=== PATIENT | female | born 1940 | race Caucasian/White ===

== ENCOUNTER 2024-04-26 16:09 | Inpatient (IN) | payer MEDICARE, MEDICAID, SELFPAY ==
[2024-04-26] VITALS (9 sets, daily range): BP systolic 121–146; BP diastolic 41–97; BMI 28.0
[2024-04-26 12:14] LABS: % Basophils 0.2 % (0-2); % Eosinophils 1.6 % (0-6); % Lymphocytes 16.4 % (20.5-51.1); % Monocytes 4.9 % (1.7-9.3); % Neutrophils 75.9 % (42.2-75.2); Absolute Eosinophils 0.1 10^3/uL (0-0.7); Absolute Immature Granulocytes 0.1 10^3/uL (0-0.05); Absolute Lymphocytes 1.4 10^3/uL (1.2-3.4); Absolute Monocytes 0.4 10^3/uL (0.1-0.6); Absolute Neutrophils 6.5 10^3/uL (1.4-6.5); Hematocrit 24.3 % (37.0-47.0); Hemoglobin 8.4 g/dL (12.0-16.0); Mean Corp Hgb Conc. 34.6 g/dL (33.0-37.0); Mean Corpuscular Hgb 31.1 pg (27.0-31.0); Mean Platelet Volume 9.7 fL (7.4-10.4); Nucleated Red Blood Cells % 0 %; Platelet Count 148 10^3/uL (130-400); Red Cell Dist. Width 15.8 % (11.5-14.5); White Blood Cell Count 8.6 10^3/uL (4.8-10.8)
[2024-04-26 12:25] LABS: ALT (SGPT) 18 U/L (0-35); AST (SGOT) 21 U/L (14-36); Alkaline Phosphatase 120 U/L (38-126); Blood Urea Nitrogen 86 mg/dl (7-17); Calcium 9.6 mg/dl (8.4-10.2); Carbon Dioxide 11 mmol/L (22-30); Chloride 110 mmol/L (98-107); Glucose 104 mg/dl (70-99); Potassium 4.7 mmol/L (3.5-5.1); Sodium 136 mmol/L (135-145); Total Bilirubin 0.6 mg/dl (0.2-1.3); eGFR 13.18
[2024-04-26 12:31] LABS: Troponin I 0.025 ng/ml
--- NOTE | 2024-04-26 12:39 | ED.GENMED ---
History of Present Illness
General
Chief Complaint: Abdominal Pain
Source: patient
Exam Limitations: none
Time Seen by Provider: 04/26/24 12:02
Nursing documentation reviewed up to this point in time: agreed with
History of Present Illness
History of Present Illness:
Patient is an 84-year-old female for Unsocial with a history of chronic kidney disease stage III, hypertension, paroxysmal A-fib, COPD, type 2 diabetes presents for 2 days of both left-sided chest pain as well as right lower quadrant pain.
Patient says that she started feeling this discomfort in her chest and felt a little short of breath. It was initially a little bit worse in her chest but seems to have progressed more in her belly. Its on the right side more than the left. She
asked the nurse to call 911 last night but they told her that they were unable to reach one of the physicians so they would call in the morning. Patient says she did not sleep well and she has not been having an appetite. She also vomited once
this morning. She has no fever or chills, urinary symptoms, diarrhea, constipation. Patient previously had an open cholecystectomy remotely. She does have chronic kidney disease and was unaware of what her baseline creatinine is. She is never
been here before. I called the residential and they told me last year her creatinine was 2.7 and her hemoglobin was 8
Past History
Past History
ED Past Medical History: Arrthythmia (paf), CAD, COPD, HTN, Hypercholesterolemia and Other (CKD STAGE III)
Social History
Tobacco: Non-smoker
Alcohol: None
Review of Systems
Review of Systems
Allergies reviewed?: Yes
All Other Systems: Not applicable
Phy Exam
Physical Exam
Physical Exam:
GENERAL: Alert , in no apparent distress
EYE: pupils equal and reactive
NECK: Supple
ENT: o/p clr, mmm.
CARDIAC: Regular rate and rhythm .
LUNGS: Clear breath sounds bilaterally, no acute respiratory distress, no wheezes/rales/rhonchi
ABDOMEN: Soft, mild ruight sided abdominal tendneress, R flank/RLQ, no r/g, no cvat, normal bowel sounds
NEUROLOGICAL: Alert and oriented, no focal neuro deficits
SKIN: Warm and dry, skin intact.
MUSCULOSKELETAL: No edema, well perfused. neg lucien's sign
PSYCH: Normal and appropriate interaction.
Course
Orders/Labs/Results
Orders:
Orders
04/26/24 Lunch
NPO
Allow oral meds: Yes
Allow clear liquids: No
04/26/24 11:36
Electrocardiogram (*1) Urgent
Reason for Study: Chest Pain
04/26/24 11:37
EKG- Treatment ONCE
04/26/24 11:38
Complete Blood Count/With Diff Urgent
Comprehensive Metabolic Panel Urgent
Ferritin Urgent
Comment: ADD ON
Folate Urgent
Comment: ADD ON
Iron Urgent
Comment: ADD ON
LDH Urgent
Comment: ADD ON
Lipase Urgent
Total Iron Binding Urgent
Comment: ADD ON
Troponin I Urgent
Vitamin B12 Urgent
Comment: ADD ON
04/26/24 12:30
Bladder Scan- Treatment ONCE
04/26/24 12:40
0.9% Sodium Chloride 500 ml [Nss] 500 ml IV BOLUS
04/26/24 12:41
CT Abd/pel Without Iv Or Oral Urgent
Comment:
Reason For Exam: rlq pain, vomting, ckd;
CR Chest - 2 Views Urgent
Comment:
Reason For Exam: left sided chest pain
04/26/24 12:45
Lactic Acid Q4H
Comment: CANCEL 2nd LACTIC ACID IF 1st LACTIC ACID IS LESS THAN 2
Venous Blood Gas Urgent
%Oxygen/Room Air: 21
04/26/24 12:52
Urinalysis Reflex To Culture Urgent
Date Specimen was Collected: 04/26/24
Time Specimen was Collected: 12:46
Urine Microscopic Reflex Cult Urgent
Urine Culture Urgent
NOLBERTO Source: U
Specimen Description:
Date Specimen was Collected: 04/26/24
Time Specimen was Collected: 12:46
04/26/24 13:09
Add On- LAB Urgent
Tests Added?: LDH
Lactated Ringers [Lr] 500 ml IV BOLUS
04/26/24 14:11
Add On- LAB Urgent
Tests Added?: triglycerides
04/26/24 14:14
Add On- LAB Urgent
Tests Added?: tibc, ferritin, iron, b12 folate
04/26/24 14:15
0.9% Sodium Chloride 1000 ml [Nss] 1,000 ml IV 150 mls/hr
04/26/24 14:46
GASTROINTESTINAL CONSULT Routine
Consulting Provider: Arabella Tinoco
Was physician already notified: Yes
Reason for consult: acut pnacreatitis
04/26/24 15:00
Lactated Ringers [Lr] 1,000 ml IV 150 mls/hr
04/26/24 15:07
Add On- LAB Urgent
Tests Added?: trigylcerides
04/26/24 16:45
Lactic Acid Q4H
Comment: CANCEL 2nd LACTIC ACID IF 1st LACTIC ACID IS LESS THAN 2
04/27/24 08:00
0.9% Sodium Chloride [Nss (Preservative Free)] 10 ml IV DAILY
Pantoprazole [Protonix IV] 40 mg IV DAILY
Abnormal Lab Results
04/26/24 04/26/24 04/26/24
11:38 12:45 12:52
RBC 2.70 L 10^6/uL
(4.20-5.40)
Hgb 8.4 L g/dL
(12.0-16.0)
Hct 24.3 L %
(37.0-47.0)
MCH 31.1 H pg
(27.0-31.0)
RDW 15.8 H %
(11.5-14.5)
Abs Immat Gran (auto) 0.1 H 10^3/uL
(0-0.05)
Immature Gran % 1.0 H %
(0-0.5)
Neutrophils % 75.9 H %
(42.2-75.2)
Lymphocytes % 16.4 L %
(20.5-51.1)
VBG pH 7.21 L
(7.32-7.43)
VBG pO2 158 H mmHg
(30-50)
VBG HCO3 14.0 L mmol/L
(22-27)
Chloride 110 H mmol/L
(98-107)
Carbon Dioxide 11 L* mmol/L
(22-30)
BUN 86 H mg/dl
(7-17)
Creatinine 3.3 H mg/dL
(0.6-1.0)
Glucose 104 H mg/dl
(70-99)
Lactic Acid < 0.5 L mmol/L
(0.7-2.0)
TIBC 249 L ug/dl
(265-497)
Lipase > 4000 H* U/L
(23-300)
Ur Occult Blood Reflex 4+ A
(Negative)
Leukocyte Esterase Rfl 2+ A
(Negative)
Urine WBC (Reflex) 40-50 A /HPF
(0-5)
Urine Bacteria (Reflex) Moderate A
(Negative)
Urine Albumin (Reflex) 2+ A
(Neg - Trace)
04/26/24 11:38
04/26/24 11:38
Vital Signs
Initial and Last Documented VS:
Initial Vital Signs
Resp BP
19 142/49
04/26/24 11:35 04/26/24 11:35
Last Documented Vital Signs
Temp Pulse Resp BP Pulse Ox
97.4 F 70 17 121/97 97
04/26/24 11:36 04/26/24 13:45 04/26/24 13:45 04/26/24 13:00 04/26/24 13:45
MDM/Problems Addressed
Differential Diagnosis Includes:
appe, kidney stone, ACS, divertic, pancreatitis
MDM/Problems Addressed:
84 y/o F
ckd stage III
cr int he 2's last year
here with 2-3 days of chest pain and abdominal pain, 1 episode vomiting, dec appetite
no fever, cough
no sob now though she said she felt SOB when sypmtoms started
she asked the RN to get her to the [facility] but they told her they couldn't until today
she has stable vitals
looks a little uncomfortable and has some tenderness but no rebound
labs reviewed, hg stable, lipase 4000, normal bili
ct ap confirms acute pancreatitis
admit for ivf, pain control, bowel rest
trop neg
*Critical Care Note
Total Time (30-74mins, 75-104mins- exclusive of procedures): Not Applicable
ED Attending Note
-
Portions of this chart may have been created with voice recognition software.� Occasional wrong word or��sound alike� substitutions may have occurred due to the inherent limitations of voice recognition software.
Discharge Plan
Departure
Patient Disposition: Admit
Date of Disposition: 04/26/24
Time of Disposition: 13:17
Admit to: IMU
Presentation/result/management discussed w/ accepting MD/DO: Hospitalist
Condition: Fair
Covid-19: Not Applicable
Discharge Problem:
Acute pancreatitis, Chest pain, Metabolic acidosis
Prescriptions:
No Action
hydralazine 10 mg Tablet
10 mg PO Q8H
acetaminophen 325 mg Tablet
650 mg PO Q4HPRN MDD 3000 mg PRN (Reason: mild pain/fever >101)
loperamide 2 mg Tablet
2 mg PO Q6HPRN PRN (Reason: diarrhea)
allopurinol 100 mg Tablet
50 mg PO Q48H
carvedilol 3.125 mg Tablet
3.125 mg PO BID
ondansetron [Zofran ODT] 8 mg Tablet,Disintegrating
8 mg PO Q8HPRN PRN (Reason: nausea)
famotidine [Pepcid] 20 mg Tablet
20 mg PO Q8HPRN PRN (Reason: GERD)
magnesium hydroxide 400 mg/5 mL Suspension
30 ml PO [id number] PRN (Reason: no bm 3 days)
amlodipine 10 mg Tablet
10 mg PO DAILY
bisacodyl 10 mg Suppository
10 mg CO DAILYPRN PRN (Reason: no bm 24 hrs after mom)
Fleet Enema 19-7 gram/118 mL Enema
118 ml CO DAILYPRN PRN (Reason: no bm 24 hrs after bisacodyl)
sertraline [Zoloft] 25 mg Tablet
25 mg PO DAILY
alum-mag hydroxide-simeth [Maalox Maximum Strength] 400-400-40 mg/5 mL Suspension
5 ml PO Q6HPRN PRN (Reason: reflux)
Saccharomyces boulardii [Florastor] 250 mg Capsule
250 mg PO BIDPRN PRN (Reason: diarrhea)
PreserVision AREDS 4,296 mcg-226 mg-90 mg Capsule
1 cap PO DAILY
melatonin 5 mg Tablet
5 mg PO BIDPRN PRN (Reason: insomnia)
cholecalciferol (vitamin D3) 75 mcg (3,000 unit) Tablet
75 mcg PO DAILY
Eliquis 2.5 mg Tablet
2.5 mg PO BID
lidocaine HCl [Aspercreme (lidocaine HCl)] 4 % Cream
1 applic TOPICAL Q6HPRN PRN (Reason: back and neck)
Eucerin Itch Relief 0.1 % Lotion
1 ea TOPICAL DAILY
Referrals:
Zoila Massey, [Family Provider] -
Interventions
Interventions:
*Risk Screen - Suicide Last Done: 04/26/24 11:36
*General Assessment Last Done: 04/26/24 11:36
*Neglect/Abuse Screening Last Done: 04/26/24 11:36
PE-Lhghdi-Yxfvkpaknz Assessment Last Done: 04/26/24 11:49
Discharge Date and Time
Print Language: AMHARIC
[2024-04-26] MEDS: NSS 500 IV (13:06)
[2024-04-26 13:07] LABS: Lipase > 4000 U/L (23-300)
[2024-04-26 13:16] LABS: Venous Blood Gas B.E. -12.8 mmol/L (-4 to +4); Venous Blood Gas O2 Sat % 99.9 %; Venous Blood Gas pCO2 35 mmHg (35-48); Venous Blood Gas pH 7.21 (7.32-7.43); Venous Blood Gas pO2 158 mmHg (30-50)
[2024-04-26 13:17] LABS: Venous Blood Gas O2 Therapy 21
[2024-04-26 13:18] LABS: Urine Albumin 2+ (Neg - Trace); Urine Bilirubin Negative (Negative); Urine Character Slightly Cloudy (Clear); Urine Color Yellow; Urine Glucose Negative (Negative); Urine Ketone Negative (Negative); Urine Leukocyte 2+ (Negative); Urine Nitrite Negative (Negative); Urine Occult Blood 4+ (Negative); Urine Urobilinogen Negative (Neg - 1+)
[2024-04-26 13:23] LABS: Urine Squamous Cell 0-2 /LPF (Few)
[2024-04-26 13:24] LABS: Urine Bacteria Moderate (Negative); Urine Red Blood Cell 0-2 /HPF (0-2); Urine White Cell 40-50 /HPF (0-5)
[2024-04-26 13:34] LABS: Lactic Acid < 0.5 mmol/L (0.7-2.0)
--- NOTE | 2024-04-26 13:40 | HPS.HSE ---
Family Physician
<CHARMAINE Simpson - Last Filed: 04/26/24 17:23>
-
Family Physician: Zoila Massey DO
Chief Complaint
<CHARMAINE Simpson - Last Filed: 04/26/24 17:23>
History of Present Illness
84-year-old female from [facility] where she lives with a roommate who reports on Thursday she started to feel ill with nausea, decreased appetite, left upper chest pain through to back. She reports unable to eat food but has been attempting to
have some water. She reports the pain is across her mid abdomen increased to the right side. She also reports her left-sided chest pain goes through to her back but increased when her abdominal pain occurs, although she reported chest pain to the
EMS today and they gave her nitro which did not make a difference. She reports her roommate has pneumonia at the present time. They both have had COVID in the past. The patient denies being tested at this time. She does report some pudding-like
stool x 1 today but denies fever, chills, sore throat, palpitations, shortness of breath, urinary symptoms.
She has past medical history paroxysmal A-fib, HTN, GERD, CKD 3 A, COPD, former smoker gout, anxiety, insomnia, obesity, chronic ambulatory dysfunction uses walker at baseline.
<Carlos Valdez MD - Last Filed: 04/26/24 14:55>
-
.
Medical History
<CHARMAINE Simpson - Last Filed: 04/26/24 17:23>
Past Medical History
Past Medical History: Reports Other
Additional Past Medical History:
paroxysmal A-fib
COPD
Former smoker
HTN
GERD
CKD 3 A
gout
anxiety
insomnia
Chronic ambulatory dysfunction uses walker
Obesity
Past Surgical History: Reports Other
Additional Past Surgical History:
Cataract extraction
Cholecystectomy
Left leg surgery
Social History
Tobacco: Former Smoker (Quit age 41)
Alcohol: None
Drug: None
Personal: Single
Living: Halfway ([facility])
Employment: Retired
Family History
Family History: Not pertinent
Allergies / Home Medications
Allergies reflects when Allergies were last updated in [facility].
Home Medications with original date entered in [facility]
Allergy/Medication List:
Allergies
Allergy/AdvReac Type Severity Reaction Status Date / Time
No Known Allergies Allergy Unverified 04/26/24 11:48
Home Medications
Saccharomyces boulardii 250 mg capsule (Florastor) 250 mg PO BIDPRN PRN diarrhea 04/26/24
acetaminophen 325 mg tablet 650 mg PO Q4HPRN PRN mild pain/fever >101 04/26/24
allopurinol 100 mg tablet 50 mg PO Q48H 04/26/24
aluminum-mag hydroxide-simethicone 400 mg-400 mg-40 mg/5 mL oral susp (Maalox Maximum Strength) 5 ml PO Q6HPRN PRN reflux 04/26/24
amlodipine 10 mg tablet 10 mg PO DAILY 04/26/24
apixaban 2.5 mg tablet (Eliquis) 2.5 mg PO BID 04/26/24
bisacodyl 10 mg rectal suppository 10 mg PA DAILYPRN PRN no bm 24 hrs after mom 04/26/24
carvedilol 3.125 mg tablet 3.125 mg PO BID 04/26/24
cholecalciferol (vitamin D3) 75 mcg (3,000 unit) tablet 75 mcg PO DAILY 04/26/24
famotidine 20 mg tablet (Pepcid) 20 mg PO Q8HPRN PRN GERD 04/26/24
hydralazine 10 mg tablet 10 mg PO Q8H 04/26/24
lidocaine HCl 4 % topical cream (Aspercreme (lidocaine HCl)) 1 applic topical Q6HPRN PRN back and neck 04/26/24
loperamide 2 mg tablet 2 mg PO Q6HPRN PRN diarrhea 04/26/24
magnesium hydroxide 400 mg/5 mL oral suspension 30 ml PO [id number] PRN no bm 3 days 04/26/24
melatonin 5 mg tablet 5 mg PO BIDPRN PRN insomnia 04/26/24
menthol 0.1 % lotion (Eucerin Itch Relief) 1 ea topical DAILY bl arms 04/26/24
ondansetron 8 mg disintegrating tablet 8 mg PO Q8HPRN PRN nausea 04/26/24
sertraline 25 mg tablet (Zoloft) 25 mg PO DAILY 04/26/24
sodium phosphates 19 gram-7 gram/118 mL enema (Fleet Enema) 118 ml PA DAILYPRN PRN no bm 24 hrs after bisacodyl 04/26/24
vitamins A,C,N-mgxc-fmfmll 4,296 mcg-226 mg-90 mg capsule (PreserVision AREDS) 1 cap PO DAILY 04/26/24
Review of Systems
<CHARMAINE Simpson - Last Filed: 04/26/24 17:23>
-
History Source: Patient
A 12 point ROS was completed and negative except as noted: Yes
Constitutional: Denies Fever or Chills
EENT: Denies Sore Throat or Runny Nose
Respiratory: Reports Cough; Denies Trouble Breathing
Cardiac: Reports Chest Pain (Left upper chest)
Abdomen/GI: Reports Abdominal Pain, Nausea, Vomiting and Diarrhea (Pudding-like x 1 episode)
: Denies Dysuria, Frequency, Flank Pain, Incontinence, Difficulty Voiding or Urgency
Musculoskeletal: Denies Joint Pain or Edema
Skin: Denies Itching or Rash
Neurological: Denies Dizzy, Headache or Weakness
Endocrine: Reports No Symptoms
Hematologic/Lymphatic: Reports No Symptoms
Psych: Reports Calm
Physical Exam
<CHARMAINE Simpson - Last Filed: 04/26/24 17:23>
Vital Signs
Vital Signs
Temp Pulse Resp BP Pulse Ox
97.4 F 73 17 142/49 96
04/26/24 11:36 04/26/24 11:45 04/26/24 11:45 04/26/24 11:36 04/26/24 11:45
Physical Exam
General: Pain; No Fever or Chills
HEENT: NormoCephalic, Anicteric, PERRLA, [place] Conjunctivae and No Ptosis
Respiratory: Clear; No Wheezes, Rales or Rhonchi
Cardiac: S1/S2 and Regular Rhythm; No Murmur, Rub, Gallop or Peripheral Edema
Breast: Deferred by me
GI: Soft, Non Distended, Normal Bowel Sounds, Tender (Across mid abdomen increased right-sided) and No Hepatosplenomegaly
Rectal: Deferred by Provider
Genito-urinary: Deferred by me
Musculoskeletal: No Clubbing, No Cyanosis and No Edema
Skin: Warm and Dry; No Rash or Jaundice
Neuro: AO x 3, No Motor Deficits, Nonfocal/grossly intact, Cranial Nerves Intact and No Sensory Deficits; No Slurred Speech, Facial Droop, Tremors or Sedated
Psych: Calm
Laboratory Results
<CHARMAINE Simpson - Last Filed: 04/26/24 17:23>
-
04/26/24 11:38
04/26/24 11:38
Laboratory Results
Lactic Acid < 0.5 mmol/L (0.7-2.0) L 04/26/24 12:45
Total Bilirubin 0.6 mg/dl (0.2-1.3) 04/26/24 11:38
AST 21 U/L (14-36) 04/26/24 11:38
ALT 18 U/L (0-35) 04/26/24 11:38
Alkaline Phosphatase 120 U/L (38-126) 04/26/24 11:38
Troponin I 0.025 ng/ml 04/26/24 11:38
Lipase > 4000 U/L (23-300) H* 04/26/24 11:38
Impression/Plan
<LAINEY SimpsonNP - Last Filed: 04/26/24 17:23>
-
Impression/plan:
Admit to MED surg
#Acute pancreatitis
Metabolic acidosis
Lipase>4000, nml LFTs
-N.p.o.
-IV LR 150 cc an hour
-IV Zofran
-IV PPI
-triglyceride level 116
CT abdomen pelvis limited study without intravenous and oral contrast with findings suggesting some mild peripancreatic inflammatory changes such as ACUTE PANCREATITIS.
Suggest correlation with serum lipase. Small volume fluid extending into the anterior pararenal space and within the dependent true pelvis.
Sigmoid diverticulosis.
Cannot exclude some thickening of the wall of the right colon, mass versus inflammation versus underdistention. No intestinal obstruction or free air.
Prior cholecystectomy.
Small right and at least small to moderate left pleural effusion with accompanying bilateral lower lobe subsegmental atelectasis.
Cannot exclude left lower lobe pneumonia and some minor patchy right lower lobe pneumonitis.
# ADAM on CKD3A likely secondary to volume loss
-Creat 3.3/186-reported creat 1 year ago 2.7
- follow bmp
IV LR 150 cc an hour
EKG: Sinus rhythm with first-degree AV block 74 bpm, QTc 466 MS
#Asymptomatic pyuria
-Will follow urine culture
#Anemia�normocytic
Hgb 8.4
-Check stool occult
-Check iron panel, B12, folate
#Paroxysmal A-fib
On Eliquis 2.5 mg twice daily
-Continue carvedilol 3.125 mg twice daily
#HTN�benign
BP 142/49
-Continue hydralazine 10 mg every 8 hours, carvedilol 3.125 mg p.o. twice daily, amlodipine 10 mg daily
#GERD
-On oral Pepcid 20 mg every 8 hours as needed
Will add IV PPI
#Gout
-Continue allopurinol 50 mg every 48 H
#Hx anxiety
No reported meds
#Insomnia
Patient takes melatonin 5 mg twice daily as needed
DVT prophylaxis
Continue [employer]ECTIVE [employer] SECTION Eliquis 2.5 mg twice daily
Full code per patient wants full attempt at CPR including brief intubation
[2024-04-26 13:41] LABS: LDH 187 U/L (120-246)
[2024-04-26 14:50] LABS: Iron 64 ug/dl (37-170)
--- NOTE | 2024-04-26 14:56 | W.PN.UPDATE ---
Update Note
Progress Note Update
84 female with a past medical history of paroxysmal atrial fibrillation, hypertension, GERD, CKD stage IIIa, COPD, former smoker, gout, anxiety, insomnia, obesity, chronic ambulatory dysfunction who presents with acute onset abdominal pain that
began on Thursday, epigastric wrapping around to the back associated nausea without vomiting. Has been constant and unremitting. Unable to tolerate p.o. intake. Has not been around anyone who is sick. No history of symptomatology as of this
previously. Does not drink alcohol. gallbladder removed.
Lipase 4000 and with a creatinine of 3.3, BUN 86, carbon dioxide 11. VBG pH 7.2 with a pCO2 of 35, pO2 158, bicarb 14. LFTs .
CT abdomen pelvis demonstrating acute pancreatitis and diverticulosis without diverticulitis.
EKG sinus rhythm with a first-degree AV block with a WV interval of 248, T wave inversions in V6 and lead I along with aVL
NAD, resting comfortably in bed
Scleral anicteric
Moist mucous membranes
No JVD
CTA bilateral
Normal S1-S2 no murmurs
Soft epigastric tender nondistended bowel sounds active
No peripheral pitting edema
Moves extremities spontaneously
AAOx3
Acute pancreatitis unclear as to cause
�IV fluids
�N.p.o.
�Analgesics
�TG level
�IV antiemetic
ADAM on CKD 3A likely secondary to volume loss/poor p.o. intake
� IV fluids
� Check bladder scan
� Monitor urinary output
� Avoid nephrotoxins Hypotension
�Bladder
Asymptomatic bacteriuria
-No antibiotics indicated at this time if develops symptoms then we will treat
Paroxysmal atrial fibrillation
�Continue beta-ross and Eliquis
Hypertension
�Continue antihypertensives
GERD
�Continue Pepcid
[2024-04-26 14:57] LABS: Percent Saturation 25 % (20-50); Total Iron Binding Capacity 249 ug/dl (265-497)
--- NOTE | 2024-04-26 15:15 | CON.GI ---
Addendum entered and electronically signed by Arabella Mora Do, MD 04/26/24 18:44:
I saw and examined the patient.
The SLICING MACHINE OPERATOR/TENDER's note was reviewed and I agree with the note.
Comment: Melissa is an 84yo W SN[facility] resident with h/o CKD, pAfib on AC and HTN who was admitted with abd pain. Found to have 1st episode of acute pancreatitis. No new meds or ETOH intake. She has h/o cholecystectomy in past. Pain is now 4 out of 10.
Nausea with vomiting. VSS obese TTP epigastric obese
Impression
- Acute pancreatitis
- CKD
- Obesity
- HTN
- GERD
- pAfib on AC
Recommendations
- Bowel rest
- LR at 100mL/hr
- IV pain meds and anti-emetic PRN basis
- TG is normal. No ETOH or new meds
Will follow with you
Original Note:
Consultation
-
Date/Time Consultation Requested: 04/26/24
Date/Time Consultation Performed: 04/26/24 @ 15:15
Requesting Provider: CHARMAINE Simpson
Performing Provider: CHARMAINE Henderson; Dr. Arabella Tinoco
Reason for Consultation: pancreatitis
Medical History
Chief Complaint / HPI
Chief Complaint: abdominal pain
History of Present Illness:
The pt is an 84 yo female with a PMH significant for Paroxysmal Afib on eliquis, HTN, GERD, COPD, hx remote CCY, gout, anxiety, CKD III, chronic anemia, CHF, obesity, who presented to the ER with complaints of abdominal pain. We are being asked to
evaluate for pancreatitis. The patient is a poor historian, but reports for the last several days she had not been feeling well. She admits to pain in the upper abdomen radiating to the right side into her back. She reports the pain was constant
and was affecting her sleep. She denies any prior similar pain although she did have back pain when she had her gallbladder removed in her 40s. She admits to nausea and vomiting x 2 episodes but this has since resolved. She reports she was having
some shortness of breath at the long term and therefore they gave her a breathing treatment and put her on oxygen which did improve her symptoms. She reports the pain continued and therefore was brought to the emergency room for evaluation. She
denies any fevers or chills. She has no chest pain. She does admit that her bowels are chronically looser and soft and will have 1-2 bowel movements a day on average. She denies any melena or hematochezia. She reports that her weight has reduced
since moving to [facility] a year and a half ago as she does not like the food there. She denies any recent antibiotic use. She denies any changes in her medications although she is unsure as she does not manage her medications by herself. She
reports that she was placed on sertraline for anxiety within the last year. She denies any family history of pancreatitis or pancreatic cancer. She denies any history of high triglycerides or hyperlipidemia. She admits to chronic anemia secondary
to her kidney disease. She does admit to drinking heavily in her 40s with 1 case of beer per week and 1 bottle of vodka per week but she has not drank in over 40 years. She denies smoking. She denies any drug use. She has never had pancreatitis
in the past. Her last colonoscopy was done in September 2021 where she had about 6 polyps removed. She does not recall who her doctor is that did the procedure but she was recommended to come back in 3 years time. She has never had an EGD.
Routine labs on admission showed Lipase >4000, Cr 3.3, total CO2 11, lactic acid less than 0.5, Serum iron 64, iron saturation 25%, TB 0.6, AST 21, ALT 18, alk phos 120, Na 136, K 4.7, WBC 8.6, hgb 8.4, Plt 148,000, trop negative x1, LDH 187, TG
pending. UA showing possible UTI. CT of the A/P was obtained without contrast showing findings suggestive of acute pancreatitis. There also was some thickness of the wall of the right colon but limited without contrast. She is being admitted for
further evaluation by GI. She was started on LR @ 150mL/hr. She is NPO.
Past Medical History
Past Medical History: Arrhythmias (Paroxysmal Afib), CHF, COPD, GERD, HTN and Other (CKD stage III, gout, insomnia, obesity, chronic ambulatory dysfunction, chronic anemia)
Past Surgical History: Cholecystectomy, Orthopedic (left leg surgery) and Other (cataract extraction)
Social History
Tobacco: Former Smoker
Alcohol: None
Drug: None
Living: Retirement ([facility])
Family History
Family History: Reviewed & Not Pertinent
Allergies / Home Medications
Allergy/AdvReac Type Severity Reaction Status Date / Time
No Known Allergies Allergy Unverified 04/26/24 11:48
�Medication �Instructions �Recorded
Saccharomyces boulardii 250 mg 250 mg PO BIDPRN PRN diarrhea 04/26/24
capsule (Florastor)
acetaminophen 325 mg tablet 650 mg PO Q4HPRN PRN mild 04/26/24
pain/fever >101
allopurinol 100 mg tablet 50 mg PO Q48H Gout 04/26/24
aluminum-mag hydroxide-simethicone 5 ml PO Q6HPRN PRN reflux 04/26/24
400 mg-400 mg-40 mg/5 mL oral susp
(Maalox Maximum Strength)
amlodipine 10 mg tablet 10 mg PO DAILY Blood Pressure 04/26/24
apixaban 2.5 mg tablet (Eliquis) 2.5 mg PO BID Blood Clot 04/26/24
Prevention/Tx
bisacodyl 10 mg rectal suppository 10 mg MT DAILYPRN PRN no bm 24 hrs 04/26/24
after mom
carvedilol 3.125 mg tablet 3.125 mg PO BID Blood Pressure 04/26/24
cholecalciferol (vitamin D3) 75 75 mcg PO DAILY Supplement 04/26/24
mcg (3,000 unit) tablet
famotidine 20 mg tablet (Pepcid) 20 mg PO Q8HPRN PRN GERD 04/26/24
hydralazine 10 mg tablet 10 mg PO Q8H Blood Pressure 04/26/24
lidocaine HCl 4 % topical cream 1 applic topical Q6HPRN PRN back 04/26/24
(Aspercreme (lidocaine HCl)) and neck
loperamide 2 mg tablet 2 mg PO Q6HPRN PRN diarrhea 04/26/24
magnesium hydroxide 400 mg/5 mL 30 ml PO [id number] PRN no bm 3 days 04/26/24
oral suspension
melatonin 5 mg tablet 5 mg PO BIDPRN PRN insomnia 04/26/24
menthol 0.1 % lotion (Eucerin Itch 1 ea topical DAILY bl arms 04/26/24
Relief)
ondansetron 8 mg disintegrating 8 mg PO Q8HPRN PRN nausea 04/26/24
tablet
sertraline 25 mg tablet (Zoloft) 25 mg PO DAILY Mental Health 04/26/24
sodium phosphates 19 gram-7 118 ml MT DAILYPRN PRN no bm 24 04/26/24
gram/118 mL enema (Fleet Enema) hrs after bisacodyl
vitamins A,C,D-efdi-sepzag 4,296 1 cap PO DAILY Supplement 04/26/24
mcg-226 mg-90 mg capsule
(PreserVision AREDS)
Review of Systems
-
History Source: Patient
Constitutional: Reports Sleep Disturbance
EENT: Reports No Symptoms
Respiratory: Reports Trouble Breathing
Cardiac: Reports No Symptoms
Abdomen/GI: Reports Abdominal Pain, Nausea, Vomiting and Other (chronically loose stools)
: Reports No Symptoms
Musculoskeletal: Reports No Symptoms
Skin: Reports No Symptoms
Neurological: Reports No Symptoms
Endocrine: Reports No Symptoms
Hematologic/Lymphatic: Reports No Symptoms
Vital Signs
Temp Pulse Resp BP Pulse Ox
97.4 F 63 14 126/53 96
04/26/24 11:36 04/26/24 15:00 04/26/24 15:00 04/26/24 15:00 04/26/24 15:00
Physical Exam
Exam
General: Other (Elderly appearing female in NAD)
HEENT: Normocephalic, Anicteric and Atraumatic
Respiratory: Clear (diminished bilateral Lower lobes R>L)
Cardiac: S1/S2 and Regular Rhythm
Breast: Deferred by me
GI: Soft, Normal Bowel Sounds, Tender (RUQ, RLQ, LUQ) and Distended
Rectal: Deferred by Provider
Musculoskeletal: No Edema
Skin: Warm and Dry
Neuro: Awake, Alert and Oriented (forgetful)
Psych: Calm
Results
WBC 8.6 10^3/uL (4.8-10.8) 04/26/24 11:38
Hgb 8.4 g/dL (12.0-16.0) L 04/26/24 11:38
Hct 24.3 % (37.0-47.0) L 04/26/24 11:38
MCV 90.0 fL (81.0-99.0) 04/26/24 11:38
Plt Count 148 10^3/uL (130-400) 04/26/24 11:38
Absolute Neuts (auto) 6.5 10^3/uL (1.4-6.5) 04/26/24 11:38
Sodium 136 mmol/L (135-145) 04/26/24 11:38
Potassium 4.7 mmol/L (3.5-5.1) 04/26/24 11:38
Chloride 110 mmol/L (98-107) H 04/26/24 11:38
Carbon Dioxide 11 mmol/L (22-30) L* 04/26/24 11:38
BUN 86 mg/dl (7-17) H 04/26/24 11:38
Creatinine 3.3 mg/dL (0.6-1.0) H 04/26/24 11:38
Calcium 9.6 mg/dl (8.4-10.2) 04/26/24 11:38
Total Bilirubin 0.6 mg/dl (0.2-1.3) 04/26/24 11:38
AST 21 U/L (14-36) 04/26/24 11:38
ALT 18 U/L (0-35) 04/26/24 11:38
Alkaline Phosphatase 120 U/L (38-126) 04/26/24 11:38
Lipase > 4000 U/L (23-300) H* 04/26/24 11:38
Diagnostic Image Results:
04/26/24 CXR: IMPRESSION: Small to moderate left and small right pleural effusions, left lower lobe subsegmental atelectasis and/or pneumonia and minimal patchy right right lower lobe opacity which could represent subsegmental
atelectasis/pneumonitis. Please see included portions of the lower chest on separate concurrent CT Abdomen report. No pneumothorax.
04/26/24 CT A/P w/o contrast: IMPRESSION: Markedly limited study without intravenous and oral contrast with findings suggesting some mild peripancreatic inflammatory changes such as ACUTE PANCREATITIS. Suggest correlation with serum lipase. Small
volume fluid extending into the anterior pararenal space and within the dependent true pelvis. Sigmoid diverticulosis. Cannot exclude some thickening of the wall of the right colon, mass versus inflammation versus underdistention. No intestinal
obstruction or free air. Prior cholecystectomy. Small right and at least small to moderate left pleural effusion with accompanying bilateral lower lobe subsegmental atelectasis. Cannot exclude left lower lobe pneumonia and some minor patchy right
lower lobe pneumonitis.
Prior GI Procedures:
EGD: none
Colonoscopy: 09/2021 had 6 polyps removed per pt (report not available to me)
Assessment / Plan
-
The pt is an 84 yo female with a PMH significant for Paroxysmal Afib on eliquis, HTN, GERD, COPD, hx remote CCY, gout, anxiety, CKD III, chronic anemia, CHF, obesity, who presented to the ER with complaints of abdominal pain ongoing for several days
with nausea and vomiting found to have a lipase >4000 and findings consistent with pancreatitis on CT scan. She does not drink alcohol. She had her gallbladder removed remotely over 40 years ago. LFT's are normal less likely suggestive obstructive
process such as choledocholithiasis. CT limited without contrast but not biliary ductal dilation or obvious pancreatic mass. She has had significant reduction in intake, likely dehydration given her worsening Cr. Lactic acid is normal.
Problem list:
-elevated lipase, CT showing pancreatitis
-abdominal pain
-chronic normocytic anemia likely 2/2 CKD (per ER hgb 8 last year and Cr 2.7)
-abnormal UA
-acidosis
-hypokalemia
-elevated ferritin, likely acute phase reactant
-CT showing right colon wall thickening (limited without contrast)
Other pertinent medical hx:
-Pafib on Eliquis
-HTN
-GERD
-COPD
-gout
-anxiety
-obestiy
-CHF
Recommendations:
-Etiology of pancreatitis unclear. No obvious biliary ductal dilation or pancreatic lesions on CT although limited without contrast. She is status post CCY remotely 40 years ago. Triglyceride levels are pending. Her LFTs are normal. No new
medications that she is aware of. She denies alcohol.
-At this time we will add IgG4
-Await triglyceride levels
-Continue n.p.o. until her pain has improved, then can advance to clear liquid diet
-PRN analgesics
-Continue IV fluids although I would be cautious given her history of CHF and presence of pleural effusions on her x-ray imaging. Would minimize to 100 cc/h and monitor her fluid volume status
-I did advise she uses the incentive spirometer to prevent pneumonia and atelectasis
-Repeat LFTs in the morning as sometimes they can spike up after a stone passes although I feel this is less likely
-UA abnormal, pending urine culture
-She is very acidotic, defer management to hospitalist.
-Follow-up OP with her GI regarding the need for repeat colonoscopy. Some possible right colonic wall thickening seen on CT but without contrast limits this evaluation.
-Further plan pending above
Data Reviewed
-
CT Scan: Report Reviewed by me
-
-
Thank you for consultation and allowing me to participate in the patient's care. Please call the contact center analyst GI physician during the after hours with any questions or concerns.
[2024-04-26] MEDS: LR 1000 IV ×2 (15:19→23:25)
[2024-04-26 15:47] LABS: Triglycerides 116 mg/dl (10-149)
[2024-04-26 15:54] LABS: Folate 6.9 ng/ml (2.76-20); Vitamin B12 672 pg/ml (239-931)
[2024-04-26] MEDS: APRESOLINE 10 MG PO (18:25)
[2024-04-26] MEDS: COREG 3.125 MG PO (20:17)
[2024-04-26] MEDS: ELIQUIS 2.5 MG PO (20:17)
[2024-04-27] MEDS: APRESOLINE 10 MG PO ×3 (00:59→18:12)
--- NOTE | 2024-04-27 04:19 | DOWNTIME ---
There was a [employer] Client [employer] Operator [employer] Downtime on 04/27/2024 from 0100 to 04/27/2024 at 0255. Downtime documentation of patient's care, including medication administrations, has been reconciled in the electronic record per guidelines. Refer to the
patient's paper chart under the miscellaneous tab to see printed paper medication records and downtime forms.
[2024-04-27 05:59] VITALS: BMI 27.8
[2024-04-27 07:12] LABS: % Basophils 0.3 % (0-2); % Eosinophils 2.3 % (0-6); % Immature Granulocytes 0.6 % (0-0.5); % Monocytes 10.7 % (1.7-9.3); % Neutrophils 63.1 % (42.2-75.2); ALT (SGPT) 15 U/L (0-35); AST (SGOT) 18 U/L (14-36); Absolute Eosinophils 0.2 10^3/uL (0-0.7); Absolute Lymphocytes 1.6 10^3/uL (1.2-3.4); Absolute Monocytes 0.8 10^3/uL (0.1-0.6); Absolute Neutrophils 4.4 10^3/uL (1.4-6.5); Albumin 3.3 g/dl (3.5-5.0); Alkaline Phosphatase 95 U/L (38-126); Blood Urea Nitrogen 77 mg/dl (7-17); Calcium 9.3 mg/dl (8.4-10.2); Carbon Dioxide 15 mmol/L (22-30); Chloride 112 mmol/L (98-107); Estimated Creatinine Clearance 14 ml/min; Glucose 64 mg/dl (70-99); HDL Cholesterol 48 mg/dl; Hematocrit 21.3 % (37.0-47.0); Hemoglobin 7.1 g/dL (12.0-16.0); LDL Cholesterol, Calculated 97 mg/dl; Mean Corp Hgb Conc. 33.3 g/dL (33.0-37.0); Mean Corpuscular Hgb 30.6 pg (27.0-31.0); Mean Corpuscular Volume 91.8 fL (81.0-99.0); Mean Platelet Volume 9.9 fL (7.4-10.4); Nucleated Red Blood Cells % 0 %; Platelet Count 113 10^3/uL (130-400); Potassium 4.6 mmol/L (3.5-5.1); Red Blood Cell Count 2.32 10^6/uL (4.20-5.40); Red Cell Dist. Width 16.2 % (11.5-14.5); Sodium 138 mmol/L (135-145); Total Bilirubin 0.4 mg/dl (0.2-1.3); Total Cholesterol 162 mg/dl (50-199); Total Protein 6.1 g/dl (6.3-8.2); Triglyceride 89 mg/dl (10-149); Very Low Density Lipoprotein 17 mg/dl (0-30); eGFR 15.39
--- NOTE | 2024-04-27 07:37 | W.PN.HOSP.TC ---
Addendum entered and electronically signed by Carlos Valdez MD 04/27/24 12:16:
NAD, resting comfortably in bed
Scleral anicteric
Moist mucous membranes
No JVD
CTA bilateral
Normal S1-S2 no murmurs
Soft nontender nondistended bowel sounds active
No peripheral pitting edema
Moves extremities spontaneously
AAO
Original Note:
Today's Communication/Plan
-
IVF
IV Antiemetics
Attempt to advance diet to CLD if able
GI eval as etiology uncleat (no gallbladder, no alcohol use, TG low, could not identify medication that could trigger)
Assessment / Plan
Assessment / Plan
Acute pancreatitis unclear as to cause
�IV fluids with LR to prevent bacterial translocation
�N.p.o., if abdominal pain improved today can trial CLD
�IV Analgesics
�IV antiemetic
ADAM on CKD 3A likely secondary to volume loss/poor p.o. intake
- - Improved slightly
� IV fluids
� Check bladder scan
� Monitor urinary output
� Avoid nephrotoxins Hypotension
�Bladder
Metabolic acidosis - non anion
- Likely related to CKD
- If HCO3 persistently low in the setting of CKD IIIB/IV, KIDGO guideline with rec starting alkali therapy.
- Expect to improve on LR/Fluid repletion
- - Start alkali therapy now for goal HCO3 of 22-26
Asymptomatic bacteriuria
-No antibiotics indicated at this time if develops symptoms then we will treat
Anemia normcocytic - chronic without evidence of acute blood loss.
-Monitor for now. Hgb stable. Likely component of hemodilution as she is recieving large amounts of fluid for pancreatitis
-If <7 then will discuss transfusion with her
Paroxysmal atrial fibrillation
�Continue beta-ross and Eliquis
Hypertension
�Continue antihypertensives
GERD
�Continue Pepcid
Anticipated Discharge: 24 - 48 hours
Subjective/Interval History
-
Date of Service: April 27, 2024
Seen and examined. Feeling better. Working with physical therapy.
Objective Data
-
Labs:
Laboratory Results
04/27/24
05:56
WBC 7.0
Hgb 7.1 L
Hct 21.3 L
Plt Count 113 L D
Sodium 138
Potassium 4.6
Chloride 112 H
Carbon Dioxide 15 L
BUN 77 H
Creatinine 2.9 H
Glucose 64 L
Calcium 9.3
Total Bilirubin 0.4
AST 18
ALT 15
Alkaline Phosphatase 95
Vital Signs:
Vital Signs
Temp Pulse Resp BP Pulse Ox
96.4 F L 74 20 136/46 98
04/26/24 23:21 04/27/24 00:59 04/26/24 23:21 04/27/24 00:59 04/26/24 23:21
I&O
04/26/24 04/27/24 04/28/24
06:59 06:59 06:59
Intake Total 1200 / 1200
Balance 1200 / 1200
[2024-04-27 07:40] VITALS: BP 148/54
[2024-04-27] MEDS: BICITRA 15 ML PO ×2 (08:56→16:29)
[2024-04-27] MEDS: COREG 3.125 MG PO ×2 (08:57→20:46)
[2024-04-27] MEDS: ELIQUIS 2.5 MG PO ×2 (08:57→20:46)
[2024-04-27] MEDS: ZOLOFT 25 MG PO (08:57)
[2024-04-27] MEDS: NORVASC 10 MG PO (08:58)
[2024-04-27] MEDS: PROTONIX IV 40 MG IV (09:01)
[2024-04-27] MEDS: NSS (PRESERVATIVE FREE) 10 ML IV (09:02)
[2024-04-27] MEDS: LR 1000 IV ×2 (09:31→21:21)
--- NOTE | 2024-04-27 10:18 | W.PN.GI.CBS2 ---
Today's Communication / Plan
-
Continue current management
Assessment / Plan
-
Melissa is an 84yo W SNF resident with h/o CKD, pAfib on AC and HTN who was admitted with abd pain. Found to have 1st episode of acute pancreatitis. No new meds or ETOH intake. She has h/o cholecystectomy in past. Pain is now 4 out of 10. Nausea
with vomiting. VSS obese TTP epigastric obese
Impression
- Acute pancreatitis
1st episode, no ETOH s/p CYY
Unclear etiology suspect idiopathic
- CKD
- Obesity
- HTN
- GERD
- pAfib on AC
Recommendations
- Bowel rest
- C/w LR at 100mL/hr
- IV pain meds and anti-emetic PRN basis
- TG is normal. No ETOH or new meds. IGG4 pending
Will follow with you
Subjective
Subjective
Date of Service: April 27, 2024
Still with 8 out of 10 abd pain this AM. Denies nausea/vomiting. No appetite and lack of desire to eat
Objective
Data Reviewed
Laboratory Data:
Laboratory Results
04/27/24 05:56
04/27/24 05:56
Laboratory Results
Total Bilirubin 0.4 mg/dl (0.2-1.3) 04/27/24 05:56
AST 18 U/L (14-36) 04/27/24 05:56
ALT 15 U/L (0-35) 04/27/24 05:56
Alkaline Phosphatase 95 U/L (38-126) 04/27/24 05:56
Lipase > 4000 U/L (23-300) H* 04/26/24 11:38
Vital Signs and I&O:
Vital Signs
Temp Pulse Resp BP Pulse Ox
96.4 F L 58 18 148/64 99
04/26/24 23:21 04/27/24 08:58 04/27/24 07:40 04/27/24 08:58 04/27/24 07:40
I&O
04/26/24 04/27/24 04/28/24
06:59 06:59 06:59
Intake Total 1200 / 1200
Balance 1200 / 1200
Physical Exam
Physical Exam
GEN: No acute distress, conversant, pleasant
HEENT: anicteric, extraocular movements intact, clear oropharynx without exudates
GI: soft, obese mildly-distended, not tender to palpation, normal active bowel sounds, no hepatosplenomegaly
EXT: warm, well perfused, trac edema bilaterally
NEURO: AAOx3, non-focal
[2024-04-27 10:55] VITALS: BP 145/59; PULSE 73
[2024-04-27 11:30] VITALS: BP 145/59
--- NOTE | 2024-04-27 14:23 | CM ---
Reviewed the chart notes and spoke with the at the bedside. The patient resides as a director long term care resident of [facility]. The patient uses the wheelchair for ambulation, but is able to walk short distance with rolling walker and assistance.
Riana digital art director of [facility] confirmed that the patient is a shelter resident there and a bed hold is in place. CM continues to be available to patient/family and is monitoring medical plan for needs at discharge.
Plan: Discharge back to [facility] when medically stable.
[2024-04-27 15:33] VITALS: BP 128/53
[2024-04-27 21:19] LABS: Glucose - Point of Care 100 mg/dl (70-99)
[2024-04-27] MEDS: MELATONIN 5 MG PO (21:22)
--- NOTE | 2024-04-27 21:27 | VATNOTE ---
Addendum entered by Tawana Au RN 04/27/24 21:29:
PREVIOUS IV SITE WAS IN LFA, NOT RFA.
Original Note:
CALLED TO ASSESS PREVIOUS IV SITE IN RFA WHERE PCN HAD REMOVED AN IV SITE. PT HAD MODERATE BLEEDING AND PCN HAD APPLIED MANUAL PRESSURE AND DRSG TO SITE. NO ACTIVE BLEEDING NOTED AT THIS TIME BUT QUICK CLOT DRSG APPLIED. PCN TO CONTINUE TO MONITOR.
[2024-04-27 23:20] VITALS: BP 135/55
--- NOTE | 2024-04-27 23:24 | PTCARENOTE ---
Unable to get temperature reading on patient; this has been an ongoing issue this admission; patient feels warm to the touch; patient states that she feels warm and comfortable.
[2024-04-28] MEDS: APRESOLINE 10 MG PO ×3 (00:43→17:25)
[2024-04-28] MEDS: BICITRA 15 ML PO ×2 (00:43→08:49)
[2024-04-28 06:04] VITALS: BMI 28.3
[2024-04-28 07:30] VITALS: BP 134/53
[2024-04-28 07:31] LABS: % Basophils 0.5 % (0-2); % Eosinophils 3.1 % (0-6); % Immature Granulocytes 0.6 % (0-0.5); % Lymphocytes 20.8 % (20.5-51.1); % Monocytes 11.5 % (1.7-9.3); % Neutrophils 63.5 % (42.2-75.2); Absolute Eosinophils 0.2 10^3/uL (0-0.7); Absolute Lymphocytes 1.4 10^3/uL (1.2-3.4); Absolute Monocytes 0.8 10^3/uL (0.1-0.6); Absolute Neutrophils 4.2 10^3/uL (1.4-6.5); Hematocrit 20.6 % (37.0-47.0); Mean Corpuscular Hgb 31.1 pg (27.0-31.0); Mean Corpuscular Volume 91.6 fL (81.0-99.0); Mean Platelet Volume 9.6 fL (7.4-10.4); Nucleated Red Blood Cells % 0 %; Platelet Count 94 10^3/uL (130-400); Red Blood Cell Count 2.25 10^6/uL (4.20-5.40); Red Cell Dist. Width 16.2 % (11.5-14.5); White Blood Cell Count 6.6 10^3/uL (4.8-10.8)
[2024-04-28 07:46] LABS: ALT (SGPT) 13 U/L (0-35); AST (SGOT) 16 U/L (14-36); Alkaline Phosphatase 91 U/L (38-126); Blood Urea Nitrogen 72 mg/dl (7-17); Carbon Dioxide 14 mmol/L (22-30); Chloride 112 mmol/L (98-107); Estimated Creatinine Clearance 15 ml/min; Glucose 65 mg/dl (70-99); Potassium 4.2 mmol/L (3.5-5.1); Sodium 137 mmol/L (135-145); Total Bilirubin 0.3 mg/dl (0.2-1.3); Total Protein 5.8 g/dl (6.3-8.2); eGFR 16.05
[2024-04-28] MEDS: ELIQUIS 2.5 MG PO ×2 (08:49→21:10)
[2024-04-28] MEDS: COREG 3.125 MG PO ×2 (08:49→21:09)
[2024-04-28] MEDS: NSS (PRESERVATIVE FREE) 10 ML IV (08:50)
[2024-04-28] MEDS: PROTONIX IV 40 MG IV (08:50)
[2024-04-28] MEDS: NORVASC 10 MG PO (08:50)
[2024-04-28] MEDS: ZOLOFT 25 MG PO (08:51)
--- NOTE | 2024-04-28 10:20 | W.PN.GI.CBS2 ---
Addendum entered and electronically signed by Arabella Mora Do, MD 04/28/24 12:48:
I saw and examined the patient.
The GRAPHICS EDIT TECHNICIAN's note was reviewed and I agree with the note.
Comment: Her abd pain improved. However some nausea after CLD for breakfast. VSS. confused, conversant obese mild TTP epigastric area. Labs reviewed. Worsening anemia without iron deficiency
Impression
- Acute 1st episode of pancreatitis
Unclear cause
No ETOH, s/p CYY, no new meds, LFTs normal
- Anemia of chronic disease
- CKD
Recommendations
- Add miralax
- C/w CLD
- Adv as tolerates
- C/w IVF
- Pain and anti-emetics PRN
Will follow with you
Original Note:
Today's Communication / Plan
-
Etiology of pancreatitis unclear
clear diet pt does not feel she can advance further today as still with abdominal pain
IVF per medical team currently stopped
- IV pain meds and anti-emetic PRN basis
- TG is normal. No ETOH or new meds. IGG4 pending
pt with some limitation of imaging without contrast with CKD -- consider OP EUS for further review when pancreatitis improves if any persistent vs recurrent symptoms if not improving or tolerating diet consider US abd vs MRCP though LFT's remains
normal
Assessment / Plan
-
Melissa is an 84yo W SNF resident with h/o CKD, pAfib on AC and HTN who was admitted with abd pain. Found to have 1st episode of acute pancreatitis. No new meds or ETOH intake. She has h/o cholecystectomy in past. Pain is now 4 out of 10. Nausea
with vomiting. VSS obese TTP epigastric obese
Impression
- Acute pancreatitis
1st episode, only ETOH in her 40's, s/p CYY
no biliary tract dilation on non contrast CT
TG normal 116 and 89, IGG4 pending
Unclear etiology suspect idiopathic
-anemia - iron studies not c/w iron deficiency(Iron 64, TIBC 249, sat 25, ferritin 556) may be chronic disease related with CKD and dilution with IVF on admission
- CKD
- Obesity
- HTN
- GERD
- pAfib on AC
Recommendations:
Etiology of pancreatitis unclear
clear diet pt does not feel she can advance further today as still with abdominal pain
IVF per medical team currently stopped
- IV pain meds and anti-emetic PRN basis
- TG is normal. No ETOH or new meds. IGG4 pending
pt with some limitation of imaging without contrast with CKD -- consider OP EUS for further review when pancreatitis improves if any persistent vs recurrent symptoms if not improving or tolerating diet consider US abd vs MRCP though LFT's remains
normal
Subjective
Subjective
Date of Service: April 28, 2024
04/27 brown loose stools, on clear diet still with pain and feels she cannot advance diet but admits to improved pain prior to admission
Objective
Data Reviewed
Laboratory Data:
Laboratory Results
04/28/24 06:19
04/28/24 06:19
Laboratory Results
Total Bilirubin 0.3 mg/dl (0.2-1.3) 04/28/24 06:19
AST 16 U/L (14-36) 04/28/24 06:19
ALT 13 U/L (0-35) 04/28/24 06:19
Alkaline Phosphatase 91 U/L (38-126) 04/28/24 06:19
Lipase > 4000 U/L (23-300) H* 04/26/24 11:38
Vital Signs and I&O:
Vital Signs
Temp Pulse Resp BP Pulse Ox
96.4 F L 65 16 134/53 98
04/26/24 23:21 04/28/24 08:50 04/28/24 07:30 04/28/24 08:50 04/28/24 07:30
I&O
04/27/24 04/28/24 04/29/24
06:59 06:59 06:59
Intake Total 1200 / 1200 4080 / 4080
Balance 1200 / 1200 4080 / 4080
Physical Exam
Physical Exam
HEENT: Anicteric
Cardiology: Normal Sinus Rhythm
Pulmonary: Clear
GI: Soft, Non Distended and Tender (mid abdomen )
Extremities: No Edema
Neuro: Non Focal
[2024-04-28] MEDS: ZOFRAN 4 MG IV (10:43)
--- NOTE | 2024-04-28 12:58 | W.PN.HOSP.TC ---
Today's Communication/Plan
-
advance diet
resume fluids
vascular access team to place new iv
Assessment / Plan
Assessment / Plan
Acute pancreatitis unclear as to cause
�IV fluids with LR to prevent bacterial translocation
�CLD, advance diet as toelrated
�IV Analgesics
�IV antiemetic
ADAM on CKD 3A likely secondary to volume loss/poor p.o. intake
- - Improved slightly
� IV fluids
� Check bladder scan
� Monitor urinary output
� Avoid nephrotoxins Hypotension
�Bladder
Metabolic acidosis - non anion
- Likely related to CKD
- If HCO3 persistently low in the setting of CKD IIIB/IV, KIDGO guideline with rec starting alkali therapy.
- Expect to improve on LR/Fluid repletion
- - Start alkali therapy now for goal HCO3 of 22-26
Asymptomatic bacteriuria
-No antibiotics indicated at this time if develops symptoms then we will treat
Anemia normcocytic - chronic without evidence of acute blood loss.
-Monitor for now. Hgb stable. Likely component of hemodilution as she is recieving large amounts of fluid for pancreatitis
-If <7 then will discuss transfusion with her
Paroxysmal atrial fibrillation
�Continue beta-ross and Eliquis
Hypertension
�Continue antihypertensives
GERD
�Continue Pepcid
Anxiety
- Zoloft. As needed hydroxyzine
Anticipated Discharge: 24 - 48 hours
Subjective/Interval History
-
Date of Service: April 28, 2024
Pain and complaints. No acute overnight events.
Anxious and continues to have abdominal pain however tolerating clear liquid diet
Objective Data
-
Labs:
Laboratory Results
04/28/24
06:19
WBC 6.6
Hgb 7.0 L
Hct 20.6 L*
Plt Count 94 L
Sodium 137
Potassium 4.2
Chloride 112 H
Carbon Dioxide 14 L*
BUN 72 H
Creatinine 2.8 H
Glucose 65 L
Calcium 9.0
Total Bilirubin 0.3
AST 16
ALT 13
Alkaline Phosphatase 91
Vital Signs:
Vital Signs
Temp Pulse Resp BP Pulse Ox
96.4 F L 64 16 134/54 98
04/26/24 23:21 04/28/24 10:23 04/28/24 07:30 04/28/24 10:23 04/28/24 07:30
I&O
04/27/24 04/28/24 04/29/24
06:59 06:59 06:59
Intake Total 1200 / 1200 4080 / 4080
Balance 1200 / 1200 4080 / 4080
[2024-04-28] MEDS: ATARAX 10 MG PO (14:16)
[2024-04-28] MEDS: BICITRA 30 ML PO ×2 (14:18→21:09)
--- NOTE | 2024-04-28 15:09 | CM ---
Reviewed the chart notes and spoke with the patient at the bedside. Patient's diet is clear liquid. CM continues to be available to patient/family and is monitoring medical plan for needs at discharge.
Plan: Discharge back to [facility] when medically stable.
[2024-04-28 15:10] VITALS: BP 141/54
[2024-04-28 23:24] VITALS: BP 145/63
[2024-04-29] MEDS: APRESOLINE 10 MG PO ×3 (02:41→17:47)
[2024-04-29] MEDS: BICITRA 30 ML PO ×4 (02:41→20:22)
[2024-04-29 05:33] VITALS: BMI 28.5
[2024-04-29 07:15] LABS: Venous Blood Gas B.E. -7.4 mmol/L (-4 to +4); Venous Blood Gas HCO3 18.8 mmol/L (22-27); Venous Blood Gas O2 Therapy ROOM AIR; Venous Blood Gas pCO2 40 mmHg (35-48); Venous Blood Gas pH 7.28 (7.32-7.43); Venous Blood Gas pO2 163 mmHg (30-50)
[2024-04-29 07:25] VITALS: BP 144/56
[2024-04-29 07:28] LABS: % Basophils 0.3 % (0-2); % Eosinophils 3.8 % (0-6); % Immature Granulocytes 0.7 % (0-0.5); % Lymphocytes 27.2 % (20.5-51.1); Absolute Eosinophils 0.3 10^3/uL (0-0.7); Absolute Immature Granulocytes 0.1 10^3/uL (0-0.05); Absolute Lymphocytes 1.8 10^3/uL (1.2-3.4); Absolute Monocytes 0.7 10^3/uL (0.1-0.6); Absolute Neutrophils 3.9 10^3/uL (1.4-6.5); Hematocrit 21.2 % (37.0-47.0); Hemoglobin 7.3 g/dL (12.0-16.0); Mean Corp Hgb Conc. 34.4 g/dL (33.0-37.0); Mean Corpuscular Hgb 32.2 pg (27.0-31.0); Mean Corpuscular Volume 93.4 fL (81.0-99.0); Mean Platelet Volume 9.8 fL (7.4-10.4); Nucleated Red Blood Cells % 0 %; Platelet Count 96 10^3/uL (130-400); Red Blood Cell Count 2.27 10^6/uL (4.20-5.40); Red Cell Dist. Width 16.2 % (11.5-14.5); White Blood Cell Count 6.8 10^3/uL (4.8-10.8)
--- NOTE | 2024-04-29 07:37 | W.PN.HOSP.TC ---
Today's Communication/Plan
-
hgb stable
continue ivf
cld
advance diet as tolerated, low fat
provide night time snack to prevent AM hypoglycemia
add miralax
provide analgesics and antiemetics
prn hydroxyzine
continue zoloft for anxiety
continue alkali therapy. will need for home when ready for dc
Assessment / Plan
Assessment / Plan
Acute pancreatitis unclear as to cause
�IV fluids with LR to prevent bacterial translocation
�CLD, advance diet as toelrated
�IV Analgesics
�IV antiemetic
ADAM on CKD 3A likely secondary to volume loss/poor p.o. intake
- - Improved slightly
� IV fluids
� Check bladder scan
� Monitor urinary output
� Avoid nephrotoxins Hypotension
�Bladder
Metabolic acidosis - non anion
- Likely related to CKD
- If HCO3 persistently low in the setting of CKD IIIB/IV, KIDGO guideline with rec starting alkali therapy.
- Expect to improve on LR/Fluid repletion
- - Started alkali therapy now for goal HCO3 of 22-26
- - will need NaHCO3 tabs on dc. Would do 650mg TID with outpatient neph follow up
Asymptomatic bacteriuria
-No antibiotics indicated at this time if develops symptoms then we will treat
Anemia normcocytic - chronic without evidence of acute blood loss.
-Monitor for now. Hgb stable. Likely component of hemodilution as she is recieving large amounts of fluid for pancreatitis
-If <7 then will discuss transfusion with her
Paroxysmal atrial fibrillation
�Continue beta-ross and Eliquis
Hypertension
�Continue antihypertensives
GERD
�Continue Pepcid
Anxiety
- Zoloft. As needed hydroxyzine
Anticipated Discharge: 24 - 48 hours
Subjective/Interval History
-
Date of Service: April 29, 2024
seen and examined. no new compalints.
states that the hydroxyzine worked, asking for another order
Objective Data
-
Labs:
Laboratory Results
04/29/24
06:56
WBC 6.8
Hgb 7.3 L
Hct 21.2 L
Plt Count 96 L
Sodium Pending
Potassium Pending
Chloride Pending
Carbon Dioxide Pending
BUN Pending
Creatinine Pending
Glucose Pending
Calcium Pending
Total Bilirubin Pending
AST Pending
ALT Pending
Alkaline Phosphatase Pending
Vital Signs:
Vital Signs
Temp Pulse Resp BP Pulse Ox
97.5 F 66 20 145/65 97
04/28/24 23:24 04/29/24 02:41 04/28/24 23:24 04/29/24 02:41 04/28/24 23:24
I&O
04/28/24 04/29/24 04/30/24
06:59 06:59 06:59
Intake Total 4080 / 4080 1320 / 1320
Balance 4080 / 4080 1320 / 1320
[2024-04-29 08:08] LABS: ALT (SGPT) 13 U/L (0-35); AST (SGOT) 19 U/L (14-36); Albumin 3.1 g/dl (3.5-5.0); Alkaline Phosphatase 87 U/L (38-126); Blood Urea Nitrogen 69 mg/dl (7-17); Calcium 8.8 mg/dl (8.4-10.2); Carbon Dioxide 18 mmol/L (22-30); Chloride 111 mmol/L (98-107); Estimated Creatinine Clearance 16 ml/min; Glucose 87 mg/dl (70-99); Potassium 4.3 mmol/L (3.5-5.1); Sodium 137 mmol/L (135-145); Total Bilirubin 0.4 mg/dl (0.2-1.3); Total Protein 5.8 g/dl (6.3-8.2); eGFR 17.54
[2024-04-29] MEDS: COREG 3.125 MG PO ×2 (09:44→20:23)
[2024-04-29] MEDS: ELIQUIS 2.5 MG PO ×2 (09:45→20:23)
[2024-04-29] MEDS: NORVASC 10 MG PO (09:45)
[2024-04-29] MEDS: PROTONIX IV 40 MG IV (09:46)
[2024-04-29] MEDS: NSS (PRESERVATIVE FREE) 10 ML IV (09:46)
[2024-04-29] MEDS: ZOLOFT 25 MG PO (09:47)
[2024-04-29 11:43] VITALS: BMI 28.5
--- NOTE | 2024-04-29 11:53 | W.PN.GI.CBS2 ---
Today's Communication / Plan
-
Advance to low fat diet
No clear etiology for pancreatitis
CT abd/pelvis was markedly limited without IV contrast
I discussed f/u contrast imaging down the road if her Cr allows. If not, could give consideration to EUS if benefits felt to justify the risks
Will have her f/u with Dr Shin after discharge
Assessment / Plan
-
Melissa is an 84yo W SNF resident with h/o CKD, pAfib on AC and HTN who was admitted with abd pain. Found to have 1st episode of acute pancreatitis. No new meds or ETOH intake. She has h/o cholecystectomy in past. Pain is now 4 out of 10. Nausea
with vomiting. VSS obese TTP epigastric obese
Impression
- Acute pancreatitis
1st episode, only ETOH in her 40's, s/p CYY
no biliary tract dilation on non contrast CT
TG normal 116 and 89, IGG4 pending
Unclear etiology suspect idiopathic
-anemia - iron studies not c/w iron deficiency(Iron 64, TIBC 249, sat 25, ferritin 556) may be chronic disease related with CKD and dilution with IVF on admission
- CKD
- Obesity
- HTN
- GERD
- pAfib on AC
Subjective
Subjective
Date of Service: April 29, 2024
Feels tired. Still some abd pain, but overall improved.
Objective
Data Reviewed
Laboratory Data:
Laboratory Results
04/29/24 06:56
04/29/24 06:56
Laboratory Results
Total Bilirubin 0.4 mg/dl (0.2-1.3) 04/29/24 06:56
AST 19 U/L (14-36) 04/29/24 06:56
ALT 13 U/L (0-35) 04/29/24 06:56
Alkaline Phosphatase 87 U/L (38-126) 04/29/24 06:56
Lipase > 4000 U/L (23-300) H* 04/26/24 11:38
Vital Signs and I&O:
Vital Signs
Temp Pulse Resp BP Pulse Ox
97.5 F 72 18 144/56 95
04/28/24 23:24 04/29/24 09:45 04/29/24 07:25 04/29/24 09:45 04/29/24 07:25
I&O
04/28/24 04/29/24 04/30/24
06:59 06:59 06:59
Intake Total 4080 / 4080 1320 / 1320
Balance 4080 / 4080 1320 / 1320
Physical Exam
Physical Exam
GI: Soft, Non Distended and Tender
--- NOTE | 2024-04-29 14:28 | CM ---
Addendum entered by Emilee Valencia RN 04/29/24 16:16:
IMM signed and placed on chart.
Original Note:
Reviewed the chart notes. CM received call from Carito with [facility] ([phone]). 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 CM continues to be available to patient/family and is monitoring medical plan for needs at discharge.
Plan: Discharge back to [facility] when medically stable.
[2024-04-29 15:10] VITALS: BP 149/85
[2024-04-29] MEDS: ATARAX 10 MG PO (23:12)
[2024-04-29 23:27] VITALS: BP 154/58
[2024-04-30] MEDS: APRESOLINE 10 MG PO ×3 (03:00→17:21)
[2024-04-30] MEDS: BICITRA 30 ML PO ×4 (03:00→21:12)
[2024-04-30 05:13] VITALS: BMI 28.7
[2024-04-30 06:42] LABS: % Basophils 0.5 % (0-2); % Eosinophils 3.9 % (0-6); % Immature Granulocytes 0.8 % (0-0.5); % Lymphocytes 28.7 % (20.5-51.1); % Monocytes 12.1 % (1.7-9.3); Absolute Eosinophils 0.3 10^3/uL (0-0.7); Absolute Immature Granulocytes 0.1 10^3/uL (0-0.05); Absolute Lymphocytes 1.9 10^3/uL (1.2-3.4); Absolute Monocytes 0.8 10^3/uL (0.1-0.6); Absolute Neutrophils 3.5 10^3/uL (1.4-6.5); Hematocrit 20.5 % (37.0-47.0); Hemoglobin 7.1 g/dL (12.0-16.0); Mean Corp Hgb Conc. 34.6 g/dL (33.0-37.0); Mean Corpuscular Hgb 32.3 pg (27.0-31.0); Mean Corpuscular Volume 93.2 fL (81.0-99.0); Mean Platelet Volume 9.7 fL (7.4-10.4); Nucleated Red Blood Cells % 0 %; Platelet Count 84 10^3/uL (130-400); Red Cell Dist. Width 15.9 % (11.5-14.5); White Blood Cell Count 6.4 10^3/uL (4.8-10.8)
[2024-04-30 07:01] LABS: ALT (SGPT) 11 U/L (0-35); AST (SGOT) 16 U/L (14-36); Alkaline Phosphatase 96 U/L (38-126); Blood Urea Nitrogen 63 mg/dl (7-17); Calcium 8.8 mg/dl (8.4-10.2); Carbon Dioxide 20 mmol/L (22-30); Chloride 110 mmol/L (98-107); Estimated Creatinine Clearance 16 ml/min; Glucose 79 mg/dl (70-99); Potassium 3.9 mmol/L (3.5-5.1); Sodium 138 mmol/L (135-145); Total Bilirubin 0.4 mg/dl (0.2-1.3); Total Protein 5.7 g/dl (6.3-8.2); eGFR 17.54
[2024-04-30 07:30] VITALS: BP 162/66
--- NOTE | 2024-04-30 07:43 | W.PN.HOSP.TC ---
Today's Communication/Plan
-
continue low residue diet
encourage po intake
antiemetics
if again had diarrhea will consider stool studies, but she is nontoxic appearing
likly dc back to assisted living facility tomorrow.
Assessment / Plan
Assessment / Plan
Acute pancreatitis unclear as to cause
�IV fluids with LR to prevent bacterial translocation
�CLD, advance diet as toelrated
�IV Analgesics
�IV antiemetic
ADAM on CKD 3A likely secondary to volume loss/poor p.o. intake
- - Improved slightly
� IV fluids
� Check bladder scan
� Monitor urinary output
� Avoid nephrotoxins Hypotension
�Bladder
Metabolic acidosis - non anion
- Likely related to CKD
- If HCO3 persistently low in the setting of CKD IIIB/IV, KIDGO guideline with rec starting alkali therapy.
- Expect to improve on LR/Fluid repletion
- - Started alkali therapy now for goal HCO3 of 22-26
- - will need NaHCO3 tabs on dc. Would do 650mg TID with outpatient neph follow up
Asymptomatic bacteriuria
-No antibiotics indicated at this time if develops symptoms then we will treat
Anemia normcocytic - chronic without evidence of acute blood loss.
-Monitor for now. Hgb stable. Likely component of hemodilution as she is recieving large amounts of fluid for pancreatitis
-If <7 then will discuss transfusion with her
Paroxysmal atrial fibrillation
�Continue beta-ross and Eliquis
Hypertension
�Continue antihypertensives
GERD
�Continue Pepcid
Anxiety
- Zoloft. As needed hydroxyzine
Anticipated Discharge: Within 24 hours
Subjective/Interval History
-
Date of Service: April 30, 2024
seen and examined
no new complaints
abd pain resolved from last night
tells me she ate dinner. had diarrheal movement and severe abdominal pain. does not feel ready to go today
Objective Data
-
Labs:
Laboratory Results
04/30/24
06:11
WBC 6.4
Hgb 7.1 L
Hct 20.5 L*
Plt Count 84 L
Sodium 138
Potassium 3.9
Chloride 110 H
Carbon Dioxide 20 L
BUN 63 H
Creatinine 2.6 H
Glucose 79
Calcium 8.8
Total Bilirubin 0.4
AST 16
ALT 11
Alkaline Phosphatase 96
Vital Signs:
Vital Signs
Temp Pulse Resp BP Pulse Ox
96.1 F L 65 18 141/63 98
04/29/24 23:27 04/30/24 03:00 04/29/24 23:27 04/30/24 03:00 04/29/24 23:27
I&O
04/29/24 04/30/24 05/01/24
06:59 06:59 06:59
Intake Total 1320 / 1320 1440 / 1440
Balance 1320 / 1320 1440 / 1440
[2024-04-30] MEDS: ZOLOFT 25 MG PO (08:48)
[2024-04-30] MEDS: NORVASC 10 MG PO (08:48)
[2024-04-30] MEDS: COREG 3.125 MG PO ×2 (08:48→21:11)
[2024-04-30] MEDS: ELIQUIS 2.5 MG PO ×2 (08:48→21:12)
[2024-04-30] MEDS: NSS (PRESERVATIVE FREE) 10 ML IV (08:49)
[2024-04-30] MEDS: PROTONIX IV 40 MG IV (08:49)
[2024-04-30] MEDS: FLUSH (NSS) 2 FLUSH IV (08:50)
--- NOTE | 2024-04-30 11:24 | W.PN.GI.CBS2 ---
Today's Communication / Plan
-
Continue POs as tolerated
Agree with d/c tomorrow if continuing to do well
F/U with Dr Shin as outpt for further work up of idiopathic pancreatitis. Cannot get contrast imaging at this time due to Cr 2.6.
Assessment / Plan
-
Summary: 84yo W SNF resident with h/o CKD, pAfib on AC and HTN who was admitted with abd pain. Found to have 1st episode of acute pancreatitis. No new meds or ETOH intake. She has h/o cholecystectomy in past.
Impression:
- Acute pancreatitis
1st episode, only ETOH in her 40's, s/p CYY
no biliary tract dilation on non contrast CT
TG normal 116 and 89, IGG4 pending
Unclear etiology suspect idiopathic
-anemia - iron studies not c/w iron deficiency(Iron 64, TIBC 249, sat 25, ferritin 556) may be chronic disease related with CKD and dilution with IVF on admission
- CKD
- Obesity
- HTN
- GERD
- pAfib on AC
Subjective
Subjective
Date of Service: April 30, 2024
Tolerated low fat diet for breakfast. Has some lower abd cramping
Objective
Data Reviewed
Laboratory Data:
Laboratory Results
04/30/24 06:11
04/30/24 06:11
Laboratory Results
Total Bilirubin 0.4 mg/dl (0.2-1.3) 04/30/24 06:11
AST 16 U/L (14-36) 04/30/24 06:11
ALT 11 U/L (0-35) 04/30/24 06:11
Alkaline Phosphatase 96 U/L (38-126) 04/30/24 06:11
Lipase > 4000 U/L (23-300) H* 04/26/24 11:38
Vital Signs and I&O:
Vital Signs
Temp Pulse Resp BP Pulse Ox
98.2 F 81 16 162/66 96
04/30/24 07:30 04/30/24 07:30 04/30/24 07:30 04/30/24 07:30 04/30/24 07:30
I&O
04/29/24 04/30/24 05/01/24
06:59 06:59 06:59
Intake Total 1320 / 1320 1440 / 1440
Balance 1320 / 1320 1440 / 1440
Physical Exam
Physical Exam
GI: Soft, Non Distended and Tender (mild lower tender, no rebound/guarding)
[2024-04-30 15:30] VITALS: BP 168/63
[2024-04-30] MEDS: ATARAX 10 MG PO (21:15)
[2024-04-30 23:00] VITALS: BP 164/67
[2024-05-01] MEDS: APRESOLINE 10 MG PO ×3 (01:13→16:52)
[2024-05-01] MEDS: BICITRA 30 ML PO ×4 (01:13→20:50)
[2024-05-01 06:00] VITALS: BMI 28.7
[2024-05-01 07:25] VITALS: BP 182/79
[2024-05-01] MEDS: ATARAX 10 MG PO ×2 (09:10→20:58)
[2024-05-01] MEDS: ZOLOFT 25 MG PO (09:10)
[2024-05-01] MEDS: NORVASC 10 MG PO (09:10)
[2024-05-01] MEDS: COREG 3.125 MG PO ×2 (09:10→20:51)
[2024-05-01] MEDS: ELIQUIS 2.5 MG PO ×2 (09:10→20:51)
[2024-05-01] MEDS: PROTONIX IV 40 MG IV (09:10)
[2024-05-01] MEDS: NSS (PRESERVATIVE FREE) 10 ML IV (09:10)
[2024-05-01] MEDS: FLUSH (NSS) 2 FLUSH IV (09:13)
--- NOTE | 2024-05-01 10:57 | CM ---
CM sent updated clinical to [facility] via [facility]. 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
--- NOTE | 2024-05-01 11:28 | W.PN.GI.CBS2 ---
Today's Communication / Plan
-
Check stool C diff
Probably keep another day since she is very anxious about going home. Still lower abd cramping- could be resolving ileus from pancreatitis
If better tomorrow, d/c
Assessment / Plan
-
Summary: 84yo W SNF resident with h/o CKD, pAfib on AC and HTN who was admitted with abd pain. Found to have 1st episode of acute pancreatitis. No new meds or ETOH intake. She has h/o cholecystectomy in past.
Impression:
- Acute pancreatitis
1st episode, only ETOH in her 40's, s/p CYY
no biliary tract dilation on non contrast CT
TG normal 116 and 89, IGG4 pending
Unclear etiology suspect idiopathic
-anemia - iron studies not c/w iron deficiency(Iron 64, TIBC 249, sat 25, ferritin 556) may be chronic disease related with CKD and dilution with IVF on admission
- CKD
- Obesity
- HTN
- GERD
- pAfib on AC
Subjective
Subjective
Date of Service: May 01, 2024
Had large loose BM after eating low fat diet
Objective
Data Reviewed
Laboratory Data:
Laboratory Results
04/30/24 06:11
04/30/24 06:11
Laboratory Results
Total Bilirubin 0.4 mg/dl (0.2-1.3) 04/30/24 06:11
AST 16 U/L (14-36) 04/30/24 06:11
ALT 11 U/L (0-35) 04/30/24 06:11
Alkaline Phosphatase 96 U/L (38-126) 04/30/24 06:11
Lipase > 4000 U/L (23-300) H* 04/26/24 11:38
Vital Signs and I&O:
Vital Signs
Temp Pulse Resp BP Pulse Ox
97.9 F 87 12 182/79 97
05/01/24 07:25 05/01/24 07:25 05/01/24 07:25 05/01/24 07:25 05/01/24 07:25
I&O
04/30/24 05/01/24 05/02/24
06:59 06:59 06:59
Intake Total 1440 / 1440 900 / 900
Balance 1440 / 1440 900 / 900
Physical Exam
Physical Exam
GI: Soft, Non Distended and Tender
--- NOTE | 2024-05-01 11:55 | W.PN.HOSP.TC ---
Today's Communication/Plan
-
discussed case with gi
continue po itnake. check cdiff.
keep for 1more day with outpatient pcp and gi follow up as an outpatient
Assessment / Plan
Assessment / Plan
Acute pancreatitis unclear as to cause
�IV fluids with LR to prevent bacterial translocation
�CLD, advance diet as toelrated
�IV Analgesics
�IV antiemetic
ADAM on CKD 3A likely secondary to volume loss/poor p.o. intake
- - Improved slightly
� IV fluids
� Check bladder scan
� Monitor urinary output
� Avoid nephrotoxins Hypotension
�Bladder
Metabolic acidosis - non anion
- Likely related to CKD
- If HCO3 persistently low in the setting of CKD IIIB/IV, KIDGO guideline with rec starting alkali therapy.
- Expect to improve on LR/Fluid repletion
- - Started alkali therapy now for goal HCO3 of 22-26
- - will need NaHCO3 tabs on dc. Would do 650mg TID with outpatient neph follow up
Asymptomatic bacteriuria
-No antibiotics indicated at this time if develops symptoms then we will treat
Anemia normcocytic - chronic without evidence of acute blood loss.
-Monitor for now. Hgb stable. Likely component of hemodilution as she is recieving large amounts of fluid for pancreatitis
-If <7 then will discuss transfusion with her
Paroxysmal atrial fibrillation
�Continue beta-ross and Eliquis
Hypertension
�Continue antihypertensives
GERD
�Continue Pepcid
Anxiety
- Zoloft. As needed hydroxyzine
Anticipated Discharge: 24 - 48 hours
Subjective/Interval History
-
Date of Service: May 01, 2024
seen and examide
dintermittent abd pain post eating
anxious about pain returning
states has large loose bm yesterday and today
Objective Data
-
Vital Signs:
Vital Signs
Temp Pulse Resp BP Pulse Ox
97.9 F 87 12 182/79 97
05/01/24 07:25 05/01/24 07:25 05/01/24 07:25 05/01/24 07:25 05/01/24 07:25
I&O
04/30/24 05/01/24 05/02/24
06:59 06:59 06:59
Intake Total 1440 / 1440 900 / 900
Balance 1440 / 1440 900 / 900
[2024-05-01 15:25] VITALS: BP 184/78
[2024-05-01 23:12] VITALS: BP 168/71
[2024-05-02] MEDS: BICITRA 30 ML PO ×2 (02:10→09:14)
[2024-05-02] MEDS: APRESOLINE 10 MG PO ×3 (02:10→17:01)
[2024-05-02 05:11] VITALS: BMI 28.6
[2024-05-02 06:04] LABS: Hematocrit 22.3 % (37.0-47.0); Hemoglobin 7.6 g/dL (12.0-16.0); Mean Corp Hgb Conc. 34.1 g/dL (33.0-37.0); Mean Corpuscular Hgb 31.9 pg (27.0-31.0); Mean Corpuscular Volume 93.7 fL (81.0-99.0); Mean Platelet Volume 9.8 fL (7.4-10.4); Platelet Count 91 10^3/uL (130-400); Red Blood Cell Count 2.38 10^6/uL (4.20-5.40); Red Cell Dist. Width 15.6 % (11.5-14.5); White Blood Cell Count 6.4 10^3/uL (4.8-10.8)
[2024-05-02 06:24] LABS: Blood Urea Nitrogen 53 mg/dl (7-17); Calcium 9.1 mg/dl (8.4-10.2); Carbon Dioxide 25 mmol/L (22-30); Chloride 105 mmol/L (98-107); Estimated Creatinine Clearance 17 ml/min; Glucose 104 mg/dl (70-99); Sodium 140 mmol/L (135-145); eGFR 18.39
[2024-05-02 07:30] VITALS: BP 186/88
[2024-05-02 07:51] LABS: Lipase 610 U/L (23-300)
[2024-05-02] MEDS: ZOLOFT 25 MG PO (09:13)
[2024-05-02] MEDS: COREG 3.125 MG PO ×2 (09:14→19:47)
[2024-05-02] MEDS: NORVASC 10 MG PO (09:14)
[2024-05-02] MEDS: PROTONIX IV 40 MG IV (09:15)
[2024-05-02] MEDS: NSS (PRESERVATIVE FREE) 10 ML IV (09:15)
[2024-05-02] MEDS: ELIQUIS 2.5 MG PO ×2 (09:15→19:46)
[2024-05-02] MEDS: DIFICID 200 MG PO ×2 (09:20→19:47)
[2024-05-02 10:38] VITALS: BP 172/73
--- NOTE | 2024-05-02 11:09 | W.PN.GI.CBS2 ---
Addendum entered and electronically signed by John Stokes MD 05/02/24 11:28:
I saw and examined the patient.
The [employer]ERSON[employer] or PA's note was reviewed and I agree with the note.
Comment: No further BM after large loose stool yesterday
ABD soft mild tender
REC:
CT (without contrast) today shows small ascites progressed, normal pancreas on noncontrast study, stable/slightly improve thickening ascending colon
C diff Ag positive, toxin negative
Try diet for lunch and if tolerates, OK for d/c
F/U Dr Shin to discuss idiopathic pancreatitis
Consider OP colonoscopy given R colon thickening on CT, slightly improved
Original Note:
Today's Communication / Plan
-
as per plan
Assessment / Plan
-
Summary: 84yo W SNF resident with h/o CKD, pAfib on AC and HTN who was admitted with abd pain. Found to have 1st episode of acute pancreatitis. No new meds or ETOH intake. She has h/o cholecystectomy in past. Nausea and pain with soup last
evening. Stool negative for C Diff.
Impression:
- Acute pancreatitis
1st episode, only ETOH in her 40's, s/p CYY
no biliary tract dilation on non contrast CT
TG normal 116 and 89, IGG4 pending
Unclear etiology suspect idiopathic
-anemia - iron studies not c/w iron deficiency(Iron 64, TIBC 249, sat 25, ferritin 556) may be chronic disease related with CKD and dilution with IVF on admission
- CKD
- Obesity
- HTN
- GERD
- pAfib on AC
-Pleural effussions
CT Abd/Pelvis 05/02/24:
1. Small volume upper abdominal ascites, progressed.
2. Mild circumferential urinary bladder wall thickening may reflect cystitis in the appropriate clinical context.
3. Probable stable mild right-sided colitis versus underlying mass.
4. Stable small to moderate bilateral pleural effusions and right lower lobe infectious/inflammatory bronchiolitis.
Electronically signed by Lonnie Kitty, 05/02/2024 8:45 AM
Plan:
-Low fat diet as tolerating
-Incentive spirometer
-Needs follow up colonoscopy, hx of polyps in the past. Now with colitis seen on CT
-Follow up with Dr. Shin as outpatient to determine if she needs repeat imaging vs EUS in the future
Subjective
Subjective
Date of Service: May 02, 2024
Patient states that she had nausea and pain after eating chicken noodle soup last evening. Had loose stools yesterday and today. CT today with possible colitis vs mass, limited without contrast.
Objective
Data Reviewed
Laboratory Data:
Laboratory Results
05/02/24 05:07
05/02/24 05:07
Laboratory Results
Total Bilirubin 0.4 mg/dl (0.2-1.3) 04/30/24 06:11
AST 16 U/L (14-36) 04/30/24 06:11
ALT 11 U/L (0-35) 04/30/24 06:11
Alkaline Phosphatase 96 U/L (38-126) 04/30/24 06:11
Lipase 610 U/L (23-300) H 05/02/24 05:07
Vital Signs and I&O:
Vital Signs
Temp Pulse Resp BP Pulse Ox
97.9 F 94 16 172/73 97
05/02/24 07:30 05/02/24 09:13 05/02/24 07:30 05/02/24 10:38 05/02/24 07:30
I&O
05/01/24 05/02/24 05/03/24
06:59 06:59 06:59
Intake Total 900 / 900 1200 / 1200
Balance 900 / 900 1200 / 1200
Physical Exam
Physical Exam
HEENT: Anicteric
Cardiology: Normal Sinus Rhythm
Pulmonary: Clear
GI: Soft, Non Distended, Tender (mid abdominal tenderness) and Normal Bowel Sounds
Neuro: Non Focal
[2024-05-02] MEDS: BICITRA PO ×2 (13:04→19:46)
--- NOTE | 2024-05-02 13:17 | W.PN.HOSP.TC ---
Addendum entered and electronically signed by Selvin Delaney MD 05/04/24 11:47:
Improving thrombocytopenia - most liekly reactive. Outpatient PCP follow up
Original Note:
Today's Communication/Plan
-
Start DIficid
anemia w/u
Assessment / Plan
Assessment / Plan
84yo F with PMHx of HTN, gout, CKD came with abdominal pain found idiopathic pancreatitis and concern for RLQ colonic mass vs c.diff colitis on imaging
#Acute idiopathic pancreatitis
Triglycerides not significantly elevated
Ca WNL
s/p cholecystectomy
IGG4 pending
#Atelectasis and pleural effusion 2/2 agressive hydration for acute pancreatitis
holding fliuids
#Urinary bladder wall thickening
No dysuria
check UA
#Concern for c.diff
Toxin neg, however with diarrhea and acidosis worsened on 05/01/24
started DIfficid
#Probable R sided mass vs colitis
GI to be informed, might need colonoscopy
#Essential HTN
#Afib
#Anxiety D/C
#Gout
COnt home meds
#Thrombocytopenia
#Anemia
ANemia w/u including FOBT
4T score low, on ELiquis - no heparin products administered, no concern for HIT
LNo radiographic changes of the liver on CT
check HepC Ag
#CKD stage 4
avoid nephrotoxic meds
DVT ppx Eliquis
Full code
I have spent at least 56min reviewing chart, test results and direct patient care
Anticipated Discharge: 24 - 48 hours
Subjective/Interval History
-
Date of Service: May 02, 2024
Objective Data
-
Labs:
Laboratory Results
05/02/24
05:07
WBC 6.4
Hgb 7.6 L
Hct 22.3 L
Plt Count 91 L
Sodium 140
Potassium 4.0
Chloride 105
Carbon Dioxide 25
BUN 53 H
Creatinine 2.5 H
Glucose 104 H
Calcium 9.1
Vital Signs:
Vital Signs
Temp Pulse Resp BP Pulse Ox
97.9 F 94 16 172/73 97
05/02/24 07:30 05/02/24 09:13 05/02/24 07:30 05/02/24 10:38 05/02/24 07:30
I&O
05/01/24 05/02/24 05/03/24
06:59 06:59 06:59
Intake Total 900 / 900 1200 / 1200
Balance 900 / 900 1200 / 1200
Physical Exam
-
General: No Apparent Distress
HEENT: Normocephalic, Atraumatic and Moist Mucous Membranes
Respiratory: Negative Wheezes or Rales
Cardiac: Regular Rhythm
GI: Soft, Nontender and Nondistended
Musculoskeletal: No Clubbing and No Edema
Skin: Warm; Negative Dry
Psych: Calm
--- NOTE | 2024-05-02 14:50 | CM ---
Reviewed the chart notes. Call Carito ([phone]) in admissions when ready for discharge back to facility. CM continues to be available to patient/family and is monitoring medical plan for needs at discharge.
Plan: Discharge back to [facility] when medically stable. No precert required.
[2024-05-02 15:04] LABS: Urine Albumin 2+ (Neg - Trace); Urine Bilirubin Negative (Negative); Urine Character Clear (Clear); Urine Color Yellow; Urine Glucose Negative (Negative); Urine Ketone Negative (Negative); Urine Leukocyte 2+ (Negative); Urine Nitrite Positive (Negative); Urine Occult Blood 2+ (Negative); Urine Urobilinogen Negative (Neg - 1+)
[2024-05-02 15:14] LABS: Urine Squamous Cell 0-2 /LPF (Few)
[2024-05-02 15:15] LABS: Urine Bacteria Many (Negative); Urine White Cell 50-60 /HPF (0-5)
[2024-05-02 15:40] VITALS: BP 182/74
[2024-05-02] MEDS: ROCEPHIN 1000 MG IV (17:20)
[2024-05-02] MEDS: STERILE WATER FOR INJECTION 10 ML IV (17:20)
[2024-05-02 19:30] VITALS: BP 188/80
[2024-05-02] MEDS: ATARAX 10 MG PO (19:46)
[2024-05-02 21:04] LABS: Hepatitis C Antibody Negative (Negative)
[2024-05-02] MEDS: APRESOLINE 10 MG IV (21:45)
[2024-05-02 23:16] VITALS: BP 164/72
--- NOTE | 2024-05-03 | PTCARENOTE ---
BP around 1800, 182/74. Received hydralazine 10mg PO. Recheck BP at 1930, BP 188/80. Gave scheduled and PRN anxiety medications, see DEC. Recheck, still elevated at 175/79. Notified UI PROGRAMMER, ordered hydralazine 10mg IV q6h PRN and BNP lab for the AM.
PRN administered, BP recheck 164/72. Patient reports no symptoms, resting comfortably in bed, call lopez within reach.
[2024-05-03] MEDS: APRESOLINE 10 MG PO (03:17)
[2024-05-03] MEDS: BICITRA PO ×4 (03:18→20:50)
[2024-05-03] MEDS: ATARAX 10 MG PO ×3 (03:36→20:53)
[2024-05-03 06:00] VITALS: BMI 28.2
[2024-05-03 06:15] LABS: % Basophils 0.4 % (0-2); % Eosinophils 3.1 % (0-6); % Lymphocytes 27.2 % (20.5-51.1); % Monocytes 10.8 % (1.7-9.3); % Neutrophils 57.5 % (42.2-75.2); Absolute Eosinophils 0.2 10^3/uL (0-0.7); Absolute Immature Granulocytes 0.1 10^3/uL (0-0.05); Absolute Monocytes 0.8 10^3/uL (0.1-0.6); Absolute Neutrophils 4.2 10^3/uL (1.4-6.5); Hematocrit 22.9 % (37.0-47.0); Hemoglobin 7.9 g/dL (12.0-16.0); Mean Corp Hgb Conc. 34.5 g/dL (33.0-37.0); Mean Corpuscular Hgb 31.5 pg (27.0-31.0); Mean Corpuscular Volume 91.2 fL (81.0-99.0); Mean Platelet Volume 9.3 fL (7.4-10.4); Nucleated Red Blood Cells % 0 %; Platelet Count 98 10^3/uL (130-400); Red Blood Cell Count 2.51 10^6/uL (4.20-5.40); Red Cell Dist. Width 15.1 % (11.5-14.5); Reticulocyte Count 4.1 % (0.4-2.8); White Blood Cell Count 7.3 10^3/uL (4.8-10.8)
[2024-05-03 06:24] VITALS: BP 156/70
[2024-05-03 06:28] LABS: NT-proBNP 13300 pg/ml
[2024-05-03 06:29] LABS: ALT (SGPT) < 10 U/L (0-35); AST (SGOT) 16 U/L (14-36); Albumin 3.2 g/dl (3.5-5.0); Alkaline Phosphatase 100 U/L (38-126); Blood Urea Nitrogen 46 mg/dl (7-17); Calcium 9.3 mg/dl (8.4-10.2); Carbon Dioxide 27 mmol/L (22-30); Chloride 103 mmol/L (98-107); Estimated Creatinine Clearance 17 ml/min; Glucose 101 mg/dl (70-99); Iron 54 ug/dl (37-170); Potassium 4.2 mmol/L (3.5-5.1); Sodium 137 mmol/L (135-145); Total Bilirubin 0.6 mg/dl (0.2-1.3); Total Protein 5.9 g/dl (6.3-8.2); eGFR 18.39
[2024-05-03 06:38] LABS: Percent Saturation 25 % (20-50); Total Iron Binding Capacity 210 ug/dl (265-497)
[2024-05-03 07:35] LABS: Folate 6.6 ng/ml (2.76-20); Vitamin B12 473 pg/ml (239-931)
[2024-05-03 07:40] VITALS: BP 168/78
[2024-05-03] MEDS: COREG 3.125 MG PO ×2 (08:28→20:50)
[2024-05-03] MEDS: ELIQUIS 2.5 MG PO ×2 (08:29→20:50)
[2024-05-03] MEDS: NORVASC 10 MG PO (08:29)
[2024-05-03] MEDS: NSS (PRESERVATIVE FREE) 10 ML IV (08:29)
[2024-05-03] MEDS: APRESOLINE PO (08:29)
[2024-05-03] MEDS: PROTONIX IV 40 MG IV (08:29)
[2024-05-03] MEDS: ZOLOFT 25 MG PO (08:29)
[2024-05-03] MEDS: DIFICID 200 MG PO ×2 (08:29→20:50)
--- NOTE | 2024-05-03 10:20 | W.PN.GI.CBS2 ---
Addendum entered and electronically signed by Maria De Jesus Evans MD 05/03/24 16:47:
I saw and examined the patient.
The HOME AND FAMILY LIVING PROFESSOR's note was reviewed and I agree with the note.
Impression:
- Acute pancreatitis
1st episode, only ETOH in her 40's, s/p CYY
no biliary tract dilation on non contrast CT
TG normal 116 and 89, IGG4 pending
Unclear etiology suspect idiopathic
-anemia - iron studies not c/w iron deficiency(Iron 64, TIBC 249, sat 25, ferritin 556) may be chronic disease related with CKD and dilution with IVF on admission
- pAfib on AC
CT Abd/Pelvis 05/02/24:
1. Small volume upper abdominal ascites, progressed.
2. Mild circumferential urinary bladder wall thickening may reflect cystitis in the appropriate clinical context.
3. Probable stable mild right-sided colitis versus underlying mass ?.
4. Stable small to moderate bilateral pleural effusions and right lower lobe infectious/inflammatory bronchiolitis.
Electronically signed by Lonnie Tang, 05/02/2024 8:45 AM
Plan:
-Low fat diet as tolerated
-Needs follow up colonoscopy, hx of polyps in the past. Now with colitis seen on CT.. Patient has a history of colonoscopy in [address] Reynolds. Patient is instructed to follow-up with him for follow-up colonoscopy as she is due at this time
after discharge. (3-year follow-up).
-Patient being treated for C. difficile antigen positive, toxin negative - continue dificid
-Follow up with Dr. Shin as outpatient to determine if she needs repeat imaging vs EUS in the future
-No further GI recommendations at this point. Will sign off
-
Original Note:
Today's Communication / Plan
-
As above
Assessment / Plan
-
Summary: 84yo W SNF resident with h/o CKD, pAfib on AC and HTN who was admitted with abd pain. Found to have 1st episode of acute pancreatitis. No new meds or ETOH intake. She has h/o cholecystectomy in past. Nausea and pain with soup last
evening. Stool negative for C Diff.
Impression:
- Acute pancreatitis
1st episode, only ETOH in her 40's, s/p CYY
no biliary tract dilation on non contrast CT
TG normal 116 and 89, IGG4 pending
Unclear etiology suspect idiopathic
-anemia - iron studies not c/w iron deficiency(Iron 64, TIBC 249, sat 25, ferritin 556) may be chronic disease related with CKD and dilution with IVF on admission
- CKD
- Obesity
- HTN
- GERD
- pAfib on AC
-Pleural effussions
CT Abd/Pelvis 05/02/24:
1. Small volume upper abdominal ascites, progressed.
2. Mild circumferential urinary bladder wall thickening may reflect cystitis in the appropriate clinical context.
3. Probable stable mild right-sided colitis versus underlying mass.
4. Stable small to moderate bilateral pleural effusions and right lower lobe infectious/inflammatory bronchiolitis.
Electronically signed by Lonnie Tang, 05/02/2024 8:45 AM
Plan:
-Low fat diet as tolerating, patient with loose stool after eating oatmeal last night. Discussed following a low residue diet.
-Incentive spirometer
-Needs follow up colonoscopy, hx of polyps in the past. Now with colitis seen on CT.. Patient has a history of colonoscopy in [address] Reynolds. Patient will follow-up with him for follow-up colonoscopy as she is due at this time. (3-year
follow-up).
-Patient being treated for C. difficile antigen positive, toxin negative with Dificid at this time.
-Follow up with Dr. Shin as outpatient to determine if she needs repeat imaging vs EUS in the future
Subjective
Subjective
Date of Service: May 03, 2024
Patient with one episode of loose stool after eating oatmeal last evening. No abdominal pain. Did not eat this morning as she does not feel like it yet. Was started on Dificid for antigen positive, toxin negative C. difficile. Discussed with
patient she follows with Dr. Reynolds for gastroenterology. She states her last colonoscopy was in 2020 and had polyps at that time. Her repeat was due in 3 years which is now. Discussed that she needs a repeat colonoscopy in approximately 6 weeks
from now given the findings of colitis versus mass/under distention on CT. She is aware, and that she was due for repeat colonoscopy at this time as well.
Objective
Data Reviewed
Laboratory Data:
Laboratory Results
05/03/24 05:35
05/03/24 05:35
Laboratory Results
Total Bilirubin 0.6 mg/dl (0.2-1.3) 05/03/24 05:35
AST 16 U/L (14-36) 05/03/24 05:35
ALT < 10 U/L (0-35) 05/03/24 05:35
Alkaline Phosphatase 100 U/L (38-126) 05/03/24 05:35
Lipase 610 U/L (23-300) H 05/02/24 05:07
Vital Signs and I&O:
Vital Signs
Temp Pulse Resp BP Pulse Ox
98.1 F 90 18 168/78 98
05/03/24 07:40 05/03/24 08:28 05/03/24 07:40 05/03/24 08:28 05/03/24 07:40
I&O
05/02/24 05/03/24 05/04/24
06:59 06:59 06:59
Intake Total 1200 / 1200 920 / 920
Output Total
Balance 1200 / 1200 895 / 895
Physical Exam
Physical Exam
HEENT: Anicteric
Cardiology: Normal Sinus Rhythm
Pulmonary: Clear
GI: Soft, Non Distended, Non Tender and Normal Bowel Sounds
Neuro: Non Focal
--- NOTE | 2024-05-03 10:51 | CM ---
Reviewed the chart notes and spoke with the patient at the bedside. Patient started on Dificid for c-diff treatment. 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 CM continues to be available to patient/family and is monitoring medical
plan for needs at discharge.
Plan: Discharge back to [facility] when medically stable. No precert required.
[2024-05-03] MEDS: APRESOLINE 25 MG PO ×2 (11:14→17:48)
[2024-05-03 15:31] VITALS: BP 165/74; PULSE 85; O2SAT 99
[2024-05-03 15:40] VITALS: BP 165/74
[2024-05-03 15:59] VITALS: BP 165/74; PULSE 85; O2SAT 99
[2024-05-03] MEDS: STERILE WATER FOR INJECTION 10 ML IV (17:48)
[2024-05-03] MEDS: ROCEPHIN 1000 MG IV (17:48)
--- NOTE | 2024-05-03 18:09 | PTCARENOTE ---
Patient having poor appetite due to having abd cramping and soft/ loose stool after PO intake. Pt had one meal today around 1600 and immediately had soft/ loose stool with associated cramping.
[2024-05-03] MEDS: MELATONIN 5 MG PO (21:48)
[2024-05-03 23:11] VITALS: BP 141/85
[2024-05-04] MEDS: BICITRA PO ×3 (02:21→14:30)
[2024-05-04] MEDS: APRESOLINE 25 MG PO ×2 (02:22→10:16)
[2024-05-04 06:00] VITALS: BMI 27.7
[2024-05-04 07:35] VITALS: BP 150/96
[2024-05-04 08:28] LABS: % Basophils 0.4 % (0-2); % Eosinophils 4.7 % (0-6); % Immature Granulocytes 0.4 % (0-0.5); % Lymphocytes 27.4 % (20.5-51.1); % Monocytes 10.9 % (1.7-9.3); % Neutrophils 56.2 % (42.2-75.2); Absolute Eosinophils 0.3 10^3/uL (0-0.7); Absolute Lymphocytes 1.9 10^3/uL (1.2-3.4); Absolute Monocytes 0.8 10^3/uL (0.1-0.6); Hematocrit 24.5 % (37.0-47.0); Hemoglobin 8.3 g/dL (12.0-16.0); Mean Corp Hgb Conc. 33.9 g/dL (33.0-37.0); Mean Corpuscular Hgb 30.6 pg (27.0-31.0); Mean Corpuscular Volume 90.4 fL (81.0-99.0); Mean Platelet Volume 9.9 fL (7.4-10.4); Nucleated Red Blood Cells % 0 %; Platelet Count 108 10^3/uL (130-400); Red Blood Cell Count 2.71 10^6/uL (4.20-5.40); Red Cell Dist. Width 14.7 % (11.5-14.5); White Blood Cell Count 7.1 10^3/uL (4.8-10.8)
[2024-05-04] MEDS: PROTONIX IV 40 MG IV (08:32)
[2024-05-04] MEDS: NSS (PRESERVATIVE FREE) 10 ML IV (08:32)
[2024-05-04] MEDS: ELIQUIS 2.5 MG PO (08:33)
[2024-05-04] MEDS: ZOLOFT 25 MG PO (08:33)
[2024-05-04] MEDS: NORVASC 10 MG PO (08:33)
[2024-05-04] MEDS: DIFICID 200 MG PO (08:33)
[2024-05-04] MEDS: COREG 3.125 MG PO (08:33)
[2024-05-04] MEDS: ATARAX 10 MG PO (08:41)
[2024-05-04 08:55] LABS: ALT (SGPT) < 10 U/L (0-35); AST (SGOT) 17 U/L (14-36); Albumin 3.5 g/dl (3.5-5.0); Alkaline Phosphatase 110 U/L (38-126); Blood Urea Nitrogen 42 mg/dl (7-17); Calcium 9.7 mg/dl (8.4-10.2); Carbon Dioxide 23 mmol/L (22-30); Chloride 103 mmol/L (98-107); Estimated Creatinine Clearance 17 ml/min; Glucose 114 mg/dl (70-99); Magnesium 1.7 mg/dl (1.6-2.3); Potassium 3.8 mmol/L (3.5-5.1); Sodium 138 mmol/L (135-145); Total Bilirubin 0.6 mg/dl (0.2-1.3); Total Protein 6.3 g/dl (6.3-8.2); eGFR 18.39
--- NOTE | 2024-05-04 11:16 | CM ---
Addendum entered by Emilee Valencia RN 05/04/24 14:34:
Correction: Fax # [phone]
Addendum entered by Emilee Valencia RN 05/04/24 12:55:
Correction: call report to: [phone]
Addendum entered by Emilee Valencia RN 05/04/24 11:25:
Call report to: [phone]
Fax report to: [phone]
Medical necessity and transport form on chart.
Original Note:
Reviewed the chart notes and spoke with the patient at the bedside. IMM reviewed and placed on chart. Per attending, patient ready for discharge back to [place]. CM continues to be available to patient/family and is monitoring medical plan for needs
at discharge.
Plan: Discharge back to [facility].
--- NOTE | 2024-05-04 11:19 | W.DCSUMMARY ---
Addendum entered and electronically signed by Selvin Delaney MD 05/04/24 13:44:
Correct CKD stage is 4
Patient had ADAM on admission since baseline Cr is 2.5
Original Note:
Discharge Summary
Discharge Data
Date of Admission: 04/26/24
Date of Discharge: 05/04/24
-
Pending Results: Yes
Additional Pending Results:
IGG4
Hospital Course
84yo F with PMHx of HTN, gout, CKD came with abdominal pain found idiopathic pancreatitis and concern for RLQ colonic mass vs c.diff colitis on imaging to be followd with GI as outpatient. ALso might need EUS. IGG4 pedning at the time of d/c. Ucx
grew mixed dante, but with radiographic urinary bladder wall thickening - reasonable to comlete Abx (swithc to cefuroxime) for 5 days. Cont Vanco oral as outpatient 2/2 insurance coverage. Patient is stable and agreeable with d/c, verbalized
understanding of instructions and follow up. I have spent at least 36 min preparing patient discharge
Patient was managed for:
#Acute idiopathic pancreatitis
#Atelectasis and pleural effusion 2/2 agressive hydration for acute pancreatitis
#Urinary bladder wall thickening
#Concern for c.diff
#Probable R sided mass vs colitis
#Essential HTN
#Afib
#Anxiety D/C
#Gout
#Thrombocytopenia
#Anemia
#CKD stage 4
Discharge Plan
-
Patient Disposition: Assisted Living
Discharge Diagnosis/Procedures: idiopathetic acute pancreatitis
paroxysmal A-fib, HTN, GERD, CKD 3 A, COPD, former smoker gout, anxiety, insomnia, obesity, chronic ambulatory dysfunction
Condition: Good
Diet: As tolerated, Low Fat, Low Fiber and Low Residue
Activity: As tolerated
Driving Restrictions: No driving
Blood Work: BMP in 5days to follow up with Dr. Massey.
Instructions: Acute pancreatitis
Referrals:
Keyshawn Guallpa DO [Active] - in two to three weeks (progressive CKD now stage IV)
Zoila Massey DO [Family Provider] -
Terrell Shin MD [Active] - ( next available.)
Prescriptions:
New
sodium bicarbonate 650 mg tablet
650 mg PO TID 30 Days Qty: 90 0RF
vancomycin [Vancocin] 125 mg capsule
125 mg PO QID Qty: 28 0RF
cefuroxime axetil 250 mg tablet
250 mg PO BID Qty: 6 0RF
Continued
hydralazine 10 mg Tablet
10 mg PO Q8H
acetaminophen 325 mg Tablet
650 mg PO Q4HPRN MDD 3000 mg PRN (Reason: mild pain/fever >101)
loperamide 2 mg Tablet
2 mg PO Q6HPRN PRN (Reason: diarrhea)
allopurinol 100 mg Tablet
50 mg PO Q48H
carvedilol 3.125 mg Tablet
3.125 mg PO BID
ondansetron 8 mg Tablet,Disintegrating
8 mg PO Q8HPRN PRN (Reason: nausea)
famotidine [Pepcid] 20 mg Tablet
20 mg PO Q8HPRN PRN (Reason: GERD)
magnesium hydroxide 400 mg/5 mL Suspension
30 ml PO R02PEOG PRN (Reason: no bm 3 days)
amlodipine 10 mg Tablet
10 mg PO DAILY
bisacodyl 10 mg Suppository
10 mg NE DAILYPRN PRN (Reason: no bm 24 hrs after mom)
Fleet Enema 19-7 gram/118 mL Enema
118 ml NE DAILYPRN PRN (Reason: no bm 24 hrs after bisacodyl)
sertraline [Zoloft] 25 mg Tablet
25 mg PO DAILY
alum-mag hydroxide-simeth [Maalox Maximum Strength] 400-400-40 mg/5 mL Suspension
5 ml PO Q6HPRN PRN (Reason: reflux)
Saccharomyces boulardii [Florastor] 250 mg Capsule
250 mg PO BIDPRN PRN (Reason: diarrhea)
PreserVision AREDS 4,296 mcg-226 mg-90 mg Capsule
1 cap PO DAILY
melatonin 5 mg Tablet
5 mg PO BIDPRN PRN (Reason: insomnia)
cholecalciferol (vitamin D3) 75 mcg (3,000 unit) Tablet
75 mcg PO DAILY
Eliquis 2.5 mg Tablet
2.5 mg PO BID
lidocaine HCl [Aspercreme (lidocaine HCl)] 4 % Cream
1 applic TOPICAL Q6HPRN PRN (Reason: back and neck)
Eucerin Itch Relief 0.1 % Lotion
1 ea TOPICAL DAILY
Discharge Orders:
Discharge Patient (As Directed); Ordered 05/04/24
Ordered By: Selvin Delaney
Discharge Date and Time
Print Language: CYPRIOT
--- NOTE | 2024-05-04 13:04 | PN.CDI ---
CDI
- -
CDI:
Physician Documentation Request
Admit Date: 04/26/24 16:09
Dear Doctor Elaina,
Patient admitted and found to have idiopathic pancreatitis.
Discharge summary states 'patient was managed for ....... CKD stage 4'
Discharge diagnosis includes '.... CKD 3 A'
In an attempt to clarify potentially conflicting documentation, please clarify the patient's CKD stage:
____ - CKD 3A
____ - CKD 4
____ - Other
Stages of Chronic Kidney Disease*
Level Description GFR
G1 Normal or High >90
G2 Mildly decreased 60-89
G3a Mildly to moderately decreased 45-59
G3b Moderately to severely decreased 30-44
G4 Severely decreased 15-29
G5 Kidney failure <15
Use of terms such as suspected, likely, concern for, or probable (associated with a specific diagnosis that is being evaluated, monitored, or treated as if it exists) are acceptable and can be coded in the inpatient setting, when documented at the
time of discharge.
Thank you,
Carito Edouard RN, BSN
CDI Specialist
consuelo ext
Please use your independent medical judgment in providing your response.
*Source: Kidney Disease: Improving Global Outcomes (KDIGO) 2012
--- NOTE | 2024-05-04 13:08 | PN.CDI ---
CDI
- -
CDI:
Physician Documentation Request
Admit Date: 04/26/24 16:09
Dear Doctor Elaina,
Patient admitted and found to have idiopathic pancreatitis.
H&P and hospitalist progress notes from 04/27 -05/01 contain a diagnosis of ADAM.
Creatine resulted as follows:
Laboratory Tests
04/26/24 04/27/24 04/28/24
11:38 05:56 06:19
Creatinine 3.3 H 2.9 H 2.8 H
04/29/24 04/30/24 05/02/24
06:56 06:11 05:07
Creatinine 2.6 H 2.6 H 2.5 H
05/03/24 05/04/24
05:35 07:57
Creatinine 2.5 H 2.5 H
Criteria for ADAM*
1 Increase in serum creatinine by > or = to 0.3 mg/dL (> or = to 26.5 micromol/L) within 48 hours, OR
2 Increase in serum creatinine to > or = to 1.5 times baseline, which is known or presumed to have occurred within 7 days, OR
3 Urine volume < 0.5 nL/kg/hour for six hours
Based on the above information and the recognized standard for ADAM could you please verify this diagnoses is still accurate and reflective of the patient�s condition to ensure quality of the medical record.
Please clarify in the Progress Notes:
�ADAM is/was present and is a clinical diagnosis based on (please include this additional support in the medical record)
�After study ADAM has been ruled out
�Other
Use of terms such as suspected, likely, concern for, or probable (associated with a specific diagnosis that is being evaluated, monitored, or treated as if it exists) are acceptable and can be coded in the inpatient setting, when documented at the
time of discharge.
Thank you,
Carito Edouard RN, BSN
CDI Specialist
tiger text
Please use your independent medical judgment in providing your response.
[2024-05-04 13:49] VITALS: BP 149/60
== END 2024-05-04 14:57 | disposition home or self-care (01) | DRG 439 ==
LOC: 2 NORTH 16:09
PROVIDERS: Clinical Nurse Specialist Family Health; Physician Assistant; Registered Nurse; ADMITTING PHYSICIAN Hospitalist; ATTENDING PHYSICIAN Internal Medicine; CONSULT PHYSICIAN Internal Medicine Gastroenterology; EMERGENCY PHYSICIAN Emergency Medicine; FAMILY PHYSICIAN Hospitalist
DX: K85.00 Idiopathic acute pancreatitis without necrosis or infection (principal); A04.72 Enterocolitis due to Clostridium difficile, not specified as recurrent; J90 Pleural effusion, not elsewhere classified; J98.11 Atelectasis; N17.9 Acute kidney failure, unspecified; N18.4 Chronic kidney disease, stage 4 (severe); F41.9 Anxiety disorder, unspecified; M10.9 Gout, unspecified; D69.6 Thrombocytopenia, unspecified; D64.9 Anemia, unspecified; J44.9 Chronic obstructive pulmonary disease, unspecified; K21.9 Gastro-esophageal reflux disease without esophagitis; I12.9 Hypertensive chronic kidney disease with stage 1 through stage 4 chronic kidney disease, or unspecified chronic kidney disease; I48.0 Paroxysmal atrial fibrillation; R26.2 Difficulty in walking, not elsewhere classified; E11.22 Type 2 diabetes mellitus with diabetic chronic kidney disease; Z87.891 Personal history of nicotine dependence
CPT/HCPCS: 71046; 74176; 80048; 80053; 80061; 81003; 81015; 82607; 82728; 82746; 82787; 82805; 82962; 83540; 83550; 83605; 83615; 83690; 83735; 83880; 84478; 84484; 85025; 85027; 85045; 86803; 87070; 87077; 87086; 87186; 87324; 87449; 93005; 96360; 97163; 97166; 97530; 97535; 99285

== ENCOUNTER 2024-05-08 15:37 | Inpatient (IN) | payer MEDICARE, MEDICAID, SELFPAY ==
[2024-05-08] VITALS (7 sets, daily range): BP systolic 148–181; BP diastolic 59–74; BMI 28.0; BMI 27.5
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
[2024-05-08 11:16] LABS: % Basophils 0.7 % (0-2); % Eosinophils 2.3 % (0-6); % Immature Granulocytes 0.5 % (0-0.5); % Lymphocytes 19.9 % (20.5-51.1); % Monocytes 8.8 % (1.7-9.3); % Neutrophils 67.8 % (42.2-75.2); Absolute Basophils 0.1 10^3/uL (0-0.2); Absolute Eosinophils 0.2 10^3/uL (0-0.7); Absolute Lymphocytes 1.5 10^3/uL (1.2-3.4); Absolute Monocytes 0.7 10^3/uL (0.1-0.6); Hematocrit 25.1 % (37.0-47.0); Hemoglobin 8.4 g/dL (12.0-16.0); Mean Corp Hgb Conc. 33.5 g/dL (33.0-37.0); Mean Corpuscular Hgb 31.1 pg (27.0-31.0); Mean Platelet Volume 9.4 fL (7.4-10.4); Nucleated Red Blood Cells % 0 %; Platelet Count 146 10^3/uL (130-400); Red Cell Dist. Width 13.6 % (11.5-14.5); White Blood Cell Count 7.4 10^3/uL (4.8-10.8)
[2024-05-08 11:29] LABS: ALT (SGPT) < 10 U/L (0-35); AST (SGOT) 20 U/L (14-36); Albumin 3.5 g/dl (3.5-5.0); Alkaline Phosphatase 109 U/L (38-126); Blood Urea Nitrogen 33 mg/dl (7-17); Calcium 9.4 mg/dl (8.4-10.2); Carbon Dioxide 26 mmol/L (22-30); Chloride 104 mmol/L (98-107); Estimated Creatinine Clearance 18 ml/min; Glucose 139 mg/dl (70-99); Lipase 164 U/L (23-300); Potassium 4.1 mmol/L (3.5-5.1); Sodium 136 mmol/L (135-145); Total Bilirubin 0.5 mg/dl (0.2-1.3); Total Protein 6.3 g/dl (6.3-8.2); eGFR 20.32
[2024-05-08 12:09] LABS: Urine Albumin 2+ (Neg - Trace); Urine Bilirubin Negative (Negative); Urine Character Clear (Clear); Urine Color Yellow; Urine Glucose Negative (Negative); Urine Ketone Negative (Negative); Urine Leukocyte 2+ (Negative); Urine Nitrite Negative (Negative); Urine Occult Blood Trace (Negative); Urine Urobilinogen Negative (Neg - 1+)
[2024-05-08 12:21] LABS: Urine Squamous Cell >30 /LPF (Few); Urine Urothelial Cell 16-20 /LPF (FEW)
[2024-05-08 12:23] LABS: Urine Bacteria Few (Negative); Urine Red Blood Cell 0-2 /HPF (0-2); Urine White Cell 60-70 /HPF (0-5)
--- NOTE | 2024-05-08 14:30 | HPS.HSE ---
Family Physician
-
Family Physician: Zoila Massey, DO
Chief Complaint
-
Hallucinations, confusion
History of Present Illness
83-year-old female sent from [facility] with staff reporting to EMS that she was having hallucinations thought the police were in her room rewiring it. She was making statements that she had been tortured with electrical currents
and there is metal in her skin. She reports to me she is aware of having episodes of hallucinations she states she thought people's heads were hanging out of her ceiling. She also reports she thought her pills were in a container and then the cup
disappeared. She does believe that the staff at the snf was putting wires inside of her arms recent review of her urine culture from 04/26/2024 grew Klebsiella Pnuemoniae and is pansensitive except for ampicillin and Bactrim her repeat
urine culture grew mixed dante on 05/02/2024. She denies current headache, sore throat, dizziness, sneezing, chest pain, palpitations, shortness of breath, cough, abdominal pain, nausea, vomiting, diarrhea, urinary symptoms.
She had a recent admission 04/26 - 05/04/2024 for idiopathic pancreatitis and concern for right lower colonic mass versus C. difficile colitis that was due to be followed up as outpatient with GI may require endoscopic ultrasound. Her urine culture
that time grew mixed dante she had some bladder wall thickening she was switched to cefuroxime for 5 days(to have stopped 05/07/2024) and was completing oral vancomycin for concerns of C. difficile
paroxysmal A-fib, HTN, GERD, CKD 3A/4 , anemia normocytic/anemia of CKD COPD, former smoker gout, anxiety, insomnia, obesity, chronic ambulatory dysfunction uses walker at baseline, idiopathic pancreatitis April 2024, right-sided colonic mass versus
colitis 04/26/2024.
Medical History
Past Medical History
Past Medical History: Reports Other
Additional Past Medical History:
idiopathic pancreatitis April 2024
concern for right lower colonic mass versus C. difficile colitis April 26, 2024
UTI�urine culture from 04/26/2024 grew Klebsiella Pnuemoniae
paroxysmal A-fib
COPD
Former smoker
HTN
GERD
CKD 3 A
gout
anxiety
insomnia
Chronic ambulatory dysfunction uses walker
Obesity
Past Surgical History: Reports Other
Additional Past Surgical History:
Cataract extraction
Cholecystectomy
Left leg surgery
Social History
Tobacco: Former Smoker (Quit age 41)
Alcohol: None
Drug: None
Personal: Single
Living: Half-Way ([facility])
Employment: Retired
Family History
Family History: Not pertinent
Allergies / Home Medications
Allergies reflects when Allergies were last updated in [employer].
Home Medications with original date entered in [employer]
Allergy/Medication List:
Allergies
Allergy/AdvReac Type Severity Reaction Status Date / Time
No Known Allergies Allergy Unverified 04/26/24 11:48
Home Medications
Saccharomyces boulardii 250 mg capsule (Florastor) 250 mg PO BIDPRN PRN diarrhea 04/26/24
acetaminophen 325 mg tablet 650 mg PO Q4HPRN PRN mild pain/fever >101 04/26/24
allopurinol 100 mg tablet 50 mg PO Q48H Gout 04/26/24
aluminum-mag hydroxide-simethicone 400 mg-400 mg-40 mg/5 mL oral susp (Maalox Maximum Strength) 5 ml PO Q6HPRN PRN reflux 04/26/24
amlodipine 10 mg tablet 10 mg PO DAILY Blood Pressure 04/26/24
apixaban 2.5 mg tablet (Eliquis) 2.5 mg PO BID Blood Clot Prevention/Tx 04/26/24
bisacodyl 10 mg rectal suppository [address] DAILYPRN PRN no bm 24 hrs after mom 04/26/24
carvedilol 3.125 mg tablet 3.125 mg PO BID Blood Pressure 04/26/24
cholecalciferol (vitamin D3) 75 mcg (3,000 unit) tablet 75 mcg PO DAILY Supplement 04/26/24
famotidine 20 mg tablet (Pepcid) 20 mg PO Q8HPRN PRN GERD 04/26/24
hydralazine 10 mg tablet 10 mg PO Q8H Blood Pressure 04/26/24
lidocaine HCl 4 % topical cream (Aspercreme (lidocaine HCl)) 1 applic topical Q6HPRN PRN back and neck 04/26/24
loperamide 2 mg tablet 2 mg PO Q6HPRN PRN diarrhea 04/26/24
magnesium hydroxide 400 mg/5 mL oral suspension 30 ml PO [id number] PRN no bm 3 days 04/26/24
melatonin 5 mg tablet 5 mg PO BIDPRN PRN insomnia 04/26/24
menthol 0.1 % lotion (Eucerin Itch Relief) 1 ea topical DAILY b/l arms 04/26/24
ondansetron 8 mg disintegrating tablet 8 mg PO Q8HPRN PRN nausea 04/26/24
sertraline 25 mg tablet (Zoloft) 25 mg PO DAILY Mental Health 04/26/24
sodium phosphates 19 gram-7 gram/118 mL enema (Fleet Enema) [address] DAILYPRN PRN no bm 24 hrs after bisacodyl 04/26/24
vitamins A,C,F-ynmc-prgwhj 4,296 mcg-226 mg-90 mg capsule (PreserVision AREDS) 1 cap PO DAILY Supplement 04/26/24
sodium bicarbonate 650 mg tablet 650 mg PO TID 30 days #90 tabs 04/29/24
vancomycin 125 mg capsule (Vancocin) 125 mg PO QID #28 caps 05/04/24
Review of Systems
-
History Source: Patient and [facility] (Report)
A 12 point ROS was completed and negative except as noted: Yes
Constitutional: Reports Other (Confusions with hallucinations); Denies Fever or Chills
EENT: Denies Sore Throat or Runny Nose
Respiratory: Denies Cough or Trouble Breathing
Cardiac: Denies Chest Pain, Diaphoresis, Palpitations or Syncope
Abdomen/GI: Denies Abdominal Pain, Nausea, Vomiting, Diarrhea, Constipated, Bloody Stools or Black Stools
: Denies Dysuria, Frequency, Flank Pain, Incontinence, Difficulty Voiding or Urgency
Musculoskeletal: Denies Joint Pain or Edema
Skin: Denies Itching or Rash
Neurological: Denies Dizzy or Headache
Endocrine: Reports No Symptoms
Hematologic/Lymphatic: Reports No Symptoms
Psych: Reports Calm
Physical Exam
Vital Signs
Vital Signs
Pulse Resp BP Pulse Ox
81 34 155/61 96
05/08/24 13:15 05/08/24 13:45 05/08/24 13:00 05/08/24 13:45
Physical Exam
General: Comfortable, Conversant, Chills and Other (Confusion with hallucinations); No Pain or Fever
HEENT: NormoCephalic, Anicteric, [place] Conjunctivae and No Ptosis
Respiratory: Clear; No Wheezes, Rales or Rhonchi
Cardiac: S1/S2 and Regular Rhythm; No Murmur, Rub, Gallop or Peripheral Edema
GI: Soft, Non Tender, Non Distended, Normal Bowel Sounds and No Hepatosplenomegaly
Genito-urinary: Deferred by me
Musculoskeletal: No Clubbing, No Cyanosis and No Edema
Skin: Warm and Dry; No Rash
Neuro: Awake, Alert, Oriented (To name, place but is aware of her hallucinations thinking people are showing wires into her also seeing heads coming out her ceiling), Cranial Nerves Intact and No Sensory Deficits; No Slurred Speech, Facial Droop or
Tremors
Psych: Calm
Laboratory Results
-
05/08/24 10:54
05/08/24 10:54
Laboratory Results
Total Bilirubin 0.5 mg/dl (0.2-1.3) 05/08/24 10:54
AST 20 U/L (14-36) 05/08/24 10:54
ALT < 10 U/L (0-35) 05/08/24 10:54
Alkaline Phosphatase 109 U/L (38-126) 05/08/24 10:54
Lipase 164 U/L (23-300) 05/08/24 10:54
Impression/Plan
-
Impression/plan:
[facility]
#Encephalopathy with hallucinations likley recurrent UTI
-Reported hallucinations at snf by staff
#Recent urinary bladder wall thickening with UTI, culture on 04/26/2024 grew Klebsiella Pnuemoniae with repeat mixed dante on 05/02/2024
-This was treated with cephalexin for 5 days and cefuroxime 250 mg twice daily for additional 3 days ending 05/07/2024
UA WBC 60�70, few bacteria, +2 leukocyte esterase
WBC 7.4, temp 98.7, HR 81
-Check CXR, CT abdomen pelvis
-Check COVID swab
-Will start IV Zosyn
- check Procal if low consider I/D for stopping
Follow CBC, CMP, urine culture
CT head: 1. Mild white matter leukoaraiosis in both cerebral hemispheres
2. 3 mm chronic lacunar infarct in the right caudate head
3. Mild diffuse cerebral and cerebellar volume loss
#Recent idiopathic pancreatitis
#Recent right-sided mass versus colitis with concern for C. difficile 04/26/2024
-Patient has been on oral vancomycin outpatient since 05/04/2024
-Patient is due to follow-up with outpatient GI may require EUS
-Continue oral vancomycin 125 mg 4 times daily additional 4 days has left
#CKD 3A /4 with recent metabolic acidosis and low HCO3
Creat 2.3 this is down from 3.3 on 04/26/2024. She was 2.71-year ago
-Was started on 650 mg sodium bicarb 3 times daily on discharge 05/04/2024
-Follow BMP
# Chronic anemia�normocytic/anemia of CKD
Hgb 8.4
-Had recent normal iron panel B12 and folate on 04/26/2024 admission
#Paroxysmal A-fib
On Eliquis 2.5 mg twice daily
-Continue carvedilol 3.125 mg twice daily
#HTN�benign
BP 155/61
-Continue hydralazine 10 mg every 8 hours, carvedilol 3.125 mg p.o. twice daily, amlodipine 10 mg daily
#GERD
-On oral Pepcid 20 mg every 8 hours as needed
#Gout
-Continue allopurinol 50 mg every 48 H
#Hx anxiety
No reported meds
#Insomnia
-Patient takes melatonin 5 mg twice daily as needed
DVT prophylaxis
Continue [employer] Eliquis 2.5 mg twice daily
Full code per patient wants full attempt at CPR including brief intubation
[2024-05-08] MEDS: ROCEPHIN 1000 MG IV (14:35)
[2024-05-08 14:59] LABS: COVID-19 Antigen Negative (Negative)
--- NOTE | 2024-05-08 15:31 | W.PN.UPDATE ---
Update Note
Progress Note Update
I have independently examined the patient and agree with a/p in H&P written on the same date. In addition:
84yo F resident of [facility] returned after being discharged 4 days ago (pancreatitis, UTI, c.diff, possible mass in colon) with hallucinations. Pyuria persists.� Failure of empiric Abx. Admitted with sepsis 2/2 UTI
Start Zosyn
follow CT abd
follow XR chest
follow UCx
at least 76 min spend admitting patient, reviewing chart, test results and direct patient care
[2024-05-08 15:47] LABS: Amphetamines Negative (Negative); Barbiturates Negative (Negative); Benzodiazepines Negative (Negative); Buprenorphine Negative (Negative); Cocaine Negative (Negative); Marijuana Negative (Negative); Methadone Negative (Negative); Methamphetamines Negative (Negative); Opiates Negative (Negative); Phencyclidine Negative (Negative); Tricyclic Antidepressants Negative (Negative)
--- NOTE | 2024-05-08 17:03 | W.PN.UPDATE ---
Update Note
Progress Note Update
moderate L pleural effusion with mediastinal shift
-chest CT
-IRAD for thoracentesis
-Check proBNP
-Echo
constipation
-miralax
radiographic liver cirrhosis
-hepC neg
-previously seen by GI - outpatient followup
avoid hepatotoxins
[2024-05-08] MEDS: SODIUM BICARBONATE 650 MG PO ×2 (18:03→21:27)
[2024-05-08] MEDS: APRESOLINE 10 MG PO (18:04)
[2024-05-08] MEDS: MIRALAX PO (18:04)
[2024-05-08] MEDS: FIRVANQ 125 MG PO ×2 (18:05→23:17)
[2024-05-08] MEDS: COREG 3.125 MG PO (19:49)
[2024-05-08] MEDS: ELIQUIS 2.5 MG PO (19:50)
[2024-05-08] MEDS: ZOSYN 50 IV (21:27)
[2024-05-08 22:04] LABS: NT-proBNP 12400 pg/ml
[2024-05-09] VITALS (9 sets, daily range): BP systolic 73–173; BP diastolic 58–80; BMI 27.5; BMI 26.7
[2024-05-09] MEDS: APRESOLINE 10 MG PO ×3 (02:21→16:57)
[2024-05-09] MEDS: FIRVANQ 125 MG PO ×4 (05:42→23:15)
[2024-05-09] MEDS: ZOSYN 50 IV ×3 (05:42→21:36)
[2024-05-09 08:35] LABS: % Basophils 0.5 % (0-2); % Eosinophils 3.9 % (0-6); % Immature Granulocytes 0.4 % (0-0.5); % Lymphocytes 25.2 % (20.5-51.1); % Monocytes 12.7 % (1.7-9.3); % Neutrophils 57.3 % (42.2-75.2); Absolute Eosinophils 0.2 10^3/uL (0-0.7); Absolute Lymphocytes 1.4 10^3/uL (1.2-3.4); Absolute Monocytes 0.7 10^3/uL (0.1-0.6); Absolute Neutrophils 3.2 10^3/uL (1.4-6.5); Hematocrit 19.9 % (37.0-47.0); Hemoglobin 6.8 g/dL (12.0-16.0); Mean Corp Hgb Conc. 34.2 g/dL (33.0-37.0); Mean Corpuscular Hgb 31.3 pg (27.0-31.0); Mean Corpuscular Volume 91.7 fL (81.0-99.0); Mean Platelet Volume 9.7 fL (7.4-10.4); Nucleated Red Blood Cells % 0 %; Platelet Count 139 10^3/uL (130-400); Red Blood Cell Count 2.17 10^6/uL (4.20-5.40); Red Cell Dist. Width 13.3 % (11.5-14.5); White Blood Cell Count 5.6 10^3/uL (4.8-10.8)
[2024-05-09 08:57] LABS: ALT (SGPT) < 10 U/L (0-35); AST (SGOT) 16 U/L (14-36); Albumin 2.9 g/dl (3.5-5.0); Alkaline Phosphatase 90 U/L (38-126); Blood Urea Nitrogen 32 mg/dl (7-17); Calcium 8.9 mg/dl (8.4-10.2); Carbon Dioxide 26 mmol/L (22-30); Chloride 106 mmol/L (98-107); Estimated Creatinine Clearance 15 ml/min; Glucose 129 mg/dl (70-99); Potassium 3.7 mmol/L (3.5-5.1); Sodium 136 mmol/L (135-145); Total Bilirubin 0.4 mg/dl (0.2-1.3); Total Protein 5.5 g/dl (6.3-8.2); eGFR 19.31
[2024-05-09 09:45] LABS: Body Fluid Mononuclear 82.6 %; Body Fluid Polymorphonuclear 17.4 %; Body Fluid WBC 999 /CUMM
--- NOTE | 2024-05-09 09:46 | W.PN.HOSP.TC ---
Today's Communication/Plan
-
see bold
Assessment / Plan
Assessment / Plan
HPI: 83-year-old female sent from [facility] with staff reporting to EMS that she was having hallucinations thought the police were in her room rewiring it. She was making statements that she had been tortured with electrical
currents and there is metal in her skin. She reports to me she is aware of having episodes of hallucinations she states she thought people's heads were hanging out of her ceiling. She also reports she thought her pills were in a container and then
the cup disappeared. She does believe that the staff at the [facility] was putting wires inside of her arms recent review of her urine culture from 04/26/2024 grew Klebsiella Pnuemoniae and is pansensitive except for ampicillin and Bactrim her
repeat urine culture grew mixed dante on 05/02/2024. She denies current headache, sore throat, dizziness, sneezing, chest pain, palpitations, shortness of breath, cough, abdominal pain, nausea, vomiting, diarrhea, urinary symptoms. She had a recent
admission 04/26 - 05/04/2024 for idiopathic pancreatitis and concern for right lower colonic mass versus C. difficile colitis that was due to be followed up as outpatient with GI may require endoscopic ultrasound. Her urine culture that time grew
mixed dante she had some bladder wall thickening she was switched to cefuroxime for 5 days(to have stopped 05/07/2024) and was completing oral vancomycin for concerns of C. difficile.
#Moderate left pleural effusion
For left thoracentesis today
#Mild pulmonary edema
IV Lasix
#Anemia of chronic disease
Hemoglobin 6.8 today, transfuse 1 unit
#Encephalopathy with hallucinations
Unclear etiology, UTI ruled out
. Antibiotics
Check TSH, free T4, B12
Consult psychiatry
CT head: 1. Mild white matter leukoaraiosis in both cerebral hemispheres
2. 3 mm chronic lacunar infarct in the right caudate head
3. Mild diffuse cerebral and cerebellar volume loss
#Recent idiopathic pancreatitis
#Recent right-sided mass versus colitis with concern for C. difficile 04/26/2024
-Patient has been on oral vancomycin outpatient since 05/04/2024
-Patient is due to follow-up with outpatient GI may require EUS
-Continue oral vancomycin 125 mg 4 times daily additional 3 days has left
#CKD 3A /4 with recent metabolic acidosis and low HCO3
Continue sodium bicarb, trend creatinine
#Paroxysmal A-fib
On Eliquis 2.5 mg twice daily
Continue carvedilol 3.125 mg twice daily
#HTN�benign
-Continue hydralazine 10 mg every 8 hours, carvedilol 3.125 mg p.o. twice daily, amlodipine 10 mg daily
#GERD
-On oral Pepcid 20 mg every 8 hours as needed
#Gout
-Continue allopurinol 50 mg every 48 H
#Hx anxiety
No reported meds
#Insomnia
-Patient takes melatonin 5 mg twice daily as needed
DVT prophylaxis - Continue BLOCK PLACER Eliquis 2.5 mg twice daily
Full code per patient wants full attempt at CPR including brief intubation
Total time spent to see the patient on the floor, examine the patient, review data and lab results, discuss treatment plan with patient, nursing staff around 52 minutes.
Physical Exam
General: No acute distress
HEENT: Normocephalic, Atraumatic, EOMI, MMM
Respiratory: Clear to Auscultation bilaterally
Cardiac: Normal S1/S2, Regular Rate and Rhythm
GI: Soft, Nontender, Nondistended, Normal Bowel Sounds
Extremities: No Clubbing, Cyanosis, or Edema
Neuro: Mildly confused
Psych: Calm, Cooperative
Anticipated Discharge: > 48 hours
Subjective/Interval History
-
Date of Service: May 09, 2024
Patient reports her breathing has improved. No fever, no vomiting.
Objective Data
-
Labs:
Laboratory Results
05/09/24
07:46
WBC 5.6
Hgb 6.8 L*
Hct 19.9 L*
Plt Count 139
Sodium 136
Potassium 3.7
Chloride 106
Carbon Dioxide 26
BUN 32 H
Creatinine 2.4 H
Glucose 129 H
Calcium 8.9
Total Bilirubin 0.4
AST 16
ALT < 10
Alkaline Phosphatase 90
Vital Signs:
Vital Signs
Temp Pulse Resp BP Pulse Ox
97.7 F 62 18 159/80 98
05/09/24 08:10 05/09/24 09:09 05/09/24 09:09 05/09/24 09:09 05/09/24 08:10
I&O
05/08/24 05/09/24 05/10/24
06:59 06:59 06:59
Intake Total 340 / 340
Balance 340 / 340
[2024-05-09 09:50] LABS: Body Fluid pH 7.5
[2024-05-09 09:51] LABS: Body Fluid Amylase 36 U/L; Body Fluid LDH 130 U/L
[2024-05-09 10:25] LABS: Body Fluid Second Tech AMA
[2024-05-09] MEDS: VITAMIN D3 (cholecalciferol) 75 MCG PO (10:29)
[2024-05-09] MEDS: ELIQUIS 2.5 MG PO ×2 (10:29→19:43)
[2024-05-09] MEDS: MIRALAX 17 GRAMS PO (10:30)
[2024-05-09] MEDS: COREG 3.125 MG PO ×2 (10:30→19:44)
[2024-05-09] MEDS: OCUVITE SOFTGEL 1 CAP PO (10:30)
[2024-05-09] MEDS: ZYLOPRIM 50 MG PO (10:31)
[2024-05-09] MEDS: NORVASC 10 MG PO (10:31)
[2024-05-09] MEDS: SODIUM BICARBONATE 650 MG PO ×3 (10:31→21:36)
[2024-05-09] MEDS: ZOLOFT 25 MG PO (10:31)
--- NOTE | 2024-05-09 14:26 | CM ---
Addendum entered by Veronica Alcantara 05/09/24 15:25:
Per [facility], patient is not ambulatory, is able to propel to wheelchair, transfers and ADLS are all assisted.
Original Note:
Patient off floor. CM spoke with patients nurse, Senia, from [facility]. Senia confirmed patient is LTC resident. Senia reports she is not sure how patient typically ambulates, reports patient is able to get up and use the bathroom
herself. Senia reports patient is typically alert and oriented. Senia reports patient was recently receiving PT services. Patient PCP Zoila Massey, pharmacy used is [facility] in [place], [place]. CM will continue to follow for
discharge planning needs, watch for skilled need from PT/OT evals.
Plan; Return to [facility].
[2024-05-09] MEDS: LASIX 40 MG IV (18:01)
[2024-05-10] MEDS: APRESOLINE 10 MG PO ×3 (00:02→18:17)
[2024-05-10 03:05] VITALS: BP 162/65
[2024-05-10 06:00] VITALS: BMI 26.8
[2024-05-10] MEDS: ZOSYN 50 IV ×3 (06:07→21:26)
[2024-05-10] MEDS: FIRVANQ 125 MG PO ×4 (06:07→23:06)
[2024-05-10 07:00] VITALS: BP 158/64
[2024-05-10 07:41] LABS: Hematocrit 23.7 % (37.0-47.0); Hemoglobin 8.1 g/dL (12.0-16.0); Mean Corp Hgb Conc. 34.2 g/dL (33.0-37.0); Mean Corpuscular Hgb 30.3 pg (27.0-31.0); Mean Corpuscular Volume 88.8 fL (81.0-99.0); Mean Platelet Volume 9.6 fL (7.4-10.4); NT-proBNP 9770 pg/ml; Platelet Count 141 10^3/uL (130-400); Red Blood Cell Count 2.67 10^6/uL (4.20-5.40); Red Cell Dist. Width 16.1 % (11.5-14.5); White Blood Cell Count 6.1 10^3/uL (4.8-10.8)
[2024-05-10 07:53] LABS: Blood Urea Nitrogen 35 mg/dl (7-17); Calcium 8.9 mg/dl (8.4-10.2); Carbon Dioxide 25 mmol/L (22-30); Chloride 105 mmol/L (98-107); Estimated Creatinine Clearance 15 ml/min; Glucose 96 mg/dl (70-99); Potassium 3.9 mmol/L (3.5-5.1); Sodium 136 mmol/L (135-145); eGFR 18.39
[2024-05-10 08:15] VITALS: BP 163/77; BP 164/70; O2SAT 98
[2024-05-10] MEDS: NORVASC 10 MG PO (08:24)
[2024-05-10] MEDS: MIRALAX 17 GRAMS PO (08:24)
[2024-05-10] MEDS: OCUVITE SOFTGEL 1 CAP PO (08:24)
[2024-05-10] MEDS: COREG 3.125 MG PO (08:24)
[2024-05-10] MEDS: VITAMIN D3 (cholecalciferol) 75 MCG PO (08:24)
[2024-05-10] MEDS: ZOLOFT 25 MG PO (08:25)
[2024-05-10] MEDS: SODIUM BICARBONATE 650 MG PO ×3 (08:25→21:25)
[2024-05-10] MEDS: LASIX 40 MG IV (08:25)
[2024-05-10] MEDS: ELIQUIS 2.5 MG PO ×2 (08:25→19:35)
--- NOTE | 2024-05-10 08:32 | W.PN.HOSP.TC ---
Addendum entered and electronically signed by Doyle Tinoco MD 05/11/24 16:37:
Correction, Zosyn discontinued
Original Note:
Today's Communication/Plan
-
See bold
Assessment / Plan
Assessment / Plan
HPI: 83-year-old female sent from [facility] with staff reporting to EMS that she was having hallucinations thought the police were in her room rewiring it. She was making statements that she had been tortured with electrical
currents and there is metal in her skin. She reports to me she is aware of having episodes of hallucinations she states she thought people's heads were hanging out of her ceiling. She also reports she thought her pills were in a container and then
the cup disappeared. She does believe that the staff at the [facility] was putting wires inside of her arms recent review of her urine culture from 04/26/2024 grew Klebsiella Pnuemoniae and is pansensitive except for ampicillin and Bactrim her
repeat urine culture grew mixed dante on 05/02/2024. She denies current headache, sore throat, dizziness, sneezing, chest pain, palpitations, shortness of breath, cough, abdominal pain, nausea, vomiting, diarrhea, urinary symptoms. She had a recent
admission 04/26 - 05/04/2024 for idiopathic pancreatitis and concern for right lower colonic mass versus C. difficile colitis that was due to be followed up as outpatient with GI may require endoscopic ultrasound. Her urine culture that time grew
mixed dante she had some bladder wall thickening she was switched to cefuroxime for 5 days(to have stopped 05/07/2024) and was completing oral vancomycin for concerns of C. difficile.
#Moderate left pleural effusion
Status post left thoracentesis 05/09 draining 700 cc of clear yellow fluid
Exudative in nature
#Mild pulmonary edema
IV Lasix, trend creatinine
#Anemia of chronic disease
Hemoglobin 8.1 today, improved from 6.8 status post 1 unit packed red blood cell 05/09
Trend hemoglobin
#Encephalopathy with hallucinations
Unclear etiology, UTI ruled out, Rocephin discontinued
TSH/free T4/B12 all normal
Consult psychiatry, consult neurology
CT head: 1. Mild white matter leukoaraiosis in both cerebral hemispheres
2. 3 mm chronic lacunar infarct in the right caudate head
3. Mild diffuse cerebral and cerebellar volume loss
#Recent idiopathic pancreatitis
#Recent right-sided mass versus colitis with concern for C. difficile 04/26/2024
-Patient has been on oral vancomycin outpatient since 05/04/2024
-Patient is due to follow-up with outpatient GI may require EUS
-Continue oral vancomycin 125 mg 4 times daily additional 2 days has left
#CKD 3A /4 with recent metabolic acidosis and low HCO3
Continue sodium bicarb, trend creatinine
#Paroxysmal A-fib
On Eliquis 2.5 mg twice daily
Continue carvedilol 3.125 mg twice daily
#HTN�benign
-Continue hydralazine 10 mg every 8 hours, carvedilol 3.125 mg p.o. twice daily, amlodipine 10 mg daily
#GERD
-On oral Pepcid 20 mg every 8 hours as needed
#Gout
-Continue allopurinol 50 mg every 48 H
#Hx anxiety
No reported meds
#Insomnia
-Patient takes melatonin 5 mg twice daily as needed
DVT prophylaxis - Continue [employer] Eliquis 2.5 mg twice daily
Full code per patient wants full attempt at CPR including brief intubation
Total time spent to see the patient on the floor, examine the patient, review data and lab results, discuss treatment plan with patient, nursing staff around 51 minutes.
Physical Exam
General: No acute distress
HEENT: Normocephalic, Atraumatic, EOMI, MMM
Respiratory: Clear to Auscultation bilaterally
Cardiac: Normal S1/S2, Regular Rate and Rhythm
GI: Soft, Nontender, Nondistended, Normal Bowel Sounds
Extremities: No Clubbing, Cyanosis, or Edema
Neuro: Mildly confused
Psych: Calm, Cooperative
Anticipated Discharge: 24 - 48 hours
Subjective/Interval History
-
Date of Service: May 10, 2024
Patient denies shortness of breath. She does report hallucinations. No fever, no vomiting.
Objective Data
-
Labs:
Laboratory Results
05/10/24
06:55
WBC 6.1
Hgb 8.1 L
Hct 23.7 L
Plt Count 141
Sodium 136
Potassium 3.9
Chloride 105
Carbon Dioxide 25
BUN 35 H
Creatinine 2.5 H
Glucose 96
Calcium 8.9
Vital Signs:
Vital Signs
Temp Pulse Resp BP Pulse Ox
98.0 F 61 16 162/65 99
05/09/24 23:18 05/10/24 03:05 05/10/24 03:05 05/10/24 03:05 05/09/24 23:18
I&O
05/09/24 05/10/24 05/11/24
06:59 06:59 06:59
Intake Total 340 / 340 1070 / 1070
Balance 340 / 340 1070 / 1070
[2024-05-10 08:36] VITALS: BP 163/77; BP 164/70; PULSE 72; O2SAT 98
[2024-05-10 08:57] LABS: TSH Reflex To Free T4 2.62 uIU/ml (0.47-4.68)
[2024-05-10 09:09] LABS: Vitamin B12 381 pg/ml (239-931)
--- NOTE | 2024-05-10 10:17 | CON.NEURO4 ---
Addendum entered and electronically signed by Gokul Kim MD 05/10/24 16:03:
Studies reviewed.
I have personally examined the patient. I reviewed and agree with the UNDERWRITER SOLICITATION DIRECTOR's Note.
My addenda:
Awake, alert, interactive. No acute distress.
Speech intact.
Follows 2-step requests w/o difficulty. No tremor.
Extra-ocular movements grossly intact.
Facial movements full and symmetric. Hearing intact to normal conversational volume.
Normal UE movements bilaterally.
Neck: full ROM.
Chest: no dyspnea
Heart: no JVD
Ext: (-) Clubbing, (-) Cyanosis, (-) Edema
IMPRESSIONS/RECOMMENDATIONS:
Abrupt onset of hallucination with overall good insight
Differential diagnosis is broad and would include metabolic abnormalities including a minimal encephalopathy due to B12 deficiency
Start vitamin B12 replacement, lifelong
Provide thiamine, may be changed from IV to p.o. as patient tolerates
Continue apixaban
Consider additional neuroimaging if the patient has recurrent events or worsening of mentation
Formal neuropsychological testing may be beneficial as an outpatient depending on additional events and or memory decline
D/W patient
Will continue to follow as needed..
Original Note:
Documented by User: Lashay Vicente NP 05/10/24 13:27
Consultation - Neurology 4
-
CONSULTING PHYSICIAN: Gokul Kim MD
REFERRING PHYSICIAN: Hospitalists/Dr. Tinoco
DICTATED BY: CHARMAINE Bird
DATE/TIME OF REQUEST: 05/10/24
DATE/TIME OF CONSULTATION: 05/10/24
Reason for Consultation: Change in mental status
History of Present Illness:
This is an 84-year-old right-handed female who has presented to the hospital from [facility] on 05/08/24 with report of confusion and hallucinations. Patient was recently hospitalized at from 04/26/24-05/04/24 with idiopathic pancreatitis, Cdiff
colitis vs colonic mass, and possible UTI. CT head was obtained on arrival and is negative for any acute findings but is suggestive of bilateral mild white matter leukoaraiosis and a 3 mm chronic lacunar infarct in the right caudate head. CT chest
demonstrates a left pleural effusion and LLL nodular consolidation. Patient is currently AAOx3 and remembers having hallucinations vividly, she is very anxious that they were real events. She currently reports feeling improved but notes generalized
numbness which she describes as a feeling of 'dissociation' with her body. She denies any headache, dizziness, vision changes, speech/swallow difficulty, nausea, weakness, chest pain, palpitations, and shortness of breath. She had no known history
of TIA or stroke. She is taking Eliquis for Afib.
Past Medical History: Paroxysmal Afib (Eliquis), HTN, HLD, COPD, CKD, anxiety, insomnia, gout, ambulatory dysfunction
Surgical History: b/l cataract removal, cholecystectomy, left leg surgery
Family History: Reviewed and noncontributory.
Social History: Former smoker. Denies alcohol and illicit drug use.
Allergies: No known allergies.
Home Medications: See below.
Review of Symptoms:
Patient denies any fever, headache, chest pain, shortness of breath, GI or symptoms.
�Per the HPI.�All systems are reviewed negative except above.
Physical Exam:
The patient is afebrile, abdomen is nondistended, breathing is unlabored, skin is warm and dry, no edema.
NIH Stroke Scale:
I performed the NIH stroke scale on the patient on 05/10/24 at 1030. The patient scored 0 points on the NIH stroke scale assessment, which were assigned as follows: See below.
Neurologic Examination:
The patient is awake, alert and oriented x 3. She is able to follow commands and answer questions appropriately. There is no aphasia or dysarthria. On cranial nerve assessment, pupils are 3 mm bilateral, round and reactive to light and
accommodation. Visual isaac are full. Extraocular movements are intact. Facial sensations are intact and bilaterally symmetrical, there is no facial asymmetry. Hearing is intact bilaterally to normal conversation volume. Tongue palate and uvula are
midline. Sternocleidomastoid strengths are full bilaterally. Motor strengths are 5/5 bilateral upper and lower extremities on medical research [place] scale. There is no drift or involuntary movement noted. Deep tendon reflexes are 1+ bilateral
upper and absent bilateral lower extremities and Babinski is absent bilaterally. Sensations of touch, temperature and vibration are intact and bilaterally symmetrical. There was no extinction noted on double simultaneous stimulation. Coordination is
intact by finger to nose bilaterally.
Lab Results: See below.
Neuro Imaging:
1. 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 3 mm chronic lacunar infarct in the right caudate head. Mild diffuse cerebral and cerebellar volume loss.
Differentials for the patient's presentation include:
1. Delirium in the setting of recent illness, hospitalization, and disrupted sleep likely producing patient's change in mental status.
2. Low concern for acute stroke given normal neurological exam. CT head suggestive of old right caudate head lacunar ischemic infarct.
3. Anemia.
4. Low vitamin B12 level.
Patient has the following risk factors for their symptoms: UTI, recent hospitalization
Recommendations:
-Do not see a role for further neurological imaging at this time as symptoms are improving. If symptoms worsen or persist, can consider MRI brain imaging.
-Continue home Eliquis.
-Goal normotension.
-Neurological checks per unit guidelines.
-Infectious workup per primary team.
-Vitamin B12 level is low at 381. Initiate cyanocobalamin 1000mcg PO daily.
-Initiate thiamine 100mg IV daily.
-Avoid use of sedating medications. Promote appropriate sleep/wake cycles by reducing nighttime awakenings, limit daytime napping, encourage adequate daytime light exposure.
-Patient may benefit from outpatient neuropsychological testing.
Discussed patient care with: Dr. Kim, the patient
Vital Signs and Labs
-
Vital Signs and Labs:
Vital Signs
Temp Pulse Resp BP Pulse Ox
97.9 F 53 18 146/62 98
05/10/24 07:00 05/10/24 10:18 05/10/24 07:00 05/10/24 10:18 05/10/24 08:39
Lab Results
05/10/24 06:55
05/10/24 06:55
Sodium 136 mmol/L (135-145) 05/10/24 06:55
Potassium 3.9 mmol/L (3.5-5.1) 05/10/24 06:55
BUN 35 mg/dl (7-17) H 05/10/24 06:55
Glucose 96 mg/dl (70-99) 05/10/24 06:55
Calcium 8.9 mg/dl (8.4-10.2) 05/10/24 06:55
Gae-L-Blgjbruqppr Pept 9770 pg/ml 05/10/24 06:55
Vitamin B12 381 pg/ml (239-931) 05/10/24 06:55
Ur Buprenorphine Negative (Negative) 05/08/24 12:09
Medications
-
Active Medications
Generic Name Dose Route Start Last Admin
Trade Name Freq PRN Reason Stop Dose Admin
Acetaminophen 650 mg 05/08/24 16:32
Acetaminophen 325 Mg Tablet PO 06/05/24 16:31
Q4HPRN PRN
mild pain/BROOKS/temp> 100.4F
Allopurinol 50 mg 05/09/24 08:00 05/09/24 10:31
Allopurinol 100 Mg Tablet PO 06/06/24 07:59 50 mg
Q48H CRYSTAL Administration
Amlodipine Besylate 10 mg 05/09/24 08:00 05/10/24 08:24
Amlodipine 10 Mg Tablet PO 06/06/24 07:59 10 mg
DAILY CRYSTAL Administration
Apixaban 2.5 mg 05/08/24 20:00 05/10/24 08:25
Apixaban (Eliquis) 2.5 Mg Tablet PO 06/05/24 19:59 2.5 mg
BID CRYSTAL Administration
Carvedilol 3.125 mg 05/08/24 20:00 05/10/24 08:24
Carvedilol 3.125 Mg Tablet PO 06/05/24 19:59 3.125 mg
BID CRYSTAL Administration
Cholecalciferol 75 mcg 05/09/24 08:00 05/10/24 08:24
Cholecalciferol (Vitamin D3) 25 Mcg Tablet (1,000 Units) PO 06/06/24 07:59 75 mcg
DAILY CRYSTAL Administration
Cyanocobalamin 1,000 mcg 05/10/24 12:00 05/10/24 12:40
Cyanocobalamin 1,000 Mcg Tablet PO 06/07/24 11:59 1,000 mcg
DAILY CRYSTAL Administration
Famotidine 20 mg 05/08/24 16:32
Famotidine 20 Mg Tablet PO 06/05/24 16:31
[id number] PRN
GERD
Furosemide 40 mg 05/09/24 18:00 05/10/24 08:25
Furosemide 40 Mg (10 Mg/Ml) 4 Ml Vial IV 06/06/24 17:59 40 mg
DAILY CRYSATL Administration
Hydralazine HCl 10 mg 05/08/24 18:00 05/10/24 10:18
Hydralazine 10 Mg Tablet PO 06/05/24 17:59 10 mg
Q8H CRYSTAL Administration
Piperacillin Sod/Tazobactam Sod 2.25 grams in 50 mls @ 100 mls/hr 05/08/24 22:00 05/10/24 06:07
Zosyn IV 50 mls
Q8H CRYSTAL Administration
Melatonin 5 mg 05/08/24 17:05
Melatonin 5 Mg Tablet PO 06/05/24 17:04
HSPRN PRN
insomnia
Non-Formulary Medication 1 applic 05/08/24 16:32
Lidocaine Hcl [Aspercreme (Lidocaine Hcl)] TOPICAL
Q6HPRN PRN
back and neck
Polyethylene Glycol 17 grams 05/08/24 18:00 05/10/24 08:24
Polyethylene Glycol Powder 17 Grams Packet PO 06/05/24 17:59 17 grams
DAILY CRYSTAL Administration
Saccharomyces Boulardii 250 mg 05/08/24 16:32
Saccharomyces Boulardi (Florastor) 250 Mg Capsule PO 06/05/24 16:31
BIDPRN PRN
diarrhea
Sertraline HCl 25 mg 05/09/24 08:00 05/10/24 08:25
Sertraline 25 Mg Tablet PO 06/06/24 07:59 25 mg
DAILY CRYSTAL Administration
Sodium Bicarbonate 650 mg 05/08/24 16:32 05/10/24 08:25
Sodium Bicarbonate 650 Mg Tablet PO 06/05/24 16:31 650 mg
TID CRYSTAL Administration
Sodium Chloride 0 flush 05/09/24 18:00
Sodium Chloride 0.9% (Flush) Syringe IV 06/06/24 17:59
PER PROTOCOL CRYSTAL
Thiamine HCl 100 mg 05/10/24 12:00 05/10/24 12:39
Thiamine (100 Mg/Ml) 2 Ml Vial IV 06/07/24 11:59 100 mg
DAILY CRYSTAL Administration
Vancomycin HCl 125 mg 05/08/24 21:13 05/10/24 12:39
Vancomycin Oral Solution 50 Mg/Ml In Oral Syringe PO 125 mg
Q6 CRYSTAL Administration
Vitamin C/Vitamin E 1 cap 05/09/24 08:00 05/10/24 08:24
Vit C/Vit E/Lutein/Min/[place]-3 (Ocuvite) Capsule PO 06/06/24 07:59 1 cap
DAILY CRYSTAL Administration
Home Medications
�Medication �Instructions �Recorded
Saccharomyces boulardii 250 mg 250 mg PO BIDPRN PRN diarrhea 04/26/24
capsule (Florastor)
acetaminophen 325 mg tablet 650 mg PO Q4HPRN PRN mild 04/26/24
pain/fever >101
allopurinol 100 mg tablet 50 mg PO Q48H Gout 04/26/24
aluminum-mag hydroxide-simethicone 5 ml PO Q6HPRN PRN reflux 04/26/24
400 mg-400 mg-40 mg/5 mL oral susp
(Maalox Maximum Strength)
amlodipine 10 mg tablet 10 mg PO DAILY Blood Pressure 04/26/24
apixaban 2.5 mg tablet (Eliquis) 2.5 mg PO BID Blood Clot 04/26/24
Prevention/Tx
bisacodyl 10 mg rectal suppository 10 mg AL DAILYPRN PRN no bm 24 hrs 04/26/24
after mom
carvedilol 3.125 mg tablet 3.125 mg PO BID Blood Pressure 04/26/24
cholecalciferol (vitamin D3) 75 75 mcg PO DAILY Supplement 04/26/24
mcg (3,000 unit) tablet
famotidine 20 mg tablet (Pepcid) 20 mg PO Q8HPRN PRN GERD 04/26/24
hydralazine 10 mg tablet 10 mg PO Q8H Blood Pressure 04/26/24
lidocaine HCl 4 % topical cream 1 applic topical Q6HPRN PRN back 04/26/24
(Aspercreme (lidocaine HCl)) and neck
loperamide 2 mg tablet 2 mg PO Q6HPRN PRN diarrhea 04/26/24
magnesium hydroxide 400 mg/5 mL 30 ml PO [id number] PRN no bm 3 days 04/26/24
oral suspension
melatonin 5 mg tablet 5 mg PO BIDPRN PRN insomnia 04/26/24
menthol 0.1 % lotion (Eucerin Itch 1 ea topical DAILY b/l arms 04/26/24
Relief)
ondansetron 8 mg disintegrating 8 mg PO Q8HPRN PRN nausea 04/26/24
tablet
sertraline 25 mg tablet (Zoloft) 25 mg PO DAILY Mental Health 04/26/24
sodium phosphates 19 gram-7 118 ml AL DAILYPRN PRN no bm 24 04/26/24
gram/118 mL enema (Fleet Enema) hrs after bisacodyl
vitamins A,C,U-ebdi-jkbpws 4,296 1 cap PO DAILY Supplement 04/26/24
mcg-226 mg-90 mg capsule
(PreserVision AREDS)
sodium bicarbonate 650 mg tablet 650 mg PO TID 30 days #90 tabs 04/29/24
vancomycin 125 mg capsule 125 mg PO QID #28 caps 05/04/24
(Vancocin)
NIH Stroke Score
Subsequent NIH Scale
Date of Subsequent NIH Scale: 05/10/24
Time of Subsequent NIH Scale: 10:30
NIH Stroke Score
Level of Consciousness: 0 - Alert
LOC Questions: 0-Answers both correctly
LOC Commands: 0-Performs both correctly
Best Horizontal Gaze: 0-Normal
Visual Isaac: 0=Normal, no visual loss
Facial Palsy: 0=Normal, symmetrical
Motor - Right Arm: 0=No drift 10 seconds
Motor - Left Arm: 0=No drift 10 seconds
Motor - Right Le-No drift 5 seconds
Motor - Left Le-No drift 5 seconds
Limb Ataxia: 0-Absent
Sensation: 0-Normal
Best Language: 0-No aphasia
Dysarthria: 0-Normal
Extinction and Inattention: 0-No abnormality
Total Score:: 0
Modified [place] (mRS) Score
Modified [place] Scale (mRS): No symptoms
Score: 0

Documented by User: Gokul Kim MD 05/10/24 15:57
NIH Stroke Score
NIH Stroke Score
Total Score:: 0
Modified [place] (mRS) Score
Score: 0
--- NOTE | 2024-05-10 10:36 | CM ---
Patient seen in chair, patient reports she is very scared, not sure what is real and what is not real, not sure how she got to hospital, not sure if she is really in the hospital now. Nurse Will bedside. CM and nurse explained patient is safe in
hospital. Nurse explained Neurology has been consulted to meet with patient. Patient reports she feels better after speaking with CM and nurse.
Per PT/OT, recommending return to LTC with PT/OT, will update facility. CM will continue to follow for all discharge planning needs.
Plan; return to [facility] when stable, patient will need ambulance transport.
[2024-05-10 11:08] LABS: Ammonia < 9 umol/L (9-30)
--- NOTE | 2024-05-10 11:52 | CS.PSYCHR ---
Consult Summary - Psychiatry
-
Pt is 84 yo female sent from [facility] with reported hallucinations and statements about being tortured with electrical currents and the police were rewiring her room. thought the police were in her room rewiring it. Pt had a
recent admission 04/26 - 05/04/2024 for idiopathic pancreatitis and concern for right lower colonic mass versus C. difficile colitis. Pt diagnosed with moderate L pleural effusion, mild pulmonary edema, anemia of chronic dz. Psychiatry asked to
evaluate reported hallucinations. Pt seen sitting up in chair, alert, calm, cooperative. She denies hallucinations here, is aware she was having perceptual disturbances at [facility], is concerned about calling her roommate to ask what actually
happened. Pt states she is 'trying to get it together.' Pt shows no signs of active psychosis or agitation today.
PMH: parox A-fib, HTN, GERD, CKD 3A/4 , anemia of CKD, COPD, former smoker, gout, obesity, chronic ambulatory dysfunction- uses walker, idiopathic pancreatitis April 2024, right-sided colonic mass versus colitis 04/26/2024.
Psych Hx: unspecified anxiety, insomnia. Rx'd Zoloft 25 mg QD, melatonin 5 mg HS prn. Pt states she had a similar episode a couple years ago associated with an infection
MSE: alert, oriented, calm, cooperative, making good eye contact. Pt sitting up in chair, in no active distress. Speech coherent, thought clear, questioning the reality of hallucinations upon admission appropriately. No signs of hallucinations
or delusions today. Mood stable, affect appropriate. Insight appears fair/good
Imp: Delirium, due to multiple medical conditions, with hallucinations, appears to be clearing. No signs of psychosis this morning
Rec: Continue to address underlying medical conditions. Pt does not appear to need antipsychotic medication at present
Would continue existing Sertraline 25 mg, melatonin 5 mg prn
Will follow peripherally
[2024-05-10] MEDS: THIAMINE INJECTION 100 MG IV (12:39)
[2024-05-10] MEDS: VITAMIN B-12 1000 MCG PO (12:40)
[2024-05-10 13:44] LABS: Folate 7.3 ng/ml (2.76-20)
[2024-05-10 15:00] VITALS: BP 143/56
[2024-05-10 15:21] LABS: Erythrocyte Sed Rate 69 mm/hour (0-20)
[2024-05-10] MEDS: TYLENOL 650 MG PO (23:16)
[2024-05-10 23:57] VITALS: BP 154/56
[2024-05-11] MEDS: APRESOLINE PO ×2 (03:09→18:48)
[2024-05-11] MEDS: ZOSYN 50 IV ×2 (05:05→15:29)
[2024-05-11] MEDS: FIRVANQ 125 MG PO ×3 (05:05→18:52)
[2024-05-11 05:17] VITALS: BMI 27.0
[2024-05-11 07:00] VITALS: BP 168/60
[2024-05-11 07:24] LABS: Hematocrit 24.6 % (37.0-47.0); Hemoglobin 8.3 g/dL (12.0-16.0); Mean Corp Hgb Conc. 33.7 g/dL (33.0-37.0); Mean Corpuscular Hgb 28.9 pg (27.0-31.0); Mean Corpuscular Volume 85.7 fL (81.0-99.0); Mean Platelet Volume 9.4 fL (7.4-10.4); Platelet Count 139 10^3/uL (130-400); Red Blood Cell Count 2.87 10^6/uL (4.20-5.40); Red Cell Dist. Width 15.7 % (11.5-14.5); White Blood Cell Count 5.3 10^3/uL (4.8-10.8)
[2024-05-11 07:42] LABS: Blood Urea Nitrogen 38 mg/dl (7-17); Calcium 8.7 mg/dl (8.4-10.2); Carbon Dioxide 26 mmol/L (22-30); Chloride 100 mmol/L (98-107); Estimated Creatinine Clearance 14 ml/min; Glucose 82 mg/dl (70-99); Potassium 3.7 mmol/L (3.5-5.1); Sodium 134 mmol/L (135-145); eGFR 17.54
--- NOTE | 2024-05-11 09:04 | W.PN.HOSP.TC ---
Today's Communication/Plan
-
see bold
Assessment / Plan
Assessment / Plan
HPI: 83-year-old female sent from [facility] with staff reporting to EMS that she was having hallucinations thought the police were in her room rewiring it. She was making statements that she had been tortured with electrical
currents and there is metal in her skin. She reports to me she is aware of having episodes of hallucinations she states she thought people's heads were hanging out of her ceiling. She also reports she thought her pills were in a container and then
the cup disappeared. She does believe that the staff at the half-way was putting wires inside of her arms recent review of her urine culture from 04/26/2024 grew Klebsiella Pnuemoniae and is pansensitive except for ampicillin and Bactrim her
repeat urine culture grew mixed dante on 05/02/2024. She denies current headache, sore throat, dizziness, sneezing, chest pain, palpitations, shortness of breath, cough, abdominal pain, nausea, vomiting, diarrhea, urinary symptoms. She had a recent
admission 04/26 - 05/04/2024 for idiopathic pancreatitis and concern for right lower colonic mass versus C. difficile colitis that was due to be followed up as outpatient with GI may require endoscopic ultrasound. Her urine culture that time grew
mixed dante she had some bladder wall thickening she was switched to cefuroxime for 5 days(to have stopped 05/07/2024) and was completing oral vancomycin for concerns of C. difficile.
#Encephalopathy with hallucinations
#Mild cognitive impairment
Unclear etiology for hallucinations, TSH normal, B12 was 381
Appreciate neurology input, started on B12 supplementation for borderline low B12 values
Neurology recommends outpatient neuropsychiatric testing
Appreciate psychiatry input, she has mild cognitive impairment with MOCA score
Continue to monitor
CT head: 1. Mild white matter leukoaraiosis in both cerebral hemispheres
2. 3 mm chronic lacunar infarct in the right caudate head
3. Mild diffuse cerebral and cerebellar volume loss
#Bacteriuria
#Sepsis ruled out
#UTI ruled out
Appreciate ID input, patient has no signs or symptoms of UTI
She has been afebrile, no leukocytosis
Only symptom is urgency
ID recommends monitoring off Zosyn
#Moderate left pleural effusion
Status post left thoracentesis 05/09 draining 700 cc of clear yellow fluid
Exudative in nature
#Chronic heart failure with a preserved ejection fraction
#Mild pulmonary edema
Status post IV Lasix
Monitor daily weights
#Anemia of chronic disease
Hemoglobin 8.3 today, was 8.1, improved from 6.8 status post 1 unit packed red blood cell 05/09
Trend hemoglobin
#Recent idiopathic pancreatitis
#Recent right-sided mass versus colitis with concern for C. difficile 04/26/2024
-Patient has been on oral vancomycin outpatient since 05/04/2024
-Patient is due to follow-up with outpatient GI may require EUS
-Continue oral vancomycin 125 mg 4 times daily additional 1 day left
#CKD 3A /4 with recent metabolic acidosis and low HCO3
Continue sodium bicarb, trend creatinine
#Paroxysmal A-fib
On Eliquis 2.5 mg twice daily
Patient has been bradycardic, discontinue Coreg
#HTN�benign
-Continue hydralazine 10 mg every 8 hours, amlodipine 10 mg daily
#GERD
-On oral Pepcid 20 mg every 8 hours as needed
#Gout
-Continue allopurinol 50 mg every 48 H
#Hx anxiety
No reported meds
#Insomnia
-Patient takes melatonin 5 mg twice daily as needed
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
Full code per patient wants full attempt at CPR including brief intubation
Total time spent to see the patient on the floor, examine the patient, review data and lab results, discuss treatment plan with patient, nursing staff around 53 minutes.
Physical Exam
General: No acute distress
HEENT: Normocephalic, Atraumatic, EOMI, MMM
Respiratory: Clear to Auscultation bilaterally
Cardiac: Normal S1/S2, Regular Rate and Rhythm
GI: Soft, Nontender, Nondistended, Normal Bowel Sounds
Extremities: No Clubbing, Cyanosis, or Edema
Neuro: Mildly confused
Psych: Calm, Cooperative
Anticipated Discharge: 24 - 48 hours
Subjective/Interval History
-
Date of Service: May 11, 2024
No more recurrence of hallucinations. No fever, no vomiting. No shortness of breath.
Objective Data
-
Labs:
Laboratory Results
05/11/24
06:57
WBC 5.3
Hgb 8.3 L
Hct 24.6 L
Plt Count 139
Sodium 134 L
Potassium 3.7
Chloride 100
Carbon Dioxide 26
BUN 38 H
Creatinine 2.6 H
Glucose 82
Calcium 8.7
Vital Signs:
Vital Signs
Temp Pulse Resp BP Pulse Ox
98.2 F 61 18 168/60 98
05/11/24 07:00 05/11/24 07:00 05/11/24 07:00 05/11/24 07:00 05/11/24 07:00
I&O
05/10/24 05/11/24 05/12/24
06:59 06:59 06:59
Intake Total 1070 / 1070 220 / 220
Balance 1070 / 1070 220 / 220
[2024-05-11] MEDS: MIRALAX PO (09:27)
[2024-05-11] MEDS: LASIX IV (09:30)
[2024-05-11] MEDS: VITAMIN D3 (cholecalciferol) 75 MCG PO (09:31)
[2024-05-11] MEDS: OCUVITE SOFTGEL 1 CAP PO (09:32)
[2024-05-11] MEDS: THIAMINE INJECTION 100 MG IV (09:32)
[2024-05-11] MEDS: SODIUM BICARBONATE 650 MG PO ×3 (09:32→22:21)
[2024-05-11] MEDS: VITAMIN B-12 1000 MCG PO (09:32)
[2024-05-11] MEDS: ELIQUIS 2.5 MG PO ×2 (09:32→20:23)
[2024-05-11] MEDS: NORVASC 10 MG PO (09:32)
[2024-05-11 11:00] VITALS: BP 142/61
--- NOTE | 2024-05-11 11:11 | PN.CDI ---
CDI
- -
CDI:
Physician Documentation Request
Admit Date: 05/08/24 15:37
Dear Doctor Do,
Patient presented to ED from snf for change in mental status.
05/09 hospitalist progress notes included a diagnosis of Mild pulmonary edema- IV lasix ordered.
05/08 chest xray impression states ' Moderate infrahilar ground-glass opacity in the right lower lobe which could be subsegmental atelectasis or alveolar pulmonary edema'
BNP results
05/08/24 05/10/24
10:54 06:55
Fes-I-Fbpuceehqco Pept 97001 9770
Please clarify the acuity and etiology of the pulmonary edema:
Acute non-cardiac pulmonary edema due to fluid overload
Acute non-cardiac pulmonary edema due to other cause (please specify)
Acute pulmonary edema due to heart failure (please specify type and acuity)
Type: systolic, diastolic, combined or other type
Acuity: acute (new onset), chronic or acute on chronic
Chronic pulmonary edema due to non-cardiac etiology (specify cause)
Chronic pulmonary edema due to heart failure - (specify type and acuity as above)
Other
Use of terms such as suspected, likely, concern for, or probable (associated with a specific diagnosis that is being evaluated, monitored, or treated as if it exists) are acceptable and can be coded in the inpatient setting, when documented at the
time of discharge.
Thank you,
Carito Edouard RN, BSN
CDI Specialist
tiger text
Please use your independent medical judgment in providing your response.
[2024-05-11] MEDS: APRESOLINE 10 MG PO (11:20)
[2024-05-11] MEDS: ZYLOPRIM 50 MG PO (11:20)
[2024-05-11] MEDS: ZOLOFT 25 MG PO (11:20)
--- NOTE | 2024-05-11 11:26 | PN.CDI ---
CDI
- -
CDI:
Physician Documentation Request
Admit Date: 05/08/24 15:37
Dear Doctor Do,
05/08 hospitalist update note states 'admitted with sepsis 2/2 UTI. Start Zosyn..'
Patient is and has remained afebrile,
05/08 Heart rates were between 70s-80s.
05/08 respiratory rates documented between 14-34
WBC's 05/08 7.4
05/09 progress note states 'uti ruled out '
Recognized standard criteria for this condition and other associated definitions:
�Sepsis
-Systemic manifestations of infection, with 2 or more SIRS criteria which include:
-Fever > 100.4��F or hypothermia < 96.8��F
-Leukocytosis WBC > 12,000 or leukopenia, WBC < 4,000, or > 10% bands
-Tachycardia- > 90 beats/minute
-Tachypnea- RR > 20 breaths/minute or PaCO2 < 32mmHg
Source: Merck Manual 2013
Based on the above information and the recognized standard SIRS criteria, please clarify if sepsis is still an accurate diagnosis, and reflective of the patient�s condition, to ensure quality of the medical record.
Please clarify in the Progress Notes:
�Sepsis is/was present and is a clinical diagnosis based on (please include this additional support in the medical record)
�After study sepsis has been ruled out
�Other
Use of terms such as suspected, likely, concern for, or probable (associated with a specific diagnosis that is being evaluated, monitored, or treated as if it exists) are acceptable and can be coded in the inpatient setting, when documented at the
time of discharge.
Thank you,
Carito Edouard RN, BSN
CDI Specialist
tiger text
Please use your independent medical judgment in providing your response.
--- NOTE | 2024-05-11 11:36 | PN.CDI ---
CDI
- -
CDI:
Physician Documentation Request
Admit Date: 05/08/24 15:37
Dear Doctor Do,
05/08 hospitalist update note states ' Admitted with sepsis 2/2 UTI- start Zosyn'
05/10 hospitalist progress note states ' UTI ruled out, Rocephin discontinued'
Zosyn is still being given.
Please provide the diagnosis associated with Zosyn
Use of terms such as suspected, likely, concern for, or probable (associated with a specific diagnosis that is being evaluated, monitored, or treated as if it exists) are acceptable and can be coded in the inpatient setting, when documented at the
time of discharge.
Thank you,
Carito Edouard RN, BSN
CDI Specialist
tiger text
Please use your independent medical judgment in providing your response.
--- NOTE | 2024-05-11 11:51 | PN.CDI ---
CDI
- -
CDI:
Physician Documentation Request
Admit Date: 05/08/24 15:37
Dear Doctor Do,
05/08 hospitalist update note states ' Admitted with sepsis 2/2 UTI- start Zosyn'
05/10 hospitalist progress note states ' UTI ruled out, Rocephin discontinued'
Zosyn is still being given.
05/08 urine culture positive for E coli -ESBL
Please provide the diagnosis associated with Zosyn
Use of terms such as suspected, likely, concern for, or probable (associated with a specific diagnosis that is being evaluated, monitored, or treated as if it exists) are acceptable and can be coded in the inpatient setting, when documented at the
time of discharge.
Thank you,
Carito Edouard RN, BSN
CDI Specialist
tiger text
Please use your independent medical judgment in providing your response.
[2024-05-11 12:00] LABS: NT-proBNP 7040 pg/ml
--- NOTE | 2024-05-11 13:03 | W.PN.UPDATE ---
Update Note
Progress Note Update
patient seen chart reviewed. the patient was very attentive and spoke of the incident which precipitated her admission here which upsets her very much. she was very appropriate and is very worried it will happen again. i asked her some questions
as to whether this occurred around the onset or offset of sleep (hypongogic or hypnopompic hallucinations) or whether she had awakened from sleep whereupon the incident occurred (rem sleep intrusion) . i could not get a clear idea. she said she had
been told it was bc of a medication error, an infection, dementia. she has certainly had many medical issues in recent days weeks months including c diff infection, pancreatitis uti etc and she recalls having hallucinations w infection. she has a
very vivid recall of the incidents which were quite complex which makes any of the sleep related phenomenon less likely.she told me about her life circumstance. her d lives in the same nd. d very incapacitated by MS. patient almost when septic
here and family was advised to come to say good bye to her. she survived and family had already dispensed with her belongings including her appartment furnishings clothes etc. (that is why she is at [facility] now according to her) i did a moca
with her. would say she is mildly cognitively impaired but is quite able to have a rational discussion of her medical issues. no psych meds recommended. will touch base w her in the am.
[2024-05-11] MEDS: TYLENOL 650 MG PO (15:40)
[2024-05-11 15:45] VITALS: BP 145/60
--- NOTE | 2024-05-11 16:07 | CON.ID ---
Consultation
-
Date/Time Consultation Requested: 05/11/2024 1108
Date/Time Consultation Performed: 05/11/2024 1600
Requesting Provider: Dr. Tinoco
Performing Provider: Dr. Mcgarry
Reason for Consultation: Bacteriuria
Chief Complaint / Past History
History of Present Illness
Melissa La is a 84-year-old female being evaluated at the request of Dr. Valdez in regards to bacteriuria and possible UTI. History is obtained from chart review, along with patient interview. The patient has a significant past medical history
of CKD stage IV, P A-fib and CAD and was brought to the emergency room on 05/08 for assessment of change in mental status. According to reviewed notes she resides at [facility] and was found to be confused and hallucinating per
prison staff (see ER note for specifics).
Initial ER workup did not reveal leukocytosis, but did reveal pyuria. She was started on empiric antibiotics and urine cultures revealed growth of ESBL E. coli. Infectious Diseases asked to comment upon further antimicrobial therapy.
At present, the patient reports 'I do not feel right', although she cannot further elaborate. She denies any cough. She notes some abdominal distention and bloating. She denies any dysuria, but notes the feeling of 'urgency'. She denies any
hematuria.
Past History
Additional Past Medical History:
P A-fib
CAD
COPD
HTN
Dyslipidemia
CKD stage IV
Idiopathic pancreatitis
Additional Past Surgical History:
Cholecystectomy
Orthopedic
Allergy History:
No Known Allergies Allergy (Unverified 04/26/24 11:48)
Medications Reviewed: Yes
Current Antibiotics:
Zosyn (day #4)
Social History
Tobacco: Non-Smoker
Alcohol: None
Drug: None
Living: Group Home
Employment: Retired
Review of Systems
Vital Signs
Temp Pulse Resp BP Pulse Ox
97.5 F 57 17 145/60 100
05/11/24 15:45 05/11/24 15:45 05/11/24 15:45 05/11/24 15:45 05/11/24 15:45
Physical Exam
Physical Exam
Constitutional: No Acute Distress, Comfortable and Non-toxic
Eyes: No Conjunctival Hemorrhage and Sclera Anicteric
Oral: No Thrush and No Ulcers
Cardiovascular: Regular Rate and S1/S2; Negative S3/S4
Pulmonary: Clear; Negative Wheezes, Rales or Rhonchi
Gastrointestinal: Soft, Non Tender, Non Distended, Normal Bowel Sounds, No Rebound and No Guarding
Extremities: Edema; Negative Cyanosis or Erythema
Skin: Warm and Dry; Negative Rash or Jaundice
Neurological: Awake and Alert
Psychological: Calm
Lab / Diagnostic Study Results
05/11/24 06:57
05/11/24 06:57
Abs Immat Gran (auto) 0.0 10^3/uL (0-0.05) 05/09/24 07:46
Absolute Neuts (auto) 3.2 10^3/uL (1.4-6.5) 05/09/24 07:46
Absolute Lymphs (auto) 1.4 10^3/uL (1.2-3.4) 05/09/24 07:46
Absolute Monos (auto) 0.7 10^3/uL (0.1-0.6) H 05/09/24 07:46
Absolute Basos (auto) 0.0 10^3/uL (0-0.2) 05/09/24 07:46
Immature Gran % 0.4 % (0-0.5) 05/09/24 07:46
Neutrophils % 57.3 % (42.2-75.2) 05/09/24 07:46
Lymphocytes % 25.2 % (20.5-51.1) 05/09/24 07:46
Monocytes % 12.7 % (1.7-9.3) H 05/09/24 07:46
Eosinophils % 3.9 % (0-6) 05/09/24 07:46
Basophils % 0.5 % (0-2) 05/09/24 07:46
ESR 69 mm/hour (0-20) H 05/10/24 06:55
Ur Squamous Epith Cells >30 /LPF (Few) 05/08/24 12:01
Microbiology Results
Micro:
05/09/24 09:05 Body Fluid Culture - Preliminary
Pleural Fluid No Growth After 48 Hours
Gram Stain - Preliminary
05/08/24 12:01 Urine Culture - Final
Urine Escherichia coli - ESBL (60K cfu/mL)
05/08/24 18:17 MRSA Screen - Final
Nose No Methicillin Resistant Staphylococcus aureus isolated.
Assessment / Plan
Episode of encephalopathy
-Appears improved at present.
- etiology unclear
Bacteriuria with ESBL E. coli
-Initial urine sample appears contaminated with squamous cells, bringing into question the validity of the urine culture
Colonic mass (vs colitis) on recent CT imaging
-Review of records indicate patient is completing a course of vancomycin for presumed c. diff
P A-fib
CAD
COPD
HTN
Dyslipidemia
CKD stage IV
Idiopathic pancreatitis
Recommendations:
Patient provides little history indicative of urinary tract infection (other than some urgency). Other infectious parameters have been normal (afebrile, normal WBC count).
Additionally, there appears to open concern for possible C. difficile on her prior admission (although no testing is noted here).
Moving forward, will discontinue further Zosyn.
Patient to complete course of enteral vancomycin today.
Thereafter, monitor off antibiotic therapy.
[2024-05-11 23:22] VITALS: BP 166/61
[2024-05-12] MEDS: APRESOLINE 10 MG PO ×3 (02:13→17:46)
[2024-05-12 05:24] VITALS: BMI 27.3
[2024-05-12 08:00] VITALS: BP 160/66
[2024-05-12 08:51] LABS: Hematocrit 23.4 % (37.0-47.0); Hemoglobin 8.2 g/dL (12.0-16.0); Mean Corpuscular Volume 82.7 fL (81.0-99.0); Mean Platelet Volume 10.2 fL (7.4-10.4); Platelet Count 150 10^3/uL (130-400); Red Blood Cell Count 2.83 10^6/uL (4.20-5.40); Red Cell Dist. Width 15.2 % (11.5-14.5); White Blood Cell Count 5.3 10^3/uL (4.8-10.8)
--- NOTE | 2024-05-12 08:53 | W.PN.HOSP.TC ---
Today's Communication/Plan
-
Discharge tomorrow
Assessment / Plan
Assessment / Plan
HPI: 83-year-old female sent from [facility] with staff reporting to EMS that she was having hallucinations thought the police were in her room rewiring it. She was making statements that she had been tortured with electrical
currents and there is metal in her skin. She reports to me she is aware of having episodes of hallucinations she states she thought people's heads were hanging out of her ceiling. She also reports she thought her pills were in a container and then
the cup disappeared. She does believe that the staff at the [facility] was putting wires inside of her arms recent review of her urine culture from 04/26/2024 grew Klebsiella Pnuemoniae and is pansensitive except for ampicillin and Bactrim her
repeat urine culture grew mixed dante on 05/02/2024. She denies current headache, sore throat, dizziness, sneezing, chest pain, palpitations, shortness of breath, cough, abdominal pain, nausea, vomiting, diarrhea, urinary symptoms. She had a recent
admission 04/26 - 05/04/2024 for idiopathic pancreatitis and concern for right lower colonic mass versus C. difficile colitis that was due to be followed up as outpatient with GI may require endoscopic ultrasound. Her urine culture that time grew
mixed dnate she had some bladder wall thickening she was switched to cefuroxime for 5 days(to have stopped 05/07/2024) and was completing oral vancomycin for concerns of C. difficile.
#Encephalopathy with hallucinations
#Mild cognitive impairment
Unclear etiology for hallucinations, TSH normal, B12 was 381
Appreciate neurology input, started on B12 supplementation for borderline low B12 values
Neurology recommends outpatient neuropsychiatric testing
Appreciate psychiatry input, she has mild cognitive impairment with MOCA score
No recurrence of confusion or hallucinations, plan for discharge back to [facility] tomorrow
CT head: 1. Mild white matter leukoaraiosis in both cerebral hemispheres
2. 3 mm chronic lacunar infarct in the right caudate head
3. Mild diffuse cerebral and cerebellar volume loss
#Bacteriuria
#Sepsis ruled out
#UTI ruled out
Appreciate ID input, patient has no signs or symptoms of UTI
She has been afebrile, no leukocytosis
Only symptom is urgency
ID recommends monitoring off Zosyn
#Moderate left pleural effusion
Status post left thoracentesis 05/09 draining 700 cc of clear yellow fluid
Exudative in nature
#Chronic heart failure with a preserved ejection fraction
#Mild pulmonary edema
Status post IV Lasix
Monitor daily weights
#Anemia of chronic disease
Hemoglobin 8.2 today, was 8.1, improved from 6.8 status post 1 unit packed red blood cell 05/09
Trend hemoglobin
#Recent idiopathic pancreatitis
#Recent right-sided mass versus colitis with concern for C. difficile 04/26/2024
-Patient has been on oral vancomycin outpatient since 05/04/2024
-Patient is due to follow-up with outpatient GI may require EUS
-S/p full course of oral vancomycin 125 mg 4 times daily
#CKD 3A /4 with recent metabolic acidosis and low HCO3
Continue sodium bicarb, trend creatinine
#Paroxysmal A-fib
On Eliquis 2.5 mg twice daily
Patient has been bradycardic, discontinued Coreg
#HTN�benign
-Continue hydralazine 10 mg every 8 hours, amlodipine 10 mg daily
#GERD
-On oral Pepcid 20 mg every 8 hours as needed
#Gout
-Continue allopurinol 50 mg every 48 H
#Hx anxiety
No reported meds
#Insomnia
-Patient takes melatonin 5 mg twice daily as needed
DVT prophylaxis - Continue [employer] Eliquis 2.5 mg twice daily
Full code per patient wants full attempt at CPR including brief intubation
Total time spent to see the patient on the floor, examine the patient, review data and lab results, discuss treatment plan with patient, nursing staff around 50 minutes.
Physical Exam
General: No acute distress
HEENT: Normocephalic, Atraumatic, EOMI, MMM
Respiratory: Clear to Auscultation bilaterally
Cardiac: Normal S1/S2, Regular Rate and Rhythm
GI: Soft, Nontender, Nondistended, Normal Bowel Sounds
Extremities: No Clubbing, Cyanosis, or Edema
Neuro: Mildly confused
Psych: Calm, Cooperative
Anticipated Discharge: Within 24 hours
Subjective/Interval History
-
Date of Service: May 12, 2024
No recurrence of confusion or hallucinations, no shortness of breath. No fever, no vomiting.
Objective Data
-
Labs:
Laboratory Results
05/12/24
07:41
WBC 5.3
Hgb 8.2 L
Hct 23.4 L
Plt Count 150
Sodium Pending
Potassium Pending
Chloride Pending
Carbon Dioxide Pending
BUN Pending
Creatinine Pending
Glucose Pending
Calcium Pending
Vital Signs:
Vital Signs
Temp Pulse Resp BP Pulse Ox
97.5 F 67 16 161/69 99
05/11/24 23:22 05/12/24 02:13 05/11/24 23:22 05/12/24 02:13 05/11/24 23:22
I&O
05/11/24 05/12/24 05/13/24
06:59 06:59 06:59
Intake Total 2009
Balance 2009
[2024-05-12 09:07] LABS: Blood Urea Nitrogen 37 mg/dl (7-17); Calcium 8.6 mg/dl (8.4-10.2); Carbon Dioxide 24 mmol/L (22-30); Chloride 101 mmol/L (98-107); Estimated Creatinine Clearance 17 ml/min; Glucose 86 mg/dl (70-99); Magnesium 1.7 mg/dl (1.6-2.3); Potassium 3.6 mmol/L (3.5-5.1); Sodium 132 mmol/L (135-145); eGFR 18.39
[2024-05-12 11:07] VITALS: BP 155/88; PULSE 72; O2SAT 98
[2024-05-12] MEDS: MIRALAX PO (11:18)
[2024-05-12] MEDS: OCUVITE SOFTGEL 1 CAP PO (11:21)
[2024-05-12] MEDS: ELIQUIS 2.5 MG PO ×2 (11:21→20:34)
[2024-05-12] MEDS: VITAMIN D3 (cholecalciferol) 75 MCG PO (11:21)
[2024-05-12] MEDS: SODIUM BICARBONATE 650 MG PO ×3 (11:22→22:36)
[2024-05-12] MEDS: NORVASC 10 MG PO (11:22)
[2024-05-12] MEDS: VITAMIN B-12 1000 MCG PO (11:23)
[2024-05-12] MEDS: THIAMINE INJECTION 100 MG IV (11:23)
[2024-05-12] MEDS: ZOLOFT 25 MG PO (11:49)
--- NOTE | 2024-05-12 15:46 | W.PN.UPDATE ---
Update Note
Progress Note Update
patient seen chart reviewed. discusssed w nursing and with cm. the patient is very nervous about returning to [facility]. she feels embarrassed about what happened and fears it will happen again. she filled me in on some of the issues with her
roommate, and her considerations about her relationship w her d who lives in the same [facility] being incapacitated by severe ms. mrs engle is very thoughtful and rather insightful. i cannot promise her that this will not happen again but
dwelling upon it will not help and i encouraged her to be as active and engaged as she can be. will check in w her tomorrow.
[2024-05-12 16:00] VITALS: BP 154/57
--- NOTE | 2024-05-12 16:47 | CM ---
Patient seen at bedside.
Patient to return to [facility].
Transport forms on chart.
Updated clinicals sent.
PLAN: Discharge back to [facility] 05/13.
Ambulance to transport. Time TBD.
Report #: [phone] ([facility])
Fax #: [phone]
[2024-05-12] MEDS: LASIX 60 MG PO (17:46)
[2024-05-12] MEDS: TYLENOL 650 MG PO (22:49)
[2024-05-12 23:16] VITALS: BP 143/74
[2024-05-13] MEDS: APRESOLINE 10 MG PO ×2 (02:25→09:06)
[2024-05-13 06:00] VITALS: BMI 27.2
[2024-05-13 07:00] VITALS: BP 157/78
[2024-05-13 08:09] LABS: Hematocrit 25.9 % (37.0-47.0); Hemoglobin 8.8 g/dL (12.0-16.0); Mean Corpuscular Hgb 29.5 pg (27.0-31.0); Mean Corpuscular Volume 86.9 fL (81.0-99.0); Mean Platelet Volume 9.4 fL (7.4-10.4); Platelet Count 148 10^3/uL (130-400); Red Blood Cell Count 2.98 10^6/uL (4.20-5.40); Red Cell Dist. Width 15.4 % (11.5-14.5); White Blood Cell Count 6.3 10^3/uL (4.8-10.8)
[2024-05-13] MEDS: MIRALAX PO (08:32)
[2024-05-13] MEDS: SODIUM BICARBONATE 650 MG PO (08:33)
[2024-05-13] MEDS: VITAMIN D3 (cholecalciferol) 75 MCG PO (08:33)
[2024-05-13] MEDS: OCUVITE SOFTGEL 1 CAP PO (08:34)
[2024-05-13] MEDS: VITAMIN B-12 1000 MCG PO (08:34)
[2024-05-13] MEDS: ELIQUIS 2.5 MG PO (08:34)
[2024-05-13] MEDS: NORVASC 10 MG PO (08:34)
[2024-05-13] MEDS: ZYLOPRIM 50 MG PO (08:34)
[2024-05-13] MEDS: ZOLOFT 25 MG PO (08:35)
[2024-05-13] MEDS: THIAMINE INJECTION 100 MG IV (08:35)
--- NOTE | 2024-05-13 08:40 | W.PN.HOSP.TC ---
Today's Communication/Plan
-
Discharge today
Assessment / Plan
Assessment / Plan
HPI: 83-year-old female sent from [facility] with staff reporting to EMS that she was having hallucinations thought the police were in her room rewiring it. She was making statements that she had been tortured with electrical
currents and there is metal in her skin. She reports to me she is aware of having episodes of hallucinations she states she thought people's heads were hanging out of her ceiling. She also reports she thought her pills were in a container and then
the cup disappeared. She does believe that the staff at the care home was putting wires inside of her arms recent review of her urine culture from 04/26/2024 grew Klebsiella Pnuemoniae and is pansensitive except for ampicillin and Bactrim her
repeat urine culture grew mixed dante on 05/02/2024. She denies current headache, sore throat, dizziness, sneezing, chest pain, palpitations, shortness of breath, cough, abdominal pain, nausea, vomiting, diarrhea, urinary symptoms. She had a recent
admission 04/26 - 05/04/2024 for idiopathic pancreatitis and concern for right lower colonic mass versus C. difficile colitis that was due to be followed up as outpatient with GI may require endoscopic ultrasound. Her urine culture that time grew
mixed dante she had some bladder wall thickening she was switched to cefuroxime for 5 days(to have stopped 05/07/2024) and was completing oral vancomycin for concerns of C. difficile.
#Toxic metabolic encephalopathy with hallucinations
#Mild cognitive impairment
Unclear etiology for hallucinations, TSH normal, B12 was 381
Appreciate neurology input, started on B12 supplementation for borderline low B12 values
Neurology recommends outpatient neuropsychiatric testing
Appreciate psychiatry input, she has mild cognitive impairment with MOCA score
No recurrence of confusion or hallucinations, medically stable for discharge back to care home today
CT head: 1. Mild white matter leukoaraiosis in both cerebral hemispheres
2. 3 mm chronic lacunar infarct in the right caudate head
3. Mild diffuse cerebral and cerebellar volume loss
#Bacteriuria
#Sepsis ruled out
#UTI ruled out
Appreciate ID input, patient has no signs or symptoms of UTI
She has been afebrile, no leukocytosis
Only symptom is urgency
ID recommends monitoring off Zosyn
#Moderate left pleural effusion
Status post left thoracentesis 05/09 draining 700 cc of clear yellow fluid
Exudative in nature
#Chronic heart failure with a preserved ejection fraction
#Mild pulmonary edema
Status post IV Lasix
Will discharge on Lasix 20 mg p.o. daily
#Anemia of chronic disease
Hemoglobin 8.2 today, was 8.1, improved from 6.8 status post 1 unit packed red blood cell 05/09
Trend hemoglobin
#Recent idiopathic pancreatitis
#Recent right-sided mass versus colitis with concern for C. difficile 04/26/2024
-Patient has been on oral vancomycin outpatient since 05/04/2024
-Patient is due to follow-up with outpatient GI may require EUS
-S/p full course of oral vancomycin 125 mg 4 times daily
#CKD 3A /4 with recent metabolic acidosis and low HCO3
Continue sodium bicarb, trend creatinine
#Paroxysmal A-fib
On Eliquis 2.5 mg twice daily
Patient has been bradycardic, discontinued Coreg
#HTN�benign
-Increase hydralazine to 20 mg every 8 hours, continue amlodipine 10 mg daily
#GERD
-On oral Pepcid 20 mg every 8 hours as needed
#Gout
-Continue allopurinol 50 mg every 48 H
#Hx anxiety
No reported meds
#Insomnia
-Patient takes melatonin 5 mg twice daily as needed
DVT prophylaxis - Continue [employer] Eliquis 2.5 mg twice daily
Full code per patient wants full attempt at CPR including brief intubation
Physical Exam
General: No acute distress
HEENT: Normocephalic, Atraumatic, EOMI, MMM
Respiratory: Clear to Auscultation bilaterally
Cardiac: Normal S1/S2, Regular Rate and Rhythm
GI: Soft, Nontender, Nondistended, Normal Bowel Sounds
Extremities: No Clubbing, Cyanosis, or Edema
Neuro: No focal deficits
Psych: Anxious appearing
Anticipated Discharge: Today
Subjective/Interval History
-
Date of Service: May 13, 2024
Patient continues to be worried that she will have recurrence of confusion and hallucinations. No fever, no vomiting. Denies shortness of breath.
Objective Data
-
Labs:
Laboratory Results
05/13/24
07:55
WBC 6.3
Hgb 8.8 L
Hct 25.9 L
Plt Count 148
Sodium Pending
Potassium Pending
Chloride Pending
Carbon Dioxide Pending
BUN Pending
Creatinine Pending
Glucose Pending
Calcium Pending
Vital Signs:
Vital Signs
Temp Pulse Resp BP Pulse Ox
97.8 F 83 16 182/67 95
05/13/24 07:00 05/13/24 08:34 05/13/24 07:00 05/13/24 08:34 05/13/24 07:00
I&O
05/12/24 05/13/24 05/14/24
06:59 06:59 06:59
Intake Total 2009
Balance 2009
[2024-05-13 08:58] LABS: Blood Urea Nitrogen 37 mg/dl (7-17); Calcium 9.2 mg/dl (8.4-10.2); Carbon Dioxide 26 mmol/L (22-30); Chloride 100 mmol/L (98-107); Estimated Creatinine Clearance 17 ml/min; Glucose 93 mg/dl (70-99); Potassium 4.2 mmol/L (3.5-5.1); Sodium 134 mmol/L (135-145); eGFR 18.39
--- NOTE | 2024-05-13 09:49 | PN.CDI ---
CDI
- -
CDI:
Physician Documentation Request
Admit Date: 05/08/24 15:37
Dear Doctor Do,
Patient was sent from facility with staff reporting to EMS that she was having hallucinations ....'
Hospitalist progress note include 'encephalopathy with hallucinations'
Psychiatry consult impression states 'Delirium, due to multiple medical conditions, with hallucinations...'
In an attempt to clarify potentially conflicting documentation, could you clarify in the Progress Notes the most likely etiology of the confusion/altered mental status.
Encephalopathy - indicate type, such as metabolic, toxic, , alcoholic, anoxic, hypertensive etc.
Acute Delirium - indicate known or suspected etiology such as postoperative, due to opioids or other drugs etc. Can also indicate unknown or mixed etiologies.
Multifactorial please specify/list contributing factors
Other
Use of terms such as suspected, likely, concern for, or probable (associated with a specific diagnosis that is being evaluated, monitored, or treated as if it exists) are acceptable and can be coded in the inpatient setting, when documented at the
time of discharge.
Thank you,
Carito Edouard RN, BSN
CDI Specialist
tiger text
Please use your independent medical judgment in providing your response.
--- NOTE | 2024-05-13 11:08 | W.DCSUMMARY ---
Discharge Summary
Discharge Data
Date of Admission: 05/08/24
Date of Discharge: 05/13/24
-
Pending Results: No
Hospital Course
Discharge diagnoses:
Acute toxic metabolic encephalopathy with hallucinations
Mild cognitive impairment
Bacteriuria (urinary tract infection ruled out)
Moderate left pleural effusion status postthoracentesis
Chronic heart failure with a preserved ejection fraction
Anemia of chronic disease
Recent C. difficile infection
Stage IIIa/IV chronic kidney disease
Paroxysmal atrial fibrillation on Eliquis
Benign essential hypertension
Gastroesophageal reflux disease
Anxiety
Insomnia
Consults: Psychiatry, neurology, ID
Echo:
Normal left ventricular chamber size. Normal left ventricular systolic
function. Left ventricular ejection fraction is 60-65% by volumetric
assessment. Normal regional wall motion. Mild concentric left ventricular
hypertrophy.
Mild mitral regurgitation.
Aortic valve sclerosis with peak gradient 14mmHg/Mean gradient 7mmHg, aortic
valve area is 2.6cm2. Trace aortic regurgitation.
Mild tricuspid regurgitation. Estimated pulmonary artery pressure of 20-25 mmHg
Pleural effusion present.
No prior study available for comparison.
Procedures:
05/09/2024 left thoracentesis draining 700 cc of clear yellow fluid
Hospital course:
84-year-old female with a past medical history of paroxysmal atrial fibrillation on Eliquis, hypertension, CKD, and recent admission for idiopathic pancreatitis and possible C. difficile was admitted for acute toxic metabolic
encephalopathy/confusion with hallucinations. Patient's urine in the emergency room was concerning for possible urinary tract infection. She was treated with IV Zosyn. Urine cultures grew out 60,000 colonies of ESBL positive E. coli.
Patient was seen in conjunction with ID. She is afebrile, there is no leukocytosis, no dysuria. ID suspects she has bacteriuria, and recommends monitoring off antibiotics.
Patient also had worsening acute on chronic anemia, likely of chronic disease. Her hemoglobin ranges from 7-8. It dropped to 6.8, she was transfused 1 unit of packed red blood cells. Her hemoglobin improved to 8.1, and was 8.8 on the day of
discharge.
Patient's hospital course was complicated by left pleural effusion and chronic heart failure. She underwent left thoracentesis on 05/09/2024 draining 700 cc of clear yellow fluid. She was also diuresed with IV Lasix. She will be discharged on
Lasix 20 mg p.o. daily.
Patient was seen in conjunction with neurology and psychiatry for her toxic metabolic encephalopathy with hallucinations. B12 level was borderline low, she received B12 supplements while in the hospital. Patient was seen in conjunction with
psychiatry, who recommended she continue her sertraline 25 mg daily. MOCA was performed, showing she has mild cognitive impairment. She did not have any recurrence of confusion or hallucinations. She is quite worried about going back to her
facility, and having hallucinations again. Reassurance was provided.
Patient's multiple medical conditions have been optimized. She is discharged back to [facility]. She needs to follow-up with her primary care doctor in 1 week.
Disposition: Back to [facility]
Discharge planning: Required 43 minutes
Discharge Plan
-
Patient Disposition: Intermediate/SNF
Discharge Diagnosis/Procedures: Transient confusion with hallucinations, mild cognitive impairment, bacteriuria, moderate left pleural effusion status post thoracentesis, anemia of chronic disease
Condition: Fair
Diet: Regular
Activity: As tolerated
Referrals:
Zoila Massey DO [Family Provider] - in one week
Prescriptions:
New
furosemide [Lasix] 20 mg tablet
20 mg PO DAILY Qty: 30 0RF
Continued
acetaminophen 325 mg Tablet
650 mg PO Q4HPRN MDD 3000 mg PRN (Reason: mild pain/fever >101)
allopurinol 100 mg Tablet
50 mg PO Q48H
ondansetron 8 mg Tablet,Disintegrating
8 mg PO Q8HPRN PRN (Reason: nausea)
famotidine [Pepcid] 20 mg Tablet
20 mg PO Q8HPRN PRN (Reason: GERD)
magnesium hydroxide 400 mg/5 mL Suspension
30 ml PO [id number] PRN (Reason: no bm 3 days)
amlodipine 10 mg Tablet
10 mg PO DAILY
bisacodyl 10 mg Suppository
[address] DAILYPRN PRN (Reason: no bm 24 hrs after mom)
Fleet Enema 19-7 gram/118 mL Enema
[address] DAILYPRN PRN (Reason: no bm 24 hrs after bisacodyl)
sertraline [Zoloft] 25 mg Tablet
25 mg PO DAILY
alum-mag hydroxide-simeth [Maalox Maximum Strength] 400-400-40 mg/5 mL Suspension
5 ml PO Q6HPRN PRN (Reason: reflux)
Saccharomyces boulardii [Florastor] 250 mg Capsule
250 mg PO BIDPRN PRN (Reason: diarrhea)
PreserVision AREDS 4,296 mcg-226 mg-90 mg Capsule
1 cap PO DAILY
melatonin 5 mg Tablet
5 mg PO BIDPRN PRN (Reason: insomnia)
cholecalciferol (vitamin D3) 75 mcg (3,000 unit) Tablet
75 mcg PO DAILY
Eliquis 2.5 mg Tablet
2.5 mg PO BID
lidocaine HCl [Aspercreme (lidocaine HCl)] 4 % Cream
1 applic TOPICAL Q6HPRN PRN (Reason: back and neck)
Eucerin Itch Relief 0.1 % Lotion
1 ea TOPICAL DAILY
sodium bicarbonate 650 mg tablet
650 mg PO TID 30 Days Qty: 90 0RF
Patient Comments:
05/08/24: start on 05/04/24, end on 06/03/24.
Changed
hydralazine 10 mg Tablet
20 mg PO Q8H Qty: 0 0RF
Discontinued
loperamide 2 mg Tablet
2 mg PO Q6HPRN PRN (Reason: diarrhea)
carvedilol 3.125 mg Tablet
3.125 mg PO BID
vancomycin [Vancocin] 125 mg capsule
125 mg PO QID Qty: 28 0RF
Patient Comments:
05/08/24: take 1 cap 4 times a day for 7 days, 05/06/24-05/13/24.
Discharge Orders:
Discharge Patient (As Directed); Ordered 05/13/24
Ordered By: Doyle Tinoco
Discharge Date and Time
Discharge Date/Time: 05/13/24 15:20
Print Language: KYRGYZ
--- NOTE | 2024-05-13 11:31 | CM ---
Addendum entered by Asha Lee 05/13/24 11:52:
3pm transport time back to [facility]
Original Note:
Patient to be discharged back to [facility] today.
Ambulance transport forms filled out. Getting a time.
IMM explained & signed by patient. Placed in chart.
Will call Riana at facility once time established.
PLAN: Discharge back to [facility] 05/13.
Ambulance to transport. Time TBD.
Report #: [phone] ([facility])
Fax #: [phone]
[2024-05-13 14:41] VITALS: BP 110/62
--- NOTE | 2024-05-13 14:41 | W.PN.UPDATE ---
Update Note
Progress Note Update
patient seen chart reviewed. mrs engle remains very worried about return to [facility] scheduled for this afternoon. 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 tried to reassure her that this will not
likely be the case and that she should just be herself and try to NOT obsess about the past and future which she said she was trying to do. her mental status at this point is quite good. there is nothing to suggest mood lability delirium or
psychosis. only psych med currently is 25 mg. this could be increased if there is increase in dysphoria or anxiety but at present would leave as is.
== END 2024-05-13 15:20 | DRG 186 ==
LOC: 4 WEST ACU 15:37
PROVIDERS: Clinical Nurse Specialist Family Health; Radiology Diagnostic Radiology; Registered Nurse; ADMITTING PHYSICIAN Internal Medicine; ATTENDING PHYSICIAN Family Medicine; CONSULT PHYSICIAN Psychiatry & Neurology Neurology; EMERGENCY PHYSICIAN Emergency Medicine; FAMILY PHYSICIAN Hospitalist; OTHER PHYSICIAN Internal Medicine Infectious Disease; OTHER PHYSICIAN Psychiatry & Neurology Psychiatry
PROC: 0W9B3ZX Drainage of Left Pleural Cavity, Percutaneous Approach, Diagnostic (ICD-10-PCS; 2024-05-09)
DX: J90 Pleural effusion, not elsewhere classified (principal); G92.8 Other toxic encephalopathy; N39.0 Urinary tract infection, site not specified; N18.4 Chronic kidney disease, stage 4 (severe); E87.20 Acidosis, unspecified; G31.84 Mild cognitive impairment of uncertain or unknown etiology; I48.0 Paroxysmal atrial fibrillation; Z79.01 Long term (current) use of anticoagulants; K21.9 Gastro-esophageal reflux disease without esophagitis; Z87.440 Personal history of urinary (tract) infections
CPT/HCPCS: 32555; 51701; 70450; 71045; 71250; 74176; 80048; 80053; 80306; 81003; 81015; 82140; 82150; 82607; 82728; 82746; 83615; 83690; 83735; 83880; 83986; 84100; 84157; 84443; 85025; 85027; 85652; 86850; 86900; 86901; 86920; 87015; 87070; 87086; 87088; 87186; 87205; 87811; 89051; 93306; 96374; 97116; 97163; 97166; 97530; 99285; P9016

== ENCOUNTER 2024-06-30 23:49 | Inpatient (IN) | payer MEDICARE, OTHER, SELFPAY ==
[2024-06-30] VITALS (7 sets, daily range): BP systolic 118–173; BP diastolic 43–54; PULSE 40–46; BMI 26.3
[2024-06-30 21:35] LABS: % Basophils 0.5 % (0-2); % Eosinophils 6.7 % (0-6); % Immature Granulocytes 0.4 % (0-0.5); % Lymphocytes 31.9 % (20.5-51.1); % Monocytes 8.4 % (1.7-9.3); % Neutrophils 52.1 % (42.2-75.2); Absolute Eosinophils 0.5 10^3/uL (0-0.7); Absolute Lymphocytes 2.5 10^3/uL (1.2-3.4); Absolute Monocytes 0.7 10^3/uL (0.1-0.6); Hematocrit 25.6 % (37.0-47.0); Hemoglobin 8.7 g/dL (12.0-16.0); Mean Corpuscular Hgb 29.4 pg (27.0-31.0); Mean Corpuscular Volume 86.5 fL (81.0-99.0); Mean Platelet Volume 9.6 fL (7.4-10.4); Nucleated Red Blood Cells % 0 %; Platelet Count 159 10^3/uL (130-400); Red Blood Cell Count 2.96 10^6/uL (4.20-5.40); Red Cell Dist. Width 15.2 % (11.5-14.5); White Blood Cell Count 7.8 10^3/uL (4.8-10.8)
--- NOTE | 2024-06-30 21:49 | ED.GENMED ---
History of Present Illness
General
Chief Complaint: Heart Rate Problem
Time Seen by Provider: 06/30/24 21:26
History of Present Illness
History of Present Illness:
Patient is an 84-year-old female with a history of paroxysmal atrial fibrillation on Eliquis, hypertension, CKD. She is [facility] where they noted her to have low heart rate for the past 3 days. Patient denies lightheadedness
chest pain, shortness of breath. Notes she was very active today and actually played baseball. Denies lower extremity edema
Past History
Past History
ED Past Medical History: Arrthythmia (paf), CAD, COPD, HTN, Hypercholesterolemia, Other (CKD STAGE IV) and Other (Idiopathic pancreatitis)
ED Past Surgical History: Cholecystectomy and Orthopedic
Social History
Tobacco: Non-smoker
Alcohol: None
Phy Exam
Physical Exam
Physical Exam:
GENERAL APPEARANCE: NAD, well developed/ well nourished
EYES lids/conjunctiva normal
EARS/NOSE/THROAT Mucous membranes moist, uvula midline without oral pharyngeal erythema, exudate or swelling
HEAD/NECK normocephalic atraumatic, neck is supple.
RESPIRATORY crackles at bases bilaterally, no respiratory distress, speaking full sentences.
CARDIAC regular bradycardia noted, no edema
ABDOMINAL Soft, ND/NT
MUSCLES/EXTREMITIES No abnormal range of motion, no swelling.
SKIN Warm, pink and dry. No rashes
NEUROLOGICAL Speech is clear and appropriate. Normal level of consciousness. 5/5 strength in all extremities.
Course
Orders/Labs/Results
Orders:
Orders
06/30/24 21:15
Electrocardiogram (*1) Urgent
Reason for Study: Chest Pain
Cardiac Monitoring- Treatment ONCE
EKG- Treatment ONCE
IV Insert/Care/Rem.- Treatment PRN
O2 Therapy [RESP] Urgent
Titrate/Wean O2 to maintain O2 sat greater than (%): 90
Special Instructions: Maintain sats >/=90%
Pulse Ox/spot Check [RESP] Urgent
Quantity: 1
Special Instructions: ON ROOM AIR
06/30/24 21:28
Complete Blood Count/With Diff Urgent
Comprehensive Metabolic Panel Urgent
Magnesium Urgent
Comment: ADD ON
TSH Reflex To Free T4 Urgent
Comment: ADD ON
Troponin I Urgent
06/30/24 21:31
Pulse Ox/cont/shift [RESP] Stat
Quantity: 1
06/30/24 21:32
CR Chest Portable - 1 View Urgent
Comment:
Reason For Exam: junctional bradycardia
Reason Study Needs to be Portable: Patient Unstable
06/30/24 21:40
PTT Urgent
Prothrombin Time Urgent
06/30/24 21:42
Add On- LAB Urgent
Tests Added?: ths with reflex, magnesium
06/30/24 21:45
DOPamine 400 MG/D5W 250 ML [DOPamine 400 MG] 400 mg in 250 ml IV PER PROTOCOL
Initial dose in mcg/kg/min, then titrate:: 5
Titrate to keep:: Heart Rate
Keep Heart Rate (bpm) greater than:: 50
Titrate by mcg/kg/min:: 1-2 mcg/kg/min
Frequency of titrations (minutes):: 15
Maximum dose in ICU in mcg/kg/min:: 20
Maximum dose in IMU in mcg/kg/min:: 10
Begin to taper infusion when:: Remained at goal for 4hrs
Taper by mcg/kg/min:: 1-2 mcg/kg/min
Frequency of taper (minutes) if patient maintains goal:: 30
Taper to off?: Yes
If infusion off & no longer maintaining goal:: Contact Provider
06/30/24 21:56
Lyme Progressive Urgent
06/30/24 22:05
Venous Blood Gas Urgent
%Oxygen/Room Air: room air
06/30/24 22:30
Dextrose 5%/Water 1000 ml [D5w] 1,000 ml Sodium Bicarbonate 150 meq IV 75 mls/hr
06/30/24 22:31
Ondansetron Injectable [Zofran] 4 mg IV NOW STA
06/30/24 22:32
Ondansetron Injectable [Zofran] 4 mg .ROUTE .STK-MED ONE
Abnormal Lab Results
06/30/24 06/30/24 06/30/24
21:28 21:40 22:05
RBC 2.96 L 10^6/uL
(4.20-5.40)
Hgb 8.7 L g/dL
(12.0-16.0)
Hct 25.6 L %
(37.0-47.0)
RDW 15.2 H %
(11.5-14.5)
Absolute Monos (auto) 0.7 H 10^3/uL
(0.1-0.6)
Eosinophils % 6.7 H %
(0-6)
PT 16.0 H Sec
(11.4-14.6)
APTT 45.3 H Sec
(23.4-35.0)
VBG pH 7.28 L
(7.32-7.43)
VBG pCO2 34 L mmHg
(35-48)
VBG pO2 140 H mmHg
(30-50)
VBG HCO3 16.0 L mmol/L
(22-27)
Carbon Dioxide 11 L* mmol/L
(22-30)
BUN 94 H mg/dl
(7-17)
Creatinine 3.9 H mg/dL
(0.6-1.0)
Glucose 136 H mg/dl
(70-99)
06/30/24 21:28
06/30/24 21:28
Vital Signs
Initial and Last Documented VS:
Initial Vital Signs
Temp Pulse Resp BP Pulse Ox
93.6 F L 36 14 173/54 99
06/30/24 21:16 06/30/24 21:16 06/30/24 21:16 06/30/24 21:16 06/30/24 21:16
Last Documented Vital Signs
Temp Pulse Resp BP Pulse Ox
93.6 F L 34 15 157/51 97
06/30/24 21:16 06/30/24 22:00 06/30/24 22:00 06/30/24 22:00 06/30/24 22:00
*Critical Care Note
Total Time (30-74mins, 75-104mins- exclusive of procedures): 35
ED Attending Note
ED Attending Note
ED Attending Note:
hx of paroxysmal atrial fibrillation on Eliquis, hypertension, CKD
had admission in May for UTI/CHF and had thoracentesis at that time -- was also started on lasix
notes low heart rates over the past 3 days
she is largely asymptomatic (Actually was playing baseball today haha)
she is in a junctional bradycardia rate of 36
BP is stable ( elevated 170s/54)
she is mentating well
BUN 94 Cr 3.9 from baseline of 2.5,
K is 4.4
CO2 11, pH 7.28 on vbg
CXR with small L sided pleural effusion
she is on dopamine gtt, HR is in the 50s
starting bicarb drip for her metabolic acidosis
Dr. Angeles with cardiology consulted
suspect bradycardia related to acidosis -- will see in consult
-
Portions of this chart may have been created with voice recognition software.� Occasional wrong word or��sound alike� substitutions may have occurred due to the inherent limitations of voice recognition software.
Discharge Plan
Departure
Prescriptions:
No Action
acetaminophen 325 mg Tablet
650 mg PO Q4HPRN MDD 3000 mg PRN (Reason: mild pain/fever >101)
allopurinol 100 mg Tablet
50 mg PO Q48H
famotidine [Pepcid] 20 mg Tablet
20 mg PO Q8HPRN PRN (Reason: GERD)
magnesium hydroxide 400 mg/5 mL Suspension
30 ml PO DAILYPRN PRN (Reason: no bm 3 days)
amlodipine 10 mg Tablet
10 mg PO DAILY
bisacodyl 10 mg Suppository
10 mg [place] DAILYPRN PRN (Reason: no bm 24 hrs after mom)
Fleet Enema 19-7 gram/118 mL Enema
118 ml [place] DAILYPRN PRN (Reason: no bm 24 hrs after bisacodyl)
sertraline [Zoloft] 25 mg Tablet
25 mg PO DAILY
alum-mag hydroxide-simeth [Maalox Maximum Strength] 400-400-40 mg/5 mL Suspension
5 ml PO Q6HPRN PRN (Reason: reflux)
Saccharomyces boulardii [Florastor] 250 mg Capsule
250 mg PO BIDPRN PRN (Reason: diarrhea)
PreserVision AREDS 4,296 mcg-226 mg-90 mg Capsule
1 cap PO DAILY
melatonin 5 mg Tablet
5 mg PO BIDPRN PRN (Reason: insomnia)
cholecalciferol (vitamin D3) 75 mcg (3,000 unit) Tablet
75 mcg PO DAILY
Eliquis 2.5 mg Tablet
2.5 mg PO BID
Eucerin Itch Relief 0.1 % Lotion
1 ea TOPICAL DAILY
furosemide [Lasix] 20 mg tablet
20 mg PO DAILY Qty: 30 0RF
hydralazine 10 mg Tablet
20 mg PO Q8H Qty: 0 0RF
albuterol sulfate 2.5 mg /3 mL (0.083 %) solution for nebulization
2.5 mg inhalation R Q6HPRN PRN (Reason: sob)
ondansetron HCl [Zofran] 8 mg Tablet
8 mg PO Q8HPRN PRN (Reason: nausea)
lactase [Lactase Enzyme] 3,000 unit Tablet
3,000 unit PO MEALS
lidocaine 4 % Gel
1 applic TOPICAL Q6HPRN PRN (Reason: neck and back pain)
Interventions
Interventions:
*Risk Screen - Suicide Last Done: 06/30/24 21:16
*General Assessment Last Done: 06/30/24 21:16
*Neglect/Abuse Screening Last Done: 06/30/24 21:16
*ED COVID-19 Vaccine History Last Done: 06/30/24 21:16
ED- Cardiac Assessment Last Done: 06/30/24 21:22
ED- Pulmonary Assessment Last Done: 06/30/24 21:22
Discharge Date and Time
Print Language: ARMENIAN
[2024-06-30] MEDS: DOPamine 400 MG 250 IV (21:50)
[2024-06-30 21:56] LABS: ALT (SGPT) 12 U/L (0-35); AST (SGOT) 15 U/L (14-36); Albumin 3.7 g/dl (3.5-5.0); Alkaline Phosphatase 91 U/L (38-126); Blood Urea Nitrogen 94 mg/dl (7-17); Calcium 9.4 mg/dl (8.4-10.2); Carbon Dioxide 11 mmol/L (22-30); Chloride 105 mmol/L (98-107); Estimated Creatinine Clearance 9 ml/min; Glucose 136 mg/dl (70-99); Potassium 4.4 mmol/L (3.5-5.1); Sodium 136 mmol/L (135-145); Total Bilirubin 0.7 mg/dl (0.2-1.3); Total Protein 6.9 g/dl (6.3-8.2); eGFR 10.78
[2024-06-30 21:56] LABS: INR 1.27
[2024-06-30 21:57] LABS: APTT 45.3 Sec (23.4-35.0)
[2024-06-30 21:58] LABS: Magnesium 2.1 mg/dl (1.6-2.3)
[2024-06-30 21:59] LABS: Troponin I 0.013 ng/ml
[2024-06-30 22:11] LABS: Venous Blood Gas B.E. -9.9 mmol/L (-4 to +4); Venous Blood Gas pCO2 34 mmHg (35-48); Venous Blood Gas pH 7.28 (7.32-7.43); Venous Blood Gas pO2 140 mmHg (30-50)
[2024-06-30 22:33] LABS: TSH Reflex To Free T4 1.98 uIU/ml (0.47-4.68)
[2024-06-30] MEDS: ZOFRAN 4 MG IV (22:43)
[2024-06-30] MEDS: SODIUM BICARBONATE 1150 MEQ IV (23:14)
--- NOTE | 2024-06-30 23:42 | HPS.HSE ---
Family Physician
-
Family Physician: Zoila Massey DO
Chief Complaint
-
Bradycardia
History of Present Illness
Patient is an 84y F with PMH significant for paroxysmal A-Fib, ASCVD and CKD who presents to ED for evaluation of slow heart rates. Patient is a resident [facility] and has her vitals checked daily as a matter of routine. She states that her
heart rate has been running low for the past several days. She states that she has felt tired and has occasionally / briefly gotten lightheaded when sitting upright from a lying position. No chest pain or palpitations. No dyspnea. No syncopal
episodes. Patient states that she has not been given her BP medications for the past few days due to this low heart rate (though she is on no chronotropic agents). She notes that she had a busy day today - including a game of 'baseball' at the
group home with a beach ball.
This afternoon, they again checked her vitals and noted heart rate in the 30s. Patient was sent to the ED for further evaluation. She has not been hypotensive.
Here in the ED, patient had a single episode of non-bloody emesis.
She feels fairly well at present. She is awake and alert. She denies any nausea, lightheadedness, chest pain, etc.
Medical History
Past Medical History
Past Medical History: Reports Other
Additional Past Medical History:
Idiopathic pancreatitis
CDiff Colitis
Paroxysmal A-fib
COPD
HTN
GERD
CKD IV
Gout
Anxiety / Insomnia
Chronic ambulatory dysfunction - uses walker
Past Surgical History: Reports Other
Additional Past Surgical History:
Cataract extraction
Cholecystectomy
Bilateral CEA
PTCA without Stent
ORIF L Femur
Cataracts
Social History
Tobacco: Former Smoker (Quit age 41)
Alcohol: None
Drug: None
Personal: Single
Living: Prison ([facility])
Employment: Retired
Family History
Family History: Not pertinent
Allergies / Home Medications
Allergies reflects when Allergies were last updated in [facility].
Home Medications with original date entered in [facility]
Allergy/Medication List:
Allergies
Allergy/AdvReac Type Severity Reaction Status Date / Time
No Known Allergies Allergy Unverified 04/26/24 11:48
Home Medications
Saccharomyces boulardii 250 mg capsule (Florastor) 250 mg PO BIDPRN PRN diarrhea 04/26/24
acetaminophen 325 mg tablet 650 mg PO Q4HPRN PRN mild pain/fever >101 04/26/24
allopurinol 100 mg tablet 50 mg PO Q48H Gout 04/26/24
aluminum-mag hydroxide-simethicone 400 mg-400 mg-40 mg/5 mL oral susp (Maalox Maximum Strength) 5 ml PO Q6HPRN PRN reflux 04/26/24
amlodipine 10 mg tablet 10 mg PO DAILY Blood Pressure 04/26/24
apixaban 2.5 mg tablet (Eliquis) 2.5 mg PO BID Blood Clot Prevention/Tx 04/26/24
bisacodyl 10 mg rectal suppository 10 mg [place] DAILYPRN PRN no bm 24 hrs after mom 04/26/24
cholecalciferol (vitamin D3) 75 mcg (3,000 unit) tablet 75 mcg PO DAILY Supplement 04/26/24
famotidine 20 mg tablet (Pepcid) 20 mg PO Q8HPRN PRN GERD 04/26/24
magnesium hydroxide 400 mg/5 mL oral suspension 30 ml PO DAILYPRN PRN no bm 3 days 04/26/24
melatonin 5 mg tablet 5 mg PO BIDPRN PRN insomnia 04/26/24
menthol 0.1 % lotion (Eucerin Itch Relief) 1 ea topical DAILY b/l arms 04/26/24
sertraline 25 mg tablet (Zoloft) 25 mg PO DAILY Mental Health 04/26/24
sodium phosphates 19 gram-7 gram/118 mL enema (Fleet Enema) 118 ml GA DAILYPRN PRN no bm 24 hrs after bisacodyl 04/26/24
vitamins A,C,W-sgkw-dtokei 4,296 mcg-226 mg-90 mg capsule (PreserVision AREDS) 1 cap PO DAILY Supplement 04/26/24
furosemide 20 mg tablet (Lasix) 20 mg PO DAILY #30 tabs 05/13/24
hydralazine 10 mg tablet 20 mg (2 x 10 mg) PO Q8H Blood Pressure #0 tabs 05/13/24
albuterol sulfate 2.5 mg/3 mL (0.083 %) solution for nebulization 2.5 mg inhalation R Q6HPRN PRN sob 06/30/24
lactase 3,000 unit tablet 3,000 unit PO MEALS 06/30/24
lidocaine 4 % topical gel 1 applic topical Q6HPRN PRN neck and back pain 06/30/24
ondansetron HCl 8 mg tablet 8 mg PO Q8HPRN PRN nausea 06/30/24
Review of Systems
-
History Source: Patient
A 12 point ROS was completed and negative except as noted: Yes
Constitutional: Reports Fatigue; Denies Fever or Chills
EENT: Denies Sore Throat
Respiratory: Denies Cough or Trouble Breathing
Cardiac: Denies Chest Pain, Diaphoresis or Palpitations
Abdomen/GI: Reports Nausea and Vomiting; Denies Abdominal Pain, Diarrhea or Constipated
: Denies Dysuria, Frequency or Flank Pain
Musculoskeletal: Reports Edema; Denies Joint Pain
Neurological: Denies Dizzy or Headache
Psych: Denies Depression or Anxiety
Physical Exam
Vital Signs
Vital Signs
Temp Pulse Resp BP Pulse Ox
93.6 F L 49 15 124/45 97
06/30/24 21:16 06/30/24 23:00 06/30/24 23:00 06/30/24 23:00 06/30/24 23:00
Physical Exam
General: Other (84y F in no acute distress. Mild pallor.)
HEENT: Moist mucous membranes and PERRLA
Respiratory: Clear; No Wheezes, Rales or Rhonchi
Cardiac: S1/S2, Bradycardia and Murmur (II/ LUZ)
GI: Soft, Non Tender, Non Distended and Normal Bowel Sounds
Musculoskeletal: No Clubbing, No Cyanosis and Other (Trace pedal edema bilaterally.)
Neuro: AO x 3
Laboratory Results
-
06/30/24 21:28
06/30/24 21:28
Laboratory Results
PT 16.0 Sec (11.4-14.6) H 06/30/24 21:40
INR 1.27 06/30/24 21:40
APTT 45.3 Sec (23.4-35.0) H 06/30/24 21:40
Total Bilirubin 0.7 mg/dl (0.2-1.3) 06/30/24 21:28
AST 15 U/L (14-36) 06/30/24 21:28
ALT 12 U/L (0-35) 06/30/24 21:28
Alkaline Phosphatase 91 U/L (38-126) 06/30/24 21:28
Troponin I Cancelled 06/30/24 21:31
Impression/Plan
-
A/P: Patient is an 84y F with PMH significant for PA-Fib, HTN and CKD who presents to ED for evaluation of bradycardia.
Symptomatic Bradycardia
- Admit for further evaluation and treatment.
- Initial HR in the 30s with junctional rhythm on monitor / EKG.
- Now 50s on dopamine infusion.
- Patient is awake, alert and oriented and in no distress. BP is stable.
- Continue dopamine as needed to maintain HR.
- Patient is on no chronotropic medications according to [facility] records (and to prior discharge summaries).
- Cardiology evaluation in the AM - ? PPM.
- TFTs done in the ED are normal.
- Follow for any change in heart rate or development of new symptoms.
ADAM on CKD IV
Anion Gap Metabolic Acidosis
- SCr = 3.9 compared to known baseline of 2.5.
- Uremia with BUN = 94 and elevated anion gap.
- IVFs started in the ED with supplemental bicarb.
- Follow for changes in labs / lytes.
- Hold Lasix for now (on 20mg daily dose with CKD IV so suspect minimal diuretic effect).
- Nephrology evaluation for additional recommendations.
Paroxysmal Atrial Fibrillation
- Currently in junctional bradycardia as noted above.
- Not on any rate / rhythm controlling medications as an outpatient.
- Will hold Eliquis acutely in the event that any intervention / invasive procedure is needed.
Benign Hypertension
- Stable. Hold outpatient med regimen acutely.
- Restart / resume meds as needed for BP control.
Anemia of CKD
- Stable. Hgb is at / near known baseline.
- Follow for any changes.
DVT Prophylaxis: SCDs
Code Status: Full
[2024-07-01] VITALS (34 sets, daily range): BP systolic 109–165; BP diastolic 41–54; PULSE 39–76; BMI 25.7
--- NOTE | 2024-07-01 01:30 | PTCARENOTE ---
Pt arrived to floor via stretcher from the ED. Pt AAOx3. HR in the 50's in Junctional bradycardia with prolonged QT. Pacer pads on pt. POX 96% on RA. Crackles @ B/L base. occas moist non productive cough. + bowel, round abd. Pt inc of urine, Pure
wick now in place. Trace LE edema, Palpable peripheral pulses present. Blanchable redness noted to sacrum, foam dressing applied for protection. Pale skin. Rectal temp 94.3. Arjun hugger now in place. Left AC int infusing Dopamine @8mcg/kg/min to
keep HR >40. Right AC int infusing D5W with 150MEQ Sodium Bicarb @75ml/hr. Heels elevated on pillows. Knee high seq in place. Call lopez in reach. Pt denies any complaints at this time. Will continue to monitor.
--- NOTE | 2024-07-01 04:00 | PTCARENOTE ---
Rectal temp up to 95.8, martha hugger remains in place. HR remains 50-60 in Junctional rhythm. Dopamine maintained @8mcg/kg/min. BP stable. Pt continues to deny any complaints. No void, bladder scanned for 178. Pure wick remains in place. Pt
repositioned per comfort. No other changes in assessment noted at this time. Will continue to monitor.
[2024-07-01 04:03] LABS: Hematocrit 26.2 % (37.0-47.0); Hemoglobin 9.3 g/dL (12.0-16.0); Mean Corp Hgb Conc. 35.5 g/dL (33.0-37.0); Mean Corpuscular Hgb 30.4 pg (27.0-31.0); Mean Corpuscular Volume 85.6 fL (81.0-99.0); Mean Platelet Volume 10.5 fL (7.4-10.4); Platelet Count 175 10^3/uL (130-400); Red Blood Cell Count 3.06 10^6/uL (4.20-5.40); White Blood Cell Count 8.4 10^3/uL (4.8-10.8)
[2024-07-01 04:28] LABS: Lactic Acid 0.6 mmol/L (0.7-2.0)
[2024-07-01 04:38] LABS: Troponin I 0.015 ng/ml
[2024-07-01 04:41] LABS: Blood Urea Nitrogen 99 mg/dl (7-17); Calcium 9.3 mg/dl (8.4-10.2); Carbon Dioxide 14 mmol/L (22-30); Chloride 103 mmol/L (98-107); Estimated Creatinine Clearance 9 ml/min; Glucose 164 mg/dl (70-99); Magnesium 2.1 mg/dl (1.6-2.3); Phosphorus 6.9 mg/dl (2.5-4.5); Potassium 4.9 mmol/L (3.5-5.1); Sodium 136 mmol/L (135-145); eGFR 10.78
--- NOTE | 2024-07-01 07:38 | CON.INTV ---
Consultation
Consultation Request
Date/Time Consultation Requested: 07/01/2024-7 AM
Date/Time Consultation Performed: 07/01/2024-7:30 AM
Requesting Provider: Hospitalist
Performing Provider: Dr. Evans
Reason for Consultation: Severe bradycardia/critical care management
Medical History
-
Chief Complaint: Low heart rate
History of Present Illness:
84-year-old female with a history of hypertension, GERD, chronic kidney disease, COPD, PAF, ambulatory dysfunction who presented with severe bradycardia and hypothermia that was symptomatic placed on dopamine drip-molasses coloring operator consulted for severe
bradycardia and critical care management 07/01/2024. Patient feels improved but still not back to her baseline. She denies any shortness of breath, chest pain, chest tightness, chest congestion, productive cough, pleurisy, abdominal pain, nausea
(had nausea and 1 episode of emesis), weakness or lower extremity swelling.
Past Medical History
Past Medical History: None (Hypertension. GERD. COPD. CAD. Chronic kidney disease-4. Gout. Anxiety. Insomnia. Ambulatory dysfunction. Idiopathic pancreatitis. C. difficile colitis. Cataract. Cholecystectomy. Bilateral CEA. ORIF-left
femur.)
Social History
Tobacco: Smoker ([id number]-nimp quit 41 years old)
Alcohol: None
Drug: None
Personal: Single
Living: Care Home
Occupational Exposures: No known asbestos exposure
Environmental Exposures: no known tuberculosis exposure
Family History
Family History: Reviewed & Not Pertinent
Allergies / Home Medications
Allergies
Allergy/AdvReac Type Severity Reaction Status Date / Time
No Known Allergies Allergy Unverified 04/26/24 11:48
Home Medications
�Medication �Instructions �Recorded �Confirmed �Last Taken �Type
Saccharomyces boulardii 250 mg 250 mg PO BIDPRN PRN diarrhea 04/26/24 06/30/24 Unknown History
capsule (Florastor)
acetaminophen 325 mg tablet 650 mg PO Q4HPRN PRN mild 04/26/24 06/30/24 Unknown History
pain/fever >101
allopurinol 100 mg tablet 50 mg PO Q48H Gout 04/26/24 06/30/24 Unknown History
aluminum-mag hydroxide-simethicone 5 ml PO Q6HPRN PRN reflux 04/26/24 06/30/24 Unknown History
400 mg-400 mg-40 mg/5 mL oral susp
(Maalox Maximum Strength)
amlodipine 10 mg tablet 10 mg PO DAILY Blood Pressure 04/26/24 06/30/24 Unknown History
apixaban 2.5 mg tablet (Eliquis) 2.5 mg PO BID Blood Clot 04/26/24 06/30/24 Unknown History
Prevention/Tx
bisacodyl 10 mg rectal suppository 10 mg [place] DAILYPRN PRN no bm 24 hrs 04/26/24 06/30/24 Unknown History
after mom
cholecalciferol (vitamin D3) 75 75 mcg PO DAILY Supplement 04/26/24 06/30/24 Unknown History
mcg (3,000 unit) tablet
famotidine 20 mg tablet (Pepcid) 20 mg PO Q8HPRN PRN GERD 04/26/24 06/30/24 Unknown History
magnesium hydroxide 400 mg/5 mL 30 ml PO DAILYPRN PRN no bm 3 days 04/26/24 06/30/24 Unknown History
oral suspension
melatonin 5 mg tablet 5 mg PO BIDPRN PRN insomnia 04/26/24 06/30/24 Unknown History
menthol 0.1 % lotion (Eucerin Itch 1 ea topical DAILY b/l arms 04/26/24 06/30/24 Unknown History
Relief)
sertraline 25 mg tablet (Zoloft) 25 mg PO DAILY Mental Health 04/26/24 06/30/24 Unknown History
sodium phosphates 19 gram-7 118 ml [place] DAILYPRN PRN no bm 24 04/26/24 06/30/24 Unknown History
gram/118 mL enema (Fleet Enema) hrs after bisacodyl
vitamins A,C,M-khii-himjxv 4,296 1 cap PO DAILY Supplement 04/26/24 06/30/24 Unknown History
mcg-226 mg-90 mg capsule
(PreserVision AREDS)
furosemide 20 mg tablet (Lasix) 20 mg PO DAILY #30 tabs 05/13/24 06/30/24 Unknown Rx
hydralazine 10 mg tablet 20 mg (2 x 10 mg) PO Q8H Blood 05/13/24 06/30/24 Unknown Rx
Pressure #0 tabs
albuterol sulfate 2.5 mg/3 mL 2.5 mg inhalation R Q6HPRN PRN sob 06/30/24 06/30/24 Unknown History
(0.083 %) solution for nebulization
lactase 3,000 unit tablet 3,000 unit PO MEALS 06/30/24 06/30/24 Unknown History
lidocaine 4 % topical gel 1 applic topical Q6HPRN PRN neck 06/30/24 06/30/24 Unknown History
and back pain
ondansetron HCl 8 mg tablet 8 mg PO Q8HPRN PRN nausea 06/30/24 06/30/24 Unknown History
Review of Systems
-
Unable to Obtain full review of systems at this time due to: Other (Per HPI)
Vitals / Labs / Diagnostic Testing
Vital Signs
Temp Pulse Resp BP Pulse Ox
97.2 F 61 14 139/48 96
07/01/24 06:00 07/01/24 06:00 07/01/24 06:00 07/01/24 06:00 07/01/24 06:00
Lab Data
07/01/24 03:46
07/01/24 03:46
Laboratory Results
06/30/24
21:40
PT 16.0 H
INR 1.27
APTT 45.3 H
Diagnostic Testing:
Physical Exam
-
Exam:
Well-nourished and well-developed in no apparent distress
HEENT-atraumatic, normocephalic
Neck-supple, no JVD, no bruit
Heart-regular rate and rhythm-bradycardic with systolic murmur
Chest with diminished breath sounds but clear without wheezes or crackles
Abdomen-soft, nontender, nondistended, no hepatosplenomegaly
Extremities-no cyanosis, clubbing, edema and good peripheral pulses
Integument-intact, no rashes, lesions or ecchymosis
Neurology-alert and oriented, nonfocal motor and sensory exam
Assessment
-
84-year-old female with a history of hypertension, GERD, chronic kidney disease, COPD, PAF, ambulatory dysfunction who presented with severe bradycardia and hypothermia that was symptomatic placed on dopamine drip-molasses coloring operator consulted for severe
bradycardia and critical care management 07/01/2024.
Symptomatic severe bradycardia
Hypothermia
ADAM on top of chronic kidney disease
Nyrpoo-dxinbxfyak-ofvkxwnocp 9.3
Metabolic acidosis
Hyperglycemia
Conditions present prior to admission:
Recent jssmpdoxrxjwirm-Ffsdgqszab-7/28/2024-TME, bacteriuria, left pleural effusion status post thoracentesis, CHF, anemia and recent C. difficile colitis
Hypertension.
GERD.
COPD.
Former [id number]-[id number]-year-quit 41 years old
CAD.
Chronic kidney disease-stage IV
Gout.
Anxiety.
Insomnia.
Ambulatory dysfunction.
Idiopathic pancreatitis.
History of C. difficile colitis.
Cataract. Cholecystectomy. Bilateral CEA. ORIF-left femur.
Plan
Patient will be admitted to medical intensive care unit for close observation
Supplemental oxygen as needed
Incentive spirometry
Aspiration precautions especially in light of recurrent pneumonias
Speech therapy evaluation if needed
Nebulizers if needed-currently not bronchospastic
Monitor bradycardia
Dopamine drip initiated
ZOLL pads in place
Cardiology evaluation
Consider pacemaker
With hypothermia check TSH-normal and random cortisol-pending
Nephrology evaluation
Monitor renal function
Replace electrolytes
Monitor hemoglobin
Transfuse if needed
DVT prophylaxis
Nutrition with aspiration precautions
Early mobilization/physical therapy
Critical care statement: A total of 50 minutes of critical care time was provided for this patient today. This includes management of unstable vital signs, evaluation of the patient at bedside, reviewing the patient's pertinent medical records
including radiographs, pressor management, severe bradycardia management, microbiology, laboratory evaluations, and discussion with primary team, consultants, pharmacy, nutrition, physical therapy, case management, charge nurse, critical care
nursing, and respiratory therapy.
Diagnostic data:
Chest x-ray 05/08/2024-large left lower lobe consolidation
Chest x-ray 05/09/2024-decrease in size of left pleural effusion, small right pleural fluid with right basilar atelectasis
Chest x-ray 06/30/2024-small left pleural effusion
CT chest 05/09/2024-cardiomegaly, mild pulmonary edema, near complete resolution of previous left-sided pleural effusion, nodular consolidation left lower lobe, follow-up CT recommended
Thoracentesis 05/09/24--700 mL clear sandra fluid from left side
Echocardiogram 05/09/2024-EF 60-65%, mild mitral regurgitation, aortic valve sclerosis, PA systolic estimated 20-25
Data Reviewed
-
EKG: Report reviewed by me
Radiology: Report reviewed by me
CT Scan: Report reviewed by me
Medical Tests (Nuc Med, Echo etc): Report reviewed by me
Labs: Labs reviewed by me
Old Records: Reviewed
Critical Care Time (in minutes): 50
--- NOTE | 2024-07-01 08:24 | CON.CAR ---
Addendum entered and electronically signed by Seven Lin DO 07/01/24 11:43:
I saw and examined the patient.
The Automatic Serging Machine Operator's note was reviewed and I agree with the note.
Comment:
Exam, assessment, plan as below
Patient presenting with symptomatic bradycardia with likely junctional rhythm and sick sinus syndrome. Patient with ADAM and requiring dopamine for heart rate improvement. Patient not on AV claudia blocking agents during this admission, carvedilol
discontinued in April 2024. In review of EKGs, patient noted April 2024 to have sinus rhythm with a first-degree AV block. Subsequent ECGs in system June 2024 demonstrate junctional bradycardia/junctional rhythm without discernible atrial
activity and in some instances evidence of retrograde P wave conduction. Review of telemetry demonstrates junctional rhythm as well. Patient reporting nausea, vomiting, fatigue, lightheadedness with positional changes. Patient denies any chest
pain, shortness of breath, edema, orthopnea, or palpitations.
Due to patient's symptomatic sick sinus syndrome/junctional bradycardia without reversible etiology, will recommend patient undergo implantation of dual-chamber pacemaker. With regards to pacemaker, we discussed pacemaker indications and device
implant in detail. For implant there is an approximate 1:1000 risk of FL/stroke/ and a 1% risk of pneumothorax/tamponade/infection/bleeding. We also discussed post procedure implant restrictions including positions to avoid with implant arm for
first six weeks after implant as well as driving restrictions. I took time to answer all questions. Patient asked appropriate questions and verbalized understanding and agreed with this plan. Consent obtained. Patient to remain n.p.o. Eliquis on
hold. Team discussed with nephrology, Dr. Hou, for possibility of using small amount of IV contrast for venogram, this was acceptable per Dr. Hou. Remaining plan as below. Continue to monitor on telemetry. Avoid AV claudia blocking agents for now.
Per patient's request, I spoke with patient's grandson, Julius Fu ([phone]) and discussed procedure benefits and risks and alternatives. Patient's grandson verbalized understanding and agreed with this as well.
Original Note:
Consultation
Consultation Request
Date/Time Consultation Requested: 07/01/2024, 0711
Date/Time Consultation Performed: 07/01/2024, 08 25
Requesting Provider: Dr Lobato
Performing Provider: CHARMAINE Rodas for Dr. Ye
Reason for Consultation: Symptomatic bradycardia
Medical History
-
Chief Complaint: fatigue
History of Present Illness:
84-year-old female with past medical history significant for paroxysmal atrial fibrillation (on Eliquis), chronic heart failure with preserved EF, chronic kidney disease, hypertension, CAD, carotid stenosis status post bilateral CEA, anemia
presented to ED 06/30/2024 from her residence at [facility] with concerns for heart rate in the 30s. She complains of fatigue and occasional brief lightheadedness after sitting from a lying position in the days leading up to admission. No
syncopal episodes. Her heart rates at [facility] were noted to be running lower over the past few days, but she was sent to the OR when it went down to the 30s. EKG in ER showed junctional rhythm. She was started on a dopamine drip With
improvement in heart rate to the 50s and 60s.
She denies shortness of breath, chest pain, palpitations, edema, PND, orthopnea. She does report nausea and had vomiting last night.
Of note, admission labs show creatinine of 3.9, baseline appears to be 2.3-2.5. Troponin negative x 2, 0.015, 0.013 proBNP not checked
In review of medications from discharge on 05/13/24, she had been on carvedilol 3.125 twice daily but it was stopped, she was started on hydralazine 20 mg every 8 hours and continued on amlodipine 10 mg daily, Eliquis 2.5 mg twice daily
She had a previous admission to 05/08/2024 to 05/13/2024 for acute toxic metabolic encephalopathy with hallucinations in setting of bacteriuria. She had worsened anemia with drop in hemoglobin to 6.8 received 1 unit of packed red blood cells.
Hospital course complicated by left pleural effusion and chronic heart failure and she underwent a left thoracentesis on 05/09/2024 draining 700 cc of clear yellow fluid. Her medical conditions were optimized and she was discharged back to [place].
She tells me she had an admission for sepsis in September 2020 for where she almost . She believes she was at [facility]. She tells me she has been seen at multiple hospitals in the [facility] over the past few years.
Past medical history:
Paroxysmal atrial fibrillation
Chronic heart failure preserved EF
Chronic kidney disease stage IIIa/IV
Pleural effusion status post L thoracentesis 05/04
CAD-per patient had cardiac cath at [facility]~5 years ago, showed blockage in small artery, did not get stent
Status post bilateral CEA, per patient at [facility]~4 to 5 years ago
Anemia of chronic disease
Hypertension
Acute toxic metabolic encephalopathy with hallucinations, admission 05/04 [facility]
Mild cognitive impairment
Bacteriuria (urinary tract infection ruled out)
Gastroesophageal reflux disease
Anxiety
Insomnia
Past Medical History
Past Medical History: Other (As above)
Past Surgical History: Cardiac (PTCA without stent, bilateral CEA), Cholecystectomy and Other (Cataracts, ORIF left femur)
Social History
Tobacco: Former Smoker
Alcohol: None
Drug: None
Living: [facility] ([facility])
Allergies / Home Medications
Allergy/AdvReac Type Severity Reaction Status Date / Time
No Known Allergies Allergy Unverified 04/26/24 11:48
�Medication �Instructions �Recorded �Confirmed �Type
Saccharomyces boulardii 250 mg 250 mg PO BIDPRN PRN diarrhea 04/26/24 06/30/24 History
capsule (Florastor)
acetaminophen 325 mg tablet 650 mg PO Q4HPRN PRN mild 04/26/24 06/30/24 History
pain/fever >101
allopurinol 100 mg tablet 50 mg PO Q48H Gout 04/26/24 06/30/24 History
aluminum-mag hydroxide-simethicone 5 ml PO Q6HPRN PRN reflux 04/26/24 06/30/24 History
400 mg-400 mg-40 mg/5 mL oral susp
(Maalox Maximum Strength)
amlodipine 10 mg tablet 10 mg PO DAILY Blood Pressure 04/26/24 06/30/24 History
apixaban 2.5 mg tablet (Eliquis) 2.5 mg PO BID Blood Clot 04/26/24 06/30/24 History
Prevention/Tx
bisacodyl 10 mg rectal suppository 10 mg DC DAILYPRN PRN no bm 24 hrs 04/26/24 06/30/24 History
after mom
cholecalciferol (vitamin D3) 75 75 mcg PO DAILY Supplement 04/26/24 06/30/24 History
mcg (3,000 unit) tablet
famotidine 20 mg tablet (Pepcid) 20 mg PO Q8HPRN PRN GERD 04/26/24 06/30/24 History
magnesium hydroxide 400 mg/5 mL 30 ml PO DAILYPRN PRN no bm 3 days 04/26/24 06/30/24 History
oral suspension
melatonin 5 mg tablet 5 mg PO BIDPRN PRN insomnia 04/26/24 06/30/24 History
menthol 0.1 % lotion (Eucerin Itch 1 ea topical DAILY b/l arms 04/26/24 06/30/24 History
Relief)
sertraline 25 mg tablet (Zoloft) 25 mg PO DAILY Mental Health 04/26/24 06/30/24 History
sodium phosphates 19 gram-7 118 ml [place] DAILYPRN PRN no bm 24 04/26/24 06/30/24 History
gram/118 mL enema (Fleet Enema) hrs after bisacodyl
vitamins A,C,Y-qlha-byezxb 4,296 1 cap PO DAILY Supplement 04/26/24 06/30/24 History
mcg-226 mg-90 mg capsule
(PreserVision AREDS)
furosemide 20 mg tablet (Lasix) 20 mg PO DAILY #30 tabs 05/13/24 06/30/24 Rx
hydralazine 10 mg tablet 20 mg (2 x 10 mg) PO Q8H Blood 05/13/24 06/30/24 Rx
Pressure #0 tabs
albuterol sulfate 2.5 mg/3 mL 2.5 mg inhalation R Q6HPRN PRN sob 06/30/24 06/30/24 History
(0.083 %) solution for nebulization
lactase 3,000 unit tablet 3,000 unit PO MEALS 06/30/24 06/30/24 History
lidocaine 4 % topical gel 1 applic topical Q6HPRN PRN neck 06/30/24 06/30/24 History
and back pain
ondansetron HCl 8 mg tablet 8 mg PO Q8HPRN PRN nausea 06/30/24 06/30/24 History
Review of Systems
-
History Source: Patient
All other systems: Negative unless noted
Physical Exam
Vital Signs
Temp Pulse Resp BP Pulse Ox
97.0 F 61 14 139/48 96
07/01/24 07:57 07/01/24 06:00 07/01/24 06:00 07/01/24 06:00 07/01/24 06:00
Lab Results
07/01/24 03:46
07/01/24 03:46
Troponin I 0.015 ng/ml 07/01/24 03:46
Plg-Z-Miefcwugwkm Pept Cancelled 06/30/24 21:31
GEN: No distress, awake, Ox3
HEENT: supple, anicteric, mmm
LUNGS: CTA, decreased BS B/L bases
CV: Reg, S1/S2,no murmur
ABD: soft, BS+, NT/ND
EXT: No edema
NEURO: Gross non-focal
SKIN: No rash
Impression / Plan
-
PCP:Zoila Massey
Primary self propelled mining machine operator: none
Junctional rhythm
Sinus bradycardia
Fatigue
Lightheadedness
Paroxysmal atrial fibrillation
Chronic heart failure preserved EF
Chronic kidney disease stage IIIa/IV
Pleural effusion status post L thoracentesis 05/04
CAD-per patient had cardiac cath at [facility]~5 years ago, showed blockage in small artery, did not get stent
Status post bilateral CEA, per patient at [facility]~4 to 5 years ago
Anemia of chronic disease
Hypertension
Acute toxic metabolic encephalopathy with hallucinations, admission 05/04 [facility]
Mild cognitive impairment
Bacteriuria (urinary tract infection ruled out)
Gastroesophageal reflux disease
Anxiety
Insomnia
Previous cardiovascular studies:
Echocardiogram 05/09/2024: Normal LV size and function, EF 60 to 65%, mild cLVH, mild MR, trace AI, mild TR, PASP 20 to 25 mmHg
EKG 06/30/2024 at 2119: Junctional rhythm, heart rate 36 bpm
EKG 07/01/2024 at 04 20: Junctional rhythm versus sinus rhythm with prolonged AV block, heart rate 61 bpm
EKG 04/26/2024: Normal sinus rhythm with first-degree AV block (DC interval 248), nonspecific T wave abnormality
Plan:
Junctional rhythm:She remains in a junctional rhythm on dopamine drip @ 8 mcg/kg/min. She has not required external pacing but monitor is in place. She is currently asymptomatic besides generalized fatigue but has had mild lightheadedness with
position change control analyst the past few days. She was previously on carvedilol but it was stopped during April admission at . Blood pressures 139/48. She is not on any other rate lowering agents. Hold AV claudia blocking agents. Will discuss need for
pacemaker with EP. Keep NPO. She is on Eliquis 2.5 mg bid. Held since admission 06/30/24 afternoon. Last dose presumed 06/30/24 morning before admission.
Chronic heart failure preserved EF: Echocardiogram 05/09 showed normal LV function with no significant valvular heart disease. She does not appear volume overloaded on exam and has not required outpatient diuretics. Creatinine has bumped up to 3.9
from baseline of 2.5. Would hold diuretics unless absolutely necessary. Renal is following.
HTN-controlled on Amlodipine and hydralazine
Metabolic acidosis: She is on IV fluids with bicarbonate, care per medical team.
Data Reviewed
-
EKG: Tracing Personally Visualized and interpreted
Labs: Labs Reviewed by me
[2024-07-01 08:59] LABS: Urine Albumin 1+ (Neg - Trace); Urine Bilirubin Negative (Negative); Urine Character Clear (Clear); Urine Color Yellow; Urine Glucose Negative (Negative); Urine Ketone Negative (Negative); Urine Leukocyte 1+ (Negative); Urine Nitrite Negative (Negative); Urine Occult Blood Negative (Negative); Urine Specific Gravity 1.015 (<1.030); Urine Urobilinogen Negative (Neg - 1+)
--- NOTE | 2024-07-01 09:20 | W.CON.NEPH ---
Consultation
-
Date/Time Consultation Requested: 07/01/24 [id number]
Date/Time Consultation Performed: 07/01/24 0900
Requesting Provider: Dr. Lobato
Performing Provider: Dr. Hou
Reason for Consultation: ADAM
Medical History
-
Chief Complaint: bradycardia
History of Present Illness:
Patient is an 84-year-old [facility] resident from [facility] who has chronic kidney disease with presumed baseline creatinine of 2.5. She has no knowledge of her CKD. She has known gout on allopurinol therapy which is typically controlled,
hypertension on a multidrug regimen which is also typically controlled. She is on anticoagulation with Eliquis for atrial fibrillation. She was brought in because of fatigue and lightheadedness and bradycardia with heart rate in the 30s. There is
no documented hypotension. She does report nausea as well as coughing. She also has back pain. At the time of admission she was noted to have an elevated creatinine value of 3.9. She also had metabolic acidosis which had an anion gap. She was
sent to the ICU and placed on dopamine for her bradycardia. She has not required pacing.
Past Medical History
Atrial fibrillation, CKD unknown stage (likely 4), COPD, hypertension, gout, cataract extraction, cholecystectomy, bilateral carotid endarterectomy, left femoral ORIF, cataract surgery
Social History
Tobacco: Non-Smoker
Alcohol: None
Family History
Family History: Not Pertinent
Allergies / Home Medications
Allergy/AdvReac Type Severity Reaction Status Date / Time
No Known Allergies Allergy Unverified 04/26/24 11:48
�Medication �Instructions �Recorded �Confirmed �Type
Saccharomyces boulardii 250 mg 250 mg PO BIDPRN PRN diarrhea 04/26/24 06/30/24 History
capsule (Florastor)
acetaminophen 325 mg tablet 650 mg PO Q4HPRN PRN mild 04/26/24 06/30/24 History
pain/fever >101
allopurinol 100 mg tablet 50 mg PO Q48H Gout 04/26/24 06/30/24 History
aluminum-mag hydroxide-simethicone 5 ml PO Q6HPRN PRN reflux 04/26/24 06/30/24 History
400 mg-400 mg-40 mg/5 mL oral susp
(Maalox Maximum Strength)
amlodipine 10 mg tablet 10 mg PO DAILY Blood Pressure 04/26/24 06/30/24 History
apixaban 2.5 mg tablet (Eliquis) 2.5 mg PO BID Blood Clot 04/26/24 06/30/24 History
Prevention/Tx
bisacodyl 10 mg rectal suppository 10 mg TN DAILYPRN PRN no bm 24 hrs 04/26/24 06/30/24 History
after mom
cholecalciferol (vitamin D3) 75 75 mcg PO DAILY Supplement 04/26/24 06/30/24 History
mcg (3,000 unit) tablet
famotidine 20 mg tablet (Pepcid) 20 mg PO Q8HPRN PRN GERD 04/26/24 06/30/24 History
magnesium hydroxide 400 mg/5 mL 30 ml PO DAILYPRN PRN no bm 3 days 04/26/24 06/30/24 History
oral suspension
melatonin 5 mg tablet 5 mg PO BIDPRN PRN insomnia 04/26/24 06/30/24 History
menthol 0.1 % lotion (Eucerin Itch 1 ea topical DAILY b/l arms 04/26/24 06/30/24 History
Relief)
sertraline 25 mg tablet (Zoloft) 25 mg PO DAILY Mental Health 04/26/24 06/30/24 History
sodium phosphates 19 gram-7 118 ml TN DAILYPRN PRN no bm 24 04/26/24 06/30/24 History
gram/118 mL enema (Fleet Enema) hrs after bisacodyl
vitamins A,C,Q-mfly-bajxpg 4,296 1 cap PO DAILY Supplement 04/26/24 06/30/24 History
mcg-226 mg-90 mg capsule
(PreserVision AREDS)
furosemide 20 mg tablet (Lasix) 20 mg PO DAILY #30 tabs 05/13/24 06/30/24 Rx
hydralazine 10 mg tablet 20 mg (2 x 10 mg) PO Q8H Blood 05/13/24 06/30/24 Rx
Pressure #0 tabs
albuterol sulfate 2.5 mg/3 mL 2.5 mg inhalation R Q6HPRN PRN sob 06/30/24 06/30/24 History
(0.083 %) solution for nebulization
lactase 3,000 unit tablet 3,000 unit PO MEALS 06/30/24 06/30/24 History
lidocaine 4 % topical gel 1 applic topical Q6HPRN PRN neck 06/30/24 06/30/24 History
and back pain
ondansetron HCl 8 mg tablet 8 mg PO Q8HPRN PRN nausea 06/30/24 06/30/24 History
Review of Systems
-
Coughing and nausea. She reports decreased urine output recently.
All other systems: Negative unless noted
Physical Exam
Vital Signs
Vital Signs
Temp Pulse Resp BP Pulse Ox
96.9 F L 61 14 139/48 96
07/01/24 08:00 07/01/24 06:00 07/01/24 06:00 07/01/24 06:00 07/01/24 06:00
Lab Results
WBC 8.4 10^3/uL (4.8-10.8) 07/01/24 03:46
RBC 3.06 10^6/uL (4.20-5.40) L 07/01/24 03:46
Hgb 9.3 g/dL (12.0-16.0) L 07/01/24 03:46
Hct 26.2 % (37.0-47.0) L 07/01/24 03:46
Plt Count 175 10^3/uL (130-400) 07/01/24 03:46
Sodium 136 mmol/L (135-145) 07/01/24 03:46
Potassium 4.9 mmol/L (3.5-5.1) 07/01/24 03:46
Chloride 103 mmol/L (98-107) 07/01/24 03:46
Carbon Dioxide 14 mmol/L (22-30) L* 07/01/24 03:46
BUN 99 mg/dl (7-17) H 07/01/24 03:46
Creatinine 3.9 mg/dL (0.6-1.0) H 07/01/24 03:46
eGFR 10.78 07/01/24 03:46
Glucose 164 mg/dl (70-99) H 07/01/24 03:46
Calcium 9.3 mg/dl (8.4-10.2) 07/01/24 03:46
Phosphorus 6.9 mg/dl (2.5-4.5) H 07/01/24 03:46
Lcl-Z-Xfhzowwtlcp Pept Cancelled 06/30/24 21:31
Albumin 3.7 g/dl (3.5-5.0) 06/30/24 21:28
Laboratory Tests
05/13/24 07/01/24
07:55 08:29
Creatinine 2.5 H
Urine Albumin (Reflex) 1+ A
Physical Exam
Patient is awake alert oriented and in no distress. Mood and affect were pleasant, insight and judgment were good. Pupils are equal round and reactive to light, extraocular movements are intact, sclera were anicteric. Hearing was normal, ears and
nose are intact. Oropharynx was clear. Neck was supple with trachea midline and no thyromegaly. Heart was regular rate and rhythm without rubs. Lower extremities without edema. Lungs were clear to auscultation bilaterally and with normal
excursion. Abdomen was soft, nontender, with normal active bowel sounds, and no hepatosplenomegaly. Skin was without rash and with normal turgor.
Data Reviewed
-
Radiology: Image Personally Visualized and interpreted (Chest x-ray on 06/30/2024 by reading shows small left effusion, cardiomegaly)
Medical Tests (Nuc Med, Echo etc): Image Personally Visualized and interpreted (EKG on 07/01/2024 by my reading shows junctional rhythm nonspecific ST-T wave)
Labs: Labs Reviewed by me
Old Records: Reviewed
Assessment/Plan
-
Assessment
Bradycardia
ADAM
CKD4, baseline 2.5
Paroxysmal atrial fibrillation
Hypertension
Anemia
Anion gap metabolic acidosis
Hypothermia
Plan
Follow BMP
IV fluids with bicarbonate
Check urine eosinophils
Check fractional excretion of sodium
Acidosis may be a consequence of the ADAM she has no ketosis or lactic acidosis
Check renal ultrasound with postvoid bladder
Critical care time spent 35 minutes
[2024-07-01] MEDS: DOPamine 400 MG 250 IV (09:26)
[2024-07-01 09:33] LABS: Urine Bacteria Few (Negative); Urine Red Blood Cell 0-2 /HPF (0-2)
--- NOTE | 2024-07-01 10:52 | CM ---
Patient seen at bedside, patient sleeping in ICU. The patient resides as a skilled nursing resident of [facility]. The patient uses the wheelchair for ambulation, but is able to walk short distance with rolling walker and assistance per prior
chart notes. LEMUEL called to Riana content director of [facility], and left message. 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 Carito [phone]/Riana
[phone] are both available for call on weekend if needed. Patient would be able to return when medically appropriate. LEMUEL continues to be available to patient/family and is monitoring medical plan for needs at discharge.
Plan: Discharge back to [facility] when medically stable.
IF patient is for discharge please call for report to [phone]/fax [phone]
[2024-07-01 11:07] LABS: Cortisol, Random 16.1 ug/dl
[2024-07-01 12:03] LABS: Urine Sodium 17 mmol/L (30-90)
--- NOTE | 2024-07-01 13:44 | W.PN.HOSP.TC ---
Today's Communication/Plan
-
For PPM this afternoon
continue Dopamine as per Cardio
Assessment / Plan
Assessment / Plan
A/P: Patient is an 84y F with PMH significant for PA-Fib, HTN and CKD who presents to ED for evaluation of bradycardia.
Symptomatic Bradycardia
- Admit for further evaluation and treatment.
- Initial HR in the 30s with junctional rhythm on monitor / EKG.
- Now 50s on dopamine infusion.
- Patient is awake, alert and oriented and in no distress. BP is stable.
- Continue dopamine as needed to maintain HR.
- Patient is on no chronotropic medications according to [place] records (and to prior discharge summaries).
- Cardiology evaluation appreciated
- TFTs done in the ED are normal.
- Follow for any change in heart rate or development of new symptoms.
ADAM on CKD IV
Anion Gap Metabolic Acidosis
- SCr = 3.9 compared to known baseline of 2.5.
- Uremia with BUN = 94 and elevated anion gap.
- IVFs started in the ED with supplemental bicarb.
- Follow for changes in labs / lytes.
- Hold Lasix for now (on 20mg daily dose with CKD IV so suspect minimal diuretic effect).
- Nephrology evaluation appreciated
Paroxysmal Atrial Fibrillation
- Currently in junctional bradycardia as noted above.
- Not on any rate / rhythm controlling medications as an outpatient.
- Will hold Eliquis acutely, resume when cleared by Cardio
Benign Hypertension
- Stable. Hold outpatient med regimen acutely.
- Restart / resume meds as needed for BP control.
Anemia of CKD
- Stable. Hgb is at / near known baseline.
- Follow for any changes.
DVT Prophylaxis: SCDs
Code Status: Full
Anticipated Discharge: 24 - 48 hours
Subjective/Interval History
-
Date of Service: July 01, 2024
Apprehensive about planned PPM placement
Objective Data
-
Labs:
Laboratory Results
07/01/24
03:46
WBC 8.4
Hgb 9.3 L
Hct 26.2 L
Plt Count 175
Sodium 136
Potassium 4.9
Chloride 103
Carbon Dioxide 14 L*
BUN 99 H
Creatinine 3.9 H
Glucose 164 H
Calcium 9.3
Vital Signs:
Vital Signs
Temp Pulse Resp BP Pulse Ox
97 F 75 15 149/53 95
07/01/24 13:00 07/01/24 13:08 07/01/24 13:08 07/01/24 13:08 07/01/24 13:08
I&O
06/30/24 07/01/24 07/02/24
06:59 06:59 06:59
Intake Total 482.5 / 579.0 670.2 / 670.2
Balance 482.5 / 579.0 670.2 / 670.2
Review of Systems
-
History Source: Patient and Physician (reviewed plans with Dr. Lin)
Constitutional: Denies Fever
EENT: Reports No Symptoms Reported
Respiratory: Reports No Symptoms
Cardiac: Reports No Symptoms; Denies Chest Pain
Physical Exam
-
General: Well Developed, Well Nourished, No Apparent Distress and Appears Chronically Ill
HEENT: Atraumatic and Moist Mucous Membranes
Respiratory: Clear to Auscultation; Negative Wheezes, Rales or Rhonchi
Cardiac: Regular Rhythm, S1/S2 and Bradycardic
GI: Nontender and Nondistended
Musculoskeletal: No Clubbing, No Cyanosis and No Edema
Neuro: Awake and Alert
--- NOTE | 2024-07-01 14:05 | PTCARENOTE ---
Pt picked up by manufacturing lab technician team and taken for pacemaker placement. Pt on dopamine infusion at 8 mcg/kg/min - still in junctional rhythm w/ HR in 40s.
--- NOTE | 2024-07-01 16:31 | ITS.CL.PACE ---
Monogram Technician - Pacemaker Implant
Pacemaker Implant
Procedure Report:
Primary Care Doctor: Zoila Massey DO
Procedure Date: 07/01/2024
Name of procedure:
1. Placement of a dual-chamber pacemaker with left bundle area pacing lead for conduction system pacing
2. Subclavian venography
History:
1. Patient is a pleasant 84-year-old female with a past medical history significant for chronic heart, hypertension, CAD medically managed, carotid artery stenosis status post bilateral CEA, anemia, paroxysmal atrial fibrillation on Eliquis, GERD,
anxiety who presents following documentation of low heart rates. EKGs demonstrated junctional rhythm 30-60 bpm improved with dopamine drip. Patient reported symptoms including lightheadedness, dizziness, fatigue. Patient not on AV claudia blocking
agents. Due to patient's symptomatic sick sinus syndrome, junctional bradycardia without reversible etiology, patient to undergo implantation of dual-chamber pacemaker.
2. Please refer to H&P for complete history.
Indication:
Symptomatic sick sinus syndrome
Junctional bradycardia without reversible etiology
Need for AV claudia blocking agents in the setting of atherosclerotic heart disease
Methods:
After informed consent was obtained, the patient was brought to the EP laboratory in a postabsorptive, nonsedated state. Peripheral IV access was established. Prophylactic antibiotics were administered prior to incision. Continuous ECG, blood
pressure, and pulse oximetry were initiated. Cardioversion patch electrodes were placed on the patient's chest and back. A grounding patch was applied to the skin. Sedation was administered by anesthesia services.
In order to define the extrathoracic portion of the subclavian vein and exclude significant venous obstruction or anomalous anatomy, subclavian venography was performed prior to the procedure. Using the patient's left peripheral IV, contrast was
injected and images were recorded. The left subclavian vein and SVC were found to be widely patent.
The left chest was prepared and draped in a sterile fashion. A time-out was performed. Local anesthesia was injected in the subcutaneous tissue in the infraclavicular area. An incision was made medial to the deltopectoral groove. The subcutaneous
tissue was dissected the level of the prepectoral fascia. A subcutaneous pocket was created. Under fluoroscopic guidance and with the assistance of the images from the venogram, 2 separate venipunctures were made using micropuncture and modified
Seldinger technique. These were performed in the extrathoracic portion of the subclavian vein. Guidewires were passed and two peel-away sheaths were placed, and used to advance leads into the circulation.
Fluoroscopy was used to determine likely anatomic site for left bundle branch pacing. The Nellixtronic C315 sheath was used to deliver the Medtronic 3830 Selectsecure pacing lead with the helix exposed just exposed from the sheath tip during continuous
monitoring when pacemapping the septum during gentle clockwise rotation to obtain a paced QRS morphology of a W pattern in lead V1. Once the suspected optimal site was identified, lead deployment was performed with several rapid rotations as paced
QRS morphology was intermittently monitored until a paced QRS complex in lead V1 demonstrated development of an R wave (qR or rSR). Unipolar pacing impedance dropped by approximately 100 ohms suggesting it had reached the left ventricular
subendocardial. Stable VEgm injury current is present throughout lead position and at end of case. Final unipolar pacing impedance is 1149 Ohms. Unipolar pacing threshold is stable at 0.75 V @ 0.4 ms. The patient had pre-existing narrow QRS. Final
conduction system paced QRS complex duration is 106 ms, LVAT is 79 ms, and peak V5 -> peak V1 timing is 63 ms. The C315 sheath was slit under fluoroscopy ensuring lead position and stability.
Next, the right atrial lead was positioned in the right atrial appendage. Adequate sensing and pacing parameters were found, and no diaphragmatic stimulation was seen with high-output pacing. Both sheaths were split, and the leads were secured to
the fascia with Ethibond ties.
The pocket was flushed with antibiotic solution and hemostasis was assured. The generator was connected to the leads and placed inside the pocket. The device was sutured to the fascia. Antibiotic envelope was used. Surgiflo was applied. The wound
was closed with 3 running layers of absorbable suture, and steri-strips were applied. Dressing applied over steri-strips in standard fashion.
Following the procedure, the patient was taken to the recovery area in stable condition. A chest x-ray to be obtained post procedure as routine.
Lead parameters and device programming:
- RA Lead (Medtronic, Model 5076, # [id number]): Sensing 1.5 mV, Pacing threshold 1.5 V at 0.4 ms, Imp 703 ohm
- RV Lead (Medtronic, Model 3830, #[id number]): Sensing 17.0 mV, Pacing threshold 0.75 V at 0.4 ms, Imp 893 Ohm
- Device: Medtronic, Model W1DR01 pacemaker (#[id number]), programmed AAIR-DDDR, lower rate 60, upper tracking rate 130 ppm, mode switch on
Conclusions:
1. Successful placement of a dual-chamber pacemaker with conduction system pacing (LBBAP)
2. Subclavian venography
Recommendations:
1. Return to patient room
2. CXR today, [facility] in AM
3. IV antibiotics while the patient is admitted.
4. OK to resume home medications as indicated; if patient stable/site stable ok to resume OAC in PM 07/02/2024
5. Pressure dressing to be removed in AM, aquacell to remain until wound check
6. Follow-up will be arranged in the office in 7-10 days post-discharge
Seven Lin, DO
Clinical Cardiac Ring Making Machine Operator
cc: Zoila Massey, DO
[2024-07-01] MEDS: SODIUM BICARBONATE 1150 MEQ IV (17:14)
--- NOTE | 2024-07-01 17:23 | PTCARENOTE ---
Pt back from pacemaker placement. Dual chamber pacer DDDR 60-130 placed on L side. Pressure dressing in place - dry and intact. Arm immobilizer on. Pt currently sinus w/ rate of 60. Dopamine off. EKG done. Pt is alert and conversive.
[2024-07-01] MEDS: TYLENOL 650 MG PO (19:53)
--- NOTE | 2024-07-01 20:00 | PTCARENOTE ---
rec`d pt at 1900. aaox3. pacemaker . SR on monitor. afebrile, scds. RA 95%. moist cough. purwick draining sandra yellow urine. left upper chest, surgical site- sutures, aquacell,pressure dressing w/ arm in a sling. left and rt ac ivs. call lopez in
reach, safe environment maintained.
[2024-07-01] MEDS: ANCEF 5 IV (21:39)
[2024-07-02] VITALS (29 sets, daily range): BP systolic 119–189; BP diastolic 44–122; BMI 26.4
--- NOTE | 2024-07-02 | PTCARENOTE ---
pt reassessed. no changes in pt assessment. call lopez in reach.
[2024-07-02] MEDS: TYLENOL 650 MG PO ×4 (00:39→20:29)
[2024-07-02 05:45] LABS: Hematocrit 21.1 % (37.0-47.0); Hemoglobin 7.3 g/dL (12.0-16.0); Mean Corp Hgb Conc. 34.6 g/dL (33.0-37.0); Mean Corpuscular Hgb 30.4 pg (27.0-31.0); Mean Corpuscular Volume 87.9 fL (81.0-99.0); Mean Platelet Volume 9.9 fL (7.4-10.4); Platelet Count 117 10^3/uL (130-400); Red Cell Dist. Width 14.7 % (11.5-14.5); White Blood Cell Count 5.3 10^3/uL (4.8-10.8)
[2024-07-02] MEDS: SODIUM BICARBONATE 1150 MEQ IV (05:51)
[2024-07-02] MEDS: ANCEF 5 IV (05:53)
[2024-07-02 05:58] LABS: Blood Urea Nitrogen 90 mg/dl (7-17); Calcium 8.6 mg/dl (8.4-10.2); Carbon Dioxide 24 mmol/L (22-30); Chloride 101 mmol/L (98-107); Estimated Creatinine Clearance 11 ml/min; Glucose 99 mg/dl (70-99); Potassium 3.8 mmol/L (3.5-5.1); Sodium 139 mmol/L (135-145); eGFR 13.18
--- NOTE | 2024-07-02 07:02 | W.PN.INTV ---
Today's Communication / Plan
Recommendations
Pacemaker
Wean oxygen
Increase activity
Transfer out of ICU-call pulmonary if respiratory issues arise
Assessment
-
84-year-old female with a history of hypertension, GERD, chronic kidney disease, COPD, PAF, ambulatory dysfunction who presented with severe bradycardia and hypothermia that was symptomatic placed on dopamine drip-air defense artillery officer consulted for severe
bradycardia and critical care management 07/01/2024.
Symptomatic severe bradycardia
Hypothermia
ADAM on top of chronic kidney disease
Tdxzyz-eofutpwzkh-bdxhsrsclr 9.3
Metabolic acidosis
Hyperglycemia
Conditions present prior to admission:
Recent lgsijdiyzkuokbc-Tcnnhecbew-1/28/2024-TME, bacteriuria, left pleural effusion status post thoracentesis, CHF, anemia and recent C. difficile colitis
Hypertension.
GERD.
COPD.
Former lscwjd-87-rjbk-year-quit 41 years old
CAD.
Chronic kidney disease-stage IV
Gout.
Anxiety.
Insomnia.
Ambulatory dysfunction.
Idiopathic pancreatitis.
History of C. difficile colitis.
Cataract. Cholecystectomy. Bilateral CEA. ORIF-left femur.
Plan
Hemodynamics have improved since pacemaker placed
Supplemental oxygen as needed-assess discharge supplemental oxygen needs
Incentive spirometry encouraged
Aspiration precautions especially in light of recurrent pneumonias
Speech therapy evaluation if needed
Nebulizers if needed-currently not bronchospastic
Monitor for arrhythmias
Dopamine weaned
ZOLL pads discontinued
Cardiology evaluation ongoing-correspondence reviewed
Pacemaker placed 07/01/2024
With hypothermia check TSH-normal and random cortisol-16.1-hypothermia resolved
Nephrology evaluation
Monitor renal function
Replace electrolytes
Monitor hemoglobin-currently 7.3
Transfuse if needed
DVT prophylaxis
Nutrition with aspiration precautions
Early mobilization/physical therapy
The patient is now hemodynamically stable and off dopamine-air defense artillery officer will sign off-call pulmonary if respiratory issues arise
Reviewed the patient's pertinent medical records including radiographs, pressor management, severe bradycardia management, microbiology, laboratory evaluations, and discussion with primary team, consultants, pharmacy, nutrition, physical therapy,
case management, charge nurse, critical care nursing, and respiratory therapy.
Diagnostic data:
Chest x-ray 05/08/2024-large left lower lobe consolidation
Chest x-ray 05/09/2024-decrease in size of left pleural effusion, small right pleural fluid with right basilar atelectasis
Chest x-ray 06/30/2024-small left pleural effusion
CT chest 05/09/2024-cardiomegaly, mild pulmonary edema, near complete resolution of previous left-sided pleural effusion, nodular consolidation left lower lobe, follow-up CT recommended
Thoracentesis 05/09/24--700 mL clear sandra fluid from left side
Echocardiogram 05/09/2024-EF 60-65%, mild mitral regurgitation, aortic valve sclerosis, PA systolic estimated 20-25
Subjective Dataa
Subjective Data
Date of Service:
Date of Service: July 02, 2024
Chief Complaint: Packaging Machine Supplies Distributor Follow Up and Pulmonary Follow Up
Subjective:
Feels better, no complaints of shortness of breath, chest pain or abdominal pain
Review of Systems
General: Other (Per HPI)
Objective Data
Data Reviewed
Vital Signs / I&O / Oxygen:
Vital Signs
Temp Pulse Resp BP Pulse Ox
98 F 62 11 143/50 93
07/02/24 04:00 07/02/24 05:30 07/02/24 05:30 07/02/24 04:30 07/02/24 05:30
Intake and Output
07/01/24 07/02/24 07/03/24
06:59 06:59 06:59
Intake Total 482.5 / 579.0 1816.7 / 1816.7
Output Total 1000 / 1000
Balance 482.5 / 579.0 816.7 / 816.7
SaO2 93
Physical Exam
General: Respiratory Distress (n) and Comfortable
HEENT: Normocephalic, Anicteric and Moist Mucous Membranes
Cardiovascular: Regular Rhythm (Bradycardia)
Respiratory: Wheeze (n), Crackles (Rare left basilar), Rhonchi (n), Non-Labored Respirations, Accessory Resp Muscle Use (n) and Stridor (n)
GI: Soft, Non Distended and Non Tender
Neurology: Awake, Alert and AO x 3
Skin: Warm, Good Color, Cyanosis (n) and Jaundice (n)
Labs/Micro/Reports
Lab Data
07/02/24 05:21
07/02/24 05:21
Microbiology
07/01/24 03:46 Blood/Venous Blood Culture - Preliminary
No Growth in 24 hours- Final report to follow
--- NOTE | 2024-07-02 07:53 | W.PN.NEPH.PH ---
Today's Communication / Plan
-
cap IVF
Assessment/Plan
-
Assessment
Bradycardia
ADAM
CKD4, baseline 2.5
Paroxysmal atrial fibrillation
Hypertension
Anemia
Anion gap metabolic acidosis
Hypothermia
Plan
Follow BMP
cap IVF
volume status euvolemic
would prefer to have Cr close to baseline ~2.5 for cath
-
-
Date of Service: July 02, 2024
CC / HPI / ROS
-
Chief Complaint:
ADAM
History of Present Illness:
ADAM/Cr down to 3.3
acidosis resolved
BP stable high
s/p PPM 07/01
Review of Systems:
no CP/SOB
Labs
-
Labs:
WBC 5.3 10^3/uL (4.8-10.8) 07/02/24 05:21
RBC 2.40 10^6/uL (4.20-5.40) L 07/02/24 05:21
Hgb 7.3 g/dL (12.0-16.0) L D 07/02/24 05:21
Hct 21.1 % (37.0-47.0) L 07/02/24 05:21
Plt Count 117 10^3/uL (130-400) L D 07/02/24 05:21
Sodium 139 mmol/L (135-145) 07/02/24 05:21
Potassium 3.8 mmol/L (3.5-5.1) 07/02/24 05:21
Chloride 101 mmol/L (98-107) 07/02/24 05:21
Carbon Dioxide 24 mmol/L (22-30) 07/02/24 05:21
BUN 90 mg/dl (7-17) H 07/02/24 05:21
Creatinine 3.3 mg/dL (0.6-1.0) H 07/02/24 05:21
eGFR 13.18 07/02/24 05:21
Glucose 99 mg/dl (70-99) 07/02/24 05:21
Calcium 8.6 mg/dl (8.4-10.2) 07/02/24 05:21
Phosphorus 6.9 mg/dl (2.5-4.5) H 07/01/24 03:46
Ubf-B-Elfhnaperpk Pept Cancelled 06/30/24 21:31
Albumin 3.7 g/dl (3.5-5.0) 06/30/24 21:28
Physical Exam
-
Vital Signs:
Vital Signs
Temp Pulse Resp BP Pulse Ox
98 F 62 11 143/50 93
07/02/24 04:00 07/02/24 05:30 07/02/24 05:30 07/02/24 04:30 07/02/24 05:30
Cardiovascular:: Regular rate and rhythm
Respiratory:: Bilateral: Coarse
Lung Excursion:: Normal
Abdomen:: Nontender and Soft
Bowel Sounds:: Normal
Extremity Edema:: None: Bilateral:
--- NOTE | 2024-07-02 09:21 | W.PN.CARDCBS ---
Today's Communication / Plan
-
Doing well status post dual-chamber pacemaker implantation 07/01/2024
Restart amlodipine and hydralazine for hypertension
Okay to leave ICU
Management of volume status/renal function per nephrology restart Eliquis tomorrow
Impression / Plan
-
PCP:Zoila Massey
Primary feather trimmer: none
Junctional rhythm
Sinus bradycardia
Fatigue
Lightheadedness
Paroxysmal atrial fibrillation
Chronic heart failure preserved EF
Chronic kidney disease stage IIIa/IV
Pleural effusion status post L thoracentesis 05/04
CAD-per patient had cardiac cath at [facility]~5 years ago, showed blockage in small artery, did not get stent
Status post bilateral CEA, per patient at [facility]~4 to 5 years ago
Anemia of chronic disease
Hypertension
Acute toxic metabolic encephalopathy with hallucinations, admission 05/04 [facility]
Mild cognitive impairment
Bacteriuria (urinary tract infection ruled out)
Gastroesophageal reflux disease
Anxiety
Insomnia
Previous cardiovascular studies:
Echocardiogram 05/09/2024: Normal LV size and function, EF 60 to 65%, mild cLVH, mild MR, trace AI, mild TR, PASP 20 to 25 mmHg
EKG 06/30/2024 at 2119: Junctional rhythm, heart rate 36 bpm
EKG 07/01/2024 at 20: Junctional rhythm versus sinus rhythm with prolonged AV block, heart rate 61 bpm
EKG 04/26/2024: Normal sinus rhythm with first-degree AV block (VA interval 248), nonspecific T wave abnormality
Plan:
She is doing well status post pacemaker implantation July 01. Incision site looks intact. Pacemaker function appears appropriate. Telemetry shows atrial pacing with prolonged AV conduction
She is now hypertensive. Resume amlodipine 10 mg a day and hydralazine 20 mg twice daily.
Resume Eliquis 2.5 mg twice daily effective tomorrow.
Volume management, further changes in antihypertensive regimen per nephrology.
From my standpoint, she can leave the ICU, either IVU or telemetry
We will arrange for outpatient follow-up.
Progress Note - Heel Stainer
Subjective
Date of Service: July 02, 2024:
84-year-old woman with PAF and HFpEF, CKD with baseline creatinine approximately 2.5, hypertension, CAD and bilateral CEA with longstanding anemia. Admitted with junctional rhythm in the 30s and underwent Medtronic dual-chamber pacemaker
implantation yesterday. No dyspnea, feels relatively well some surgical postoperative discomfort
Current meds: None
180 /50, pulse 62, sats 93%, weight is 71.9 kg, up 1.9 kg, intake and output +0.5 L no distress, head neck exam markable, lungs are relatively clear, regular rate and rhythm without murmurs or gallops, abdomen benign extremities without substantial
edema, neuro nonfocal
Chest x-ray yesterday in place, possible infiltrate/effusion on the left
ECG today atrial paced with prolonged AV conduction nonspecific ST and T wave changes and QRS widening, LVH
Hemoglobin 7.3, Had been 9.3, BUN and creatinine 90 and 3.3, creatinine had been 3.9 was 2.5 May 13
Objective
Labs:
07/02/24 05:21
07/02/24 05:21
Labs
Hgb 7.3 g/dL (12.0-16.0) L D 07/02/24 05:21
Hct 21.1 % (37.0-47.0) L 07/02/24 05:21
Plt Count 117 10^3/uL (130-400) L D 07/02/24 05:21
PT 16.0 Sec (11.4-14.6) H 06/30/24 21:40
INR 1.27 06/30/24 21:40
APTT 45.3 Sec (23.4-35.0) H 06/30/24 21:40
Sodium 139 mmol/L (135-145) 07/02/24 05:21
Potassium 3.8 mmol/L (3.5-5.1) 07/02/24 05:21
BUN 90 mg/dl (7-17) H 07/02/24 05:21
Creatinine 3.3 mg/dL (0.6-1.0) H 07/02/24 05:21
Glucose 99 mg/dl (70-99) 07/02/24 05:21
Troponins
06/30/24 06/30/24 07/01/24
21:28 21:31 03:46
Troponin I 0.013 Cancelled 0.015
Vital Signs and I&O:
Vital Signs
Temp Pulse Resp BP Pulse Ox
36.6 C 62 11 143/50 93
07/02/24 04:00 07/02/24 05:30 07/02/24 05:30 07/02/24 04:30 07/02/24 05:30
Vital Signs
Temp Pulse Resp BP Pulse Ox
36.6 C 62 11 143/50 93
07/02/24 04:00 07/02/24 05:30 07/02/24 05:30 07/02/24 04:30 07/02/24 05:30
Intake & Output
06/30/24 07/01/24 07/02/24 07/03/24
07:59 07:59 07:59 07:59
Intake Total 579.0 / 675.5 1720.2 / 1720.2
Output Total 1000 / 1000
Balance 579.0 / 675.5 720.2 / 720.2
Physical Exam
Physical Exam
See above
[2024-07-02] MEDS: APRESOLINE 10 MG PO (11:25)
[2024-07-02] MEDS: NORVASC 10 MG PO (11:25)
[2024-07-02 11:58] LABS: Urine Sodium 57 mmol/L (30-90)
--- NOTE | 2024-07-02 12:17 | PTCARENOTE ---
patient in bed. AAO x3. SR 60's BP via RT upper arm BP 178/76; POX 98RA RR 16; Left arm pain 5/10 pain scale level. pain improved with tylenol pt Incontinent of urine Denies nausea Tolerating solid and liquid without difficulties. offer to pt to ge
out of bed to OOB chair . Pt stated that she have not walk in [facility]. Transfer done with pt
--- NOTE | 2024-07-02 15:16 | W.PN.HOSP.TC ---
Addendum entered and electronically signed by Chris Wheatley MD 07/02/24 16:05:
repeat CBC confirmed drop in Hgb, discussed with Dr. Roberts, Eliquis will be placed on hold
Original Note:
Today's Communication/Plan
-
recheck Hgb
Assessment / Plan
Assessment / Plan
A/P: Patient is an 84y F with PMH significant for PA-Fib, HTN and CKD who presents to ED for evaluation of bradycardia.
Symptomatic Bradycardia
- Admit for further evaluation and treatment.
- Initial HR in the 30s with junctional rhythm on monitor / EKG.
- s/p PPM placement
- Patient is awake, alert and oriented and in no distress. BP is stable.
- Patient is on no chronotropic medications according to [facility] records (and to prior discharge summaries).
- Cardiology evaluation appreciated
- TFTs done in the ED are normal.
- Follow for any change in heart rate or development of new symptoms.
ADAM on CKD IV
Anion Gap Metabolic Acidosis
- SCr = 3.9-->3.9-->3.3 (compared to known baseline of 2.5).
- Uremia with BUN = 94-->99-->90 and elevated anion gap.
- IVFs started in the ED with supplemental bicarb.
- Follow for changes in labs / lytes.
- Hold Lasix for now (on 20mg daily dose with CKD IV so suspect minimal diuretic effect).
- Nephrology evaluation appreciated
Paroxysmal Atrial Fibrillation
- Currently in junctional bradycardia as noted above.
- Not on any rate / rhythm controlling medications as an outpatient.
- Will hold Eliquis acutely, resume when cleared by Cardio
Benign Hypertension
- Stable. Hold outpatient med regimen acutely.
- Restart / resume meds as needed for BP control.
Anemia of CKD
- Stable. Hgb was at / near known baseline.
-Hgb now 7.3. Will recheck to make sure not a lab error. Nursing notes no bloody stools T&S ordered, pending repeat CBC consider transfusion. Blood consent signed and witnessed by nursing. Will make decision on Eliquis based on repeat Hgb
DVT Prophylaxis: SCDs
will transfer to tele
Code Status: Full
Anticipated Discharge: 24 - 48 hours
Subjective/Interval History
-
Date of Service: July 02, 2024
Pt is alert, conversant
Objective Data
-
Labs:
Laboratory Results
07/02/24 07/02/24
05:21 15:15
WBC 5.3 Pending
Hgb 7.3 L D Pending
Hct 21.1 L Pending
Plt Count 117 L D Pending
Sodium 139
Potassium 3.8
Chloride 101
Carbon Dioxide 24
BUN 90 H
Creatinine 3.3 H
Glucose 99
Calcium 8.6
Vital Signs:
Vital Signs
Temp Pulse Resp BP Pulse Ox
97.5 F 60 16 175/53 96
07/02/24 12:14 07/02/24 12:10 07/02/24 12:10 07/02/24 12:10 07/02/24 10:30
I&O
07/01/24 07/02/24 07/03/24
06:59 06:59 06:59
Intake Total 482.5 / 579.0 1816.7 / 1816.7 480 / 480
Output Total 1000 / 1000 300 / 300
Balance 482.5 / 579.0 816.7 / 816.7 180 / 180
Review of Systems
-
History Source: Patient and Coordinated Provider
Constitutional: Denies Fever
EENT: Reports No Symptoms Reported
Respiratory: Reports No Symptoms; Denies Trouble Breathing
Cardiac: Reports No Symptoms; Denies Chest Pain
Neuro: Reports No Symptoms
Physical Exam
-
General: Well Developed, Well Nourished, No Apparent Distress and Appears Chronically Ill
HEENT: Atraumatic and Moist Mucous Membranes
Respiratory: Clear to Auscultation; Negative Wheezes, Rales or Rhonchi
Cardiac: Regular Rhythm, S1/S2 and Bradycardic
GI: Nontender and Nondistended
Musculoskeletal: No Clubbing, No Cyanosis and No Edema
Neuro: Awake and Alert
[2024-07-02 15:44] LABS: % Basophils 0.4 % (0-2); % Eosinophils 4.2 % (0-6); % Immature Granulocytes 0.4 % (0-0.5); % Lymphocytes 16.7 % (20.5-51.1); % Monocytes 8.4 % (1.7-9.3); % Neutrophils 69.9 % (42.2-75.2); Absolute Eosinophils 0.2 10^3/uL (0-0.7); Absolute Lymphocytes 0.9 10^3/uL (1.2-3.4); Absolute Monocytes 0.5 10^3/uL (0.1-0.6); Absolute Neutrophils 3.9 10^3/uL (1.4-6.5); Hematocrit 21.2 % (37.0-47.0); Hemoglobin 7.3 g/dL (12.0-16.0); Mean Corp Hgb Conc. 34.4 g/dL (33.0-37.0); Mean Corpuscular Hgb 29.7 pg (27.0-31.0); Mean Corpuscular Volume 86.2 fL (81.0-99.0); Mean Platelet Volume 9.8 fL (7.4-10.4); Nucleated Red Blood Cells % 0 %; Platelet Count 133 10^3/uL (130-400); Red Blood Cell Count 2.46 10^6/uL (4.20-5.40); Red Cell Dist. Width 14.8 % (11.5-14.5); White Blood Cell Count 5.5 10^3/uL (4.8-10.8)
[2024-07-02 17:58] LABS: Body Fluid for Eosinophils No Eosinophils seen
--- NOTE | 2024-07-02 20:00 | PTCARENOTE ---
rec`d pt at 1900 AAOx3. receiving blood transfusion. pacemaker, SR on monitor, afebrile, scds, RA 98%, moist cough. purwick draining sandra yellow urine. left chest, aquacell c/d/i. pt moves all 4 extremities. call lopez in reach, safe environment
maintained. rt AC and left AC ivs flushed and patent.
[2024-07-02] MEDS: APRESOLINE 20 MG PO (20:29)
[2024-07-03] VITALS (22 sets, daily range): BP systolic 103–178; BP diastolic 49–113; PULSE 101; BMI 26.0
--- NOTE | 2024-07-03 | PTCARENOTE ---
pt reassessed. no changes in pt assessment. call lopez in reach.
[2024-07-03] MEDS: TYLENOL 650 MG PO ×4 (02:07→19:39)
[2024-07-03 05:25] LABS: Hematocrit 23.9 % (37.0-47.0); Hemoglobin 8.4 g/dL (12.0-16.0); Mean Corp Hgb Conc. 35.1 g/dL (33.0-37.0); Mean Corpuscular Hgb 29.9 pg (27.0-31.0); Mean Corpuscular Volume 85.1 fL (81.0-99.0); Mean Platelet Volume 9.8 fL (7.4-10.4); Platelet Count 133 10^3/uL (130-400); Red Blood Cell Count 2.81 10^6/uL (4.20-5.40); Red Cell Dist. Width 14.4 % (11.5-14.5); White Blood Cell Count 6.3 10^3/uL (4.8-10.8)
[2024-07-03 05:45] LABS: Blood Urea Nitrogen 82 mg/dl (7-17); Calcium 8.8 mg/dl (8.4-10.2); Carbon Dioxide 27 mmol/L (22-30); Chloride 100 mmol/L (98-107); Estimated Creatinine Clearance 13 ml/min; Glucose 91 mg/dl (70-99); Potassium 4.5 mmol/L (3.5-5.1); Sodium 138 mmol/L (135-145); eGFR 15.39
--- NOTE | 2024-07-03 07:35 | W.PN.NEPH.PH ---
Today's Communication / Plan
-
follow BMP
Assessment/Plan
-
Assessment
Bradycardia
ADAM
CKD4, baseline 2.5
Paroxysmal atrial fibrillation
Hypertension
Anemia
Anion gap metabolic acidosis
Hypothermia
Plan
Follow BMP
no IVF needed
volume status euvolemic
would prefer to have Cr close to baseline ~2.5 for cath, should be likely Thursday
-
-
Date of Service: July 03, 2024
CC / HPI / ROS
-
Chief Complaint:
ADAM
History of Present Illness:
ADAM/Cr down to 2.9
acidosis resolved
BP stable high
HR normal
s/p PPM 07/01
Review of Systems:
no CP/SOB
Labs
-
Labs:
WBC 6.3 10^3/uL (4.8-10.8) 07/03/24 04:50
RBC 2.81 10^6/uL (4.20-5.40) L 07/03/24 04:50
Hgb 8.4 g/dL (12.0-16.0) L 07/03/24 04:50
Hct 23.9 % (37.0-47.0) L 07/03/24 04:50
Plt Count 133 10^3/uL (130-400) 07/03/24 04:50
Sodium 138 mmol/L (135-145) 07/03/24 04:50
Potassium 4.5 mmol/L (3.5-5.1) 07/03/24 04:50
Chloride 100 mmol/L (98-107) 07/03/24 04:50
Carbon Dioxide 27 mmol/L (22-30) 07/03/24 04:50
BUN 82 mg/dl (7-17) H 07/03/24 04:50
Creatinine 2.9 mg/dL (0.6-1.0) H 07/03/24 04:50
eGFR 15.39 07/03/24 04:50
Glucose 91 mg/dl (70-99) 07/03/24 04:50
Calcium 8.8 mg/dl (8.4-10.2) 07/03/24 04:50
Phosphorus 6.9 mg/dl (2.5-4.5) H 07/01/24 03:46
Atn-U-Gxoqipkmaqw Pept Cancelled 06/30/24 21:31
Albumin 3.7 g/dl (3.5-5.0) 06/30/24 21:28
Physical Exam
-
Vital Signs:
Vital Signs
Temp Pulse Resp BP Pulse Ox
96.7 F L 93 23 112/70 97
07/03/24 07:00 07/03/24 05:00 07/03/24 05:00 07/03/24 04:00 07/02/24 20:00
Cardiovascular:: Regular rate and rhythm
Respiratory:: Bilateral: Coarse
Lung Excursion:: Normal
Abdomen:: Nontender and Soft
Bowel Sounds:: Normal
Extremity Edema:: None: Bilateral:
[2024-07-03] MEDS: NORVASC 10 MG PO (08:43)
[2024-07-03] MEDS: APRESOLINE 20 MG PO (08:44)
--- NOTE | 2024-07-03 08:53 | PTCARENOTE ---
patient in bed . AAO x3. Left upper chest pacemaker insertion side post up dressing intact and dry. Pain dull like 5 out of 10 pain scale level. Improved with Tylenol PRN order. BP 160/77 MAP 102 JR SR 90's Encouraged to OOB chair . Refused at this
time Hygiene and oral care ( full dentures upper and lower ) provided
--- NOTE | 2024-07-03 13:30 | CHAP ---
Ms. La was resting - said she didn't get much sleep last night. She welcomed prayer. Emotional and spiritual support provided.
--- NOTE | 2024-07-03 15:29 | PTCARENOTE ---
OOB in a chair for few hours. Transfer with walker x person assistance. Incontinent of urine, BP via RT upper arm 166//113 MAP 76; Dr Hou and Dr Roberts aware. Hydralizine PO increased to 50mg . Hydralizine IV prn For SBP order. Current bP 164/61 MAP
89 HR 64; ECG done interpreted by Dr Roberts. Hydralizine prn adm
[2024-07-03] MEDS: APRESOLINE 10 MG IV ×2 (15:37→21:03)
--- NOTE | 2024-07-03 16:01 | W.PN.CARDCBS ---
Today's Communication / Plan
-
Stable cardiac status
Consider metoprolol ER or carvedilol if needed for BP
Pacemaker performance nominal
Restart Eliquis when okay from standpoint of anemia
Impression / Plan
-
PCP:Zoila Massey
Primary direct casting operator: none
Junctional rhythm
Sinus bradycardia
Fatigue
Lightheadedness
Paroxysmal atrial fibrillation
Chronic heart failure preserved EF
Chronic kidney disease stage IIIa/IV
Pleural effusion status post L thoracentesis 05/04
CAD-per patient had cardiac cath at [facility]~5 years ago, showed blockage in small artery, did not get stent
Status post bilateral CEA, per patient at [facility]~4 to 5 years ago
Anemia of chronic disease
Hypertension
Acute toxic metabolic encephalopathy with hallucinations, admission 05/04 [facility]
Mild cognitive impairment
Bacteriuria (urinary tract infection ruled out)
Gastroesophageal reflux disease
Anxiety
Insomnia
Previous cardiovascular studies:
Echocardiogram 05/09/2024: Normal LV size and function, EF 60 to 65%, mild cLVH, mild MR, trace AI, mild TR, PASP 20 to 25 mmHg
EKG 06/30/2024 at 2119: Junctional rhythm, heart rate 36 bpm
EKG 07/01/2024 at 04 20: Junctional rhythm versus sinus rhythm with prolonged AV block, heart rate 61 bpm
EKG 04/26/2024: Normal sinus rhythm with first-degree AV block (AL interval 248), nonspecific T wave abnormality
Plan:
Overall she seems stable from a cardiac standpoint.
Still somewhat hypertensive, amlodipine and hydralazine have been restarted. Previously she had been on a beta-ross which could be restarted if needed now that she has a pacemaker.
Hemoglobin is better after 1 unit of packed cells. Restart Eliquis 2.5 mg twice daily when okay from hematologic standpoint. Defer to hospitalist.
Cardiac catheterization is not planned, so no dye loads are intended.
We will arrange for cardiac follow-up.
Progress Note - Laboratory Supervisor
Subjective
Date of Service: July 03, 2024:
Patient offers no complaints.
Current meds: Amlodipine 10 mg a day, hydralazine 50 mg twice daily, she had been on a beta-ross which was stopped in the setting of bradycardia prior to pacemaker implantation
Blood pressure 164/61, she has been persistently hypertensive despite reinitiation of hydralazine and amlodipine, heart rate now 68 had been close to 100, head neck exam unremarkable, lungs are clear, very soft systolic murmur, abdomen benign, not
much edema.
Hemoglobin 8.4, had been 7.3 status post 1 unit of packed cells
BUN/creatinine 82 and 2.9, potassium is 4.5
Objective
Labs:
07/03/24 04:50
07/03/24 04:50
Labs
Hgb 8.4 g/dL (12.0-16.0) L 07/03/24 04:50
Hct 23.9 % (37.0-47.0) L 07/03/24 04:50
Plt Count 133 10^3/uL (130-400) 07/03/24 04:50
PT 16.0 Sec (11.4-14.6) H 06/30/24 21:40
INR 1.27 06/30/24 21:40
APTT 45.3 Sec (23.4-35.0) H 06/30/24 21:40
Sodium 138 mmol/L (135-145) 07/03/24 04:50
Potassium 4.5 mmol/L (3.5-5.1) 07/03/24 04:50
BUN 82 mg/dl (7-17) H 07/03/24 04:50
Creatinine 2.9 mg/dL (0.6-1.0) H 07/03/24 04:50
Glucose 91 mg/dl (70-99) 07/03/24 04:50
Troponins
06/30/24 06/30/24 07/01/24
21:28 21:31 03:46
Troponin I 0.013 Cancelled 0.015
Vital Signs and I&O:
Vital Signs
Temp Pulse Resp BP Pulse Ox
36.6 C 68 15 164/61 98
07/03/24 15:00 07/03/24 15:37 07/03/24 15:26 07/03/24 15:37 07/03/24 15:26
Vital Signs
Temp Pulse Resp BP Pulse Ox
36.6 C 68 15 164/61 98
07/03/24 15:00 07/03/24 15:37 07/03/24 15:26 07/03/24 15:37 07/03/24 15:26
Intake & Output
07/01/24 07/02/24 07/03/24 07/04/24
07:59 07:59 07:59 07:59
Intake Total 579.0 / 675.5 1720.2 / 1720.2 1230 / 1230 240 / 240
Output Total 1000 / 1000 2500 / 2500 650 / 650
Balance 579.0 / 675.5 720.2 / 720.2 -1270 / -1270 -410 / -410
Physical Exam
Physical Exam
See above
--- NOTE | 2024-07-03 16:05 | W.PN.HOSP.TC ---
Today's Communication/Plan
-
recheck CBC
Decision on Eliquis to follow
Assessment / Plan
Assessment / Plan
A/P: Patient is an 84y F with PMH significant for PA-Fib, HTN and CKD who presents to ED for evaluation of bradycardia.
Symptomatic Bradycardia
- Initial HR in the 30s with junctional rhythm on monitor / EKG.
- s/p PPM placement
- Patient is awake, alert and oriented and in no distress. BP is stable.
- Patient is on no chronotropic medications according to [facility] records (and to prior discharge summaries).
- Cardiology evaluation appreciated
- TFTs done in the ED are normal.
- Follow for any change in heart rate or development of new symptoms.
ADAM on CKD IV
Anion Gap Metabolic Acidosis
- SCr = 3.9-->3.9-->3.3-->2.9 (compared to known baseline of 2.5).
- Uremia with BUN = 94-->99-->90-->82
- IVFs started in the ED since stopped
- Follow for changes in labs / lytes.
- Hold Lasix for now (on 20mg daily dose with CKD IV so suspect minimal diuretic effect).
- Nephrology evaluation appreciated
Paroxysmal Atrial Fibrillation
- Admitted in junctional bradycardia as noted above.
- Not on any rate / rhythm controlling medications as an outpatient.
- Will hold Eliquis acutely, resume based on Hgb
Benign Hypertension
- Stable. Hold outpatient med regimen acutely.
- Restart / currently on Amlodipine 10 mg daily and Hydralazine 50 mg bid
Anemia of CKD
- Hgb was previously at / near known baseline.
-Hgb dropped to 7.3. Nursing notes no bloody stools T&S ordered, repeated CBC and Hgb confirmed. Blood consent signed and witnessed by nursing. Repeat Hgb confirmed 7.3. Ordered 1 unit PRBC on 07/02, today Hgb 8.4.
etiology for drop in Hgb uncertain, was associated in time with placement of PPM, but no obvious bleed. Will recheck Hgb tomorrow, following which will need to make decision on whether Eliquis should be resumed
DVT Prophylaxis: SCDs
transferred to tele
Code Status: Full
Anticipated Discharge: 24 - 48 hours
Subjective/Interval History
-
Date of Service: July 03, 2024
Awake, alert. Appears comfortable
Objective Data
-
Labs:
Laboratory Results
07/03/24
04:50
WBC 6.3
Hgb 8.4 L
Hct 23.9 L
Plt Count 133
Sodium 138
Potassium 4.5
Chloride 100
Carbon Dioxide 27
BUN 82 H
Creatinine 2.9 H
Glucose 91
Calcium 8.8
Vital Signs:
Vital Signs
Temp Pulse Resp BP Pulse Ox
97.9 F 68 15 164/61 98
07/03/24 15:00 07/03/24 15:37 07/03/24 15:26 07/03/24 15:37 07/03/24 15:26
I&O
07/02/24 07/03/24 07/04/24
06:59 06:59 06:59
Intake Total 1816.7 / 1816.7 1230 / 1230 240 / 240
Output Total 1000 / 1000 2500 / 2500 650 / 650
Balance 816.7 / 816.7 -1270 / -1270 -410 / -410
Review of Systems
-
History Source: Patient and Coordinated Provider
Constitutional: Denies Fever
EENT: Reports No Symptoms Reported
Respiratory: Reports No Symptoms; Denies Trouble Breathing
Cardiac: Reports No Symptoms; Denies Chest Pain
Neuro: Reports No Symptoms
Physical Exam
-
General: Well Developed, Well Nourished, No Apparent Distress and Appears Chronically Ill
HEENT: Atraumatic and Moist Mucous Membranes
Respiratory: Clear to Auscultation; Negative Wheezes, Rales or Rhonchi
Cardiac: Regular Rhythm and S1/S2
GI: Nontender and Nondistended
Musculoskeletal: No Clubbing, No Cyanosis and No Edema
Neuro: Awake and Alert
[2024-07-03] MEDS: APRESOLINE 50 MG PO (19:32)
--- NOTE | 2024-07-03 22:07 | PTCARENOTE ---
Received pt at 1900, resting in bed. AAOx3. MARTINEZ but weak. SR on tele HR 60-70s, very few pacer spikes seen. L CW pacer site dressing c/d/i. C/O pain at the side/shoulder- PRN tylenol given with good relief. BP elevated 160s/60s. PRN hydralazine
given- now 140/57. On RA, spo2 99%. Lungs CTA but diminished. + bowel sounds. Round abd. Incontinent urine, purewick replaced. Bathed with CHG, linens changed. Denture care provided.
[2024-07-04] VITALS (13 sets, daily range): BP systolic 112–179; BP diastolic 50–76; PULSE 68–83; BMI 26.6
[2024-07-04] MEDS: MELATONIN 5 MG PO ×2 (01:01→22:06)
[2024-07-04] MEDS: APRESOLINE 10 MG IV ×2 (01:05→22:29)
[2024-07-04] MEDS: TYLENOL 650 MG PO ×3 (02:56→19:43)
[2024-07-04 03:20] LABS: Hematocrit 25.8 % (37.0-47.0); Hemoglobin 9.1 g/dL (12.0-16.0); Mean Corp Hgb Conc. 35.3 g/dL (33.0-37.0); Mean Corpuscular Hgb 29.9 pg (27.0-31.0); Mean Corpuscular Volume 84.9 fL (81.0-99.0); Mean Platelet Volume 9.3 fL (7.4-10.4); Platelet Count 144 10^3/uL (130-400); Red Blood Cell Count 3.04 10^6/uL (4.20-5.40); Red Cell Dist. Width 14.5 % (11.5-14.5); White Blood Cell Count 8.1 10^3/uL (4.8-10.8)
[2024-07-04 03:56] LABS: Blood Urea Nitrogen 75 mg/dl (7-17); Calcium 9.1 mg/dl (8.4-10.2); Carbon Dioxide 23 mmol/L (22-30); Chloride 99 mmol/L (98-107); Estimated Creatinine Clearance 14 ml/min; Glucose 90 mg/dl (70-99); Potassium 4.8 mmol/L (3.5-5.1); Sodium 136 mmol/L (135-145); eGFR 16.76
--- NOTE | 2024-07-04 08:55 | PTCARENOTE ---
Assumed care of pt. VSS. Pt sleeping soundly. Briefly awakened, assessment as noted. Dressing L chest wall KIAH jules.
--- NOTE | 2024-07-04 09:30 | W.PN.CARDCBS ---
Addendum entered and electronically signed by Julius Roberts MD 07/04/24 11:08:
No cardiac complaints at present. Major complaints are weakness, constipation, fatigue and insomnia, etc.
current medications: Amlodipine 10 mg a day, hydralazine 50 mg twice daily, melatonin
blood pressure ranging from 175/67 to most recently 121/76, pulse 60s, intake and output -1.3 L, no distress head neck exam unremarkable, lungs are clear, regular rate and rhythm without obvious murmurs or gallops, abdomen benign extremities without
edema, Aquagel dressing intact
Hemoglobin 9.1, platelets 144, BUN and creatinine 75 and 2.7
Impression:
See below
Plan:
She appears stable from a cardiac standpoint, status post dual-chamber Medtronic pacemaker on 07/01/2024.
She remains hypertensive, will defer to renal regarding best management strategy. Creatinine is drifting down towards baseline, currently 2.7 with peak 3.9 at admission, baseline is 2.4-2.5.
Previously she had been on a beta-ross which was discontinued related to bradycardia. If needed this could be restarted at present.
No new cardiac recommendations. From a cardiac standpoint she could be discharged.
.
We will arrange for cardiac follow-up
We will sign off, please call if questions.
Original Note:
Today's Communication / Plan
-
-Eliquis resumed
-home BP meds resumed and BPs stable
-cardiology f/u has been arranged
Impression / Plan
-
PCP:Zoila Massey
Primary electronic parts salesperson: none
Junctional rhythm
Sinus bradycardia
Pacemaker implantation 07/01/24-dual chamber Medtronic
paroxysmal atrial fibrillation
anemia of CKD s/p 1 u PRBCs 07/02/24
Fatigue
Lightheadedness
Chronic heart failure preserved EF
Chronic kidney disease stage IIIa/IV
Pleural effusion status post L thoracentesis 05/04
CAD-per patient had cardiac cath at [facility]~5 years ago, showed blockage in small artery, did not get stent
Status post bilateral CEA, per patient at [facility]~4 to 5 years ago
Hypertension
Acute toxic metabolic encephalopathy with hallucinations, admission 05/04 [facility]
Mild cognitive impairment
Bacteriuria (urinary tract infection ruled out)
Gastroesophageal reflux disease
Anxiety
Insomnia
Previous cardiovascular studies:
Echocardiogram 05/09/2024: Normal LV size and function, EF 60 to 65%, mild cLVH, mild MR, trace AI, mild TR, PASP 20 to 25 mmHg
EKG 04/26/2024: Normal sinus rhythm with first-degree AV block (ND interval 248), nonspecific T wave abnormality
EKG 06/30/2024 at 2119: Junctional rhythm, heart rate 36 bpm
EKG 07/01/2024 at 04 20: Junctional rhythm versus sinus rhythm with prolonged AV block, heart rate 61 bpm
EKG 07/03/24: NSR, 1st degree AVB, nonspec T wave abnl
Plan:
s/p dual chamber pacemaker 07/01/24 for symptomatic junctional rhythm - POD 3
-no hematoma or erythema at site
-f/u at [facility] Cardiology has been arranged. Pt previously followed with cardiology at [facility] but has not been seen there in 3 yrs and now lives closer to
-telemetry personally reviewed: NSR w/ first degree AVB and intermittant Atrial pacing. Had 6 min afib on telem 07/03/24.
Hemoglobin improved to 9.1. Rec'd 1 u PRBCs 07/02/24 for Hgb 7.3.
-Eliquis 2.5 mg bid resumed today 07/04/24 for h/o paroxysmal afib
creatinine 2.7, improving from 3.9 on admission (baseline 2.5)
amlodipine and hydralazine restarted 07/03/24. BPs 126/72, range 112/60-175/67. Previously she had been on a beta-ross which could be restarted if needed now that she has a pacemaker.
Progress Note - Drop Hammer Set Up Operator
Subjective
Date of Service: July 04, 2024
feels well
a little sore at pacemaker incision site
denies SOB, CP, palpitations, lightheadedness
Objective
Labs:
07/04/24 02:58
07/04/24 02:58
Labs
Hgb 9.1 g/dL (12.0-16.0) L 07/04/24 02:58
Hct 25.8 % (37.0-47.0) L 07/04/24 02:58
Plt Count 144 10^3/uL (130-400) 07/04/24 02:58
PT 16.0 Sec (11.4-14.6) H 06/30/24 21:40
INR 1.27 06/30/24 21:40
APTT 45.3 Sec (23.4-35.0) H 06/30/24 21:40
Sodium 136 mmol/L (135-145) 07/04/24 02:58
Potassium 4.8 mmol/L (3.5-5.1) 07/04/24 02:58
BUN 75 mg/dl (7-17) H 07/04/24 02:58
Creatinine 2.7 mg/dL (0.6-1.0) H 07/04/24 02:58
Glucose 90 mg/dl (70-99) 07/04/24 02:58
Vital Signs and I&O:
Vital Signs
Temp Pulse Resp BP Pulse Ox
97.0 F 60 13 126/72 97
07/04/24 07:39 07/04/24 08:30 07/04/24 08:30 07/04/24 08:00 07/04/24 08:30
Vital Signs
Temp Pulse Resp BP Pulse Ox
97.0 F 60 13 126/72 97
07/04/24 07:39 07/04/24 08:30 07/04/24 08:30 07/04/24 08:00 07/04/24 08:30
Intake & Output
07/02/24 07/03/24 07/04/24 07/05/24
06:59 06:59 06:59 06:59
Intake Total 1816.7 / 1816.7 1230 / 1230 720 / 720
Output Total 1000 / 1000 2500 / 2500 1999 / 1999
Balance 816.7 / 816.7 -1270 / -1270 -1280 / -1280
Physical Exam
Physical Exam
GEN: No distress, awake, Ox3
HEENT: supple, anicteric, mmm
LUNGS: CTA, no wheezes/rales
CV: Reg, S1/S2, no murmur
ABD: soft, BS+, NT/ND
EXT: No edema
NEURO: Gross non-focal
SKIN: LACW pacer site covered with occlusive drsg. No hematoma, no erythema
[2024-07-04] MEDS: APRESOLINE 50 MG PO ×2 (10:01→19:42)
[2024-07-04] MEDS: NORVASC 10 MG PO (10:01)
--- NOTE | 2024-07-04 11:01 | W.PN.NEPH.PH ---
Today's Communication / Plan
-
follow labs
Assessment/Plan
-
Assessment
Bradycardia
ADAM
CKD4, baseline 2.5
Paroxysmal atrial fibrillation
Hypertension
Anemia
Anion gap metabolic acidosis
Hypothermia
Plan
ADAM-cr improving, close to baseline
She was seen Dr Hunt 3yrs ago for stage 4 CKD at that time
no cath planned per cards
BP stable
volume status euvolemic
benefit from Nephro f/u out pt
she is aware of renal diet
-
-
Date of Service: July 04, 2024
CC / HPI / ROS
-
Chief Complaint:
ADAM
History of Present Illness:
ADAM/Cr down to 2.7
acidosis resolved
BP stable
s/p PPM 07/01
Review of Systems:
no CP/SOB
constipation
Labs
-
Labs:
WBC 8.1 10^3/uL (4.8-10.8) 07/04/24 02:58
RBC 3.04 10^6/uL (4.20-5.40) L 07/04/24 02:58
Hgb 9.1 g/dL (12.0-16.0) L 07/04/24 02:58
Hct 25.8 % (37.0-47.0) L 07/04/24 02:58
Plt Count 144 10^3/uL (130-400) 07/04/24 02:58
Sodium 136 mmol/L (135-145) 07/04/24 02:58
Potassium 4.8 mmol/L (3.5-5.1) 07/04/24 02:58
Chloride 99 mmol/L (98-107) 07/04/24 02:58
Carbon Dioxide 23 mmol/L (22-30) 07/04/24 02:58
BUN 75 mg/dl (7-17) H 07/04/24 02:58
Creatinine 2.7 mg/dL (0.6-1.0) H 07/04/24 02:58
eGFR 16.76 07/04/24 02:58
Glucose 90 mg/dl (70-99) 07/04/24 02:58
Calcium 9.1 mg/dl (8.4-10.2) 07/04/24 02:58
Phosphorus 6.9 mg/dl (2.5-4.5) H 07/01/24 03:46
Cyd-A-Wypkpgwzjnk Pept Cancelled 06/30/24 21:31
Albumin 3.7 g/dl (3.5-5.0) 06/30/24 21:28
Physical Exam
-
Vital Signs:
Vital Signs
Temp Pulse Resp BP Pulse Ox
97.0 F 60 13 126/72 97
07/04/24 07:39 07/04/24 08:30 07/04/24 08:30 07/04/24 08:00 07/04/24 08:30
Cardiovascular:: Regular rate and rhythm
Respiratory:: Bilateral: CTA
Lung Excursion:: Normal
Abdomen:: Nontender and Soft
Extremity Edema:: None: Bilateral:
Esposito Catheter: No
[2024-07-04] MEDS: ELIQUIS 2.5 MG PO ×2 (11:27→19:42)
--- NOTE | 2024-07-04 13:27 | W.PN.HOSP.TC ---
Today's Communication/Plan
-
monitor BP
Start BB if needed
trend cr
start dispo
OP renal f/u
Assessment / Plan
Assessment / Plan
A/P: Patient is an 84y F with PMH significant for PA-Fib, HTN and CKD who presents to ED for evaluation of bradycardia.
Symptomatic Bradycardia
- Initial HR in the 30s with junctional rhythm on monitor / EKG.
- s/p PPM placement
- Patient is awake, alert and oriented and in no distress. BP is stable.
- Patient is on no chronotropic medications according to [place] records (and to prior discharge summaries).
- Cardiology evaluation appreciated
- TFTs done in the ED are normal.
ADAM on CKD IV
Anion Gap Metabolic Acidosis
- SCr = 3.9-->3.9-->3.3-->2.9 (compared to known baseline of 2.5).
- Uremia with BUN = 94-->99-->90-->82
- IVFs started in the ED since stopped
- Follow for changes in labs / lytes.
- Hold Lasix for now (on 20mg daily dose with CKD IV so suspect minimal diuretic effect).
- Nephrology evaluation appreciated
Paroxysmal Atrial Fibrillation
- Admitted in junctional bradycardia as noted above.
- can start BB if needed.
- Eliquis restarted
Benign Hypertension
- Stable. Hold outpatient med regimen acutely.
- Restart / currently on Amlodipine 10 mg daily and Hydralazine 50 mg bid
Anemia of CKD
- Hgb at 9.1 s/p 1u PRBC.
DVT Prophylaxis: Eliquis
transferred to tele
Code Status: Full
Dispo-back to [facility]. CM aware. Start dispo plannign
Anticipated Discharge: > 48 hours
Subjective/Interval History
-
Date of Service: July 04, 2024
Eating breakfast
denies pain at PPM site
Objective Data
-
Labs:
Laboratory Results
07/04/24
02:58
WBC 8.1
Hgb 9.1 L
Hct 25.8 L
Plt Count 144
Sodium 136
Potassium 4.8
Chloride 99
Carbon Dioxide 23
BUN 75 H
Creatinine 2.7 H
Glucose 90
Calcium 9.1
Vital Signs:
Vital Signs
Temp Pulse Resp BP Pulse Ox
97.2 F 63 12 140/52 97
07/04/24 12:20 07/04/24 12:00 07/04/24 12:00 07/04/24 12:00 07/04/24 12:20
I&O
07/03/24 07/04/24 07/05/24
06:59 06:59 06:59
Intake Total 1230 / 1230 720 / 720
Output Total 2500 / 2500 2000 / 2000 550 / 550
Balance -1270 / -1270 -1280 / -1280 -550 / -550
Physical Exam
-
General: Well Developed, Well Nourished, No Apparent Distress and Appears Chronically Ill
HEENT: Atraumatic and Moist Mucous Membranes
Respiratory: Clear to Auscultation; Negative Wheezes, Rales or Rhonchi
Cardiac: Regular Rhythm, S1/S2 and Other (Left chest wall aquacell dressing noted )
GI: Soft, Nontender, Nondistended and Normal Bowel Sounds
Musculoskeletal: No Clubbing, No Cyanosis and No Edema
Neuro: Awake and Alert
Psych: Calm
Data Reviewed
-
Total Time Spent with Patient (in minutes): 56
[2024-07-04] MEDS: MIRALAX 17 GRAMS PO (13:55)
--- NOTE | 2024-07-04 14:36 | PTCARENOTE ---
Report given to RN on 2N. Pt assisted to wheelchair with standby assistance. escorted to 2135 without issue.
--- NOTE | 2024-07-04 14:57 | PTCARENOTE ---
Patient transferred from ICU. Report received from [place]. Tele monitor in place. Patient oriented to unit.
--- NOTE | 2024-07-04 15:06 | CM ---
CM reviewed pt with Dr Boyer- DARLING tomorrow
[facility]
Discharge Disposition- return [facility] for LTC
Phone- [phone] 2nd floor Fax- [phone]
[2024-07-04 15:35] LABS: Lyme Antibody Screen, EIA Negative (Negative)
[2024-07-04] MEDS: DULCOLAX 10 MG PO (22:06)
[2024-07-05] VITALS (9 sets, daily range): BP systolic 146–168; BP diastolic 57–76; PULSE 66–82; O2SAT 97; BMI 26.0
--- NOTE | 2024-07-05 09:00 | PTCARENOTE ---
Patient's R hand with +1-2 edema this AM, patient reports no pain to area and is unsure of when swelling began. MD made aware, US of R hand ordered per MD.
[2024-07-05 09:17] LABS: % Basophils 0.6 % (0-2); % Eosinophils 4.7 % (0-6); % Immature Granulocytes 0.6 % (0-0.5); % Monocytes 9.6 % (1.7-9.3); % Neutrophils 61.5 % (42.2-75.2); Absolute Eosinophils 0.3 10^3/uL (0-0.7); Absolute Lymphocytes 1.6 10^3/uL (1.2-3.4); Absolute Monocytes 0.7 10^3/uL (0.1-0.6); Absolute Neutrophils 4.4 10^3/uL (1.4-6.5); Hematocrit 27.8 % (37.0-47.0); Hemoglobin 9.4 g/dL (12.0-16.0); Mean Corp Hgb Conc. 33.8 g/dL (33.0-37.0); Mean Corpuscular Hgb 29.8 pg (27.0-31.0); Mean Corpuscular Volume 88.3 fL (81.0-99.0); Mean Platelet Volume 9.8 fL (7.4-10.4); Nucleated Red Blood Cells % 0 %; Platelet Count 141 10^3/uL (130-400); Red Blood Cell Count 3.15 10^6/uL (4.20-5.40); Red Cell Dist. Width 14.8 % (11.5-14.5); White Blood Cell Count 7.1 10^3/uL (4.8-10.8)
[2024-07-05 09:54] LABS: Blood Urea Nitrogen 69 mg/dl (7-17); Calcium 9.5 mg/dl (8.4-10.2); Carbon Dioxide 25 mmol/L (22-30); Chloride 99 mmol/L (98-107); Estimated Creatinine Clearance 13 ml/min; Glucose 93 mg/dl (70-99); Potassium 5.6 mmol/L (3.5-5.1); Sodium 135 mmol/L (135-145); eGFR 16.05
[2024-07-05] MEDS: NORVASC 10 MG PO (10:07)
[2024-07-05] MEDS: MIRALAX 17 GRAMS PO (10:07)
[2024-07-05] MEDS: APRESOLINE 50 MG PO ×2 (10:07→20:40)
[2024-07-05] MEDS: ELIQUIS 2.5 MG PO ×2 (10:07→20:40)
--- NOTE | 2024-07-05 10:24 | W.PN.HOSP.TC ---
Today's Communication/Plan
-
Venous doppler. BP meds adjusted. bowel regimen
Assessment / Plan
Assessment / Plan
A/P: Patient is an 84y F with PMH significant for PA-Fib, HTN and CKD who presents to ED for evaluation of bradycardia.
Symptomatic Bradycardia
- Initial HR in the 30s with junctional rhythm on monitor / EKG.
- s/p PPM placement
- BP is stable.
- Patient is on no chronotropic medications according to [place] records (and to prior discharge summaries).
- Cardiology evaluation appreciated
- TFTs done in the ED are normal.
ADAM on CKD IV
Anion Gap Metabolic Acidosis
- SCr 2.8 (compared to known baseline of 2.5).
- IVFs started in the ED since stopped
- Follow for changes in labs / lytes
- Nephrology evaluation appreciated
Paroxysmal Atrial Fibrillation
- Started on lopressor.
- Eliquis restarted
Benign Hypertension
- ELevated and BB added
- Restart / currently on Amlodipine 10 mg daily and Hydralazine 50 mg bid
RUE swelling
-Check venous US
Constipation
-bowel regimen added
Anemia of CKD
- Hgb at 9.4s/p 1u PRBC.
DVT Prophylaxis: Eliquis
transferred to tele
Code Status: Full
Dispo-back to [facility]. on discharge. Venous doppler. BP meds adjusted. bowel regimen
Anticipated Discharge: Within 24 hours
Subjective/Interval History
-
Date of Service: July 05, 2024
States of RUE swelling
no pain in RUE
Objective Data
-
Labs:
Laboratory Results
07/05/24
08:00
WBC 7.1
Hgb 9.4 L
Hct 27.8 L
Plt Count 141
Sodium 135
Potassium 5.6 H
Chloride 99
Carbon Dioxide 25
BUN 69 H
Creatinine 2.8 H
Glucose 93
Calcium 9.5
Vital Signs:
Vital Signs
Temp Pulse Resp BP Pulse Ox
97.9 F 85 16 167/63 97
07/05/24 07:25 07/05/24 10:07 07/05/24 07:25 07/05/24 10:07 07/05/24 07:25
I&O
07/04/24 07/05/24 07/06/24
06:59 06:59 06:59
Intake Total 720 / 720 1230 / 1230
Output Total 1999 / 1999 1650 / 1650
Balance -1280 / -1280 -420 / -420
Physical Exam
-
General: Well Developed, Well Nourished, No Apparent Distress and Appears Chronically Ill
HEENT: Atraumatic and Moist Mucous Membranes
Respiratory: Clear to Auscultation; Negative Wheezes, Rales or Rhonchi
Cardiac: Regular Rhythm, S1/S2 and Other (Left chest wall aquacell dressing noted )
GI: Soft, Nontender, Nondistended and Normal Bowel Sounds
Musculoskeletal: No Clubbing, No Cyanosis, No Edema and Edema, Right Upper Extrem
Neuro: Awake and Alert
Psych: Calm
Data Reviewed
-
Total Time Spent with Patient (in minutes): 52
[2024-07-05] MEDS: LOPRESSOR 12.5 MG PO ×2 (10:35→20:40)
[2024-07-05] MEDS: MILK OF MAGNESIA 30 ML PO (10:35)
[2024-07-05] MEDS: TYLENOL 650 MG PO ×2 (10:41→22:36)
--- NOTE | 2024-07-05 11:53 | PTCARENOTE ---
Addendum entered by Veronica Harvey RN 07/05/24 16:24:
Patient with large loose BM after one time dose of milk of magnesia. MD made aware, stated okay to give one time dose of Lokelma. Medication administered by this RN - see MAR.
Original Note:
Patient reports no BM in 4 days despite scheduled bowel regimen, MD made aware, one time dose of PO MOM ordered. Patient's AM labs with K of 5.6. MD made aware, stat dose of Lokelma ordered per MD.
--- NOTE | 2024-07-05 12:30 | CM ---
Reviewed the chart notes and spoke with the patient at the bedside. IMM reviewed and placed on the chart. CM continues to be available to patient/family and is monitoring medical plan for needs at discharge.
Plan: Discharge back to [facility] when medically stable.
Call report to: [phone] 2nd floor
Fax report to: [phone]
[2024-07-05] MEDS: LOKELMA 10 GRAM PO (12:52)
--- NOTE | 2024-07-05 14:34 | W.PN.NEPH.PH ---
Today's Communication / Plan
-
follow labs
Assessment/Plan
-
Assessment
Bradycardia
ADAM
CKD4, baseline 2.5
Paroxysmal atrial fibrillation
Hypertension
Anemia
Anion gap metabolic acidosis
Hypothermia
Plan
ADAM-cr slightly up today , follow bladder scan
mild hyperkalemia-diet adjusted and s/p Lokelma
She was seen Dr Hunt 3yrs ago for stage 4 CKD at that time
no cath planned per cards
BP high BB added per primary, monitor
benefit from Nephro f/u out pt
d/w pt about renal diet
-
-
Date of Service: July 05, 2024
CC / HPI / ROS
-
Chief Complaint:
ADAM
History of Present Illness:
ADAM/Cr up at 2.8
acidosis resolved
BP high
s/p PPM 07/01
k high at 5.6
Review of Systems:
no CP/SOB
had BM today
right UE mild edema, US pending report
Labs
-
Labs:
WBC 7.1 10^3/uL (4.8-10.8) 07/05/24 08:00
RBC 3.15 10^6/uL (4.20-5.40) L 07/05/24 08:00
Hgb 9.4 g/dL (12.0-16.0) L 07/05/24 08:00
Hct 27.8 % (37.0-47.0) L 07/05/24 08:00
Plt Count 141 10^3/uL (130-400) 07/05/24 08:00
Sodium 135 mmol/L (135-145) 07/05/24 08:00
Potassium 5.6 mmol/L (3.5-5.1) H 07/05/24 08:00
Chloride 99 mmol/L (98-107) 07/05/24 08:00
Carbon Dioxide 25 mmol/L (22-30) 07/05/24 08:00
BUN 69 mg/dl (7-17) H 07/05/24 08:00
Creatinine 2.8 mg/dL (0.6-1.0) H 07/05/24 08:00
eGFR 16.05 07/05/24 08:00
Glucose 93 mg/dl (70-99) 07/05/24 08:00
Calcium 9.5 mg/dl (8.4-10.2) 07/05/24 08:00
Phosphorus 6.9 mg/dl (2.5-4.5) H 07/01/24 03:46
Uhk-H-Jqfirspqshs Pept Cancelled 06/30/24 21:31
Albumin 3.7 g/dl (3.5-5.0) 06/30/24 21:28
Physical Exam
-
Vital Signs:
Vital Signs
Temp Pulse Resp BP Pulse Ox
97.8 F 81 16 160/67 97
07/05/24 11:00 07/05/24 11:00 07/05/24 11:00 07/05/24 11:00 07/05/24 11:49
Cardiovascular:: Regular rate and rhythm
Respiratory:: Bilateral: CTA
Lung Excursion:: Normal
Abdomen:: Nontender and Soft
Extremity Edema:: None: Bilateral:
Esposito Catheter: No
[2024-07-05] MEDS: APRESOLINE 10 MG IV ×2 (14:54→22:38)
[2024-07-05] MEDS: DULCOLAX PO (20:51)
[2024-07-05] MEDS: MELATONIN 5 MG PO (22:37)
[2024-07-06] VITALS (9 sets, daily range): BP systolic 140–165; BP diastolic 56–88; PULSE 61–72; BMI 26.6
[2024-07-06] MEDS: APRESOLINE 50 MG PO ×2 (08:10→21:02)
[2024-07-06] MEDS: LOPRESSOR 12.5 MG PO ×2 (08:10→21:02)
[2024-07-06] MEDS: NORVASC 10 MG PO (08:10)
[2024-07-06] MEDS: ELIQUIS 2.5 MG PO ×2 (08:11→21:02)
[2024-07-06] MEDS: MIRALAX PO (08:14)
[2024-07-06 08:56] LABS: Blood Urea Nitrogen 71 mg/dl (7-17); Calcium 9.4 mg/dl (8.4-10.2); Carbon Dioxide 25 mmol/L (22-30); Chloride 99 mmol/L (98-107); Estimated Creatinine Clearance 12 ml/min; Glucose 96 mg/dl (70-99); Potassium 5.3 mmol/L (3.5-5.1); Sodium 136 mmol/L (135-145)
--- NOTE | 2024-07-06 11:26 | W.PN.HOSP.TC ---
Today's Communication/Plan
-
Cr increased
Trend bmp
Bladder scan protocol
OOB
monitor BP
Nephro recs
Assessment / Plan
Assessment / Plan
A/P: Patient is an 84y F with PMH significant for PA-Fib, HTN and CKD who presents to ED for evaluation of bradycardia.
Symptomatic Bradycardia
- Initial HR in the 30s with junctional rhythm on monitor / EKG.
- s/p PPM placement
- BP is stable.
- Patient is on no chronotropic medications according to [place] records (and to prior discharge summaries).
- Cardiology evaluation appreciated
- TFTs done in the ED are normal.
ADAM on CKD IV
Anion Gap Metabolic Acidosis
Hyperkalemia
- SCr increased to 3.1 (compared to known baseline of 2.5).
- IVFs started in the ED since stopped
- Follow for changes in labs / lytes
- Bladder scan protocol. Wt up.
- Nephrology recs
Paroxysmal Atrial Fibrillation
- Started on lopressor.
- Eliquis restarted
Benign Hypertension
- Elevated and BB added
- Restart / currently on Amlodipine 10 mg daily and Hydralazine 50 mg bid
RUE swelling
-improving
-Venous doppler negative. for DVT.
Anemia of CKD
- Hgb at 9.4s/p 1u PRBC.
Constipation
-resolved.
DVT Prophylaxis: Eliquis
Code Status: Full
Dispo-back to [facility] on discharge.
Anticipated Discharge: Within 24 hours
Subjective/Interval History
-
Date of Service: July 06, 2024
had bm yesterday x 2
decrease in RUE swelling
tolerating diet
Objective Data
-
Labs:
Laboratory Results
07/06/24
07:38
Sodium 136
Potassium 5.3 H
Chloride 99
Carbon Dioxide 25
BUN 71 H
Creatinine 3.1 H
Glucose 96
Calcium 9.4
Vital Signs:
Vital Signs
Temp Pulse Resp BP Pulse Ox
97 F 62 16 165/70 96
07/06/24 07:27 07/06/24 08:10 07/06/24 07:27 07/06/24 08:10 07/06/24 08:39
I&O
07/05/24 07/06/24 07/07/24
06:59 06:59 06:59
Intake Total 1230 / 1230 960 / 960
Output Total 1650 / 1650 1400 / 1400
Balance -420 / -420 -440 / -440
Physical Exam
-
General: Well Developed, Well Nourished, No Apparent Distress and Appears Chronically Ill
HEENT: Atraumatic and Moist Mucous Membranes
Respiratory: Clear to Auscultation; Negative Wheezes, Rales or Rhonchi
Cardiac: Regular Rhythm, S1/S2 and Other (Left chest wall aquacell dressing noted )
GI: Soft, Nontender, Nondistended and Normal Bowel Sounds
Musculoskeletal: No Clubbing, No Cyanosis, No Edema and Edema, Right Upper Extrem (improved. )
Neuro: Awake, Alert and No Motor Deficits
Psych: Calm
--- NOTE | 2024-07-06 11:40 | WOUNDNOTE ---
[facility] RN note: Patient seen for HAPI report for stage 2 sacral/buttocks pressure injury. L sacral/buttocks with small dermal opening suspect r/t moisture and friction. Patient turns self in bed but tends to lie on her back as per nursing. Patient had
been instructed to turn/reposition more often. Static air overlay in place. Patient incontinent of urine. Patient then voided and had BM in bedpan. Dariel care given. Silicone border foam changed on sacral/buttocks. Calazime ointment to L groin MASD
and dariel skin. L lower abdominal fold with mild yeast rash. Appetite good. Air chair cushion given. Heels off bed with pillow. Discussed with MARY Martin. Care plan to be updated. Plan is back to [facility] rehab when discharged.
--- NOTE | 2024-07-06 12:11 | W.PN.NEPH.PH ---
Today's Communication / Plan
-
follow BMP
Assessment/Plan
-
Assessment
Bradycardia
ADAM
CKD4, baseline 2.5
Paroxysmal atrial fibrillation
Hypertension
Anemia
Anion gap metabolic acidosis
Hypothermia
Plan
PVR ok
check TTKG
follow BMP
on low K diet
may consider diuretic to control K
-
-
Date of Service: July 06, 2024
CC / HPI / ROS
-
Chief Complaint:
ADAM
History of Present Illness:
ADAM/Cr up at 3.1
acidosis resolved
BP high
s/p PPM 07/01
k high at 5.3
Review of Systems:
no CP/SOB
had BM today
right UE mild edema, US pending report
Labs
-
Labs:
WBC 7.1 10^3/uL (4.8-10.8) 07/05/24 08:00
RBC 3.15 10^6/uL (4.20-5.40) L 07/05/24 08:00
Hgb 9.4 g/dL (12.0-16.0) L 07/05/24 08:00
Hct 27.8 % (37.0-47.0) L 07/05/24 08:00
Plt Count 141 10^3/uL (130-400) 07/05/24 08:00
Sodium 136 mmol/L (135-145) 07/06/24 07:38
Potassium 5.3 mmol/L (3.5-5.1) H 07/06/24 07:38
Chloride 99 mmol/L (98-107) 07/06/24 07:38
Carbon Dioxide 25 mmol/L (22-30) 07/06/24 07:38
BUN 71 mg/dl (7-17) H 07/06/24 07:38
Creatinine 3.1 mg/dL (0.6-1.0) H 07/06/24 07:38
eGFR 14.20 07/06/24 07:38
Glucose 96 mg/dl (70-99) 07/06/24 07:38
Calcium 9.4 mg/dl (8.4-10.2) 07/06/24 07:38
Phosphorus 6.9 mg/dl (2.5-4.5) H 07/01/24 03:46
Mmw-H-Mcaldhooznf Pept Cancelled 06/30/24 21:31
Albumin 3.7 g/dl (3.5-5.0) 06/30/24 21:28
Physical Exam
-
Vital Signs:
Vital Signs
Temp Pulse Resp BP Pulse Ox
97.2 F 61 18 140/85 96
07/06/24 12:01 07/06/24 12:01 07/06/24 12:01 07/06/24 12:01 07/06/24 12:01
Cardiovascular:: Regular rate and rhythm
Respiratory:: Bilateral: CTA
Lung Excursion:: Normal
Abdomen:: Nontender and Soft
Bowel Sounds:: Normal
Extremity Edema:: None: Bilateral:
--- NOTE | 2024-07-06 14:34 | CM ---
Reviewed the chart notes and spoke with the patient at the bedside. IMM reviewed and placed on the chart. CM continues to be available to patient/family and is monitoring medical plan for needs at discharge.
Plan: Discharge back to [facility] when medically stable.
Call report to: [phone] 2nd floor
Fax report to: [phone]
[2024-07-06 14:46] LABS: Osmolality Serum 303 mOsm/kg (275-300)
[2024-07-06] MEDS: TYLENOL 650 MG PO ×2 (16:28→21:08)
[2024-07-06 17:19] LABS: Osmolality Urine 208 mOsm/kg (300-900)
[2024-07-06 17:25] LABS: Urine Potassium 15.8 mmol/L (30-90); Urine Sodium 46 mmol/L (30-90)
--- NOTE | 2024-07-06 18:31 | PTCARENOTE ---
Patient with K of 5.3 and Cr of 3.1 on this AM's labs; urine sample obtained per nephro, patient maintained on K restricted diet. Random bladder scan obtained by community health nursing director for 107 ml. Patient with mixed continence throughout shift, saturating
briefs and urinating on commode/bedpan. Patient with multiple small BMs throughout shift. MD and nephro made aware, stated to follow labs and maintain bladder scan/straight cath protocol.
[2024-07-06] MEDS: MELATONIN 5 MG PO (21:03)
[2024-07-06] MEDS: DESENEX/MITRAZOL/ZEASORB 1 APPLIC TOPICAL (22:43)
[2024-07-07] VITALS (7 sets, daily range): BP systolic 130–159; BP diastolic 53–65; PULSE 61–64; BMI 26.5
[2024-07-07 05:57] LABS: Blood Urea Nitrogen 71 mg/dl (7-17); Calcium 9.1 mg/dl (8.4-10.2); Carbon Dioxide 21 mmol/L (22-30); Chloride 99 mmol/L (98-107); Estimated Creatinine Clearance 13 ml/min; Glucose 89 mg/dl (70-99); Sodium 134 mmol/L (135-145); eGFR 15.39
[2024-07-07] MEDS: NORVASC 10 MG PO (10:12)
[2024-07-07] MEDS: APRESOLINE 50 MG PO ×2 (10:13→22:17)
[2024-07-07] MEDS: LOPRESSOR 12.5 MG PO ×2 (10:13→22:17)
[2024-07-07] MEDS: ELIQUIS 2.5 MG PO ×2 (10:14→22:17)
[2024-07-07] MEDS: TYLENOL 650 MG PO ×2 (10:14→22:20)
[2024-07-07] MEDS: DESENEX/MITRAZOL/ZEASORB 1 APPLIC TOPICAL ×2 (10:16→22:17)
[2024-07-07] MEDS: MIRALAX PO (10:16)
--- NOTE | 2024-07-07 11:55 | W.PN.NEPH.PH ---
Today's Communication / Plan
-
follow BMP
Assessment/Plan
-
Assessment
Bradycardia
ADAM
CKD4, baseline 2.5
Paroxysmal atrial fibrillation
Hypertension
Anemia
Anion gap metabolic acidosis
Hypothermia
Plan
PVR ok
TTKG appropriately low
follow BMP
on low K diet
may consider lasix to control K if needed -10mg daily
-
-
Date of Service: July 07, 2024
CC / HPI / ROS
-
Chief Complaint:
ADAM
History of Present Illness:
ADAM/Cr down to 2.9
acidosis 21
BP high stable
s/p PPM 07/01
k down to 5.0
Review of Systems:
no CP/SOB
Labs
-
Labs:
WBC 7.1 10^3/uL (4.8-10.8) 07/05/24 08:00
RBC 3.15 10^6/uL (4.20-5.40) L 07/05/24 08:00
Hgb 9.4 g/dL (12.0-16.0) L 07/05/24 08:00
Hct 27.8 % (37.0-47.0) L 07/05/24 08:00
Plt Count 141 10^3/uL (130-400) 07/05/24 08:00
Sodium 134 mmol/L (135-145) L 07/07/24 04:58
Potassium 5.0 mmol/L (3.5-5.1) 07/07/24 04:58
Chloride 99 mmol/L (98-107) 07/07/24 04:58
Carbon Dioxide 21 mmol/L (22-30) L 07/07/24 04:58
BUN 71 mg/dl (7-17) H 07/07/24 04:58
Creatinine 2.9 mg/dL (0.6-1.0) H 07/07/24 04:58
eGFR 15.39 07/07/24 04:58
Glucose 89 mg/dl (70-99) 07/07/24 04:58
Calcium 9.1 mg/dl (8.4-10.2) 07/07/24 04:58
Phosphorus 6.9 mg/dl (2.5-4.5) H 07/01/24 03:46
Kgo-Q-Rslyfedmzcu Pept Cancelled 06/30/24 21:31
Albumin 3.7 g/dl (3.5-5.0) 06/30/24 21:28
Physical Exam
-
Vital Signs:
Vital Signs
Temp Pulse Resp BP Pulse Ox
97.5 F 74 18 150/65 96
07/07/24 07:33 07/07/24 10:13 07/07/24 07:33 07/07/24 10:13 07/07/24 07:33
Cardiovascular:: Regular rate and rhythm
Respiratory:: Bilateral: Coarse
Lung Excursion:: Normal
Abdomen:: Nontender and Soft
Bowel Sounds:: Normal
Extremity Edema:: +1: Bilateral:
--- NOTE | 2024-07-07 12:00 | W.PN.HOSP.TC ---
Today's Communication/Plan
-
trend bmp
Assessment / Plan
Assessment / Plan
A/P: Patient is an 84y F with PMH significant for PA-Fib, HTN and CKD who presents to ED for evaluation of bradycardia.
Symptomatic Bradycardia
- Initial HR in the 30s with junctional rhythm on monitor / EKG.
- s/p PPM placement
- BP is stable.
- Patient is on no chronotropic medications according to [place] records (and to prior discharge summaries).
- Cardiology evaluation appreciated
- TFTs done in the ED are normal.
ADAM on CKD IV
Anion Gap Metabolic Acidosis
Hyperkalemia
- SCr at 2.9 (compared to known baseline of 2.5).
- IVFs started in the ED since stopped
- Follow for changes in labs / lytes
- Bladder scan protocol. Wt up.
- K improving
- Nephrology recs
Paroxysmal Atrial Fibrillation
- Started on lopressor.
- Eliquis restarted
Benign Hypertension
- Restart / currently on Amlodipine 10 mg daily and Hydralazine 50 mg bid
- Lopressor added.
- Can increase hydralazine if needed
RUE swelling
-improving
-Venous doppler negative. for DVT.
Anemia of CKD
- Hgb at 9.4s/p 1u PRBC.
Constipation
-resolved.
DVT Prophylaxis: Eliquis
Code Status: Full
Dispo-back to [facility] on discharge.
Anticipated Discharge: Within 24 hours
Subjective/Interval History
-
Date of Service: July 07, 2024
no overnight events
feeling better
Objective Data
-
Labs:
Laboratory Results
07/07/24
04:58
Sodium 134 L
Potassium 5.0
Chloride 99
Carbon Dioxide 21 L
BUN 71 H
Creatinine 2.9 H
Glucose 89
Calcium 9.1
Vital Signs:
Vital Signs
Temp Pulse Resp BP Pulse Ox
97.5 F 74 18 150/65 96
07/07/24 07:33 07/07/24 10:13 07/07/24 07:33 07/07/24 10:13 07/07/24 07:33
I&O
07/06/24 07/07/24 07/08/24
06:59 06:59 06:59
Intake Total 960 / 960 1080 / 1080
Output Total 1400 / 1400 1100 / 1100
Balance -440 / -440 -20 / -20
Physical Exam
-
General: Well Developed, Well Nourished, No Apparent Distress and Appears Chronically Ill
HEENT: Atraumatic and Moist Mucous Membranes
Respiratory: Clear to Auscultation; Negative Wheezes, Rales or Rhonchi
Cardiac: Regular Rhythm, S1/S2 and Other (Left chest wall aquacell dressing noted )
GI: Soft, Nontender, Nondistended and Normal Bowel Sounds
Musculoskeletal: No Clubbing, No Cyanosis, No Edema and Edema, Right Upper Extrem (improved. )
Neuro: Awake, Alert and No Motor Deficits
Psych: Calm
[2024-07-07] MEDS: MELATONIN 5 MG PO (22:17)
[2024-07-08 05:51] VITALS: BMI 26.4
[2024-07-08 07:25] VITALS: BP 158/63
[2024-07-08 07:36] LABS: Blood Urea Nitrogen 72 mg/dl (7-17); Calcium 9.2 mg/dl (8.4-10.2); Carbon Dioxide 20 mmol/L (22-30); Chloride 99 mmol/L (98-107); Estimated Creatinine Clearance 12 ml/min; Glucose 100 mg/dl (70-99); Potassium 4.9 mmol/L (3.5-5.1); Sodium 135 mmol/L (135-145)
[2024-07-08] MEDS: TYLENOL 650 MG PO ×2 (08:30→20:55)
[2024-07-08] MEDS: APRESOLINE 50 MG PO (08:31)
[2024-07-08] MEDS: ELIQUIS 2.5 MG PO ×2 (08:31→20:56)
[2024-07-08] MEDS: LOPRESSOR 12.5 MG PO ×2 (08:31→20:56)
[2024-07-08] MEDS: DESENEX/MITRAZOL/ZEASORB 1 APPLIC TOPICAL ×2 (08:31→20:57)
[2024-07-08] MEDS: MIRALAX PO (08:32)
[2024-07-08] MEDS: NORVASC 10 MG PO (08:35)
--- NOTE | 2024-07-08 09:43 | W.PN.NEPH.PH ---
Today's Communication / Plan
-
check PVR
Assessment/Plan
-
Assessment
Bradycardia
ADAM
CKD4, baseline 2.5
Paroxysmal atrial fibrillation
Hypertension
Anemia
Anion gap metabolic acidosis
Hypothermia
Plan
PVR ok
TTKG appropriately low, potassium 4.9
follow BMP: creatinine 3.1
on low K diet
may consider lasix to control K if needed -10mg daily if hyperkalemia persists
Will check random bladder scan to make sure there is not a urinary retention component
-
-
Date of Service: July 08, 2024
CC / HPI / ROS
-
Chief Complaint:
ADAM
History of Present Illness:
ADAM/Cr up to 3.1
acidosis 21
BP high stable
s/p PPM 07/01
k down to 4.9
Review of Systems:
no CP/SOB
Labs
-
Labs:
WBC 7.1 10^3/uL (4.8-10.8) 07/05/24 08:00
RBC 3.15 10^6/uL (4.20-5.40) L 07/05/24 08:00
Hgb 9.4 g/dL (12.0-16.0) L 07/05/24 08:00
Hct 27.8 % (37.0-47.0) L 07/05/24 08:00
Plt Count 141 10^3/uL (130-400) 07/05/24 08:00
Sodium 135 mmol/L (135-145) 07/08/24 06:44
Potassium 4.9 mmol/L (3.5-5.1) 07/08/24 06:44
Chloride 99 mmol/L (98-107) 07/08/24 06:44
Carbon Dioxide 20 mmol/L (22-30) L 07/08/24 06:44
BUN 72 mg/dl (7-17) H 07/08/24 06:44
Creatinine 3.1 mg/dL (0.6-1.0) H 07/08/24 06:44
eGFR 14.20 07/08/24 06:44
Glucose 100 mg/dl (70-99) H 07/08/24 06:44
Calcium 9.2 mg/dl (8.4-10.2) 07/08/24 06:44
Phosphorus 6.9 mg/dl (2.5-4.5) H 07/01/24 03:46
Nce-L-Dbppdbruepn Pept Cancelled 06/30/24 21:31
Albumin 3.7 g/dl (3.5-5.0) 06/30/24 21:28
Physical Exam
-
Vital Signs:
Vital Signs
Temp Pulse Resp BP Pulse Ox
97.4 F 61 16 158/63 98
07/08/24 07:25 07/08/24 07:25 07/08/24 07:25 07/08/24 08:31 07/08/24 07:25
Cardiovascular:: Regular rate and rhythm
Respiratory:: Bilateral: Coarse
Lung Excursion:: Normal
Abdomen:: Nontender and Soft
Bowel Sounds:: Normal
Extremity Edema:: +1: Bilateral:
--- NOTE | 2024-07-08 11:45 | CM ---
Reviewed the chart notes and spoke with the patient at the bedside. IMM reviewed and a copy left with the patient.
Plan: Discharge back to [facility] when medically stable.
Call report to: [phone] 2nd floor
Fax report to: [phone]
--- NOTE | 2024-07-08 11:59 | W.PN.HOSP.TC ---
Today's Communication/Plan
-
trend cr
PVR
increase hydralazine
Assessment / Plan
Assessment / Plan
A/P: Patient is an 84y F with PMH significant for PA-Fib, HTN and CKD who presents to ED for evaluation of bradycardia.
Symptomatic Bradycardia
- Initial HR in the 30s with junctional rhythm on monitor / EKG.
- s/p PPM placement
- BP is stable.
- Patient is on no chronotropic medications according to [place] records (and to prior discharge summaries).
- Cardiology evaluation appreciated
- TFTs done in the ED are normal.
ADAM on CKD IV
Anion Gap Metabolic Acidosis
Hyperkalemia
- SCr at 3.1 (compared to known baseline of 2.5).
- IVFs started in the ED since stopped
- Follow for changes in labs / lytes
- Bladder scan protocol. Wt up.
- K improving
- Bladder scan
- Nephrology recs
Paroxysmal Atrial Fibrillation
- Started on lopressor.
- Eliquis restarted
Benign Hypertension
- Restart / currently on Amlodipine 10 mg daily and Hydralazine increased to 75mg BID
- Lopressor added. HR 61 unable to further uptitrate.
RUE swelling
-improved
-Venous doppler negative. for DVT.
Anemia of CKD
- Hgb at 9.4s/p 1u PRBC.
Constipation
-resolved.
DVT Prophylaxis: Eliquis
Code Status: Full
Dispo-back to [facility] on discharge.
Anticipated Discharge: Within 24 hours
Subjective/Interval History
-
Date of Service: July 08, 2024
feeling better
did not sleep much overnight
Objective Data
-
Labs:
Laboratory Results
07/08/24
06:44
Sodium 135
Potassium 4.9
Chloride 99
Carbon Dioxide 20 L
BUN 72 H
Creatinine 3.1 H
Glucose 100 H
Calcium 9.2
Vital Signs:
Vital Signs
Temp Pulse Resp BP Pulse Ox
97.4 F 61 16 158/63 98
07/08/24 07:25 07/08/24 07:25 07/08/24 07:25 07/08/24 08:31 07/08/24 11:44
I&O
07/07/24 07/08/24 07/09/24
06:59 06:59 06:59
Intake Total 1080 / 1080 1200 / 1200
Output Total 1100 / 1100
Balance -20 / -20 1200 / 1200
Physical Exam
-
General: Well Developed, Well Nourished, No Apparent Distress and Appears Chronically Ill
HEENT: Atraumatic and Moist Mucous Membranes
Respiratory: Clear to Auscultation; Negative Wheezes, Rales or Rhonchi
Cardiac: Regular Rhythm, S1/S2 and Other (Left chest wall aquacell dressing noted )
GI: Soft, Nontender, Nondistended and Normal Bowel Sounds
Musculoskeletal: No Clubbing, No Cyanosis, No Edema and Edema, Right Upper Extrem (improved. )
Neuro: Awake, Alert and No Motor Deficits
Psych: Calm
[2024-07-08 12:02] VITALS: BP 126/48; BP 136/55; BP 146/61; PULSE 61
[2024-07-08 12:28] VITALS: BP 152/58; BP 153/58; PULSE 61; PULSE 62; O2SAT 97
[2024-07-08] MEDS: APRESOLINE 25 MG PO (12:35)
[2024-07-08 15:20] VITALS: BP 138/51
[2024-07-08] MEDS: APRESOLINE 75 MG PO (20:57)
[2024-07-08] MEDS: MELATONIN 5 MG PO (21:00)
[2024-07-08 23:09] VITALS: BP 168/67
[2024-07-09 06:00] VITALS: BMI 26.4
[2024-07-09 07:30] VITALS: BP 173/64
[2024-07-09 08:59] LABS: Blood Urea Nitrogen 79 mg/dl (7-17); Calcium 9.2 mg/dl (8.4-10.2); Carbon Dioxide 21 mmol/L (22-30); Chloride 98 mmol/L (98-107); Estimated Creatinine Clearance 11 ml/min; Glucose 98 mg/dl (70-99); Potassium 5.1 mmol/L (3.5-5.1); Sodium 133 mmol/L (135-145); eGFR 13.18
[2024-07-09] MEDS: APRESOLINE 75 MG PO ×2 (09:17→20:24)
[2024-07-09] MEDS: LOPRESSOR 12.5 MG PO ×2 (09:17→20:24)
[2024-07-09] MEDS: ELIQUIS 2.5 MG PO ×2 (09:17→20:25)
[2024-07-09] MEDS: DESENEX/MITRAZOL/ZEASORB 1 APPLIC TOPICAL ×2 (09:18→20:26)
[2024-07-09] MEDS: MIRALAX PO (09:18)
[2024-07-09] MEDS: NORVASC 10 MG PO (09:18)
[2024-07-09] MEDS: TYLENOL 650 MG PO ×2 (09:38→20:27)
--- NOTE | 2024-07-09 09:43 | W.PN.NEPH.PH ---
Today's Communication / Plan
-
Place Esposito catheter as ADAM worsening
Hemodynamically stable
Assessment/Plan
-
Assessment
Bradycardia
ADAM
CKD4, baseline 2.5
Paroxysmal atrial fibrillation
Hypertension
Anemia
Anion gap metabolic acidosis
Hypothermia
Plan
ADAM worsening
Significant incontinence this morning
Place Esposito catheter as creatinine continues to rise with no identifiable etiology
TTKG appropriately low, potassium 4.9
follow BMP: creatinine 3.3
on low K diet
may consider lasix to control K if needed -10mg daily if hyperkalemia persists
-
-
Date of Service: July 09, 2024
CC / HPI / ROS
-
Chief Complaint:
ADAM
History of Present Illness:
ADAM/Cr up to 3.3
BUN rising
acidosis 21
BP high stable
s/p PPM 07/01
k down to 4.9
Review of Systems:
no CP/SOB
Question urine output but grossly incontinent
Labs
-
Labs:
WBC 7.1 10^3/uL (4.8-10.8) 07/05/24 08:00
RBC 3.15 10^6/uL (4.20-5.40) L 07/05/24 08:00
Hgb 9.4 g/dL (12.0-16.0) L 07/05/24 08:00
Hct 27.8 % (37.0-47.0) L 07/05/24 08:00
Plt Count 141 10^3/uL (130-400) 07/05/24 08:00
Sodium 133 mmol/L (135-145) L 07/09/24 07:49
Potassium 5.1 mmol/L (3.5-5.1) 07/09/24 07:49
Chloride 98 mmol/L (98-107) 07/09/24 07:49
Carbon Dioxide 21 mmol/L (22-30) L 07/09/24 07:49
BUN 79 mg/dl (7-17) H 07/09/24 07:49
Creatinine 3.3 mg/dL (0.6-1.0) H 07/09/24 07:49
eGFR 13.18 07/09/24 07:49
Glucose 98 mg/dl (70-99) 07/09/24 07:49
Calcium 9.2 mg/dl (8.4-10.2) 07/09/24 07:49
Phosphorus 6.9 mg/dl (2.5-4.5) H 07/01/24 03:46
Cxu-N-Ewirdaasrys Pept Cancelled 06/30/24 21:31
Albumin 3.7 g/dl (3.5-5.0) 06/30/24 21:28
Physical Exam
-
Vital Signs:
Vital Signs
Temp Pulse Resp BP Pulse Ox
97.5 F 62 19 168/67 96
07/08/24 23:09 07/08/24 23:09 07/08/24 23:09 07/08/24 23:09 07/08/24 23:15
Cardiovascular:: Regular rate and rhythm
Respiratory:: Bilateral: Coarse
Lung Excursion:: Normal
Abdomen:: Nontender and Soft
Bowel Sounds:: Normal
Extremity Edema:: +1: Bilateral:
--- NOTE | 2024-07-09 10:36 | W.PN.HOSP.TC ---
Today's Communication/Plan
-
place campos
monitor BP
Strict I/O
OOB/PT
Assessment / Plan
Assessment / Plan
A/P: Patient is an 84y F with PMH significant for PA-Fib, HTN and CKD who presents to ED for evaluation of bradycardia.
Symptomatic Bradycardia
- Initial HR in the 30s with junctional rhythm on monitor / EKG.
- s/p PPM placement
- BP is stable.
- Patient is on no chronotropic medications according to [place] records (and to prior discharge summaries).
- Cardiology evaluation appreciated
- TFTs done in the ED are normal.
ADAM on CKD IV
Anion Gap Metabolic Acidosis
Hyperkalemia
- SCr worsening to 3.3 (compared to known baseline of 2.5).
- IVFs started in the ED since stopped
- Follow for changes in labs / lytes
- Bladder scan protocol. Wt up.
- K improving
- Bladder scan. Plan to place campos. Strict I&Os.
- Nephrology recs
Paroxysmal Atrial Fibrillation
- Started on lopressor.
- Eliquis restarted
Benign Hypertension
- Restart / currently on Amlodipine 10 mg daily and Hydralazine increased to 75mg BID. May need to further increase if bp elevated. to 100mg BID
- Lopressor added. HR 62 unable to further uptitrate.
RUE swelling
-improved
-Venous doppler negative. for DVT.
Anemia of CKD
- Hgb at 9.4s/p 1u PRBC.
Constipation
-resolved.
DVT Prophylaxis: Eliquis
Code Status: Full
Dispo-back to [facility] on discharge.
Anticipated Discharge: > 48 hours
Subjective/Interval History
-
Date of Service: July 09, 2024
tolerating diet
denies abd pain
Objective Data
-
Labs:
Laboratory Results
07/09/24
07:49
Sodium 133 L
Potassium 5.1
Chloride 98
Carbon Dioxide 21 L
BUN 79 H
Creatinine 3.3 H
Glucose 98
Calcium 9.2
Vital Signs:
Vital Signs
Temp Pulse Resp BP Pulse Ox
97.5 F 62 19 168/67 96
07/08/24 23:09 07/08/24 23:09 07/08/24 23:07/08/24 23:07/08/24 23:15
I&O
07/08/24 07/09/24 07/10/24
06:59 06:59 06:59
Intake Total 1200 / 1200 900 / 900
Balance 1200 / 1200 900 / 900
Physical Exam
-
General: Well Developed, Well Nourished, No Apparent Distress and Appears Chronically Ill
HEENT: Atraumatic and Moist Mucous Membranes
Respiratory: Clear to Auscultation; Negative Wheezes, Rales or Rhonchi
Cardiac: Regular Rhythm, S1/S2 and Other (Left chest wall aquacell dressing noted )
GI: Soft, Nontender, Nondistended and Normal Bowel Sounds
Musculoskeletal: No Clubbing, No Cyanosis and No Edema
Neuro: Awake, Alert and No Motor Deficits
Psych: Calm
[2024-07-09 13:47] VITALS: BP 124/58; BP 125/91; BP 143/57; PULSE 61
[2024-07-09 15:30] VITALS: BP 134/51
[2024-07-09 19:44] VITALS: BP 139/57; BP 141/57; BP 148/53; PULSE 61; PULSE 62; PULSE 63
[2024-07-09] MEDS: MELATONIN 5 MG PO (21:46)
[2024-07-09 23:53] VITALS: BP 141/54
[2024-07-10 05:39] VITALS: BMI 26.1
[2024-07-10 07:25] VITALS: BP 153/56
[2024-07-10 08:16] LABS: Blood Urea Nitrogen 79 mg/dl (7-17); Carbon Dioxide 20 mmol/L (22-30); Chloride 99 mmol/L (98-107); Estimated Creatinine Clearance 12 ml/min; Glucose 94 mg/dl (70-99); Potassium 4.6 mmol/L (3.5-5.1); Sodium 133 mmol/L (135-145); eGFR 13.67
[2024-07-10] MEDS: TYLENOL 650 MG PO (09:11)
[2024-07-10] MEDS: APRESOLINE 75 MG PO ×2 (09:11→20:47)
[2024-07-10] MEDS: LOPRESSOR 12.5 MG PO ×2 (09:11→20:48)
[2024-07-10] MEDS: ELIQUIS 2.5 MG PO ×2 (09:12→20:47)
[2024-07-10] MEDS: NORVASC 10 MG PO (09:12)
[2024-07-10] MEDS: DESENEX/MITRAZOL/ZEASORB 1 APPLIC TOPICAL ×2 (09:13→20:47)
[2024-07-10] MEDS: MIRALAX PO (09:13)
--- NOTE | 2024-07-10 10:19 | W.PN.NEPH.PH ---
Today's Communication / Plan
-
Maintain Esposito cath
Follow-up BMP
Assessment/Plan
-
Assessment
Bradycardia
ADAM
CKD4, baseline 2.5
Paroxysmal atrial fibrillation
Hypertension
Anemia
Anion gap metabolic acidosis
Hypothermia
Plan
Creatinine remains elevated 3,2 , hopefully plateauing and remains grossly nonoliguric following Espostio catheter placement
Significant incontinence this morning
Place Esposito catheter as creatinine continues to rise with no identifiable etiology
TTKG appropriately low, potassium 4.6
-
-
Date of Service: July 10, 2024
CC / HPI / ROS
-
Chief Complaint:
ADAM
History of Present Illness:
ADAM/Cr stable at 3.2
BUN rising
acidosis 20
BP high stable
s/p PPM 07/01
k down to 4.6
Review of Systems:
no CP/SOB
Now with Esposito catheter since 07/09/2024 with good urine output
Labs
-
Labs:
WBC 7.1 10^3/uL (4.8-10.8) 07/05/24 08:00
RBC 3.15 10^6/uL (4.20-5.40) L 07/05/24 08:00
Hgb 9.4 g/dL (12.0-16.0) L 07/05/24 08:00
Hct 27.8 % (37.0-47.0) L 07/05/24 08:00
Plt Count 141 10^3/uL (130-400) 07/05/24 08:00
Sodium 133 mmol/L (135-145) L 07/10/24 06:43
Potassium 4.6 mmol/L (3.5-5.1) 07/10/24 06:43
Chloride 99 mmol/L (98-107) 07/10/24 06:43
Carbon Dioxide 20 mmol/L (22-30) L 07/10/24 06:43
BUN 79 mg/dl (7-17) H 07/10/24 06:43
Creatinine 3.2 mg/dL (0.6-1.0) H 07/10/24 06:43
eGFR 13.67 07/10/24 06:43
Glucose 94 mg/dl (70-99) 07/10/24 06:43
Calcium 9.0 mg/dl (8.4-10.2) 07/10/24 06:43
Phosphorus 6.9 mg/dl (2.5-4.5) H 07/01/24 03:46
Day-A-Tiyxqnvfmup Pept Cancelled 06/30/24 21:31
Albumin 3.7 g/dl (3.5-5.0) 06/30/24 21:28
Physical Exam
-
Vital Signs:
Vital Signs
Temp Pulse Resp BP Pulse Ox
97.1 F 61 16 153/56 98
07/10/24 07:25 07/10/24 07:25 07/10/24 07:25 07/10/24 07:25 07/10/24 07:25
Cardiovascular:: Regular rate and rhythm
Respiratory:: Bilateral: Coarse
Lung Excursion:: Normal
Abdomen:: Nontender and Soft
Bowel Sounds:: Normal
Extremity Edema:: +1: Bilateral:
Esposito Catheter: Yes
--- NOTE | 2024-07-10 11:21 | W.PN.HOSP.TC ---
Today's Communication/Plan
-
trend bmp
monitor BP
keep campos
Assessment / Plan
Assessment / Plan
A/P: Patient is an 84y F with PMH significant for PA-Fib, HTN and CKD who presents to ED for evaluation of bradycardia.
Symptomatic Bradycardia
- Initial HR in the 30s with junctional rhythm on monitor / EKG.
- s/p PPM placement
- BP is stable.
- Patient is on no chronotropic medications according to [place] records (and to prior discharge summaries).
- Cardiology evaluation appreciated
- TFTs done in the ED are normal.
ADAM on CKD IV
Anion Gap Metabolic Acidosis
Hyperkalemia
- SCr worsening to 3.3 (compared to known baseline of 2.5).
- IVFs started in the ED since stopped
- Follow for changes in labs / lytes
- Bladder scan protocol. Wt up.
- K improving
- Mild downtrend in creatinine with Campos catheter placement. Discussed with nephrology monitor overnight.
- Nephrology recs
Paroxysmal Atrial Fibrillation
- Started on lopressor.
- Eliquis restarted
Benign Hypertension
- Restart / currently on Amlodipine 10 mg daily and Hydralazine increased to 75mg BID. May need to further increase if bp elevated. to 100mg BID
- Lopressor added. HR 61 unable to further uptitrate.
RUE swelling
-resolved.
-Venous doppler negative. for DVT.
Anemia of CKD
- Hgb at 9.4s/p 1u PRBC.
Constipation
-resolved.
DVT Prophylaxis: Eliquis
Code Status: Full
Dispo-back to [facility] on discharge.
Discussed with patient grandson at bedside in detail
Discussed with nephrology
Anticipated Discharge: 24 - 48 hours
Subjective/Interval History
-
Date of Service: July 10, 2024
with good urinary output
feeling better
Objective Data
-
Labs:
Laboratory Results
07/10/24
06:43
Sodium 133 L
Potassium 4.6
Chloride 99
Carbon Dioxide 20 L
BUN 79 H
Creatinine 3.2 H
Glucose 94
Calcium 9.0
Vital Signs:
Vital Signs
Temp Pulse Resp BP Pulse Ox
97.1 F 61 16 153/56 98
07/10/24 07:25 07/10/24 07:25 07/10/24 07:25 07/10/24 07:25 07/10/24 07:25
I&O
07/09/24 07/10/24 07/11/24
06:59 06:59 06:59
Intake Total 900 / 900 360 / 360
Output Total 1700 / 1700
Balance 900 / 900 -1340 / -1340
Physical Exam
-
General: Well Developed, Well Nourished, No Apparent Distress and Appears Chronically Ill
HEENT: Atraumatic and Moist Mucous Membranes
Respiratory: Clear to Auscultation; Negative Wheezes, Rales or Rhonchi
Cardiac: Regular Rhythm, S1/S2 and Other (Left chest wall aquacell dressing noted )
GI: Soft, Nontender, Nondistended and Normal Bowel Sounds
Genito-urinary: Campos
Musculoskeletal: No Clubbing, No Cyanosis and No Edema
Neuro: Awake, Alert and No Motor Deficits
Psych: Calm
Data Reviewed
-
Total Time Spent with Patient (in minutes): 52
[2024-07-10 13:17] VITALS: BP 124/56; BP 133/57; BP 147/63; PULSE 61; PULSE 62
[2024-07-10 15:35] VITALS: BP 135/53
--- NOTE | 2024-07-10 18:14 | PTCARENOTE ---
at 1500 vital signs round pt's temp was hard to get, used 3 machines and rectal and able to get a rectal temp at 94.4. MD made aware and laura hortoner was initiated with temperature goal of 97F.
[2024-07-10] MEDS: MELATONIN 5 MG PO (22:02)
[2024-07-10 23:34] VITALS: BP 143/52
[2024-07-11 05:41] VITALS: BMI 26.2
--- NOTE | 2024-07-11 06:49 | W.PN.HOSP.TC ---
Today's Communication/Plan
-
monitor renal function
B12 supplementation
bicarb hydralazine as per nephro
PT/OT
Assessment / Plan
Assessment / Plan
Physical Exam
General: No acute distress appears comfortable at this time
HEENT: Atraumatic and Moist Mucous Membranes
Respiratory: Clear to Auscultation; Negative Wheezes, Rales or Rhonchi
Cardiac: Regular Rhythm, S1/S2 and Other (Left chest wall aquacell dressing noted )
GI: Soft, Nontender, Nondistended and Normal Bowel Sounds
Genito-urinary: Esposito
Musculoskeletal: No Clubbing, No Cyanosis and No Edema
Neuro: AOx3
Psych: Calm
A/P: Patient is an 84y F with PMH significant for PA-Fib, HTN and CKD who presents to ED for evaluation of bradycardia.
Symptomatic Bradycardia
- Initial HR in the 30s with junctional rhythm on monitor / EKG.
- s/p PPM placement
- BP is stable.
- Patient is on no chronotropic medications according to [place] records (and to prior discharge summaries).
- Cardiology evaluation appreciated
- TFTs done in the ED are normal.
ADAM on CKD IV
Anion Gap Metabolic Acidosis
Hyperkalemia
- SCr worsening to 3.3 (compared to known baseline of 2.5).
- IVFs started in the ED since stopped
- Follow for changes in labs / lytes
- Bladder scan protocol. Wt up.
- K improving
- Mild downtrend in creatinine with Esposito catheter placement.
- Nephrology eval appreciated PO bicarb started
Paroxysmal Atrial Fibrillation
- Started on lopressor.
- Eliquis restarted
Benign Hypertension
- Restart / currently on Amlodipine 10 mg daily
-Hydralazine increased to 100mg BID as per Nephro
- Lopressor added 12.5 mg BID
RUE swelling
-resolved.
-Venous doppler negative. for DVT.
Anemia of CKD
-s/p 1u PRBC.
-H&H stable
#numbness lower ext's below knees b/l but strength intact
CT Lumbar Thoracic spine appreciated
Low normal B12
B12 supplementation started for possible symptomatic B12 deficiency
Constipation
-resolved.
DVT Prophylaxis: Eliquis
Code Status: Full
Dispo-back to [facility] on discharge.
I spent a total of 50 minutes with the patient or on the floor. More than 50% of this time involved counseling and coordination of care.
Anticipated Discharge: 24 - 48 hours
Subjective/Interval History
-
Date of Service: July 11, 2024
No acute distress resting comfortably in bed. Pain controlled at rest. Reports numbness/paraesthesia lower ext's b/l below knees. No weakness. Strength 5/5 lower ext's.
Objective Data
-
Labs:
Laboratory Results
07/11/24
06:01
Sodium Pending
Potassium Pending
Chloride Pending
Carbon Dioxide Pending
BUN Pending
Creatinine Pending
Glucose Pending
Calcium Pending
Vital Signs:
Vital Signs
Temp Pulse Resp BP Pulse Ox
98.7 F 61 16 143/52 96
07/10/24 23:34 07/10/24 23:34 07/10/24 23:34 07/10/24 23:34 07/11/24 00:45
I&O
07/09/24 07/10/24 07/11/24
06:59 06:59 06:59
Intake Total 900 / 900 360 / 360 960 / 960
Output Total 1700 / 1700 1050 / 1050
Balance 900 / 900 -1340 / -1340 -90 / -90
[2024-07-11 07:33] LABS: Blood Urea Nitrogen 79 mg/dl (7-17); Carbon Dioxide 17 mmol/L (22-30); Chloride 99 mmol/L (98-107); Estimated Creatinine Clearance 12 ml/min; Glucose 97 mg/dl (70-99); Potassium 4.9 mmol/L (3.5-5.1); Sodium 131 mmol/L (135-145)
[2024-07-11 07:48] VITALS: BP 152/61
[2024-07-11] MEDS: MIRALAX PO (08:09)
[2024-07-11] MEDS: LOPRESSOR 12.5 MG PO ×2 (08:10→20:29)
[2024-07-11] MEDS: ELIQUIS 2.5 MG PO ×2 (08:11→20:27)
[2024-07-11] MEDS: NORVASC 10 MG PO (08:11)
[2024-07-11] MEDS: APRESOLINE 75 MG PO (08:11)
[2024-07-11] MEDS: DESENEX/MITRAZOL/ZEASORB 1 APPLIC TOPICAL ×2 (08:19→20:29)
--- NOTE | 2024-07-11 14:09 | W.PN.NEPH.PH ---
Today's Communication / Plan
-
follow lab s
add po bicarb
increase hydralazine
Assessment/Plan
-
Assessment
Bradycardia
ADAM
CKD4, baseline 2.5
Paroxysmal atrial fibrillation
Hypertension
Anemia
Anion gap metabolic acidosis
Hypothermia
Plan
Creatinine slight improvement at 3.1, keep campos for now
potassium is normal , low K diet
TTKG appropriately low
evolving met acidosis-will start po bicarb
Bp high-increase hydralazine to 100 TID
follow labs
if cr cont to improve likely d/c soon
d/w pt
-
-
Date of Service: July 11, 2024
CC / HPI / ROS
-
Chief Complaint:
ADAM
History of Present Illness:
ADAM/Cr better at 3.1
BUN stable at 79
acidosis worse at 17
BP high stable
s/p PPM 07/01
k normal
Review of Systems:
no CP/SOB
Now with Campos catheter since 07/09/2024 with good urine output
Labs
-
Labs:
WBC 7.1 10^3/uL (4.8-10.8) 07/05/24 08:00
RBC 3.15 10^6/uL (4.20-5.40) L 07/05/24 08:00
Hgb 9.4 g/dL (12.0-16.0) L 07/05/24 08:00
Hct 27.8 % (37.0-47.0) L 07/05/24 08:00
Plt Count 141 10^3/uL (130-400) 07/05/24 08:00
Sodium 131 mmol/L (135-145) L 07/11/24 06:01
Potassium 4.9 mmol/L (3.5-5.1) 07/11/24 06:01
Chloride 99 mmol/L (98-107) 07/11/24 06:01
Carbon Dioxide 17 mmol/L (22-30) L 07/11/24 06:01
BUN 79 mg/dl (7-17) H 07/11/24 06:01
Creatinine 3.1 mg/dL (0.6-1.0) H 07/11/24 06:01
eGFR 14.20 07/11/24 06:01
Glucose 97 mg/dl (70-99) 07/11/24 06:01
Calcium 9.0 mg/dl (8.4-10.2) 07/11/24 06:01
Phosphorus 6.9 mg/dl (2.5-4.5) H 07/01/24 03:46
Bks-O-Xogpbscbkmo Pept Cancelled 06/30/24 21:31
Albumin 3.7 g/dl (3.5-5.0) 06/30/24 21:28
Physical Exam
-
Vital Signs:
Vital Signs
Temp Pulse Resp BP Pulse Ox
98.0 F 61 16 152/61 98
07/11/24 07:48 07/11/24 08:10 07/11/24 07:48 07/11/24 08:10 07/11/24 13:17
Cardiovascular:: Regular rate and rhythm
Respiratory:: Bilateral: CTA
Lung Excursion:: Normal
Abdomen:: Nontender and Soft
Extremity Edema:: None: Bilateral:
Campos Catheter: Yes
--- NOTE | 2024-07-11 14:32 | W.PN.UPDATE ---
Update Note
Progress Note Update
pt is s/p pacemaker implantation 07/01/24. Since she is still inhouse, one week incision check done here.
Removed aquacel dressing. Incision well-approximated, no drainage, no hematoma, no erythema. Steristrips in place.
Pt can get incision wet and allow steristrips to loosen and fall off over next couple weeks.
Reviewed post pacemaker activity restrictions.
She has a f/u appointment at [facility] on 07/29/24 at 11 am. Pacemaker will be interrogated at that visit.
[2024-07-11 15:00] VITALS: BP 132/46
--- NOTE | 2024-07-11 15:23 | CM ---
Chart reviewed and updated clinicals sent to [facility]. Patient to return to [facility] when stable.
Report: [phone] 2nd floor

Plan; Patient to return to [facility] when stable.
[2024-07-11] MEDS: SODIUM BICARBONATE 650 MG PO ×2 (15:34→22:02)
[2024-07-11 15:48] LABS: Iron 93 ug/dl (37-170)
[2024-07-11 15:57] LABS: Percent Saturation 41 % (20-50); Total Iron Binding Capacity 224 ug/dl (265-497)
[2024-07-11 16:40] LABS: Folate 4.3 ng/ml (2.76-20); Vitamin B12 393 pg/ml (239-931)
[2024-07-11 17:02] VITALS: BP 134/49; BP 157/57; BP 160/60; PULSE 61; PULSE 62; PULSE 64
[2024-07-11] MEDS: VITAMIN B-12 1000 MCG PO (20:27)
[2024-07-11] MEDS: APRESOLINE 100 MG PO (20:29)
[2024-07-11] MEDS: TYLENOL 650 MG PO (20:33)
[2024-07-11] MEDS: MELATONIN 5 MG PO (22:02)
[2024-07-11 23:00] VITALS: BP 144/53
[2024-07-12 05:36] VITALS: BMI 26.3
[2024-07-12 07:00] LABS: Blood Urea Nitrogen 84 mg/dl (7-17); Calcium 9.3 mg/dl (8.4-10.2); Carbon Dioxide 19 mmol/L (22-30); Chloride 99 mmol/L (98-107); Estimated Creatinine Clearance 13 ml/min; Glucose 108 mg/dl (70-99); Magnesium 2.1 mg/dl (1.6-2.3); Phosphorus 4.9 mg/dl (2.5-4.5); Potassium 4.6 mmol/L (3.5-5.1); Sodium 131 mmol/L (135-145); eGFR 15.39
--- NOTE | 2024-07-12 07:47 | W.PN.HOSP.TC ---
Today's Communication/Plan
-
monitor renal function
Neuro eval
PT/OT
Assessment / Plan
Assessment / Plan
Physical Exam
General: No acute distress appears comfortable at this time
HEENT: Atraumatic and Moist Mucous Membranes
Respiratory: Clear to Auscultation; Negative Wheezes, Rales or Rhonchi
Cardiac: Regular Rhythm, S1/S2 and Other (Left chest wall aquacell dressing noted )
GI: Soft, Nontender, Nondistended and Normal Bowel Sounds
Genito-urinary: Esposito
Musculoskeletal: No Clubbing, No Cyanosis and No Edema
Neuro: AOx3, numbness lower ext below knees w impaired 2 pt discrimination
Psych: Calm
A/P: Patient is an 84y F with PMH significant for PA-Fib, HTN and CKD who presents to ED for evaluation of bradycardia.
Symptomatic Bradycardia
- Initial HR in the 30s with junctional rhythm on monitor / EKG.
- s/p PPM placement
- BP is stable.
- Patient is on no chronotropic medications according to [place] records (and to prior discharge summaries).
- Cardiology evaluation appreciated
- TFTs done in the ED are normal.
ADAM on CKD IV
Anion Gap Metabolic Acidosis
Hyperkalemia
- SCr worsened to 3.3 (compared to known baseline of 2.5).
- IVFs started in the ED since stopped
- Follow for changes in labs / lytes
- Bladder scan protocol. Wt up.
- K improving
- Slow downtrend creatinine with Esposito catheter placement.
- Nephrology eval appreciated PO bicarb started
Paroxysmal Atrial Fibrillation
- Started on lopressor.
- Eliquis restarted
Benign Hypertension
- Restart / currently on Amlodipine 10 mg daily
-Hydralazine increased to 100mg BID as per Nephro
- Lopressor added 12.5 mg BID
RUE swelling
-resolved.
-Venous doppler negative. for DVT.
Anemia of CKD
-s/p 1u PRBC.
-H&H stable
#numbness lower ext's below knees b/l but strength intact
CT Lumbar Thoracic spine appreciated
Low normal B12
B12 supplementation started for possible symptomatic B12 deficiency
Neuro eval requested
Constipation
-resolved.
DVT Prophylaxis: Eliquis
Code Status: Full
Dispo-back to [facility] on discharge.
discussed with patient and patient's grandson Julius
I spent a total of 50 minutes with the patient or on the floor. More than 50% of this time involved counseling and coordination of care.
Anticipated Discharge: 24 - 48 hours
Subjective/Interval History
-
Date of Service: July 12, 2024
Lower ext numbness below knees persists. Otherwise no acute distress, appears comfortable at this time.
Objective Data
-
Labs:
Laboratory Results
07/12/24
05:58
Sodium 131 L
Potassium 4.6
Chloride 99
Carbon Dioxide 19 L
BUN 84 H
Creatinine 2.9 H
Glucose 108 H
Calcium 9.3
Vital Signs:
Vital Signs
Temp Pulse Resp BP Pulse Ox
98.1 F 61 14 144/53 97
07/11/24 23:00 07/11/24 23:00 07/11/24 23:00 07/11/24 23:00 07/12/24 00:37
I&O
07/11/24 07/12/24 07/13/24
06:59 06:59 06:59
Intake Total 960 / 960 1040 / 1040
Output Total 1050 / 1050 2350 / 2350
Balance -90 / -90 -1310 / -1310
[2024-07-12 07:50] VITALS: BP 143/55
[2024-07-12] MEDS: LOPRESSOR 12.5 MG PO ×2 (08:46→20:25)
[2024-07-12] MEDS: APRESOLINE 100 MG PO ×2 (08:46→20:25)
[2024-07-12] MEDS: SODIUM BICARBONATE 650 MG PO ×3 (08:47→22:32)
[2024-07-12] MEDS: NORVASC 10 MG PO (08:47)
[2024-07-12] MEDS: VITAMIN B-12 1000 MCG PO (08:47)
[2024-07-12] MEDS: ELIQUIS 2.5 MG PO ×2 (08:47→20:25)
[2024-07-12] MEDS: DESENEX/MITRAZOL/ZEASORB 1 APPLIC TOPICAL ×2 (08:48→20:26)
[2024-07-12] MEDS: MIRALAX 17 GRAMS PO (08:49)
[2024-07-12 11:22] VITALS: BP 117/45; BP 126/45; BP 128/49; PULSE 61
--- NOTE | 2024-07-12 11:52 | CON.NEURO4 ---
Consultation - Neurology 4
-
CONSULTING PHYSICIAN: Rodney Sarabia MD
REFERRING PHYSICIAN: Hospitalist
DICTATED BY: Rodney Sarabia MD
DATE/TIME OF REQUEST: 07/12/2024
DATE/TIME OF CONSULTATION: 07/12/2024
Reason for Consultation: Leg numbness
History of Present Illness:
This is a 84 year old right) handed female who was admitted to the hospital with chief complaint of lightheadedness and evaluation of bradycardia. She gives a history of coronary artery disease carotid stenosis status post bilateral carotid
endarterectomy anemia pancreatitis, Colitis, Paroxysmal At-fibrill, COPD,HTN,GERD, CKD IV, Gout, lumbar spondylosis with gait impairment and anxiety disorder insomnia. She was hospitalized late April for altered mental status and hallucinations
secondary to urosepsis. She also had received a transfusion of 1 unit of packed RBCs dropping her hemoglobin to 6.8. Given her chronic heart failure and left pleural effusion she underwent a left thoracocentesis and 700 cc of fluid were drained
She was seen by cardiology during this admission and underwent an implantation of a dual-chamber pacemaker
Following implantation of pacemaker, July 01 she has been complaining of numbness in her calves and feet. There is no weakness. Minimal low back discomfort. There is no radiation of pain. No incontinence. No history of falls
CT of the lumbar spine shows a large herniated disc with spinal stenosis at L2-L3 that is chronic and contributing to her gait impairment
Past Medical History: As above
Surgical History: Cardiac:PTCA without stent, bilateral CEA, Cholecystectomy, Cataracts, ORIF Left femur
Family History: Noncontributory
Social History: Single lives at shelter quit smoking
Allergies: None
Home Medications: Addendum
Review of Symptoms:
Patient denies any fever, headache, chest pain, shortness of breath, GI or symptoms.
�Per the HPI.�All systems are reviewed negative except above.
�-
Vital Signs:
The patient has
Temp Pulse Resp BP Pulse Ox
36.4 C 61 16 143/55 96
Physical Exam:
The patient is afebrile, heart sounds S1 and S2 are regular , and chest is clear to auscultation bilaterally.
SLR+
Neurologic Examination:
The patient is awake, alert and oriented x 3. She is able to follow commands and answer questions appropriately. There is no aphasia or dysarthria. On cranial nerve assessment, pupils are 3 mm bilateral, round and reactive to light and
accommodation. Visual castro are full. Extraocular movements are intact. Facial sensations are intact and bilaterally symmetrical, there is no facial asymmetry. Hearing is intact bilaterally to normal conversation volume. Tongue palate and uvula
are midline. Sternocleidomastoid strengths are full bilaterally.
Motor strengths are 4/5 bilateral upper and lower extremities on medical research [place] scale. There is no drift or involuntary movement noted.
Deep tendon reflexes are + bilateral upper and lower extremities and Babinski is absent bilaterally. Sensations of pain, touch, temperature and vibration are intact and bilaterally symmetrical. There was no extinction noted on double simultaneous
stimulation. Coordination is intact by finger to nose bilaterally.
Rombergs Negative. Gait: Independent
Lab Results: Addendum
Neuro Imaging: MRI L-Spine: Large herniated disc at L2L3
Impression:
Ms. PEACE HINES is a 84 year old F who has presented to the hospital with (symptoms/chief complaint). numbness
Differentials for the patient's presentation include:
1. Lumbar radiculopathy
2. Renal insufficiency
Recommendations:
1. Bed rest
2. Muscle relaxants
3. NSAIDs if Nephrology approves
4. Consider pain management consultation for epidural steroid injection if patient has worsening low back pain and gait ataxia
5. B12 supplementation
Discussed patient care with: Hospitalist
Allergies
-
Allergies
Allergy/AdvReac Type Severity Reaction Status Date / Time
No Known Allergies Allergy Unverified 04/26/24 11:48
Vital Signs and Labs
-
Vital Signs and Labs:
Vital Signs
Temp Pulse Resp BP Pulse Ox
36.4 C 61 16 143/55 96
07/12/24 07:50 07/12/24 08:47 07/12/24 07:50 07/12/24 08:47 07/12/24 07:50
Lab Results
07/05/24 08:00
07/12/24 05:58
PT 16.0 Sec (11.4-14.6) H 06/30/24 21:40
INR 1.27 06/30/24 21:40
APTT 45.3 Sec (23.4-35.0) H 06/30/24 21:40
Sodium 131 mmol/L (135-145) L 07/12/24 05:58
Potassium 4.6 mmol/L (3.5-5.1) 07/12/24 05:58
BUN 84 mg/dl (7-17) H 07/12/24 05:58
Glucose 108 mg/dl (70-99) H 07/12/24 05:58
Calcium 9.3 mg/dl (8.4-10.2) 07/12/24 05:58
Phosphorus 4.9 mg/dl (2.5-4.5) H 07/12/24 05:58
Sgd-J-Qaigezqtbje Pept Cancelled 06/30/24 21:31
Vitamin B12 393 pg/ml (239-931) 07/11/24 06:01
Medications
-
Active Medications
Generic Name Dose Route Start Last Admin
Trade Name Freq PRN Reason Stop Dose Admin
Acetaminophen 650 mg 07/01/24 01:31 07/11/24 20:33
Acetaminophen 325 Mg Tablet PO 07/29/24 01:30 650 mg
Q4HPRN PRN Administration
Mild Pain / Temp > 101
Amlodipine Besylate 10 mg 07/02/24 11:00 07/12/24 08:47
Amlodipine 10 Mg Tablet PO 07/30/24 10:59 10 mg
DAILY CRYSTAL Administration
Apixaban 2.5 mg 07/04/24 11:30 07/12/24 08:47
Apixaban (Eliquis) 2.5 Mg Tablet PO 08/01/24 11:29 2.5 mg
BID CRYSTAL Administration
Cyanocobalamin 1,000 mcg 07/12/24 08:00 07/12/24 08:47
Cyanocobalamin 1,000 Mcg Tablet PO 08/09/24 07:59 1,000 mcg
DAILY CRYSTAL Administration
Hydralazine HCl 10 mg 07/03/24 14:06 07/05/24 22:38
Hydralazine 20 Mg/Ml Vial IV 07/31/24 14:05 10 mg
Q4HPRN PRN Administration
SBP>160
Hydralazine HCl 100 mg 07/11/24 20:00 07/12/24 08:46
Hydralazine 50 Mg Tablet PO 08/08/24 19:59 100 mg
BID CRYSTAL Administration
Melatonin 5 mg 07/04/24 22:00 07/11/24 22:02
Melatonin 5 Mg Tablet PO 08/01/24 21:59 5 mg
HS CRYSTAL Administration
Metoprolol Tartrate 12.5 mg 07/05/24 11:00 07/12/24 08:46
Metoprolol 12.5 Mg Regular Release Dose (1/2 Of 25 Mg Tablet) PO 08/02/24 10:59 12.5 mg
BID CRYSTAL Administration
Miconazole Nitrate 0 applic 07/06/24 20:00 07/12/24 08:48
Miconazole Powder Bottle TOPICAL 08/03/24 19:59 1 applic
BID CYRSTAL Administration
Polyethylene Glycol 17 grams 07/04/24 14:00 07/12/24 08:49
Polyethylene Glycol Powder 17 Grams Packet PO 08/01/24 13:59 17 grams
DAILY CRYSTAL Administration
Prochlorperazine Edisylate 5 mg 07/01/24 01:31
Prochlorperazine 10 Mg/2 Ml Vial IV 10/18/24 01:30
Q6HPRN PRN
Nausea
Sodium Bicarbonate 650 mg 07/11/24 16:00 07/12/24 08:47
Sodium Bicarbonate 650 Mg Tablet PO 08/08/24 15:59 650 mg
TID CRYSTAL Administration
Sodium Chloride 0 flush 07/01/24 03:00
Sodium Chloride 0.9% (Flush) Syringe IV 07/29/24 02:59
PER PROTOCOL CRYSTAL
Home Medications
�Medication �Instructions �Recorded
Saccharomyces boulardii 250 mg 250 mg PO BIDPRN PRN diarrhea 04/26/24
capsule (Florastor)
acetaminophen 325 mg tablet 650 mg PO Q4HPRN PRN mild 04/26/24
pain/fever >101
allopurinol 100 mg tablet 50 mg PO Q48H Gout 04/26/24
aluminum-mag hydroxide-simethicone 5 ml PO Q6HPRN PRN reflux 04/26/24
400 mg-400 mg-40 mg/5 mL oral susp
(Maalox Maximum Strength)
amlodipine 10 mg tablet 10 mg PO DAILY Blood Pressure 04/26/24
apixaban 2.5 mg tablet (Eliquis) 2.5 mg PO BID Blood Clot 04/26/24
Prevention/Tx
bisacodyl 10 mg rectal suppository 10 mg ID DAILYPRN PRN no bm 24 hrs 04/26/24
after mom
cholecalciferol (vitamin D3) 75 75 mcg PO DAILY Supplement 04/26/24
mcg (3,000 unit) tablet
famotidine 20 mg tablet (Pepcid) 20 mg PO Q8HPRN PRN GERD 04/26/24
magnesium hydroxide 400 mg/5 mL 30 ml PO DAILYPRN PRN no bm 3 days 04/26/24
oral suspension
melatonin 5 mg tablet 5 mg PO BIDPRN PRN insomnia 04/26/24
menthol 0.1 % lotion (Eucerin Itch 1 ea topical DAILY b/l arms 04/26/24
Relief)
sertraline 25 mg tablet (Zoloft) 25 mg PO DAILY Mental Health 04/26/24
sodium phosphates 19 gram-7 118 ml ID DAILYPRN PRN no bm 24 04/26/24
gram/118 mL enema (Fleet Enema) hrs after bisacodyl
vitamins A,C,B-khoj-dwdezt 4,296 1 cap PO DAILY Supplement 04/26/24
mcg-226 mg-90 mg capsule
(PreserVision AREDS)
furosemide 20 mg tablet (Lasix) 20 mg PO DAILY #30 tabs 05/13/24
hydralazine 10 mg tablet 20 mg (2 x 10 mg) PO Q8H Blood 05/13/24
Pressure #0 tabs
albuterol sulfate 2.5 mg/3 mL 2.5 mg inhalation R Q6HPRN PRN sob 06/30/24
(0.083 %) solution for nebulization
lactase 3,000 unit tablet 3,000 unit PO MEALS 06/30/24
lidocaine 4 % topical gel 1 applic topical Q6HPRN PRN neck 06/30/24
and back pain
ondansetron HCl 8 mg tablet 8 mg PO Q8HPRN PRN nausea 06/30/24
--- NOTE | 2024-07-12 13:51 | PTCARENOTE ---
Patient with campos catheter in place this AM despite current order stating to remove this AM at 0600. This RN communicated with nephrology who stated to keep campos in place for now for acute retention. Updated campos order entered into chart by this
RN via verbal order from nephrology.
[2024-07-12 14:54] VITALS: BP 147/59; PULSE 60; O2SAT 99
[2024-07-12 15:15] VITALS: BP 129/52
--- NOTE | 2024-07-12 15:53 | CM ---
Reviewed the chart notes and spoke with the patient at the bedside. IMM reviewed. The patient anticipates being discharged back to [facility] when medically stable. CM continues to be available to patient/family and is monitoring medical
plan for needs at discharge.
Plan: Discharge back to [facility] when medically stable.
--- NOTE | 2024-07-12 17:30 | PTCARENOTE ---
Verbal order placed per nephrology to remove campos catheter tomorrow at 0600 for voiding trial.
--- NOTE | 2024-07-12 17:37 | W.PN.NEPH.PH ---
Today's Communication / Plan
-
VT tomorrow
labs in Am
Assessment/Plan
-
Assessment
Bradycardia
ADAM
CKD4, baseline 2.5
Paroxysmal atrial fibrillation
Hypertension
Anemia
Anion gap metabolic acidosis
Hypothermia
Plan
Creatinine slight improvement at 2.9,
ok for VT tomorrow with close monitoring of PVR
potassium is normal , low K diet
improving met acidosis-cont po bicarb
Bp improving-increase hydralazine to 100 TID
azotemia worse, f/u h/h
follow labs
if cr cont to improve likely d/c soon
d/w pt and nursing
-
-
Date of Service: July 12, 2024
CC / HPI / ROS
-
Chief Complaint:
ADAM
History of Present Illness:
ADAM/Cr better at 2.9
BUN up at 83
acidosis worse at 17
BP stable
s/p PPM 07/01
k normal
Review of Systems:
no CP/SOB
Now with Esposito catheter since 07/09/2024 with good urine output
Labs
-
Labs:
WBC 7.1 10^3/uL (4.8-10.8) 07/05/24 08:00
RBC 3.15 10^6/uL (4.20-5.40) L 07/05/24 08:00
Hgb 9.4 g/dL (12.0-16.0) L 07/05/24 08:00
Hct 27.8 % (37.0-47.0) L 07/05/24 08:00
Plt Count 141 10^3/uL (130-400) 07/05/24 08:00
Sodium 131 mmol/L (135-145) L 07/12/24 05:58
Potassium 4.6 mmol/L (3.5-5.1) 07/12/24 05:58
Chloride 99 mmol/L (98-107) 07/12/24 05:58
Carbon Dioxide 19 mmol/L (22-30) L 07/12/24 05:58
BUN 84 mg/dl (7-17) H 07/12/24 05:58
Creatinine 2.9 mg/dL (0.6-1.0) H 07/12/24 05:58
eGFR 15.39 07/12/24 05:58
Glucose 108 mg/dl (70-99) H 07/12/24 05:58
Calcium 9.3 mg/dl (8.4-10.2) 07/12/24 05:58
Phosphorus 4.9 mg/dl (2.5-4.5) H 07/12/24 05:58
Wrs-J-Aphrmttrtrg Pept Cancelled 06/30/24 21:31
Albumin 3.7 g/dl (3.5-5.0) 06/30/24 21:28
Physical Exam
-
Vital Signs:
Vital Signs
Temp Pulse Resp BP Pulse Ox
97.2 F 61 16 129/52 98
07/12/24 15:15 07/12/24 15:15 07/12/24 15:15 07/12/24 15:15 07/12/24 15:15
Cardiovascular:: Regular rate and rhythm
Respiratory:: Bilateral: CTA
Lung Excursion:: Normal
Abdomen:: Nontender and Soft
Extremity Edema:: None: Bilateral:
Esposito Catheter: Yes
[2024-07-12 19:54] VITALS: BP 144/52; BP 154/57; BP 162/63; PULSE 61
[2024-07-12] MEDS: TYLENOL 650 MG PO (20:18)
[2024-07-12] MEDS: MELATONIN 5 MG PO (22:32)
[2024-07-12 23:43] VITALS: BP 134/52
[2024-07-13 06:00] VITALS: BMI 25.6
[2024-07-13 06:39] LABS: Hematocrit 24.9 % (37.0-47.0); Hemoglobin 8.7 g/dL (12.0-16.0); Mean Corp Hgb Conc. 34.9 g/dL (33.0-37.0); Mean Corpuscular Hgb 30.2 pg (27.0-31.0); Mean Corpuscular Volume 86.5 fL (81.0-99.0); Mean Platelet Volume 9.4 fL (7.4-10.4); Platelet Count 165 10^3/uL (130-400); Red Blood Cell Count 2.88 10^6/uL (4.20-5.40); Red Cell Dist. Width 14.6 % (11.5-14.5); White Blood Cell Count 7.7 10^3/uL (4.8-10.8)
[2024-07-13 07:04] LABS: Blood Urea Nitrogen 82 mg/dl (7-17); Calcium 9.1 mg/dl (8.4-10.2); Carbon Dioxide 18 mmol/L (22-30); Chloride 98 mmol/L (98-107); Estimated Creatinine Clearance 13 ml/min; Glucose 102 mg/dl (70-99); Magnesium 2.1 mg/dl (1.6-2.3); Phosphorus 5.3 mg/dl (2.5-4.5); Potassium 4.9 mmol/L (3.5-5.1); Sodium 133 mmol/L (135-145); eGFR 15.39
--- NOTE | 2024-07-13 07:16 | W.PN.HOSP.TC ---
Today's Communication/Plan
-
trial of void
blood pressure control
PT/OT
monitor renal function
trial low dose gabapentin bedtime likely neuropathy
Assessment / Plan
Assessment / Plan
Physical Exam
General: No acute distress appears comfortable at this time
HEENT: Atraumatic and Moist Mucous Membranes
Respiratory: Clear to Auscultation; Negative Wheezes, Rales or Rhonchi
Cardiac: Regular Rhythm, S1/S2 and Other (Left chest wall aquacell dressing noted )
GI: Soft, Nontender, Nondistended and Normal Bowel Sounds
Genito-urinary: Esposito
Musculoskeletal: No Clubbing, No Cyanosis and No Edema
Neuro: AOx3, numbness lower ext below knees w impaired 2 pt discrimination
Psych: Calm
A/P: Patient is an 84y F with PMH significant for PA-Fib, HTN and CKD who presents to ED for evaluation of bradycardia.
Symptomatic Bradycardia
- Initial HR in the 30s with junctional rhythm on monitor / EKG.
- s/p PPM placement
- BP is stable.
- Patient is on no chronotropic medications according to [facility] records (and to prior discharge summaries).
- Cardiology evaluation appreciated
- TFTs done in the ED are normal.
ADAM on CKD IV
Anion Gap Metabolic Acidosis
Hyperkalemia
- SCr worsened to 3.3 (compared to known baseline of 2.5).
- IVFs started in the ED since stopped
- Follow for changes in labs / lytes
- Bladder scan protocol. Wt up.
- K improving
- Slow downtrend creatinine with Esposito catheter placement. Trial of void started 07/13
- Nephrology eval appreciated PO bicarb started, continue
Paroxysmal Atrial Fibrillation
- Started on lopressor. cont
- Eliquis restarted, cont
Benign Hypertension
- Restart / currently on Amlodipine 10 mg daily
-Hydralazine increased to 100mg BID as per Nephro, cont
- Lopressor added 12.5 mg BID, cont
RUE swelling, suspect superficial thrombophlebitis, resolved
-Venous doppler negative. for DVT.
Anemia of CKD
-s/p 1u PRBC.
-H&H stable
#numbness lower ext's below knees b/l but strength intact
CT Lumbar Thoracic spine appreciated
Low normal B12
B12 supplementation started for possible symptomatic B12 deficiency
Neuro eval appreciated suspect due to lumbar radiculopathy vs renal insufficiency
trial low dose Gabapentin 100 mg HS likely Neuropathy
Constipation
-resolved.
DVT Prophylaxis: Eliquis
Code Status: Full
Dispo-back to [facility] on discharge.
discussed with patient and patient's grandson Julius
I spent a total of 50 minutes with the patient or on the floor. More than 50% of this time involved counseling and coordination of care.
Anticipated Discharge: 24 - 48 hours
Subjective/Interval History
-
Date of Service: July 13, 2024
Seen and examined at bedside in no acute distress resting comfortably in bed. Numbness lower ext below knees persists, strength remains intact.
Objective Data
-
Labs:
Laboratory Results
07/13/24
06:13
WBC 7.7
Hgb 8.7 L
Hct 24.9 L
Plt Count 165
Sodium 133 L
Potassium 4.9
Chloride 98
Carbon Dioxide 18 L
BUN 82 H
Creatinine 2.9 H
Glucose 102 H
Calcium 9.1
Vital Signs:
Vital Signs
Temp Pulse Resp BP Pulse Ox
97.2 F 61 17 134/52 98
07/12/24 23:43 07/12/24 23:43 07/12/24 23:43 07/12/24 23:43 07/13/24 00:47
I&O
07/12/24 07/13/24 07/14/24
06:59 06:59 06:59
Intake Total 1040 / 1040 1680 / 1680
Output Total 2350 / 2350 1825 / 1825
Balance -1310 / -1310 -145 / -145
[2024-07-13 07:25] VITALS: BP 142/53
[2024-07-13] MEDS: VITAMIN B-12 1000 MCG PO (08:02)
[2024-07-13] MEDS: SODIUM BICARBONATE 650 MG PO ×3 (08:02→22:07)
[2024-07-13] MEDS: NORVASC 10 MG PO (08:02)
[2024-07-13] MEDS: ELIQUIS 2.5 MG PO ×2 (08:02→20:05)
[2024-07-13] MEDS: DESENEX/MITRAZOL/ZEASORB 1 APPLIC TOPICAL ×2 (08:03→20:05)
[2024-07-13] MEDS: APRESOLINE 100 MG PO ×2 (08:08→20:05)
[2024-07-13] MEDS: LOPRESSOR 12.5 MG PO ×2 (08:08→20:05)
[2024-07-13] MEDS: MIRALAX 17 GRAMS PO (09:41)
--- NOTE | 2024-07-13 12:07 | W.PN.NEPH.PH ---
Today's Communication / Plan
-
Observe follow-up BMP
Assessment/Plan
-
Assessment
Bradycardia
ADAM
CKD4, baseline 2.5
Paroxysmal atrial fibrillation
Hypertension
Anemia
Anion gap metabolic acidosis
Hypothermia
Plan
Creatinine slight improvement at 2.9, nonoliguric
ok for VT today
potassium is normal , low K diet
improving met acidosis-cont po bicarb
Bp improving-increase hydralazine to 100 TID
follow labs
if creatinine continues to improve likely d/c soon
d/w pt
-
-
Date of Service: July 13, 2024
CC / HPI / ROS
-
Chief Complaint:
ADAM
History of Present Illness:
ADAM/Cr unchanged at 2.9
BUN up at 82
acidosis at 18
BP stable
s/p PPM 07/01
k normal
Review of Systems:
no CP/SOB
Now with Esposito catheter since 07/09/2024 with good urine output
Labs
-
Labs:
WBC 7.7 10^3/uL (4.8-10.8) 07/13/24 06:13
RBC 2.88 10^6/uL (4.20-5.40) L 07/13/24 06:13
Hgb 8.7 g/dL (12.0-16.0) L 07/13/24 06:13
Hct 24.9 % (37.0-47.0) L 07/13/24 06:13
Plt Count 165 10^3/uL (130-400) 07/13/24 06:13
Sodium 133 mmol/L (135-145) L 07/13/24 06:13
Potassium 4.9 mmol/L (3.5-5.1) 07/13/24 06:13
Chloride 98 mmol/L (98-107) 07/13/24 06:13
Carbon Dioxide 18 mmol/L (22-30) L 07/13/24 06:13
BUN 82 mg/dl (7-17) H 07/13/24 06:13
Creatinine 2.9 mg/dL (0.6-1.0) H 07/13/24 06:13
eGFR 15.39 07/13/24 06:13
Glucose 102 mg/dl (70-99) H 07/13/24 06:13
Calcium 9.1 mg/dl (8.4-10.2) 07/13/24 06:13
Phosphorus 5.3 mg/dl (2.5-4.5) H 07/13/24 06:13
Ywb-X-Cvdknyhasyk Pept Cancelled 06/30/24 21:31
Albumin 3.7 g/dl (3.5-5.0) 06/30/24 21:28
Physical Exam
-
Vital Signs:
Vital Signs
Temp Pulse Resp BP Pulse Ox
97.5 F 61 16 142/53 97
07/13/24 07:25 07/13/24 08:08 07/13/24 07:25 07/13/24 08:02 07/13/24 07:25
Cardiovascular:: Regular rate and rhythm
Respiratory:: Bilateral: CTA
Lung Excursion:: Normal
Abdomen:: Nontender and Soft
Extremity Edema:: None: Bilateral:
Esposito Catheter: Yes
--- NOTE | 2024-07-13 13:45 | CM ---
Reviewed the chart notes. CM continues to be available to patient/family and is monitoring medical plan for needs at discharge.
Plan: Discharge back to [facility] when medically stable.
Call report to: [phone]
Fax report to: [phone]
[2024-07-13 14:45] VITALS: BP 142/53; PULSE 61
[2024-07-13 15:35] VITALS: BP 127/53
[2024-07-13 17:55] VITALS: BP 152/57; BP 153/57; BP 161/58; PULSE 61; PULSE 62; PULSE 64
[2024-07-13] MEDS: NEURONTIN 100 MG PO (22:07)
[2024-07-13] MEDS: MELATONIN 5 MG PO (22:07)
[2024-07-13 23:04] VITALS: BP 149/58
--- NOTE | 2024-07-13 23:06 | PTCARENOTE ---
PCT unable to get oral temperature for 2200 vital signs. This nurse tookl two rectal temps which resulted 95.4 F and 95.6 F. Two different thermometers used. Patient skin feels warm to the touch. Patient has no symptoms at this time and is relaxing
in bed. Patients goal temperature is above 97 F. Messaged CHARMAINE. Placed Arjun Hugger over patient at medium setting. Will continue to monitor patient and check temperature every hour.
[2024-07-14 05:58] VITALS: BMI 25.8
[2024-07-14 06:48] LABS: Hematocrit 21.6 % (37.0-47.0); Hemoglobin 7.5 g/dL (12.0-16.0); Mean Corp Hgb Conc. 34.7 g/dL (33.0-37.0); Mean Corpuscular Volume 89.3 fL (81.0-99.0); Mean Platelet Volume 9.8 fL (7.4-10.4); Platelet Count 139 10^3/uL (130-400); Red Blood Cell Count 2.42 10^6/uL (4.20-5.40); Red Cell Dist. Width 14.4 % (11.5-14.5); White Blood Cell Count 7.1 10^3/uL (4.8-10.8)
[2024-07-14 07:17] LABS: Blood Urea Nitrogen 85 mg/dl (7-17); Calcium 9.2 mg/dl (8.4-10.2); Carbon Dioxide 21 mmol/L (22-30); Chloride 98 mmol/L (98-107); Estimated Creatinine Clearance 14 ml/min; Glucose 107 mg/dl (70-99); Phosphorus 4.9 mg/dl (2.5-4.5); Potassium 5.1 mmol/L (3.5-5.1); Sodium 130 mmol/L (135-145); eGFR 16.76
[2024-07-14 07:20] VITALS: BP 148/58
--- NOTE | 2024-07-14 07:28 | W.PN.HOSP.TC ---
Today's Communication/Plan
-
monitor renal function
monitor H&H
Gabapentin increased to 200 mg HS
cont PT/OT
Assessment / Plan
Assessment / Plan
Physical Exam
General: No acute distress appears comfortable at this time
HEENT: Atraumatic and Moist Mucous Membranes
Respiratory: Clear to Auscultation; Negative Wheezes, Rales or Rhonchi
Cardiac: Regular Rhythm, S1/S2 and Other (Left chest wall aquacell dressing noted )
GI: Soft, Nontender, Nondistended and Normal Bowel Sounds
Genito-urinary: Esposito
Musculoskeletal: No Clubbing, No Cyanosis and No Edema
Neuro: AOx3, numbness lower ext below knees w impaired 2 pt discrimination
Psych: Calm
A/P: Patient is an 84y F with PMH significant for PA-Fib, HTN and CKD who presents to ED for evaluation of bradycardia.
Symptomatic Bradycardia
- Initial HR in the 30s with junctional rhythm on monitor / EKG.
- s/p PPM placement
- BP is stable.
- Patient is on no chronotropic medications according to [facility] records (and to prior discharge summaries).
- Cardiology evaluation appreciated
- TFTs done in the ED are normal.
ADAM on CKD IV
Anion Gap Metabolic Acidosis
Hyperkalemia
- SCr worsened to 3.3 (compared to known baseline of 2.5).
- IVFs started in the ED since stopped
- Follow for changes in labs / lytes
- Bladder scan protocol. Wt up.
- K improving
- Slow downtrend creatinine with Esposito catheter placement. Trial of void started 07/13
- Nephrology eval appreciated PO bicarb started, continue
-home Lasix restarted as per Nephro
Paroxysmal Atrial Fibrillation
- Started on lopressor. cont
- Eliquis restarted, cont
Benign Hypertension
- Restarted / currently on Amlodipine 10 mg daily
-Hydralazine increased to 100mg BID as per Nephro, cont
- Lopressor added 12.5 mg BID, cont
RUE swelling, suspect superficial thrombophlebitis, resolved
-Venous doppler negative. for DVT.
Anemia of CKD
-s/p 1u PRBC.
-monitor H&H, appears stable at this time
#numbness lower ext's below knees b/l but strength intact
CT Lumbar Thoracic spine appreciated
Low normal B12
B12 supplementation started for possible symptomatic B12 deficiency
Neuro eval appreciated suspect due to lumbar radiculopathy vs renal insufficiency
trial low dose Gabapentin 200 mg HS likely Neuropathy
#Mild Hypothermia/Cold stressed (temp 95-98.6) noted overnight
repeat TSH mildly elevated but T4 wnl
repeat Random Cortisol wnl
would cont to monitor for now, not necessary to treat unless patient is symptomatic
Constipation
-resolved.
DVT Prophylaxis: Eliquis
Code Status: Full
Dispo-back to [facility] on discharge.
I spent a total of 50 minutes with the patient or on the floor. More than 50% of this time involved counseling and coordination of care.
Anticipated Discharge: 24 - 48 hours
Subjective/Interval History
-
Date of Service: July 14, 2024
No acute distress. Appears comfortable at this time. Numbness lower ext's below knees persist. Mild Hypothermia noted overnight
Objective Data
-
Labs:
Laboratory Results
07/14/24
06:25
WBC 7.1
Hgb 7.5 L
Hct 21.6 L
Plt Count 139
Sodium 130 L
Potassium 5.1
Chloride 98
Carbon Dioxide 21 L
BUN 85 H
Creatinine 2.7 H
Glucose 107 H
Calcium 9.2
Vital Signs:
Vital Signs
Temp Pulse Resp BP Pulse Ox
97.1 F 61 20 149/58 98
07/14/24 01:00 07/13/24 23:04 07/13/24 23:04 07/13/24 23:04 07/14/24 00:56
I&O
07/13/24 07/14/24 07/15/24
06:59 06:59 06:59
Intake Total 1680 / 1680 782 / 782
Output Total 1825 / 1825
Balance -145 / -145 782 / 782
[2024-07-14] MEDS: APRESOLINE 100 MG PO ×2 (07:50→20:18)
[2024-07-14] MEDS: SODIUM BICARBONATE 650 MG PO ×3 (07:51→21:14)
[2024-07-14] MEDS: VITAMIN B-12 1000 MCG PO (07:51)
[2024-07-14] MEDS: LOPRESSOR 12.5 MG PO ×2 (07:51→20:17)
[2024-07-14] MEDS: MIRALAX 17 GRAMS PO (07:51)
[2024-07-14] MEDS: ELIQUIS 2.5 MG PO ×2 (07:51→20:18)
[2024-07-14] MEDS: NORVASC 10 MG PO (07:51)
[2024-07-14] MEDS: DESENEX/MITRAZOL/ZEASORB 1 APPLIC TOPICAL ×2 (07:53→20:18)
--- NOTE | 2024-07-14 11:35 | W.PN.NEPH.PH ---
Today's Communication / Plan
-
Restart Lasix 20 mg daily
Assessment/Plan
-
Assessment
Bradycardia
ADAM
CKD4, baseline 2.5
Paroxysmal atrial fibrillation
Hypertension
Anemia
Anion gap metabolic acidosis
Hypothermia
Plan
Creatinine slight improvement at 2.7, nonoliguric
Campos catheter now
Sodium dropping to 130, will re initiate lasix
potassium is normal , low K diet
improving met acidosis-cont po bicarb
bp stable on amlodipine, hydralazine, and metoprolol
Hemoglobin dropping, likely due to multifactorial reasons including CKD
Stable for discharge from nephrology standpoint
-
-
Date of Service: July 14, 2024
CC / HPI / ROS
-
Chief Complaint:
ADAM
History of Present Illness:
ADAM/Cr unchanged at 2.7
BUN up at 85
acidosis at 21
BP stable
s/p PPM 07/01
k rising
Sodium down to 130
Review of Systems:
no CP/SOB
campos now out
Labs
-
Labs:
WBC 7.1 10^3/uL (4.8-10.8) 07/14/24 06:25
RBC 2.42 10^6/uL (4.20-5.40) L 07/14/24 06:25
Plt Count 139 10^3/uL (130-400) 07/14/24 06:25
Sodium 130 mmol/L (135-145) L 07/14/24 06:25
Potassium 5.1 mmol/L (3.5-5.1) 07/14/24 06:25
Chloride 98 mmol/L (98-107) 07/14/24 06:25
Carbon Dioxide 21 mmol/L (22-30) L 07/14/24 06:25
BUN 85 mg/dl (7-17) H 07/14/24 06:25
Creatinine 2.7 mg/dL (0.6-1.0) H 07/14/24 06:25
eGFR 16.76 07/14/24 06:25
Glucose 107 mg/dl (70-99) H 07/14/24 06:25
Calcium 9.2 mg/dl (8.4-10.2) 07/14/24 06:25
Phosphorus 4.9 mg/dl (2.5-4.5) H 07/14/24 06:25
Ryd-X-Fucwpsqsmwz Pept Cancelled 06/30/24 21:31
Albumin 3.7 g/dl (3.5-5.0) 06/30/24 21:28
Physical Exam
-
Vital Signs:
Vital Signs
Temp Pulse Resp BP Pulse Ox
97.8 F 61 16 148/58 96
07/14/24 07:20 07/14/24 07:50 07/14/24 07:20 07/14/24 07:50 07/14/24 10:12
Cardiovascular:: Regular rate and rhythm
Respiratory:: Bilateral: Coarse
Lung Excursion:: Normal
Abdomen:: Nontender and Soft
Bowel Sounds:: Normal
Extremity Edema:: +1: Bilateral:
Campos Catheter: No
[2024-07-14 12:48] LABS: Hematocrit 21.6 % (37.0-47.0); Hemoglobin 7.5 g/dL (12.0-16.0)
[2024-07-14] MEDS: LASIX 20 MG PO (12:48)
[2024-07-14 13:02] LABS: Cortisol, Random 14.5 ug/dl; TSH Reflex To Free T4 5.56 uIU/ml (0.47-4.68)
[2024-07-14 13:31] LABS: Free T4 0.98 ng/dl (0.78-2.19)
--- NOTE | 2024-07-14 14:01 | CM ---
Reviewed the chart notes and spoke with the patient at the bedside. IMM reviewed. CM continues to be available to patient/family and is monitoring medical plan for needs at discharge.
Plan: Discharge back to [facility] when medically stable.
Call report to: [phone]
Fax report to: [phone]
[2024-07-14 15:20] VITALS: BP 120/51
[2024-07-14] MEDS: TYLENOL 650 MG PO (20:17)
[2024-07-14 20:21] VITALS: BP 146/57
[2024-07-14] MEDS: NEURONTIN 200 MG PO (21:09)
[2024-07-14] MEDS: MELATONIN 5 MG PO (21:14)
[2024-07-14 23:00] VITALS: BP 144/54
[2024-07-15 06:00] VITALS: BMI 26.8
[2024-07-15 07:00] VITALS: BP 148/62; BP 151/61; BP 152/62; PULSE 60; PULSE 64; PULSE 68
[2024-07-15 07:31] LABS: Hematocrit 21.7 % (37.0-47.0); Hemoglobin 7.4 g/dL (12.0-16.0); Mean Corp Hgb Conc. 34.1 g/dL (33.0-37.0); Mean Corpuscular Hgb 29.7 pg (27.0-31.0); Mean Corpuscular Volume 87.1 fL (81.0-99.0); Mean Platelet Volume 9.6 fL (7.4-10.4); Platelet Count 138 10^3/uL (130-400); Red Blood Cell Count 2.49 10^6/uL (4.20-5.40); Red Cell Dist. Width 14.5 % (11.5-14.5); White Blood Cell Count 6.3 10^3/uL (4.8-10.8)
--- NOTE | 2024-07-15 07:31 | W.PN.HOSP.TC ---
Today's Communication/Plan
-
once retacrit
monitor H&H
monitor renal function
Gabapentin and Metoprolol placed on hold d/t possible contribution mild hypothermia/cold stress
See below plan for management cold stress/mild hypothermia
Assessment / Plan
Assessment / Plan
Physical Exam
General: No acute distress appears comfortable at this time
HEENT: Atraumatic and Moist Mucous Membranes
Respiratory: Clear to Auscultation; Negative Wheezes, Rales or Rhonchi
Cardiac: Regular Rhythm, S1/S2 palpable pacemaker
GI: Soft, Nontender, Nondistended and Normal Bowel Sounds
Genito-urinary: Esposito
Musculoskeletal: No Clubbing, No Cyanosis and No Edema
Neuro: AOx3, numbness lower ext below knees w impaired 2 pt discrimination
Psych: Calm
A/P: Patient is an 84y F with PMH significant for PA-Fib, HTN and CKD who presents to ED for evaluation of bradycardia.
Symptomatic Bradycardia
- Initial HR in the 30s with junctional rhythm on monitor / EKG.
- s/p PPM placement
- BP is stable.
- Patient is on no chronotropic medications according to [facility] records (and to prior discharge summaries).
- Cardiology evaluation appreciated
- TFTs done in the ED are normal.
ADAM on CKD IV
Anion Gap Metabolic Acidosis
Hyperkalemia
- SCr worsened to 3.3 (compared to known baseline of 2.5).
- IVFs started in the ED since stopped
- Follow for changes in labs / lytes
- Bladder scan protocol. Wt up.
- K improving
- Slow downtrend creatinine with Esposito catheter placement. Passed Trial of void 07/13
- Nephrology eval appreciated PO bicarb started and home Lasix resumed, continue
Paroxysmal Atrial Fibrillation
- Started on lopressor, possibly contributing to hypothermia/cold stress, placed on hold (dose is low in any event and doesn't appear to be necessary at this time)
- Eliquis restarted, cont
Benign Hypertension
- Restarted / currently on Amlodipine 10 mg daily
-Hydralazine increased to 100mg BID as per Nephro, cont
- Lopressor added 12.5 mg BID but placed on hold as above
RUE swelling, suspect superficial thrombophlebitis, resolved
-Venous doppler negative. for DVT.
Anemia of CKD
-s/p 1u PRBC.
-monitor H&H, appears stable at this time though trended down
-once retacrit 07/15
#numbness lower ext's below knees b/l but strength intact
CT Lumbar Thoracic spine appreciated
Low normal B12
B12 supplementation started for possible symptomatic B12 deficiency
Neuro eval appreciated suspect due to lumbar radiculopathy vs renal insufficiency
trial low dose Gabapentin 200 mg HS likely Neuropathy, however placed on hold d/t possible contribution cold stress/mild hypothermia
#Mild Hypothermia (temp<95F but >90F)/Cold stress (temp 95F-98.6F) noted overnight
repeat TSH mildly elevated but T4 wnl
repeat Random Cortisol wnl
Metoprolol and Gabapentin placed on hold as above, possibly contributing
If asymptomatic, no intervention is necessary temp 95F or above (defined as 'cold stress')
If temp <95F, regardless of asymptomatic or not, apply warm blankets, use martha hugger if no improvement noted.
Constipation
-resolved.
DVT Prophylaxis: Eliquis
Code Status: Full
Dispo-back to [facility] on discharge.
I spent a total of 50 minutes with the patient or on the floor. More than 50% of this time involved counseling and coordination of care.
Anticipated Discharge: 24 - 48 hours
Subjective/Interval History
-
Date of Service: July 15, 2024
No acute distress sitting up comfortably in chair. Reports overall feeling well. Cold stress overnight noted Temp low 96.6 asymptomatic as per patient. Denies new acute issues.
Objective Data
-
Labs:
Laboratory Results
07/15/24
06:33
WBC Pending
Hgb Pending
Hct Pending
Plt Count Pending
Sodium Pending
Potassium Pending
Chloride Pending
Carbon Dioxide Pending
BUN Pending
Creatinine Pending
Glucose Pending
Calcium Pending
Vital Signs:
Vital Signs
Temp Pulse Resp BP Pulse Ox
97.5 F 61 18 144/54 96
07/15/24 02:38 07/14/24 23:00 07/14/24 23:00 07/14/24 23:00 07/14/24 23:00
I&O
07/14/24 07/15/24 07/16/24
06:59 06:59 06:59
Intake Total 782 / 782 1260 / 1260
Balance 782 / 782 1260 / 1260
[2024-07-15 08:04] LABS: Blood Urea Nitrogen 84 mg/dl (7-17); Calcium 8.9 mg/dl (8.4-10.2); Carbon Dioxide 21 mmol/L (22-30); Chloride 97 mmol/L (98-107); Estimated Creatinine Clearance 13 ml/min; Glucose 99 mg/dl (70-99); Magnesium 2.1 mg/dl (1.6-2.3); Phosphorus 5.1 mg/dl (2.5-4.5); Potassium 4.7 mmol/L (3.5-5.1); Sodium 130 mmol/L (135-145); eGFR 16.05
[2024-07-15] MEDS: VITAMIN B-12 1000 MCG PO (09:27)
[2024-07-15] MEDS: LOPRESSOR 12.5 MG PO (09:27)
[2024-07-15] MEDS: LASIX 20 MG PO (09:27)
[2024-07-15] MEDS: NORVASC 10 MG PO (09:27)
[2024-07-15] MEDS: MIRALAX 17 GRAMS PO (09:27)
[2024-07-15] MEDS: SODIUM BICARBONATE 650 MG PO ×3 (09:27→21:51)
[2024-07-15] MEDS: ELIQUIS 2.5 MG PO ×2 (09:27→20:39)
[2024-07-15] MEDS: APRESOLINE 100 MG PO ×2 (09:27→20:39)
[2024-07-15] MEDS: DESENEX/MITRAZOL/ZEASORB 1 APPLIC TOPICAL ×2 (09:28→20:39)
[2024-07-15 11:15] VITALS: BP 124/48; PULSE 60; O2SAT 99
[2024-07-15] MEDS: RETACRIT 10000 UNITS SC (11:24)
--- NOTE | 2024-07-15 13:59 | CM ---
Addendum entered by Genny Duff 07/15/24 16:12:
imm letter signed and placed in chart.
Original Note:
met with patient at bedside. cr 2.7 and improving,monitor hgb,inc gabapentin at hs,sp ppm.spoke with attending.patient is ready to return to [facility] on thursday.i spoke with ever at facility and she is able to accept patient on thursday.
ever will be on the weekend at [phone].
phone number to call report is [phone] and fax number is [phone].
--- NOTE | 2024-07-15 15:29 | W.PN.NEPH.PH ---
Today's Communication / Plan
-
d/c plan
Assessment/Plan
-
Assessment
Bradycardia
ADAM
CKD4, baseline 2.5
Paroxysmal atrial fibrillation
Hypertension
Anemia
Anion gap metabolic acidosis
Hypothermia
Plan
Creatinine stable at 2.8, nonoliguric
off Esposito catheter now, follow blader scan
hyponatremia stable at 130, restarted lasix
potassium is normal , low K diet
improving met acidosis-cont po bicarb
bp stable on amlodipine, hydralazine, and metoprolol
Hemoglobin dropping, likely due to multifactorial reasons including CKD, dose ANIRUDH today
Stable for discharge from nephrology standpoint
BMP next week
f/u nephro
-
-
Date of Service: July 15, 2024
CC / HPI / ROS
-
Chief Complaint:
ADAM
History of Present Illness:
ADAM/Cr stable at 2.8
BUN up at 84
acidosis at 21
BP stable
s/p PPM 07/01
k normal
Sodium stable 130
Review of Systems:
no CP/SOB
no dysuria of ffoley
Labs
-
Labs:
WBC 6.3 10^3/uL (4.8-10.8) 07/15/24 06:33
RBC 2.49 10^6/uL (4.20-5.40) L 07/15/24 06:33
Hgb 7.4 g/dL (12.0-16.0) L 07/15/24 06:33
Hct 21.7 % (37.0-47.0) L 07/15/24 06:33
Plt Count 138 10^3/uL (130-400) 07/15/24 06:33
Sodium 130 mmol/L (135-145) L 07/15/24 06:33
Potassium 4.7 mmol/L (3.5-5.1) 07/15/24 06:33
Chloride 97 mmol/L (98-107) L 07/15/24 06:33
Carbon Dioxide 21 mmol/L (22-30) L 07/15/24 06:33
BUN 84 mg/dl (7-17) H 07/15/24 06:33
Creatinine 2.8 mg/dL (0.6-1.0) H 07/15/24 06:33
eGFR 16.05 07/15/24 06:33
Glucose 99 mg/dl (70-99) 07/15/24 06:33
Calcium 8.9 mg/dl (8.4-10.2) 07/15/24 06:33
Phosphorus 5.1 mg/dl (2.5-4.5) H 07/15/24 06:33
Fro-R-Sjiwdxgllur Pept Cancelled 06/30/24 21:31
Albumin 3.7 g/dl (3.5-5.0) 06/30/24 21:28
Physical Exam
-
Vital Signs:
Vital Signs
Temp Pulse Resp BP Pulse Ox
97.5 F 60 18 148/62 96
07/15/24 07:00 07/15/24 07:00 07/15/24 07:00 07/15/24 09:27 07/15/24 13:03
Cardiovascular:: Regular rate and rhythm
Respiratory:: Bilateral: CTA
Lung Excursion:: Normal
Abdomen:: Nontender and Soft
Extremity Edema:: None: Bilateral:
Esposito Catheter: No
[2024-07-15 15:40] VITALS: BP 119/55
[2024-07-15 21:12] VITALS: BP 138/56; BP 143/51; BP 143/57; PULSE 61; PULSE 63; PULSE 64
[2024-07-15] MEDS: MELATONIN 5 MG PO (21:51)
[2024-07-15] MEDS: TYLENOL 650 MG PO (21:54)
[2024-07-15 23:17] VITALS: BP 130/50
[2024-07-16 06:00] VITALS: BMI 27.1
[2024-07-16 06:54] LABS: Hemoglobin 7.5 g/dL (12.0-16.0); Mean Corp Hgb Conc. 34.1 g/dL (33.0-37.0); Mean Corpuscular Hgb 30.5 pg (27.0-31.0); Mean Corpuscular Volume 89.4 fL (81.0-99.0); Mean Platelet Volume 9.7 fL (7.4-10.4); Platelet Count 152 10^3/uL (130-400); Red Blood Cell Count 2.46 10^6/uL (4.20-5.40); Red Cell Dist. Width 14.5 % (11.5-14.5); White Blood Cell Count 7.9 10^3/uL (4.8-10.8)
[2024-07-16 07:25] VITALS: BP 131/46
[2024-07-16 07:27] LABS: Blood Urea Nitrogen 89 mg/dl (7-17); Calcium 8.9 mg/dl (8.4-10.2); Carbon Dioxide 20 mmol/L (22-30); Chloride 96 mmol/L (98-107); Estimated Creatinine Clearance 13 ml/min; Glucose 90 mg/dl (70-99); Phosphorus 5.5 mg/dl (2.5-4.5); Potassium 5.4 mmol/L (3.5-5.1); Sodium 129 mmol/L (135-145); eGFR 16.05
--- NOTE | 2024-07-16 07:37 | W.PN.HOSP.TC ---
Today's Communication/Plan
-
Lasix as per nephro
bladder scans prn
monitor renal function, K, Na
Cold stress/Mild Hypothermia mgmt as below
cont monitor Temp
Assessment / Plan
Assessment / Plan
Physical Exam
General: No acute distress appears comfortable at this time
HEENT: Atraumatic and Moist Mucous Membranes
Respiratory: Clear to Auscultation; Negative Wheezes, Rales or Rhonchi
Cardiac: Regular Rhythm, S1/S2 palpable pacemaker
GI: Soft, Nontender, Nondistended and Normal Bowel Sounds
Genito-urinary: Esposito
Musculoskeletal: No Clubbing, No Cyanosis and No Edema
Neuro: AOx3, numbness lower ext below knees w impaired 2 pt discrimination
Psych: Calm
A/P: Patient is an 84y F with PMH significant for PA-Fib, HTN and CKD who presents to ED for evaluation of bradycardia.
Symptomatic Bradycardia
- Initial HR in the 30s with junctional rhythm on monitor / EKG.
- s/p PPM placement
- BP is stable.
- Patient is on no chronotropic medications according to [facility] records (and to prior discharge summaries).
- Cardiology evaluation appreciated
- TFTs done in the ED are normal.
ADAM on CKD IV
Anion Gap Metabolic Acidosis mild
Hyperkalemia
Hyponatremia mild
- SCr worsened to 3.3 (compared to known baseline of 2.5) since improved
- Slow downtrend creatinine with Esposito catheter placement. Passed Trial of void 07/13
- Nephrology eval appreciated PO bicarb started and home Lasix resumed
-extra dose IV lasix 07/16 as per nephro d/t progressive hyponatremia and recurrence mild hyperkalemia, concern for retention, cont bladder scan prn, low threshold to restart Esposito
Paroxysmal Atrial Fibrillation
- Started on Lopressor, possibly contributing to hypothermia/cold stress, placed on hold (dose is low in any event and doesn't appear to be necessary at this time)
- Eliquis restarted, cont
Benign Hypertension
- Restarted / currently on Amlodipine 10 mg daily
-Hydralazine increased to 100mg BID as per Nephro, cont
- Lopressor added 12.5 mg BID but placed on hold as above
RUE swelling, suspect superficial thrombophlebitis, resolved
-Venous doppler negative. for DVT.
Anemia of CKD
-s/p 1u PRBC.
-monitor H&H, appears stable at this time though trended down to mid 7's
-once retacrit 07/15
#numbness lower ext's below knees b/l but strength intact
CT Lumbar Thoracic spine appreciated
Low normal B12
B12 supplementation started for possible symptomatic B12 deficiency
Neuro eval appreciated suspect due to lumbar radiculopathy vs renal insufficiency
trial low dose Gabapentin 200 mg HS likely Neuropathy, however placed on hold d/t possible contribution cold stress/mild hypothermia (no clear benefit noted while in use)
#Mild Hypothermia (temp<95F but >90F)/Cold stress (temp 95F-98.6F) noted overnight
repeat TSH mildly elevated but T4 wnl
repeat Random Cortisol wnl
Metoprolol and Gabapentin placed on hold as above, possibly contributing
If asymptomatic, no intervention is necessary temp 95F or above (defined as 'cold stress')
If temp <95F, regardless of asymptomatic or not, apply warm blankets, use martha hugger if no improvement noted.
Constipation
-resolved.
DVT Prophylaxis: Eliquis
Code Status: Full
Dispo-back to [facility] on discharge.
I spent a total of 50 minutes with the patient or on the floor. More than 50% of this time involved counseling and coordination of care.
Anticipated Discharge: 24 - 48 hours
Subjective/Interval History
-
Date of Service: July 16, 2024
Mild hypothermia overnight required martha hugger to resolve. Reports asymptomatics, denies feeling cold at the time. Otherwise denies new acute issues. Reports overall feeling well.
Objective Data
-
Labs:
Laboratory Results
07/16/24
06:23
WBC 7.9
Hgb 7.5 L
Hct 22.0 L
Plt Count 152
Sodium 129 L
Potassium 5.4 H
Chloride 96 L
Carbon Dioxide 20 L
BUN 89 H
Creatinine 2.8 H
Glucose 90
Calcium 8.9
Vital Signs:
Vital Signs
Temp Pulse Resp BP Pulse Ox
98.0 F 61 18 131/46 98
07/16/24 07:25 07/16/24 07:25 07/16/24 07:25 07/16/24 07:25 07/16/24 07:25
I&O
07/15/24 07/16/24 07/17/24
06:59 06:59 06:59
Intake Total 1260 / 1260 680 / 680
Balance 1260 / 1260 680 / 680
[2024-07-16] MEDS: NORVASC 10 MG PO (08:18)
[2024-07-16] MEDS: VITAMIN B-12 1000 MCG PO (08:18)
[2024-07-16] MEDS: ELIQUIS 2.5 MG PO ×2 (08:18→19:46)
[2024-07-16] MEDS: APRESOLINE 100 MG PO ×2 (08:18→19:46)
[2024-07-16] MEDS: SODIUM BICARBONATE 650 MG PO ×3 (08:19→22:01)
[2024-07-16] MEDS: LASIX 20 MG PO (08:19)
[2024-07-16] MEDS: MIRALAX 17 GRAMS PO (08:20)
[2024-07-16] MEDS: DESENEX/MITRAZOL/ZEASORB 1 APPLIC TOPICAL ×2 (08:20→19:49)
--- NOTE | 2024-07-16 09:18 | W.PN.NEPH.PH ---
Today's Communication / Plan
-
extra dose lasix
bladder scan, low threshold for campos
Assessment/Plan
-
Assessment
Bradycardia
ADAM
CKD4, baseline 2.5
Paroxysmal atrial fibrillation
Hypertension
Anemia
Anion gap metabolic acidosis
Hypothermia
Plan
Creatinine stable at 2.8, nonoliguric
off Campos catheter now, follow blader scan, may have retention
hyponatremia lower at 129, extra dose lasix, FR
Hyperkalemia-follow with lasix, low K diet
stable met acidosis-cont po bicarb
bp stable on amlodipine, hydralazine, and metoprolol
Hemoglobin dropping, likely due to multifactorial reasons including CKD, dose ANIRUDH 07/15
f/u nephro out pt
-
-
Date of Service: July 16, 2024
CC / HPI / ROS
-
Chief Complaint:
ADAM
History of Present Illness:
ADAM/Cr stable at 2.8, k up at 5.4
BUN up at 89
acidosis at 20
BP stable
s/p PPM 07/01
k normal
Sodium low 129
hb low at 7.5
Review of Systems:
no CP/SOB
no dysuria off ffoley
had BM yesterday
Labs
-
Labs:
WBC 7.9 10^3/uL (4.8-10.8) 07/16/24 06:23
RBC 2.46 10^6/uL (4.20-5.40) L 07/16/24 06:23
Hgb 7.5 g/dL (12.0-16.0) L 07/16/24 06:23
Hct 22.0 % (37.0-47.0) L 07/16/24 06:23
Plt Count 152 10^3/uL (130-400) 07/16/24 06:23
Sodium 129 mmol/L (135-145) L 07/16/24 06:23
Potassium 5.4 mmol/L (3.5-5.1) H 07/16/24 06:23
Chloride 96 mmol/L (98-107) L 07/16/24 06:23
Carbon Dioxide 20 mmol/L (22-30) L 07/16/24 06:23
BUN 89 mg/dl (7-17) H 07/16/24 06:23
Creatinine 2.8 mg/dL (0.6-1.0) H 07/16/24 06:23
eGFR 16.05 07/16/24 06:23
Glucose 90 mg/dl (70-99) 07/16/24 06:23
Calcium 8.9 mg/dl (8.4-10.2) 07/16/24 06:23
Phosphorus 5.5 mg/dl (2.5-4.5) H 07/16/24 06:23
Jec-N-Qniddpadoun Pept Cancelled 06/30/24 21:31
Albumin 3.7 g/dl (3.5-5.0) 06/30/24 21:28
Physical Exam
-
Vital Signs:
Vital Signs
Temp Pulse Resp BP Pulse Ox
98.0 F 61 18 131/46 98
07/16/24 07:25 07/16/24 08:19 07/16/24 07:25 07/16/24 08:19 07/16/24 07:25
Cardiovascular:: Regular rate and rhythm
Respiratory:: Bilateral: CTA
Lung Excursion:: Normal
Abdomen:: Nontender and Soft
Extremity Edema:: None: Bilateral:
Campos Catheter: No
[2024-07-16] MEDS: LASIX 20 MG IV (10:51)
[2024-07-16 11:03] VITALS: BP 111/49
[2024-07-16 15:30] VITALS: BP 134/50; BP 145/48; BP 149/56; PULSE 61; PULSE 62
[2024-07-16 19:37] VITALS: BP 142/48
[2024-07-16] MEDS: TYLENOL 650 MG PO (22:00)
[2024-07-16] MEDS: MELATONIN 5 MG PO (22:01)
[2024-07-16 23:53] VITALS: BP 135/50
[2024-07-17] VITALS (7 sets, daily range): BP systolic 133–148; BP diastolic 49–55; BMI 26.8
[2024-07-17 06:26] LABS: Blood Urea Nitrogen 92 mg/dl (7-17); Calcium 8.7 mg/dl (8.4-10.2); Carbon Dioxide 21 mmol/L (22-30); Chloride 98 mmol/L (98-107); Estimated Creatinine Clearance 13 ml/min; Glucose 104 mg/dl (70-99); Magnesium 2.1 mg/dl (1.6-2.3); Phosphorus 5.7 mg/dl (2.5-4.5); Potassium 4.7 mmol/L (3.5-5.1); Sodium 131 mmol/L (135-145); eGFR 15.39
[2024-07-17 06:28] LABS: Hematocrit 20.6 % (37.0-47.0); Hemoglobin 7.1 g/dL (12.0-16.0); Mean Corp Hgb Conc. 34.5 g/dL (33.0-37.0); Mean Corpuscular Hgb 30.6 pg (27.0-31.0); Mean Corpuscular Volume 88.8 fL (81.0-99.0); Mean Platelet Volume 9.5 fL (7.4-10.4); Platelet Count 122 10^3/uL (130-400); Red Blood Cell Count 2.32 10^6/uL (4.20-5.40); Red Cell Dist. Width 14.5 % (11.5-14.5); White Blood Cell Count 5.6 10^3/uL (4.8-10.8)
--- NOTE | 2024-07-17 06:46 | W.PN.UPDATE ---
Update Note
Progress Note Update
RN notified [employer], hgb 7.1/20.6, Temp of 94.4, stable VS otherwise, no active bleeding, patient asymptomatic. Blood consent is in chart, will order one unit of PRBC's. Patient is on Eliquis, will hold.
Advise to apply warm blankets, use Arjun hugger for low temp of 94.4.
--- NOTE | 2024-07-17 06:50 | PTCARENOTE ---
Patient had a critical Hematocrit of 20.6... and Hemoglobin was 7.1. Advised covering provider. orders received.
--- NOTE | 2024-07-17 08:46 | W.PN.HOSP.TC ---
Today's Communication/Plan
-
follow up H&H response to transfusion w/ AM labs
bedtime melatonin dose reduced and changed to prn (possibly contributing to cold stress/mild hypothermia overnight)
Monitor renal function Temp
paraprotein evaluation as per nephro
PT/OT
Assessment / Plan
Assessment / Plan
Physical Exam
General: No acute distress appears comfortable at this time
HEENT: Atraumatic and Moist Mucous Membranes
Respiratory: Clear to Auscultation; Negative Wheezes, Rales or Rhonchi
Cardiac: Regular Rhythm, S1/S2 palpable pacemaker
GI: Soft, Nontender, Nondistended and Normal Bowel Sounds
Genito-urinary: Esposito
Musculoskeletal: No Clubbing, No Cyanosis and No Edema
Neuro: AOx3, numbness lower ext below knees w impaired 2 pt discrimination
Psych: Calm
A/P: Patient is an 84y F with PMH significant for PA-Fib, HTN and CKD who presents to ED for evaluation of bradycardia.
Symptomatic Bradycardia
- Initial HR in the 30s with junctional rhythm on monitor / EKG.
- s/p PPM placement
- BP is stable.
- Patient is on no chronotropic medications according to [facility] records (and to prior discharge summaries).
- Cardiology evaluation appreciated
- TFTs done in the ED are normal.
ADAM on CKD IV
Anion Gap Metabolic Acidosis mild
Hyperkalemia
Hyponatremia mild
- SCr worsened to 3.3 (compared to known baseline of 2.5) since improved
- Slow downtrend creatinine with Esposito catheter placement. Passed Trial of void 07/13
- Nephrology eval appreciated PO bicarb started and home Lasix resumed
-extra dose IV lasix 07/16 as per nephro d/t progressive hyponatremia and recurrence mild hyperkalemia, concern for retention, cont bladder scan prn, low threshold to restart Esposito
Paroxysmal Atrial Fibrillation
- Started on Lopressor, possibly contributing to hypothermia/cold stress, placed on hold (dose is low in any event and doesn't appear to be necessary at this time)
- Eliquis restarted, cont
Benign Hypertension
- Restarted / currently on Amlodipine 10 mg daily
-Hydralazine increased to 100mg BID as per Nephro, cont
- Lopressor added 12.5 mg BID but placed on hold as above
RUE swelling, suspect superficial thrombophlebitis, resolved
-Venous doppler negative. for DVT.
Anemia of CKD
-s/p 1u PRBC.
-monitor H&H, appears stable at this time though trended down to mid 7's
-once retacrit 07/15
-repeat 1PRBC transfusion 07/17 for Hgb 7.1, no obvious signs of bleeding, follow up post-transfusion response with AM labs
- checking for paraprotein as per Nephro
#numbness lower ext's below knees b/l but strength intact
CT Lumbar Thoracic spine appreciated
Low normal B12
B12 supplementation started for possible symptomatic B12 deficiency
Neuro eval appreciated suspect due to lumbar radiculopathy vs renal insufficiency
trial low dose Gabapentin 200 mg HS likely Neuropathy, however placed on hold d/t possible contribution cold stress/mild hypothermia (no clear benefit noted while in use)
#Mild Hypothermia (temp<95F but >90F)/Cold stress (temp 95F-98.6F) noted overnight
repeat TSH mildly elevated but T4 wnl
repeat Random Cortisol wnl
Metoprolol and Gabapentin placed on hold as above, possibly contributing, bedtime Melatonin dose reduced to 3 mg and changed to prn instead of scheduled
Anemia also possibly contributing, recent transfusion 07/17 as above
If asymptomatic, no intervention is necessary temp 95F or above (defined as 'cold stress')
If temp <95F, regardless of asymptomatic or not, apply warm blankets, use martha hugger if no improvement noted.
Constipation
-resolved.
PT/OT appreciated return to SNF on discharge, ambulatory function appears to be near baseline
DVT Prophylaxis: Eliquis
Code Status: Full
Dispo-back to [facility] on discharge.
discussed with patient and patient's grandson Julius
I spent a total of 50 minutes with the patient or on the floor. More than 50% of this time involved counseling and coordination of care.
Anticipated Discharge: 24 - 48 hours
Subjective/Interval History
-
Date of Service: July 17, 2024
Seen and examined at bedside in no acute distress sitting up comfortably in bed. Hypothermia/Cold Stress improved compared to previous nights. Temp was wnl till morning 94F noted asymptomatic, resolved very quickly.
Objective Data
-
Labs:
Laboratory Results
07/17/24
05:41
WBC 5.6
Hgb 7.1 L
Hct 20.6 L*
Plt Count 122 L
Sodium 131 L
Potassium 4.7
Chloride 98
Carbon Dioxide 21 L
BUN 92 H
Creatinine 2.9 H
Glucose 104 H
Calcium 8.7
Vital Signs:
Vital Signs
Temp Pulse Resp BP Pulse Ox
97.4 F 61 16 142/50 97
07/17/24 07:35 07/17/24 07:35 07/17/24 07:35 07/17/24 07:35 07/17/24 07:35
I&O
07/16/24 07/17/24 07/18/24
06:59 06:59 06:59
Intake Total 680 / 680 660 / 660
Balance 680 / 680 660 / 660
[2024-07-17] MEDS: MIRALAX 17 GRAMS PO (09:12)
[2024-07-17] MEDS: NORVASC 10 MG PO (09:13)
[2024-07-17] MEDS: SODIUM BICARBONATE 650 MG PO ×3 (09:13→21:38)
[2024-07-17] MEDS: LASIX 20 MG PO (09:13)
[2024-07-17] MEDS: VITAMIN B-12 1000 MCG PO (09:13)
[2024-07-17] MEDS: APRESOLINE 100 MG PO ×2 (09:17→21:39)
[2024-07-17] MEDS: ELIQUIS 2.5 MG PO ×2 (09:27→21:38)
[2024-07-17] MEDS: DESENEX/MITRAZOL/ZEASORB 1 APPLIC TOPICAL ×2 (09:28→21:37)
--- NOTE | 2024-07-17 15:11 | W.PN.NEPH.PH ---
Addendum entered and electronically signed by Angela Paredes MD 07/17/24 15:46:
check paraprotein w/u in view of anemia
Original Note:
Today's Communication / Plan
-
follow labs and bladder scan
Assessment/Plan
-
Assessment
Bradycardia
ADAM
CKD4, baseline 2.5
Paroxysmal atrial fibrillation
Hypertension
Anemia
Anion gap metabolic acidosis
Hypothermia
Plan
Creatinine slightly up at 2.9
off Campos catheter now, follow blader scan, <100cc on 07/16
hyponatremia better post extra dose lasix, cont FR
Hyperkalemia-better with lasix, cont low K diet
stable met acidosis-cont po bicarb
bp stable on amlodipine, hydralazine, and metoprolol
anemia-transfusion today, likely due to multifactorial reasons including CKD, adequate fe stores, s/p ANIRUDH 10k on 07/15
f/u nephro out pt
-
-
Date of Service: July 17, 2024
CC / HPI / ROS
-
Chief Complaint:
ADAM
History of Present Illness:
ADAM/Crup at 2.9, k normal
BUN up at 92
acidosis at 21
BP stable
s/p PPM 07/01
Sodium bettre at 131
hb low at 7.
Review of Systems:
no CP/SOB
no dysuria off campos
no blood in stools, last BM on 07/15
Labs
-
Labs:
WBC 5.6 10^3/uL (4.8-10.8) 07/17/24 05:41
RBC 2.32 10^6/uL (4.20-5.40) L 07/17/24 05:41
Hgb 7.1 g/dL (12.0-16.0) L 07/17/24 05:41
Hct 20.6 % (37.0-47.0) L* 07/17/24 05:41
Plt Count 122 10^3/uL (130-400) L 07/17/24 05:41
Sodium 131 mmol/L (135-145) L 07/17/24 05:41
Potassium 4.7 mmol/L (3.5-5.1) 07/17/24 05:41
Chloride 98 mmol/L (98-107) 07/17/24 05:41
Carbon Dioxide 21 mmol/L (22-30) L 07/17/24 05:41
BUN 92 mg/dl (7-17) H 07/17/24 05:41
Creatinine 2.9 mg/dL (0.6-1.0) H 07/17/24 05:41
eGFR 15.39 07/17/24 05:41
Glucose 104 mg/dl (70-99) H 07/17/24 05:41
Calcium 8.7 mg/dl (8.4-10.2) 07/17/24 05:41
Phosphorus 5.7 mg/dl (2.5-4.5) H 07/17/24 05:41
Clf-I-Djjveivrnnb Pept Cancelled 06/30/24 21:31
Albumin 3.7 g/dl (3.5-5.0) 06/30/24 21:28
Physical Exam
-
Vital Signs:
Vital Signs
Temp Pulse Resp BP Pulse Ox
97.7 F 61 16 148/55 98
07/17/24 14:06 07/17/24 14:06 07/17/24 14:06 07/17/24 14:06 07/17/24 11:17
Cardiovascular:: Regular rate and rhythm
Respiratory:: Bilateral: CTA
Lung Excursion:: Normal
Abdomen:: Nontender and Soft
Extremity Edema:: None: Bilateral:
Campos Catheter: No
[2024-07-17] MEDS: TYLENOL 650 MG PO (21:40)
[2024-07-18 05:57] VITALS: BMI 26.3
[2024-07-18 07:25] VITALS: BP 163/56
[2024-07-18 08:02] LABS: Hematocrit 24.6 % (37.0-47.0); Hemoglobin 8.3 g/dL (12.0-16.0); Mean Corp Hgb Conc. 33.7 g/dL (33.0-37.0); Mean Corpuscular Hgb 28.7 pg (27.0-31.0); Mean Corpuscular Volume 85.1 fL (81.0-99.0); Mean Platelet Volume 9.6 fL (7.4-10.4); Platelet Count 155 10^3/uL (130-400); Red Blood Cell Count 2.89 10^6/uL (4.20-5.40); Red Cell Dist. Width 17.2 % (11.5-14.5); White Blood Cell Count 6.9 10^3/uL (4.8-10.8)
[2024-07-18 08:18] LABS: Blood Urea Nitrogen 91 mg/dl (7-17); Carbon Dioxide 20 mmol/L (22-30); Chloride 99 mmol/L (98-107); Estimated Creatinine Clearance 12 ml/min; Glucose 91 mg/dl (70-99); Magnesium 2.1 mg/dl (1.6-2.3); Phosphorus 5.2 mg/dl (2.5-4.5); Potassium 4.8 mmol/L (3.5-5.1); Sodium 134 mmol/L (135-145)
[2024-07-18] MEDS: MIRALAX 17 GRAMS PO (08:47)
[2024-07-18] MEDS: DESENEX/MITRAZOL/ZEASORB 1 APPLIC TOPICAL ×2 (08:48→21:51)
[2024-07-18] MEDS: APRESOLINE 100 MG PO ×2 (08:49→21:50)
[2024-07-18] MEDS: LASIX 20 MG PO (08:52)
[2024-07-18] MEDS: SODIUM BICARBONATE 650 MG PO ×3 (08:52→21:52)
[2024-07-18] MEDS: ELIQUIS 2.5 MG PO ×2 (08:52→21:50)
[2024-07-18] MEDS: NORVASC 10 MG PO (08:53)
[2024-07-18] MEDS: VITAMIN B-12 1000 MCG PO (08:53)
--- NOTE | 2024-07-18 10:44 | CM ---
CM following re: discharge planning.
Reviewed pt's chart, met with [t.
Pt stated she is a LTC resident at [facility] and her plan is to return back to [facility] for a LTC.
IMM reviewed, placed on chart, pt has a copy.
[facility] phone number to call report: [phone]
Discharge instructions fax number: [phone].
PMNC completed and is on chart.
D/C plan: return back to [facility] for a LTC.
CM will follow to assist pt with discharge to [facility] for a LTC.
--- NOTE | 2024-07-18 11:40 | W.PN.HOSP.TC ---
Today's Communication/Plan
-
trend bmp
hgb stabilized
nephro recs
oob/pt
Assessment / Plan
Assessment / Plan
Physical Exam
General: No acute distress appears comfortable at this time
HEENT: Atraumatic and Moist Mucous Membranes
Respiratory: Clear to Auscultation; Negative Wheezes, Rales or Rhonchi
Cardiac: Regular Rhythm, S1/S2 palpable pacemaker
GI: Soft, Nontender, Nondistended and Normal Bowel Sounds
Genito-urinary: Esposito
Musculoskeletal: No Clubbing, No Cyanosis and No Edema
Neuro: AOx3, numbness lower ext below knees w impaired 2 pt discrimination
Psych: Calm
A/P: Patient is an 84y F with PMH significant for PA-Fib, HTN and CKD who presents to ED for evaluation of bradycardia.
Symptomatic Bradycardia
- Initial HR in the 30s with junctional rhythm on monitor / EKG.
- s/p PPM placement
- BP is stable.
- Patient is on no chronotropic medications according to [place] records (and to prior discharge summaries).
- Cardiology evaluation appreciated
- TFTs done in the ED are normal.
ADAM on CKD IV
Anion Gap Metabolic Acidosis mild
Hyperkalemia
Hyponatremia mild improved
- SCr at 3.1 (compared to known baseline of 2.5) since improved
- Slow downtrend creatinine with Esposito catheter placement. Passed Trial of void 07/13
- Nephrology eval appreciated PO bicarb started and home Lasix resumed
-extra dose IV lasix 07/16 as per nephro d/t progressive hyponatremia and recurrence mild hyperkalemia, concern for retention, cont bladder scan prn, low threshold to restart Esposito
Paroxysmal Atrial Fibrillation
- Eliquis restarted, cont
Benign Hypertension
- Restarted / currently on Amlodipine 10 mg daily
-Hydralazine increased to 100mg BID as per Nephro, cont. Monitor BP closely. may need adjustment of hydralazine
- Lopressor added 12.5 mg BID but placed on hold as above as there was concern for weakness/hypothermia
RUE swelling, suspect superficial thrombophlebitis, resolved
-Venous doppler negative. for DVT.
Anemia of CKD
-s/p 2u PRBC. Hgb at 8.4
-monitor H&H, appears stable at this time though trended down to mid 7's
-once retacrit
- checking for paraprotein as per Nephro
#numbness lower ext's below knees b/l but strength intact
CT Lumbar Thoracic spine appreciated
Low normal B12
B12 supplementation started for possible symptomatic B12 deficiency
Neuro eval appreciated suspect due to lumbar radiculopathy vs renal insufficiency
trial low dose Gabapentin 200 mg HS likely Neuropathy, however placed on hold d/t possible contribution cold stress/mild hypothermia (no clear benefit noted while in use)
#Mild Hypothermia (temp<95F but >90F)/Cold stress (temp 95F-98.6F)?autonomic dysfunction
repeat TSH mildly elevated but T4 wnl
repeat Random Cortisol wnl
Metoprolol and Gabapentin placed on hold as above, possibly contributing, bedtime Melatonin dose reduced to 3 mg and changed to prn instead of scheduled
Anemia also possibly contributing, recent transfusion 07/17 as above
If asymptomatic, no intervention is necessary temp 95F or above (defined as 'cold stress')
If temp <95F, regardless of asymptomatic or not, apply warm blankets, use martha hugger if no improvement noted.
Constipation
-resolved.
PT/OT appreciated return to SNF on discharge, ambulatory function appears to be near baseline
DVT Prophylaxis: Eliquis
Code Status: Full
Dispo-back to [facility] on discharge.
Anticipated Discharge: Within 24 hours
Subjective/Interval History
-
Date of Service: July 18, 2024
feeling better after transfusion
Objective Data
-
Labs:
Laboratory Results
07/18/24 07/18/24
06:20 06:21
WBC 6.9
Hgb 8.3 L
Hct 24.6 L
Plt Count 155 D
Sodium 134 L
Potassium 4.8
Chloride 99
Carbon Dioxide 20 L
BUN 91 H
Creatinine 3.1 H
Glucose 91
Calcium 9.0
Vital Signs:
Vital Signs
Temp Pulse Resp BP Pulse Ox
97.5 F 62 18 163/56 98
07/18/24 07:25 07/18/24 08:53 07/18/24 07:25 07/18/24 08:53 07/18/24 07:25
I&O
07/17/24 07/18/24 07/19/24
06:59 06:59 06:59
Intake Total 660 / 660 1999
Balance 660 / 660 1999
Data Reviewed
-
Total Time Spent with Patient (in minutes): 52
--- NOTE | 2024-07-18 11:55 | W.PN.NEPH.PH ---
Today's Communication / Plan
-
chekc PVR
Assessment/Plan
-
Assessment
Bradycardia
ADAM
CKD4, baseline 2.5
Paroxysmal atrial fibrillation
Hypertension
Anemia
Anion gap metabolic acidosis
Hypothermia
Plan
follow BMP
check PVR daily
-
-
Date of Service: July 18, 2024
CC / HPI / ROS
-
Chief Complaint:
ADAM
History of Present Illness:
ADAM/Cr up to 3.1
BUN stable 91
BP stable
s/p PPM 07/01
Sodium stable at 134
Review of Systems:
no CP/SOB
no dysuria off campos
no blood in stools, last BM on 07/15
Labs
-
Labs:
WBC 6.9 10^3/uL (4.8-10.8) 07/18/24 06:21
RBC 2.89 10^6/uL (4.20-5.40) L 07/18/24 06:21
Hgb 8.3 g/dL (12.0-16.0) L 07/18/24 06:21
Hct 24.6 % (37.0-47.0) L 07/18/24 06:21
Plt Count 155 10^3/uL (130-400) D 07/18/24 06:21
Sodium 134 mmol/L (135-145) L 07/18/24 06:20
Potassium 4.8 mmol/L (3.5-5.1) 07/18/24 06:20
Chloride 99 mmol/L (98-107) 07/18/24 06:20
Carbon Dioxide 20 mmol/L (22-30) L 07/18/24 06:20
BUN 91 mg/dl (7-17) H 07/18/24 06:20
Creatinine 3.1 mg/dL (0.6-1.0) H 07/18/24 06:20
eGFR 14.20 07/18/24 06:20
Glucose 91 mg/dl (70-99) 07/18/24 06:20
Calcium 9.0 mg/dl (8.4-10.2) 07/18/24 06:20
Phosphorus 5.2 mg/dl (2.5-4.5) H 07/18/24 06:20
Vgb-F-Dyxkifoqesq Pept Cancelled 06/30/24 21:31
Albumin 3.7 g/dl (3.5-5.0) 06/30/24 21:28
Physical Exam
-
Vital Signs:
Vital Signs
Temp Pulse Resp BP Pulse Ox
97.5 F 62 18 163/56 98
07/18/24 07:25 07/18/24 08:53 07/18/24 07:25 07/18/24 08:53 07/18/24 07:25
Cardiovascular:: Regular rate and rhythm
Respiratory:: Bilateral: CTA
Lung Excursion:: Normal
Abdomen:: Nontender and Soft
Bowel Sounds:: Normal
Extremity Edema:: None: Bilateral:
[2024-07-18 15:45] VITALS: BP 151/51
[2024-07-18 17:06] VITALS: BP 145/48; BP 171/60; PULSE 63; O2SAT 98
[2024-07-18 20:32] LABS: Protein/creatinine Ratio 10.9; Urine Protein 325 mg/dl
[2024-07-18 23:38] VITALS: BP 133/47
--- NOTE | 2024-07-19 03:02 | PTCARENOTE ---
Rec'd pt at change of shift. Pt AAO*3 and VSS. Pt denied any pain or discomfort and ambulated with staff around room and to bathroom. Pt agreed to call for staff assistance before ambulating. Pt resting with call lopez in reach.
[2024-07-19 05:42] VITALS: BMI 25.9
[2024-07-19 07:25] VITALS: BP 106/69
[2024-07-19] MEDS: ELIQUIS 2.5 MG PO (08:32)
[2024-07-19] MEDS: VITAMIN B-12 1000 MCG PO (08:32)
[2024-07-19] MEDS: APRESOLINE 100 MG PO (08:32)
[2024-07-19] MEDS: NORVASC 10 MG PO (08:32)
[2024-07-19] MEDS: SODIUM BICARBONATE 650 MG PO (08:33)
[2024-07-19] MEDS: MIRALAX PO ×2 (08:33→08:40)
[2024-07-19] MEDS: LASIX 20 MG PO (08:33)
[2024-07-19] MEDS: DESENEX/MITRAZOL/ZEASORB 1 APPLIC TOPICAL (08:33)
[2024-07-19 10:10] LABS: Blood Urea Nitrogen 90 mg/dl (7-17); Calcium 9.2 mg/dl (8.4-10.2); Carbon Dioxide 20 mmol/L (22-30); Chloride 101 mmol/L (98-107); Estimated Creatinine Clearance 13 ml/min; Glucose 88 mg/dl (70-99); Potassium 4.9 mmol/L (3.5-5.1); Sodium 136 mmol/L (135-145); eGFR 15.39
--- NOTE | 2024-07-19 10:59 | W.PN.HOSP.TC ---
Today's Communication/Plan
-
cont BP meds
Op BMP
Assessment / Plan
Assessment / Plan
Physical Exam
General: No acute distress appears comfortable at this time
HEENT: Atraumatic and Moist Mucous Membranes
Respiratory: Clear to Auscultation; Negative Wheezes, Rales or Rhonchi
Cardiac: Regular Rhythm, S1/S2 palpable pacemaker
GI: Soft, Nontender, Nondistended and Normal Bowel Sounds
Genito-urinary: Esposito
Musculoskeletal: No Clubbing, No Cyanosis and No Edema
Neuro: AOx3, numbness lower ext below knees w impaired 2 pt discrimination
Psych: Calm
A/P: Patient is an 84y F with PMH significant for PA-Fib, HTN and CKD who presents to ED for evaluation of bradycardia.
Symptomatic Bradycardia
- Initial HR in the 30s with junctional rhythm on monitor / EKG.
- s/p PPM placement
- BP is stable.
- Patient is on no chronotropic medications according to [place] records (and to prior discharge summaries).
- Cardiology evaluation appreciated
- TFTs done in the ED are normal.
ADAM on CKD IV
Anion Gap Metabolic Acidosis mild
Hyperkalemia
Hyponatremia mild improved
- SCr at 2.9 probably her new baseline?
- Slow downtrend creatinine with Esposito catheter placement. Passed Trial of void 07/13
- Nephrology eval appreciated PO bicarb started and home Lasix resumed
-extra dose IV lasix 07/16 as per nephro d/t progressive hyponatremia and recurrence mild hyperkalemia, concern for retention, cont bladder scan prn,
Paroxysmal Atrial Fibrillation
- Eliquis restarted, cont
Benign Hypertension
- Restarted / currently on Amlodipine 10 mg daily
-Hydralazine increased to 100mg BID as per Nephro, cont. Monitor BP closely. may need adjustment of hydralazine. BP improved.
- Lopressor added 12.5 mg BID but placed on hold as above as there was concern for weakness/hypothermia
RUE swelling, suspect superficial thrombophlebitis, resolved
-Venous doppler negative. for DVT.
Anemia of CKD
-s/p 2u PRBC. Hgb at 8.4
-monitor H&H, appears stable at this time though trended down to mid 7's
-once retacrit
- checking for paraprotein as per Nephro-f/u OP with results.
#numbness lower ext's below knees b/l but strength intact
CT Lumbar Thoracic spine appreciated
Low normal B12
B12 supplementation started for possible symptomatic B12 deficiency
Neuro eval appreciated suspect due to lumbar radiculopathy vs renal insufficiency
trial low dose Gabapentin 200 mg HS likely Neuropathy, however placed on hold d/t possible contribution cold stress/mild hypothermia (no clear benefit noted while in use)
#Mild Hypothermia (temp<95F but >90F)/Cold stress (temp 95F-98.6F)?autonomic dysfunction
repeat TSH mildly elevated but T4 wnl
repeat Random Cortisol wnl
Metoprolol and Gabapentin placed on hold as above, possibly contributing, bedtime Melatonin dose reduced to 3 mg and changed to prn instead of scheduled
Anemia also possibly contributing, recent transfusion 07/17 as above
If asymptomatic, no intervention is necessary temp 95F or above (defined as 'cold stress')
If temp <95F, regardless of asymptomatic or not, apply warm blankets, use martha hugger if no improvement noted.
Constipation
-resolved.
PT/OT appreciated return to SNF on discharge, ambulatory function appears to be near baseline
DVT Prophylaxis: Eliquis
Code Status: Full
Dispo-back to [facility] on discharge.
d/w with nephro. okay for dc
More than 30 minutes spent in discharge including
Final examination of the patient
Summarizing hospital stay
Instructions for continuing care to all relevant caregivers
Preparation of discharge records, prescriptions, and referral forms
Total time spent (in minutes): 52
Anticipated Discharge: Today
Subjective/Interval History
-
Date of Service: July 19, 2024
feeling better
passing urine
having bm
temp has been normal
Objective Data
-
Labs:
Laboratory Results
07/19/24
07:48
Sodium 136
Potassium 4.9
Chloride 101
Carbon Dioxide 20 L
BUN 90 H
Creatinine 2.9 H
Glucose 88
Calcium 9.2
Vital Signs:
Vital Signs
Temp Pulse Resp BP Pulse Ox
97.9 F 74 16 106/69 96
07/19/24 07:25 07/19/24 08:32 07/19/24 07:25 07/19/24 08:32 07/19/24 10:42
I&O
07/18/24 07/19/24 07/20/24
06:59 06:59 06:59
Intake Total 1999 480 / 480
Balance 1999 480 / 480
--- NOTE | 2024-07-19 11:04 | CM ---
Reviewed the chart notes. Patient ready for discharge today to [facility]. CM continues to be available to patient/family and is monitoring medical plan for needs at discharge.
Plan: Discharge back to [facility] today.
[facility] phone number to call report: [phone]
Discharge instructions fax number: [phone].
Medical necessity and transport form on chart.
--- NOTE | 2024-07-19 11:07 | W.DCSUMMARY ---
Discharge Summary
Discharge Data
Date of Admission: 06/30/24
Date of Discharge: 07/19/24
-
Pending Results: No
Hospital Course
83-year-old female past medical history of CKD, atrial fibrillation, hypertension, anemia of CKD, was presenting from [facility] living for evaluation of bradycardia. Patient was found to have a heart rate of 30 with junctional rhythm. Patient was eval
by cardiology. Patient was not on any rate control agents. Patient underwent pacemaker implantation. Patient thyroid function test were checked and found to be normal. Patient was also found to be severely elevated creatinine on admission.
Nephrology was consulted. Esposito catheter was placed and eventually removed. Patient passed trial of voiding. Patient received dose of IV Lasix for progressive hyponatremia and recurrence of hyperkalemia. Patient sodium stabilized. Patient
restarted on home dose of Lasix. P.o. bicarbonate was started. Patient blood pressure was elevated and hydralazine dose was increased. Initially Lopressor was added however with side effects as there was concern for weakness due to metoprolol and
was discontinued. Patient also with episode of hypothermia which was same secondary to autonomic dysfunction. Thyroid and cortisol were normal limits. Patient was complaining of numbness and was evaluated by neurology. Patient was started on
B12 supplementation. Initially was started on gabapentin however it was discontinued. Patient was eval by physical and Occupational Therapy. Patient creatinine down trended to 2.9 which is most likely her new baseline. Patient be discharged back
to group home facility.
Discharge Plan
-
Patient Disposition: [facility]/SNF
Discharge Diagnosis/Procedures: Symptomatic bradycardia status post pacemaker implant
Acute kidney injury chronic kidney disease stage IV
Anion gap metabolic acidosis
Hyperkalemia
Hyponatremia
Anemia of chronic kidney disease status post blood transfusion
Primary hypertension elevated
Condition: Fair
Diet: Low Cholesterol, 2 Gram Sodium and Restrict fluids to 48 oz
Activity: With assistance and As tolerated
Driving Restrictions: No driving for 1 week
Blood Work: CBC and BMP in 7 days with primary doctor
Activity Restrictions/Additional Instructions:
Wound Care Instructions
Sacral/buttocks-clean with saline or soap and water, miconazole powder prn yeasty red skin followed by no sting barrier wipe/ointment, silicone border foam, change q 2 days and prn loosened dressing.
Miconazole powder to abdominal/groin folds bid. Barrier ointment (i.e. Calazime) to open area L groin bid.
Elevate heels off bed with pillow.
Pressure redistributing chair cushion (i.e. Air chair cushion)
Follow up with wound care tech or at wound care center if needed, call for an appointment.
Stand Alone Forms: DC Inst - Implanted Device
Referrals:
[facility] [Provider Group] - 07/08/24 2:20 pm (Post device incision check appointment)
Zoila Massey DO [Family Provider] - in one week
Marsha Craig CRNP [Specified Professional Personl] - 07/29/24 11:00 am (You have a follow up visit at the [facility]. Please call with questions. )
Prescriptions:
New
hydralazine 50 mg Tablet
100 mg PO BID 30 Days Qty: 120 0RF
cyanocobalamin (vitamin B-12) 1,000 mcg Tablet
1,000 mcg PO DAILY 30 Days Qty: 30 0RF
sodium bicarbonate 650 mg Tablet
650 mg PO TID 14 Days Qty: 42 0RF
Continued
acetaminophen 325 mg Tablet
650 mg PO Q4HPRN MDD 3000 mg PRN (Reason: mild pain/fever >101)
famotidine [Pepcid] 20 mg Tablet
20 mg PO Q8HPRN PRN (Reason: GERD)
magnesium hydroxide 400 mg/5 mL Suspension
30 ml PO DAILYPRN PRN (Reason: no bm 3 days)
bisacodyl 10 mg Suppository
10 mg FL DAILYPRN PRN (Reason: no bm 24 hrs after mom)
alum-mag hydroxide-simeth [Maalox Maximum Strength] 400-400-40 mg/5 mL Suspension
5 ml PO Q6HPRN PRN (Reason: reflux)
Saccharomyces boulardii [Florastor] 250 mg Capsule
250 mg PO BIDPRN PRN (Reason: diarrhea)
PreserVision AREDS 4,296 mcg-226 mg-90 mg Capsule
1 cap PO DAILY
cholecalciferol (vitamin D3) 75 mcg (3,000 unit) Tablet
75 mcg PO DAILY
Eliquis 2.5 mg Tablet
2.5 mg PO BID
Eucerin Itch Relief 0.1 % Lotion
1 ea TOPICAL DAILY
furosemide [Lasix] 20 mg tablet
20 mg PO DAILY Qty: 30 0RF
albuterol sulfate 2.5 mg /3 mL (0.083 %) solution for nebulization
2.5 mg inhalation R Q6HPRN PRN (Reason: sob)
lactase 3,000 unit Tablet
3,000 unit PO MEALS
lidocaine 4 % Gel
1 applic TOPICAL Q6HPRN PRN (Reason: neck and back pain)
Changed
melatonin 5 mg Tablet
3 mg PO HSPRN PRN (Reason: insomnia) Qty: 0 0RF
Discontinued
allopurinol 100 mg Tablet
50 mg PO Q48H
amlodipine 10 mg Tablet
10 mg PO DAILY
Fleet Enema 19-7 gram/118 mL Enema
118 ml FL DAILYPRN PRN (Reason: no bm 24 hrs after bisacodyl)
sertraline [Zoloft] 25 mg Tablet
25 mg PO DAILY
hydralazine 10 mg Tablet
20 mg PO Q8H Qty: 0 0RF
ondansetron HCl [Zofran] 8 mg Tablet
8 mg PO Q8HPRN PRN (Reason: nausea)
Discharge Orders:
Discharge Patient (As Directed); Ordered 07/19/24
Ordered By: Vik Boyer
Discharge Date and Time
Discharge Date/Time: 07/19/24 13:09
Print Language: ICELANDIC
--- NOTE | 2024-07-19 11:41 | W.PN.NEPH.PH ---
Today's Communication / Plan
-
dc planning
Assessment/Plan
-
Assessment
Bradycardia
ADAM
CKD4, baseline 2.5
Paroxysmal atrial fibrillation
Hypertension
Anemia
Anion gap metabolic acidosis
Hypothermia
Plan
follow BMP
this is likely her new Cr baseline.
dc planning
continue lasix 20mg daily
-
-
Date of Service: July 19, 2024
CC / HPI / ROS
-
Chief Complaint:
ADAM
History of Present Illness:
ADAM/Cr stable at 2.9
BP stable
s/p PPM 07/01
Sodium stable at 136
Review of Systems:
no CP/SOB
no dysuria off campos
Labs
-
Labs:
WBC 6.9 10^3/uL (4.8-10.8) 07/18/24 06:21
RBC 2.89 10^6/uL (4.20-5.40) L 07/18/24 06:21
Hgb 8.3 g/dL (12.0-16.0) L 07/18/24 06:21
Hct 24.6 % (37.0-47.0) L 07/18/24 06:21
Plt Count 155 10^3/uL (130-400) D 07/18/24 06:21
Sodium 136 mmol/L (135-145) 07/19/24 07:48
Potassium 4.9 mmol/L (3.5-5.1) 07/19/24 07:48
Chloride 101 mmol/L (98-107) 07/19/24 07:48
Carbon Dioxide 20 mmol/L (22-30) L 07/19/24 07:48
BUN 90 mg/dl (7-17) H 07/19/24 07:48
Creatinine 2.9 mg/dL (0.6-1.0) H 07/19/24 07:48
eGFR 15.39 07/19/24 07:48
Glucose 88 mg/dl (70-99) 07/19/24 07:48
Calcium 9.2 mg/dl (8.4-10.2) 07/19/24 07:48
Phosphorus 5.2 mg/dl (2.5-4.5) H 07/18/24 06:20
Qee-M-Kmkkvqiposo Pept Cancelled 06/30/24 21:31
Albumin 3.7 g/dl (3.5-5.0) 06/30/24 21:28
Physical Exam
-
Vital Signs:
Vital Signs
Temp Pulse Resp BP Pulse Ox
97.9 F 74 16 106/69 96
07/19/24 07:25 07/19/24 08:32 07/19/24 07:25 07/19/24 08:32 07/19/24 10:42
Cardiovascular:: Regular rate and rhythm
Respiratory:: Bilateral: Coarse
Lung Excursion:: Normal
Abdomen:: Nontender and Soft
Bowel Sounds:: Normal
Extremity Edema:: None: Bilateral:
[2024-07-19 12:52] VITALS: BP 148/54
--- NOTE | 2024-07-19 13:03 | PTCARENOTE ---
Report called for this pt to [facility] Dupont ([phone]), main desk answered and transferred this RN to the nursing line, received answering machine and instructed them to call back for report. Pt to be transferred via [facility].
--- NOTE | 2024-07-19 14:00 | PTCARENOTE ---
MARY Chavez called back from [facility], report given. Pt en route to [facility] via [facility] currently.
== END 2024-07-19 13:09 | DRG 243 ==
LOC: 2 NORTH 23:49
PROVIDERS: Internal Medicine; Nurse Practitioner Family; Specialist; ADMITTING PHYSICIAN Hospitalist; ATTENDING PHYSICIAN Hospitalist; CONSULT PHYSICIAN Internal Medicine Critical Care Medicine; CONSULT PHYSICIAN Psychiatry & Neurology Neurology; EMERGENCY PHYSICIAN Emergency Medicine; FAMILY PHYSICIAN Hospitalist; OTHER PHYSICIAN Internal Medicine Cardiovascular Disease; OTHER PHYSICIAN Specialist
PROC: 0JH606Z Insertion of Pacemaker, Dual Chamber into Chest Subcutaneous Tissue and Fascia, Open Approach (ICD-10-PCS; 2024-07-01)
PROC: 02HK3JZ Insertion of Pacemaker Lead into Right Ventricle, Percutaneous Approach (ICD-10-PCS; 2024-07-01)
PROC: B5171ZZ Fluoroscopy of Left Subclavian Vein using Low Osmolar Contrast (ICD-10-PCS; 2024-07-01)
PROC: 02H63JZ Insertion of Pacemaker Lead into Right Atrium, Percutaneous Approach (ICD-10-PCS; 2024-07-01)
PROC: 30233N1 Transfusion of Nonautologous Red Blood Cells into Peripheral Vein, Percutaneous Approach (ICD-10-PCS; 2024-07-02)
PROC: 0T9B70Z Drainage of Bladder with Drainage Device, Via Natural or Artificial Opening (ICD-10-PCS; 2024-07-10)
DX: I49.5 Sick sinus syndrome (principal); E87.1 Hypo-osmolality and hyponatremia; E87.20 Acidosis, unspecified; I13.0 Hypertensive heart and chronic kidney disease with heart failure and stage 1 through stage 4 chronic kidney disease, or unspecified chronic kidney disease; I50.32 Chronic diastolic (congestive) heart failure; N18.4 Chronic kidney disease, stage 4 (severe); N17.9 Acute kidney failure, unspecified; I48.0 Paroxysmal atrial fibrillation; D63.1 Anemia in chronic kidney disease; E78.00 Pure hypercholesterolemia, unspecified; I25.10 Atherosclerotic heart disease of native coronary artery without angina pectoris; J44.9 Chronic obstructive pulmonary disease, unspecified; R68.0 Hypothermia, not associated with low environmental temperature; R11.2 Nausea with vomiting, unspecified; G31.84 Mild cognitive impairment of uncertain or unknown etiology; K59.00 Constipation, unspecified; R42 Dizziness and giddiness; E87.5 Hyperkalemia; R32 Unspecified urinary incontinence; M54.16 Radiculopathy, lumbar region; R53.83 Other fatigue; K21.9 Gastro-esophageal reflux disease without esophagitis; M10.9 Gout, unspecified; F41.9 Anxiety disorder, unspecified; R26.2 Difficulty in walking, not elsewhere classified; G47.00 Insomnia, unspecified; Z79.01 Long term (current) use of anticoagulants; Z87.891 Personal history of nicotine dependence; Z90.49 Acquired absence of other specified parts of digestive tract; Z87.440 Personal history of urinary (tract) infections
CPT/HCPCS: 33208; 71045; 72128; 72131; 76775; 80048; 80053; 81003; 81015; 81099; 82533; 82570; 82607; 82746; 82805; 83540; 83550; 83605; 83735; 83930; 83935; 84100; 84133; 84155; 84156; 84165; 84300; 84439; 84443; 84484; 85014; 85018; 85025; 85027; 85610; 85730; 86618; 86850; 86900; 86901; 86920; 87040; 87070; 87086; 93005; 93971; 96374; 96375; 97110; 97116; 97163; 97167; 97530; 97535; 99291; C1769; C1785; C1887; C1892; C1898; P9016; Q5106; Q9967

== ENCOUNTER 2025-08-04 09:05 | Inpatient (IN) | payer MEDICARE, OTHER, SELFPAY ==
[2025-08-02] VITALS (11 sets, daily range): BP systolic 104–167; BP diastolic 45–68; BMI 28.7; BMI 28.3
[2025-08-02 11:31] LABS: Glucose - Point of Care 130 mg/dl (70-99)
--- NOTE | 2025-08-02 11:59 | ED.GENMED ---
History of Present Illness
<Ede Sethi PA-C - Last Filed: 08/02/25 19:22>
General
Chief Complaint: Malaise
Time Seen by Provider: 08/02/25 11:51
History of Present Illness
History of Present Illness:
85-year-old female with history of COPD, A-fib on Eliquis status post pacemaker, CHF, CAD, hypertension, stage III CKD, and ggv-uknwycv-yylmaukhk diabetes presents to the emergency department for evaluation of general malaise and global weakness.
States when she woke up this morning she felt overall extremely weak, states 'I feel like I am having an out of body experience'. She also reports difficulty speaking and a dry mouth. Denies any recent illnesses, denies recent diarrhea or
vomiting. No new medications. No fevers. Denies pain or headaches.
Past History
<Ede Sethi PA-C - Last Filed: 08/02/25 19:22>
Past History
ED Past Medical History: Arrthythmia (paf), CAD, COPD, HTN, Hypercholesterolemia, Other (CKD STAGE IV) and Other (Idiopathic pancreatitis)
ED Past Surgical History: Cholecystectomy and Orthopedic
Social History
Tobacco: Non-smoker
Alcohol: None
Review of Systems
<Ede Sethi PA-C - Last Filed: 08/02/25 19:22>
Review of Systems
Allergies reviewed?: Yes
All Other Systems: ROS reviewed and negative except as documented in HPI and ROS
Phy Exam
<Ede Sethi PA-C - Last Filed: 08/02/25 19:22>
Physical Exam
Physical Exam:
GEN: Well appearing, NAD, WDWN
HEENT: Oral mucosa markedly dry, no scleral icterus, no nasal congestion
Cardiac: Regular rate, no murmur
Lung: No respiratory distress, no tachypnea, lungs clear to auscultation bilaterally
MSK: No gross deformity or injuries
Skin: Good color, no pallor or jaundice, no rashes
Neuro: AO x3; CN II-XII grossly intact. BUE strength 5/5 in all castro, sensation intact and symmetric. BLE strength 5/5 in all castro, sensation intact and symmetric. Mild dysarthria however this is likely on the basis of severe oral mucosal
dryness
Psych: Calm, cooperative
Course
<Ede Sethi PA-C - Last Filed: 08/02/25 19:22>
Orders/Labs/Results
Orders:
Orders
08/02/25 11:40
Electrocardiogram (*1) Urgent
Reason for Study: Fatigue / Weakness
EKG- Treatment ONCE
08/02/25 11:42
CMP [Comprehensive Metabolic Panel] Urgent
Complete Blood Count/With Diff Urgent
Troponin I Urgent
08/02/25 11:58
CT Head W/o Iv Contrast Urgent
Comment:
Reason For Exam: dysarthria/weakness
08/02/25 12:54
COVID-19 Antigen Urgent
Source: Nasal Swab
08/02/25 13:18
Urinalysis Reflex To Culture Urgent
Date Specimen was Collected: 08/02/25
Time Specimen was Collected: 13:17
Urine Microscopic Reflex Cult Urgent
Urine Culture Urgent
NOLBERTO Source: U
Specimen Description:
Obtained by: Random
Date Specimen was Collected: 08/02/25
Time Specimen was Collected: 13:17
08/02/25 13:58
0.9% Sodium Chloride 500 ml [Nss] 500 ml IV BOLUS
CefTRIAXone [Rocephin] 1,000 mg IV NOW STA
08/02/25 Dinner
Regular
At Your Request: Full Participation
Does patient need a safe tray?: No
08/02/25 15:18
Admit/Transfer Patient As Directed
Co-Sign Provider:
Level of Care: Observation services
Assign to:: Medical/Surgical
Physician / Group: Clarisa Tipton
Diagnosis: general malaise, UTI
PRN Pain Medication Management As Directed
May give lesser potent ordered pain med per pt: Yes
preference::
Protocol:: Medication orders for pain may be administered in a
manner that supports deferring to patient preference
when the pt is:
- Requesting an ordered lesser potent pain medication.
Least to most potent pain medications are defined
as: acetaminophen < NSAID < tramadol < opioids
(morphine, oxycodone, hydromorphone).
- Requesting a lesser dose of the same medication IF
ORDERED.
- Requesting a less intrusive route of administration
if both routes are prescribed by the provider (PO <
IV).
08/02/25 15:20
Code Status As Directed
Resuscitation Status: Limited DNR
Limited DNR: -No intubation
Based on pt advanced directive or healthcare POA form: Yes
Physician note:: DNI per facility paperwork, otherwise full code
08/02/25 17:57
Acetaminophen [Tylenol] 650 mg PO Q4HPRN PRN mild pain/fever >101
Melatonin 3 mg PO HSPRN PRN insomnia
Meropenem [Merrem] 1,000 mg IV Q12H
menthol 1 ea TOPICAL TID
08/02/25 17:57
Activity As Directed
Activity Level: As Tolerated
Intake/ Output As Directed
Frequency: Per unit guidelines
Vital Signs As Directed
Frequency: Per unit guidelines
Weight As Directed
Frequency: Daily
Type of Scale: Standing Scale
Comment: Daily morning weight. If unable to stand, use balanced bed scale.
Weight As Directed
Frequency: Once
Type of Scale: Standing Scale
Comment: Upon Admission. If unable to stand, use balanced bed scale.
Pulse Ox/cont/shift [RESP] Routine
Quantity: 1
Special Instructions: Daily pulse oximetry at rest. If greater than 92% at rest also obtain pulse oximetry
while ambulating as tolerated.
Pulse Ox/spot Check [RESP] Routine
Quantity: 1
Pt Eval And Treat Routine
Activity Level: As Tolerated
08/02/25 18:30
Lactase Enzyme [Lactaid] 1 capsule PO MEALS
08/02/25 20:00
Apixaban [Eliquis] 2.5 mg PO BID
Artificial Tears (Pf) [Refresh Eye Drops (Pf)] 1 drops BOTH EYES BID
HydrALAZINE [Apresoline] 100 mg PO BID
Miconazole Nitrate [Desenex/Mitrazol/Zeasorb] 1 applic TOPICAL BID
Sodium Bicarbonate 1,300 mg PO BID
08/03/25 06:00
Basic Metabolic Panel IN AM
Complete Blood Count/No Diff IN AM
08/03/25 08:00
Metoprolol Xl [Toprol Xl] 12.5 mg PO DAILY
08/03/25 15:00
HydrALAZINE [Apresoline] 50 mg PO DAILY@1500
Abnormal Lab Results
08/02/25 08/02/25 08/02/25
11:30 11:42 13:18
RBC 3.06 L 10^6/uL
(4.20-5.40)
Hgb 9.1 L g/dL
(12.0-16.0)
Hct 28.9 L %
(37.0-47.0)
MCHC 31.5 L g/dL
(33.0-37.0)
Lymphocytes % 19.3 L %
(20.5-51.1)
BUN 69 H mg/dl
(7-17)
Creatinine 2.9 H mg/dL
(0.6-1.0)
Glucose 130 H mg/dl
(70-99)
Ur Occult Blood Reflex 4+ A
(Negative)
Leukocyte Esterase Rfl 3+ A
(Negative)
Urine RBC 7-10 A /HPF
(0-2)
Urine WBC (Reflex) >100 A /HPF
(0-5)
Urine Bacteria (Reflex) Moderate A
(Negative)
Urine Albumin (Reflex) 3+ A
(Neg - Trace)
POC Glucose 130 H mg/dl
(70-99)
08/02/25 11:42
08/02/25 11:42
Vital Signs
Initial and Last Documented VS:
Initial Vital Signs
Temp Pulse Resp
97.7 F 78 18
08/02/25 11:27 08/02/25 11:27 08/02/25 11:27
Last Documented Vital Signs
Temp Pulse Resp BP Pulse Ox
97.7 F 60 16 142/62 98
08/02/25 11:27 08/02/25 19:00 08/02/25 19:06 08/02/25 19:00 08/02/25 17:00
<Xander Eli, DO - Last Filed: 08/02/25 14:59>
Orders/Labs/Results
Orders:
Orders
08/02/25 11:40
Electrocardiogram (*1) Urgent
Reason for Study: Fatigue / Weakness
EKG- Treatment ONCE
08/02/25 11:42
CMP [Comprehensive Metabolic Panel] Urgent
Complete Blood Count/With Diff Urgent
Troponin I Urgent
08/02/25 11:58
CT Head W/o Iv Contrast Urgent
Comment:
Reason For Exam: dysarthria/weakness
08/02/25 12:54
COVID-19 Antigen Urgent
Source: Nasal Swab
08/02/25 13:18
Urinalysis Reflex To Culture Urgent
Date Specimen was Collected: 08/02/25
Time Specimen was Collected: 13:17
Urine Microscopic Reflex Cult Urgent
Urine Culture Urgent
NOLBERTO Source: U
Specimen Description:
Obtained by: Random
Date Specimen was Collected: 08/02/25
Time Specimen was Collected: 13:17
08/02/25 13:58
0.9% Sodium Chloride 500 ml [Nss] 500 ml IV BOLUS
CefTRIAXone [Rocephin] 1,000 mg IV NOW STA
08/02/25 Dinner
Regular
At Your Request: Full Participation
Does patient need a safe tray?: No
08/02/25 15:18
Admit/Transfer Patient As Directed
Co-Sign Provider:
Level of Care: Observation services
Assign to:: Medical/Surgical
Physician / Group: Clarisa Tipton
Diagnosis: general malaise, UTI
PRN Pain Medication Management As Directed
May give lesser potent ordered pain med per pt: Yes
preference::
Protocol:: Medication orders for pain may be administered in a
manner that supports deferring to patient preference
when the pt is:
- Requesting an ordered lesser potent pain medication.
Least to most potent pain medications are defined
as: acetaminophen < NSAID < tramadol < opioids
(morphine, oxycodone, hydromorphone).
- Requesting a lesser dose of the same medication IF
ORDERED.
- Requesting a less intrusive route of administration
if both routes are prescribed by the provider (PO <
IV).
08/02/25 15:20
Code Status As Directed
Resuscitation Status: Limited DNR
Limited DNR: -No intubation
Based on pt advanced directive or healthcare POA form: Yes
Physician note:: DNI per facility paperwork, otherwise full code
08/02/25 17:57
Acetaminophen [Tylenol] 650 mg PO Q4HPRN PRN mild pain/fever >101
Melatonin 3 mg PO HSPRN PRN insomnia
Meropenem [Merrem] 1,000 mg IV Q12H
menthol 1 ea TOPICAL TID
08/02/25 17:57
Activity As Directed
Activity Level: As Tolerated
Intake/ Output As Directed
Frequency: Per unit guidelines
Vital Signs As Directed
Frequency: Per unit guidelines
Weight As Directed
Frequency: Daily
Type of Scale: Standing Scale
Comment: Daily morning weight. If unable to stand, use balanced bed scale.
Weight As Directed
Frequency: Once
Type of Scale: Standing Scale
Comment: Upon Admission. If unable to stand, use balanced bed scale.
Pulse Ox/cont/shift [RESP] Routine
Quantity: 1
Special Instructions: Daily pulse oximetry at rest. If greater than 92% at rest also obtain pulse oximetry
while ambulating as tolerated.
Pulse Ox/spot Check [RESP] Routine
Quantity: 1
Pt Eval And Treat Routine
Activity Level: As Tolerated
08/02/25 18:30
Lactase Enzyme [Lactaid] 1 capsule PO MEALS
08/02/25 20:00
Apixaban [Eliquis] 2.5 mg PO BID
Artificial Tears (Pf) [Refresh Eye Drops (Pf)] 1 drops BOTH EYES BID
HydrALAZINE [Apresoline] 100 mg PO BID
Miconazole Nitrate [Desenex/Mitrazol/Zeasorb] 1 applic TOPICAL BID
Sodium Bicarbonate 1,300 mg PO BID
08/03/25 06:00
Basic Metabolic Panel IN AM
Complete Blood Count/No Diff IN AM
08/03/25 08:00
Metoprolol Xl [Toprol Xl] 12.5 mg PO DAILY
08/03/25 15:00
HydrALAZINE [Apresoline] 50 mg PO DAILY@1500
Abnormal Lab Results
08/02/25 08/02/25 08/02/25
11:30 11:42 13:18
RBC 3.06 L 10^6/uL
(4.20-5.40)
Hgb 9.1 L g/dL
(12.0-16.0)
Hct 28.9 L %
(37.0-47.0)
MCHC 31.5 L g/dL
(33.0-37.0)
Lymphocytes % 19.3 L %
(20.5-51.1)
BUN 69 H mg/dl
(7-17)
Creatinine 2.9 H mg/dL
(0.6-1.0)
Glucose 130 H mg/dl
(70-99)
Ur Occult Blood Reflex 4+ A
(Negative)
Leukocyte Esterase Rfl 3+ A
(Negative)
Urine RBC 7-10 A /HPF
(0-2)
Urine WBC (Reflex) >100 A /HPF
(0-5)
Urine Bacteria (Reflex) Moderate A
(Negative)
Urine Albumin (Reflex) 3+ A
(Neg - Trace)
POC Glucose 130 H mg/dl
(70-99)
08/02/25 11:42
08/02/25 11:42
Vital Signs
Initial and Last Documented VS:
Initial Vital Signs
Temp Pulse Resp
97.7 F 78 18
08/02/25 11:27 08/02/25 11:27 08/02/25 11:27
Last Documented Vital Signs
Temp Pulse Resp BP Pulse Ox
97.7 F 60 16 142/62 98
08/02/25 11:27 08/02/25 19:00 08/02/25 19:06 08/02/25 19:00 08/02/25 17:00
<Ede Sethi PA-C - Last Filed: 08/02/25 19:22>
MDM/Problems Addressed
MDM/Problems Addressed:
Although the patient's labs are normal and her vital signs are adequate, she does appear to be encephalopathic with intermittent confusion thus we will admit for IV antibiotics and further monitoring
<Ede Sethi PA-C - Last Filed: 08/02/25 19:22>
Comment
Comment:
EKG independently interpreted by me shows an atrial paced rhythm at a rate of 61
*Pulse Oximetry
Oxygen Mode of Delivery: Room air
Patient hypoxic: no
*Critical Care Note
Total Time (30-74mins, 75-104mins- exclusive of procedures): Not Applicable
ED Attending Note
<Ede Sethi PA-C - Last Filed: 08/02/25 19:22>
-
Portions of this chart may have been created with voice recognition software.� Occasional wrong word or��sound alike� substitutions may have occurred due to the inherent limitations of voice recognition software.
<Xander Eli DO - Last Filed: 08/02/25 14:59>
ED Attending Note
Patient seen and examined by attending physician: Yes
I performed the substantive portion of visit, reviewed & personally made and approve the management plan that is documented in note by myself or CHARISSE.: Yes
ED Attending Note:
I have seen and evaluated the patient with a [id number] encounter. I have spoken to the advance practicer provider and involved in the medical history, the physical exam, medical decision making.
Evaluation and management service: agree unless noted differently below.
Results interpretation: agree unless noted differently below.
Focused HPI: 85-year-old female presenting emergency department with fatigue and mild mental status change.
Physical exam: Dry mucous membranes. Abdomen soft and nontender
Medical Decision Making: Patient started antibiotics with concern for UTI. Patient started on fluids for dehydration. Will ultimately admit given the confusion
Discharge Plan
Departure
Patient Disposition: Admit
Date of Disposition: 08/02/25
Time of Disposition: 14:39
Admit to: Med/Surg
Presentation/result/management discussed w/ accepting MD/DO: Hospitalist
Discharge Problem:
Acute UTI
Interventions
Interventions:
*Risk Screen - Suicide Last Done: 08/02/25 11:27
*General Assessment Last Done: 08/02/25 11:27
*Neglect/Abuse Screening Last Done: 08/02/25 11:27
*ED COVID-19 Vaccine History Last Done: 08/02/25 11:27
*ED Influenza Vaccine History Last Done: 08/02/25 11:27
[2025-08-02 12:00] LABS: Hematocrit 28.9 % (37.0-47.0); Hemoglobin 9.1 g/dL (12.0-16.0); Mean Corp Hgb Conc. 31.5 g/dL (33.0-37.0); Mean Corpuscular Volume 94.4 fL (81.0-99.0); Nucleated Red Blood Cells % 0 %; Red Cell Dist. Width 14.2 % (11.5-14.5)
[2025-08-02 12:11] LABS: ALT (SGPT) 12 U/L (0-35); AST (SGOT) 19 U/L (14-36); Albumin 3.7 g/dl (3.5-5.0); Alkaline Phosphatase 73 U/L (38-126); Blood Urea Nitrogen 69 mg/dl (7-17); Calcium 9.3 mg/dl (8.4-10.2); Carbon Dioxide 22 mmol/L (22-30); Chloride 106 mmol/L (98-107); Estimated Creatinine Clearance 14 ml/min; Glucose 130 mg/dl (70-99); Potassium 4.7 mmol/L (3.5-5.1); Sodium 136 mmol/L (135-145); Total Protein 6.6 g/dl (6.3-8.2); eGFR 15.29
[2025-08-02 12:21] LABS: Troponin I 0.028 ng/ml
[2025-08-02 13:18] LABS: COVID-19 Antigen Negative (Negative)
[2025-08-02 13:29] LABS: Urine Character Cloudy (Clear)
[2025-08-02 13:39] LABS: Urine Squamous Cell 0-2 /LPF (Few); Urine White Cell >100 /HPF (0-5)
[2025-08-02] MEDS: NSS 500 IV (14:32)
[2025-08-02] MEDS: ROCEPHIN 1000 MG IV (14:32)
--- NOTE | 2025-08-02 14:40 | W.PN.UPDATE ---
Update Note
Progress Note Update
This is an addendum to H&P written by MESSAGE CLERK Mabel Escalona
I saw and examined the patient.
The MESSAGE CLERK's note was reviewed and I agree with the note.
Comment:
Ms. Melissa La is a 85 yo woman with hx CKD IV, paroxysmal atrial fibrillation, essential HTN, NIDDM presents to the ER for malaise and weakness.
Triage VS: T 97.7, P 78, RR 18, BP 140/45
On exam patient is AAO x 3. CV: RRR; chest clear, YOBANI, EOMI, no facial asymmetry, no pronator drift, 5/5 strength upper extremities/ 5/5 strength b/l foot flexion. abdomen benign, no LE swelling.
Labs: WBC 6.6, Hg 9.1, Na 136, K+ 4.7, BUN 69, Cr 2.9, Glucose 130, liver enzymes WNL, UA with > 100 WBC
Covid Negative
TME 2/2 UTI versus viral infection versus other
-patient is very vague in characteristic of feeling 'off'. She has no focal symptoms, no focal neurological deficits on exam. Work-up shows positive UA. her BUN/Creatinine are baseline.
-Given hx ESBL UTI will treat with IV Meropenem while awaiting cultures
Hx C. Diff (05/04)
-will give prophylaxis with oral Vancomycin once daily
Paroxysmal Atrial Fibrillation - CASE MANAGEMENT SPECIALIST Eliquis, Metoprolol
Essential HTN - CASE MANAGEMENT SPECIALIST Hydralazine, Metoprolol
CKD IV
-CASE MANAGEMENT SPECIALIST sodium bicarb
-creatinine baseline
Remainder of plan per MESSAGE CLERK note
--- NOTE | 2025-08-02 14:42 | HPS.HSE ---
Family Physician
-
Family Physician: Gordy Gtz
Chief Complaint
-
general malaise
History of Present Illness
Patient is a 85-year-old female with past medical history significant for hypertension, paroxysmal atrial fibrillation, chronic kidney disease IV, gout, COPD, GERD and anxiety/depression who presented to [facility] ED for evaluation of general malaise and
generalized weakness. Patient states yesterday she was in her normal health and able to do what she wanted. When she woke this morning she just felt 'off.' She states she feels generally more tired and a bit weaker than her base line. She denies any
recent illness, fever, chills, cough, shortness of breath, nausea, vomiting, constipation or diarrhea.
Medical History
Past Medical History
Past Medical History: Reports Other
Additional Past Medical History:
Idiopathic pancreatitis
CDiff Colitis
Paroxysmal A-fib
COPD
HTN
GERD
CKD IV
Gout
Anxiety / Insomnia
Chronic ambulatory dysfunction - uses walker
Past Surgical History: Reports Other
Additional Past Surgical History:
Cataract extraction
Cholecystectomy
Bilateral CEA
PTCA without Stent
ORIF L Femur
Cataracts
Social History
Tobacco: Former Smoker (Quit age 41)
Alcohol: None
Drug: None
Personal: Single
Living: Correction ([facility])
Employment: Retired
Family History
Family History: Not pertinent
Allergies / Home Medications
Allergies reflects when Allergies were last updated in [facility].
Home Medications with original date entered in [facility]
Allergy/Medication List:
Allergies
Allergy/AdvReac Type Severity Reaction Status Date / Time
No Known Allergies Allergy Unverified 04/26/24 11:48
Home Medications
Saccharomyces boulardii 250 mg capsule (Florastor) 250 mg PO BIDPRN PRN diarrhea 04/26/24
acetaminophen 325 mg tablet 650 mg PO Q4HPRN PRN mild pain/fever >101 04/26/24
aluminum-mag hydroxide-simethicone 400 mg-400 mg-40 mg/5 mL oral susp (Maalox Maximum Strength) 5 ml PO Q6HPRN PRN reflux 04/26/24
apixaban 2.5 mg tablet (Eliquis) 2.5 mg PO BID Blood Clot Prevention/Tx 04/26/24
bisacodyl 10 mg rectal suppository 10 mg MD DAILYPRN PRN no bm 24 hrs after mom 04/26/24
cholecalciferol (vitamin D3) 75 mcg (3,000 unit) tablet 75 mcg PO DAILY Supplement 04/26/24
famotidine 20 mg tablet (Pepcid) 20 mg PO Q8HPRN PRN GERD 04/26/24
menthol 0.1 % lotion (Eucerin Itch Relief) 1 ea topical DAILY b/l arms 04/26/24
vitamins A,C,C-ujzp-gjvrdb 4,296 mcg-226 mg-90 mg capsule (PreserVision AREDS) 1 cap PO DAILY Supplement 04/26/24
lactase 3,000 unit tablet 3,000 unit PO MEALS 06/30/24
lidocaine 4 % topical gel 1 applic topical Q6HPRN PRN neck and back pain 06/30/24
hydralazine 50 mg tablet 100 mg (2 x 50 mg) PO BID 30 days #120 tabs 07/19/24
acetaminophen 325 mg tablet 650 mg PO Q4HPRN PRN fever>101 08/02/25
dextran 70-hypromellose eye drops in a dropperette (Artificial Tears (PF) drops in a dropperette) 1 drp BOTH EYES BID 08/02/25
docusate sodium 100 mg capsule 100 mg PO [id number] PRN constipation 08/02/25
furosemide 20 mg tablet (Lasix) 20 mg PO DAILYPRN PRN edema or 3lb wt gain x 1 week 08/02/25
hydralazine 50 mg tablet 50 mg PO DAILY@1500 08/02/25
loperamide 2 mg tablet 2 mg PO Q8HPRN PRN diarrhea 08/02/25
melatonin 3 mg tablet 3 mg PO HSPRN PRN insomnia 08/02/25
menthol 0.1 % lotion 1 ea topical TID bilateral arms 08/02/25
metoprolol succinate 25 mg tablet,extended release 24 hr 12.5 mg PO DAILY 08/02/25
miconazole nitrate 2 % topical powder 1 applic topical BID abdominal folds 08/02/25
miconazole nitrate 2 % topical powder 1 applic topical BID abdominal folds/groin 08/02/25
ondansetron HCl 4 mg tablet 4 mg PO Q8HPRN PRN nausea/vomiting 08/02/25
polyethylene glycol 3350 17 gram oral powder packet (Miralax) 17 g PO [id number] PRN constipation 08/02/25
sodium bicarbonate 650 mg tablet 1,200 mg PO BID 08/02/25
Review of Systems
-
History Source: Patient
Constitutional: Reports Fatigue; Denies Fever or Chills
EENT: Denies Sore Throat
Respiratory: Denies Cough or Trouble Breathing
Cardiac: Denies Chest Pain, Diaphoresis, Palpitations or Syncope
Abdomen/GI: Denies Abdominal Pain, Nausea, Vomiting or Diarrhea
: Denies Dysuria, Frequency or Urgency
Musculoskeletal: Denies Joint Pain
Skin: Denies Rash
Neurological: Denies Dizzy, Headache or Weakness
Endocrine: Denies Polyuria or Polydipsia
Hematologic/Lymphatic: Denies Bleeding
Physical Exam
Vital Signs
Vital Signs
Temp Pulse Resp BP Pulse Ox
97.7 F 61 9 104/45 98
08/02/25 11:27 08/02/25 13:15 08/02/25 13:15 08/02/25 13:00 08/02/25 13:15
Physical Exam
General: Well Developed, Well Nourished, No Apparent Distress, Comfortable, Conversant, Appears Chronically Ill and Obese
HEENT: NormoCephalic, Nose Appears Normal and Ears Appear Normal; No Moist mucous membranes
Respiratory: Clear and Non Labored Respirations; No Wheezes, Rales, Rhonchi or Crackles
Cardiac: Regular Rhythm and Peripheral Edema; No Murmur, Rub or Gallop
GI: Soft, Non Tender, Non Distended and Normal Bowel Sounds
Musculoskeletal: No Clubbing and No Cyanosis
Skin: Warm and IV/Catheter Site
Neuro: Awake and AO x 3
Psych: Calm
Laboratory Results
-
08/02/25 11:42
08/02/25 11:42
Laboratory Results
Total Bilirubin 0.4 mg/dl (0.2-1.3) 08/02/25 11:42
AST 19 U/L (14-36) 08/02/25 11:42
ALT 12 U/L (0-35) 08/02/25 11:42
Alkaline Phosphatase 73 U/L (38-126) 08/02/25 11:42
Troponin I 0.028 ng/ml 08/02/25 11:42
Data Reviewed
-
CT Scan: Report Reviewed by me (Head CT: No acute intracranial abnormality noted.)
Medical Tests (Nuc Med, Echo, EKG etc): Report Reviewed by me (EKG: Atrial-paced rhythm with prolonged AV conduction MINIMAL VOLTAGE CRITERIA FOR LVH, MAY BE NORMAL VARIANT ( [place] product ))
Lab Data: Labs Reviewed by me (BUN 69, Creat 2.9, est CrCl 14, eGFR 15.29)
Impression/Plan
-
IMPRESSION/PLAN:
#general malaise 2/2
EKG: Atrial-paced rhythm with prolonged AV conduction
MINIMAL VOLTAGE CRITERIA FOR LVH, MAY BE NORMAL VARIANT ( [place] product )
Head CT: No acute intracranial abnormality noted.
UA: indicative of UTI
Urine Cx: pending
Covid: negative
- Admit to med/surg
- IVF NSS given in ED
- IV Meropenem
- supportive care
- Consult PT
#hypertension
- continue hydralazine
#paroxysmal atrial fibrillation
- continue Eliquis and metoprolol
#chronic kidney disease IV
BUN 69, Creat 2.9, est CrCl 14, eGFR 15.29
appears to be patient baseline
- IVF given in ED
- monitor BMP
#GERD
- continue PRN Maalox, PRN famotidine
#anxiety/depression
#gout
#COPD
Code status: DNI
DVT prophylaxis: Eliquis
--- NOTE | 2025-08-02 16:34 | EDCM ---
CM reviewed chart and met with pt bedside in ED. Pt lives in LTC at [facility], has been there about 3 years.
Needs assistance with ADLs and personal care, mostly uses wheelchair but can ambulate short distances.
Her daughter also resides at [facility]. Her son lives in [place].
MAGALLON reviewed and signed
PCP: Gordy Gtz
Pharmacy: [facility] [place], [place]
Anticipate return to [facility] LTC when medically stable, CM will continue to follow
[2025-08-02] MEDS: STERILE WATER FOR INJECTION 10 ML IV (18:24)
[2025-08-02] MEDS: LACTAID PO (18:25)
[2025-08-02] MEDS: MERREM 500 MG IV (18:25)
[2025-08-02] MEDS: FIRVANQ 125 MG PO (21:43)
[2025-08-02] MEDS: APRESOLINE 100 MG PO (21:44)
[2025-08-02] MEDS: DESENEX/MITRAZOL/ZEASORB 1 APPLIC TOPICAL (21:46)
[2025-08-02] MEDS: ELIQUIS 2.5 MG PO (21:46)
[2025-08-02] MEDS: REFRESH EYE DROPS (PF) 1 DROPS BOTH EYES (21:47)
[2025-08-02] MEDS: SODIUM BICARBONATE 1300 MG PO (21:47)
--- NOTE | 2025-08-02 22:52 | PTCARENOTE ---
PCT was not able to get temperature orally and axillary.
--- NOTE | 2025-08-02 23:11 | PTCARENOTE ---
PCT was not able to get temperature orally or axillary.
--- NOTE | 2025-08-03 02:32 | PTCARENOTE ---
Pt arrived to unit via stretcher. Pt transferred from stretcher to bed. Pt oriented to room. Pt AAOX3, VSS. Call lopez within reach, plan of care ongoing.
[2025-08-03 06:00] LABS: Hematocrit 26.5 % (37.0-47.0); Hemoglobin 8.3 g/dL (12.0-16.0); Mean Corp Hgb Conc. 31.3 g/dL (33.0-37.0); Mean Corpuscular Volume 95.3 fL (81.0-99.0); Platelet Count 121 10^3/uL (130-400); Red Cell Dist. Width 14.0 % (11.5-14.5)
[2025-08-03] MEDS: MERREM 500 MG IV ×2 (06:02→17:42)
[2025-08-03] MEDS: STERILE WATER FOR INJECTION 10 ML IV ×2 (06:02→17:42)
[2025-08-03] MEDS: TYLENOL 650 MG PO ×2 (06:03→20:43)
[2025-08-03 06:24] LABS: Blood Urea Nitrogen 67 mg/dl (7-17); Calcium 9.0 mg/dl (8.4-10.2); Carbon Dioxide 25 mmol/L (22-30); Chloride 109 mmol/L (98-107); Estimated Creatinine Clearance 13 ml/min; Glucose 108 mg/dl (70-99); Potassium 4.5 mmol/L (3.5-5.1); Sodium 139 mmol/L (135-145); eGFR 14.11
[2025-08-03 07:00] VITALS: BP 150/74
[2025-08-03] MEDS: ELIQUIS 2.5 MG PO ×2 (08:50→20:42)
[2025-08-03] MEDS: LACTAID 1 CAPSULE PO ×3 (08:50→17:40)
[2025-08-03] MEDS: REFRESH EYE DROPS (PF) 1 DROPS BOTH EYES ×2 (08:50→20:42)
[2025-08-03] MEDS: SODIUM BICARBONATE 1300 MG PO ×2 (08:59→20:43)
[2025-08-03] MEDS: APRESOLINE 100 MG PO ×2 (08:59→20:41)
[2025-08-03] MEDS: DESENEX/MITRAZOL/ZEASORB 1 APPLIC TOPICAL ×2 (09:11→20:42)
[2025-08-03] MEDS: TOPROL XL 12.5 MG PO (09:20)
[2025-08-03] MEDS: FIRVANQ 125 MG PO (10:12)
--- NOTE | 2025-08-03 12:33 | CM ---
Addendum entered by Janette Tamez RN 08/03/25 12:36:
[facility] admission Carito [phone]
report [phone]
fax [phone]
Original Note:
Carito from [facility] called . Pt is a half-way patient with 15 day medicare bed hold.
Spoke with patient she requested to return at discharge.
She will need an ambulance.
PLAN Return to [facility] when medically ready
--- NOTE | 2025-08-03 13:14 | W.PN.HOSP.TC ---
Today's Communication/Plan
-
Assessment / Plan
Assessment / Plan
NAD
Scleral Anicteric
MMM
No JVD
CTABL
RRR, S1/S2
Soft, NT, ND, BS+
Warm, Dry
AAOx3
Calm
Toxic metabolic encephalopathy secondary to urinary tract infection
IV antibiotics with meropenem as history of ESBL E. coli
Plan urine culture and blood culture
Infectious disease consulted
History of C. difficile colitis
Started on IV antibiotics
Therefore started on p.o. vancomycin daily for prophylaxis
Paroxysmal atrial fibrillation
Continue Eliquis metoprolol
CKD stage IV - V
Avoid nephrotoxins and hypotension
Monitor uop
Continue NaHco3
Nee continue outpt neph follow up
May require ARMATURE INSPECTOR in the near future but not at this time
HTN
Continue antihypertensives
Anticipated Discharge: 24 - 48 hours
Subjective/Interval History
-
Date of Service: August 03, 2025
Seen and examined. States feels significantly better.
Was began to hallucinate yesterday
IV antibiotics have helped
Did have 1 episode of diarrhea yesterday. Nothing since
Burning with urination frequency improving
Objective Data
-
Labs:
Laboratory Results
08/03/25
05:36
WBC 4.9
Hgb 8.3 L
Hct 26.5 L
Plt Count 121 L
Sodium 139
Potassium 4.5
Chloride 109 H
Carbon Dioxide 25
BUN 67 H
Creatinine 3.1 H
Glucose 108 H
Calcium 9.0
Vital Signs:
Vital Signs
Temp Pulse Resp BP Pulse Ox
97.7 F 60 19 150/74 99
08/02/25 11:27 08/03/25 09:20 08/03/25 07:00 08/03/25 09:20 08/03/25 07:00
I&O
08/02/25 08/03/25 08/04/25
06:59 06:59 06:59
Intake Total 960 / 960
Output Total 750 / 750
Balance 210 / 210
[2025-08-03 14:56] VITALS: BP 154/61
[2025-08-03] MEDS: APRESOLINE 50 MG PO (15:15)
--- NOTE | 2025-08-03 16:37 | CON.ID ---
Consultation
-
Date/Time Consultation Requested: 08/03/2025 0914
Date/Time Consultation Performed: 08/03/2025 1415
Requesting Provider: Dr. Valdez
Performing Provider: Dr. Mcgarry
Reason for Consultation: Complicated urinary tract infection
Chief Complaint / Past History
History of Present Illness
Melissa La is an 85-year-old female being seen in infectious ease consultation request of Dr. Valdez in regards to a complicated urinary tract infection. History is obtained from chart review, along with patient interview.
The patient resides at a local senior care ([facility]) reports that she was in her usual state of health until yesterday morning when she woke up and was extremely weak. She also reports she developed hallucinations, seeing people in the room
that were not there. At this point in time she denied any fever but was complaining of some dysuria. She notified her nurse taking care of her and EMS was called and she was brought to the emergency room. Workup in the emergency room did not
reveal a leukocytosis, but she was found to have significant pyuria and urine cultures are now showing gram-negative rods. Infectious Diseases is asked to comment upon further antimicrobial management.
At this time she denies any pain. She admits to prior nausea, but no vomiting. Additionally, she noted significant diarrhea yesterday which is now resolved.
Past History
Additional Past Medical History:
A-fib
CAD
COPD
HTN
HLD
CKD stage IV
Idiopathic pancreatitis
Additional Past Surgical History:
Cholecystectomy
Allergy History:
No Known Allergies Allergy (Unverified 04/26/24 11:48)
Medications Reviewed: Yes
Current Antibiotics:
Vancomycin
Meropenem
Social History
Tobacco: Non-Smoker
Alcohol: None
Drug: None
Personal: Single
Living: Jail
Employment: Retired
Family History
Family History: Not Pertinent
Review of Systems
Vital Signs
Temp Pulse Resp BP Pulse Ox
97.7 F 62 19 154/61 99
08/02/25 11:27 08/03/25 15:15 08/03/25 14:56 08/03/25 15:15 08/03/25 15:53
Physical Exam
Physical Exam
Constitutional: No Acute Distress, Comfortable and Non-toxic
Eyes: No Conjunctival Hemorrhage and Sclera Anicteric
Oral: No Thrush and No Ulcers
Cardiovascular: S1/S2; Negative S3/S4
Pulmonary: Clear; Negative Wheezes or Rales
Gastrointestinal: Soft, Non Tender and Non Distended
Genito-Urinary: Negative Suprapubic Tenderness or CVA Tenderness
Neurological: Awake and Alert
Psychological: Calm
Lab / Diagnostic Study Results
08/03/25 05:36
08/03/25 05:36
Abs Immat Gran (auto) 0.0 10^3/uL (0-0.05) 08/02/25 11:42
Absolute Neuts (auto) 4.3 10^3/uL (1.4-6.5) 08/02/25 11:42
Absolute Lymphs (auto) 1.3 10^3/uL (1.2-3.4) 08/02/25 11:42
Absolute Monos (auto) 0.6 10^3/uL (0.1-0.6) 08/02/25 11:42
Absolute Basos (auto) 0.1 10^3/uL (0-0.2) 08/02/25 11:42
Immature Gran % 0.5 % (0-0.5) 08/02/25 11:42
Neutrophils % 65.8 % (42.2-75.2) 08/02/25 11:42
Lymphocytes % 19.3 % (20.5-51.1) L 08/02/25 11:42
Monocytes % 9.3 % (1.7-9.3) 08/02/25 11:42
Eosinophils % 4.2 % (0-6) 08/02/25 11:42
Basophils % 0.9 % (0-2) 08/02/25 11:42
Ur Squamous Epith Cells 0-2 /LPF (Few) 08/02/25 13:18
Microbiology Results
Micro:
08/02/25 13:18 Urine Culture - Preliminary
Urine Gram negative bacilli
Assessment / Plan
Generalized weakness
Suspected complicated urinary tract infection
A-fib
CAD
COPD
HTN
HLD
CKD stage IV
Idiopathic pancreatitis
Recommendations:
Continue with meropenem for the present.
Discontinue further vancomycin.
Follow white count and temperature curve.
Monitor for ongoing dysuria.
Await final culture data to guide further antimicrobial selection and potential de-escalation.
Further recommendations as additional data is returned.
[2025-08-03 23:24] VITALS: BP 154/64
[2025-08-04] MEDS: MERREM 500 MG IV ×2 (05:38→17:44)
[2025-08-04] MEDS: STERILE WATER FOR INJECTION 10 ML IV ×2 (05:38→17:44)
[2025-08-04 05:49] LABS: Hematocrit 25.1 % (37.0-47.0); Hemoglobin 8.3 g/dL (12.0-16.0); Mean Corp Hgb Conc. 33.1 g/dL (33.0-37.0); Mean Corpuscular Volume 93.3 fL (81.0-99.0); Platelet Count 130 10^3/uL (130-400); Red Cell Dist. Width 14.1 % (11.5-14.5)
[2025-08-04 05:56] VITALS: BMI 27.4
[2025-08-04 06:11] LABS: Blood Urea Nitrogen 67 mg/dl (7-17); Calcium 8.7 mg/dl (8.4-10.2); Carbon Dioxide 25 mmol/L (22-30); Chloride 107 mmol/L (98-107); Estimated Creatinine Clearance 14 ml/min; Glucose 117 mg/dl (70-99); Potassium 4.4 mmol/L (3.5-5.1); Sodium 140 mmol/L (135-145); eGFR 15.29
[2025-08-04] MEDS: SODIUM BICARBONATE 1300 MG PO ×2 (07:47→20:08)
[2025-08-04] MEDS: REFRESH EYE DROPS (PF) 1 DROPS BOTH EYES ×2 (07:47→20:08)
[2025-08-04] MEDS: ELIQUIS 2.5 MG PO ×2 (07:48→20:08)
[2025-08-04] MEDS: LACTAID 1 CAPSULE PO ×3 (07:48→17:44)
[2025-08-04] MEDS: DESENEX/MITRAZOL/ZEASORB 1 APPLIC TOPICAL ×2 (07:49→20:09)
[2025-08-04] MEDS: TOPROL XL 12.5 MG PO (07:53)
[2025-08-04] MEDS: APRESOLINE 100 MG PO ×2 (07:53→20:09)
[2025-08-04 08:18] VITALS: BP 193/86
[2025-08-04] MEDS: TYLENOL 650 MG PO ×2 (11:49→20:10)
[2025-08-04 11:56] VITALS: BP 162/84
--- NOTE | 2025-08-04 13:37 | W.PN.HOSP.TC ---
Today's Communication/Plan
-
[facility]
Assessment / Plan
Assessment / Plan
NAD
Scleral Anicteric
MMM
No JVD
CTABL
RRR, S1/S2
Soft, NT, ND, BS+
Warm, Dry
AAOx3
Calm
Toxic metabolic encephalopathy secondary to urinary tract infection
IV antibiotics with meropenem as history of ESBL E. coli
Ucx + for Klebsielle and Ecoli - Esbl
-On carlota
-Will discuss de=escalation of antibiotic with ID in hope to transition to DC
History of C. difficile colitis
ID Dc po vanc ppx
Paroxysmal atrial fibrillation
Continue Eliquis metoprolol
CKD stage IV - V
Avoid nephrotoxins and hypotension
Monitor uop
Continue NaHco3
Nee continue outpt neph follow up
May require KIL[employer] LOADER in the near future but not at this time
HTN
Continue antihypertensives
Anticipated Discharge: Within 24 hours
Subjective/Interval History
-
Date of Service: August 04, 2025
seen and exmained, no new complaints. no acute ovnerihgt events
Objective Data
-
Labs:
Laboratory Results
08/04/25
05:20
WBC 4.9
Hgb 8.3 L
Hct 25.1 L
Plt Count 130
Sodium 140
Potassium 4.4
Chloride 107
Carbon Dioxide 25
BUN 67 H
Creatinine 2.9 H
Glucose 117 H
Calcium 8.7
Vital Signs:
Vital Signs
Temp Pulse Resp BP Pulse Ox
97.7 F 66 18 162/84 98
08/02/25 11:27 08/04/25 08:18 08/04/25 08:18 08/04/25 11:56 08/04/25 08:18
I&O
08/03/25 08/04/25 08/05/25
06:59 06:59 06:59
Intake Total 2279 / 2279
Output Total 1849 / 1849
Balance 430 / 430
--- NOTE | 2025-08-04 14:48 | W.PN.ID1 ---
Date of Service
Date of Service: August 04, 2025
Today's Communication
Continue antibiotics. See below�
Assessment / Plan
Generalized weakness
Suspected complicated urinary tract infection
A-fib
CAD
COPD
HTN
HLD
CKD stage IV
Idiopathic pancreatitis
Recommendations:
Continue with meropenem for the present.
Follow white count and temperature curve.
Monitor for ongoing dysuria.
If clinically improved, at discharge can transition to oral doxycycline to complete a 14-day course in total.
����������������������������������������������������������
Chief Complaint
-: UTI
Subjective / Review of Systems
Patient seen and examined. Reports feeling improved today. Still with dysuria and some urgency, though.
Vital Signs / Physical Exam
Vital Signs
Vital Signs
Temp Pulse Resp BP Pulse Ox
97.7 F 66 18 162/84 98
08/02/25 11:27 08/04/25 08:18 08/04/25 08:18 08/04/25 11:56 08/04/25 08:18
Physical Exam
Constitutional: No Acute Distress, Comfortable, Chronically Ill and Non-toxic
Eyes: Sclera Anicteric
Cardiovascular: S1/S2; Negative S3/S4
Pulmonary: Clear; Negative Wheezes or Rales
Gastrointestinal: Soft and Non Tender
Neurological: Awake and Alert
Psychological: Calm
Objective Data
Lab Data
Lab Results
08/04/25 05:20
08/04/25 05:20
Estimated Creat Clear 14 ml/min 08/04/25 05:20
Total Bilirubin 0.4 mg/dl (0.2-1.3) 08/02/25 11:42
AST 19 U/L (14-36) 08/02/25 11:42
ALT 12 U/L (0-35) 08/02/25 11:42
Alkaline Phosphatase 73 U/L (38-126) 08/02/25 11:42
Most recent labs reviewed.
Micro Results:
08/02/25 13:18 Urine Culture - Final
Urine Klebsiella pneumoniae
Escherichia coli - ESBL
Urine Culture Final 08/02/25
CC: Greater than 100,000 CFU/M Klebsiella pneumoniae
CC: Greater than 100,000 CFU/ML Escherichia coli - ESBL*
Isolation Precautions Required
*Resistance due to extended spectrum beta lactamase.
Decreased activity may occur with penicillins,
penicillin/inhibitor combinations, cephalosporins, and
monobactams.
Organism 1 Klebsiella pneumoniae
Organism 2 Escherichia coli - ESBL
K.PNEUMO EC-ESBL
M.I.C. RX M.I.C. RX
--------- --- --------- ---
Amoxicillin/Potas. Clavulanate <=8/4 S 16/8 I
Ampicillin >16 R >16 R
Ampicillin/Sulbactam 8/4 S >16/8 R
Aztreonam <=4 S >16 R
Cefazolin <=2 S >16 R
Cefepime >16 R
Ceftazidime >16 R
Ceftriaxone >2 R
Ertapenem <=0.5 S <=0.5 S
Ciprofloxacin <=0.25 S >2 R
Gentamicin <=2 S <=2 S
Meropenem <=1 S <=1 S
Nitrofurantoin-Urine Only <=32 S <=32 S
Piperacillin/Tazobactam <=8 S <=8 S
Tetracycline <=4 S <=4 S
Tobramycin <=2 S >8 R
Trimethoprim/Sulfamethoxazole <= S <=2/38 S
Care Review
Plan reviewed with: Physician (Hospitalist)
--- NOTE | 2025-08-04 15:18 | PTCARENOTE ---
RN made aware of difficulties obtaining pt's temp. RN assessed rectal temp, which was 94.8. MD made aware. Pt wrapped in multiple warmed blankets as well as increase temperature in room. Will reassess in about 1 hour.
--- NOTE | 2025-08-04 15:22 | PTCARENOTE ---
RN made aware of difficulties obtaining pt's temp. RN assessed rectal temp, which was 94.8. MD made aware. Pt stated they always have a low temperature. Pt denies feeling cold, shivering, skin of normal color, or any other symptoms of low body temp.
Pt wrapped in multiple warmed blankets as well as increase temperature in room. Will reassess in about 1 hour.
--- NOTE | 2025-08-04 15:51 | CM ---
Pt changed to inpatient . IMM reviewed with patient copy given and signed copy on chart.
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
She will need an ambulance to return to [place].
[facility] admission [place] [phone]
report [phone]
fax [phone]
PLAN Return to [facility]
[2025-08-04] MEDS: APRESOLINE 50 MG PO (15:58)
[2025-08-04 16:03] VITALS: BP 185/75
[2025-08-04 20:19] LABS: Glucose - Point of Care 207 mg/dl (70-99)
[2025-08-04] MEDS: MELATONIN 3 MG PO (21:28)
[2025-08-05 00:02] VITALS: BP 173/65
[2025-08-05] MEDS: MERREM 500 MG IV ×2 (05:29→17:27)
[2025-08-05] MEDS: STERILE WATER FOR INJECTION 10 ML IV ×2 (05:29→17:27)
[2025-08-05 06:19] VITALS: BMI 27.7
[2025-08-05 07:33] LABS: Hematocrit 25.8 % (37.0-47.0); Hemoglobin 8.2 g/dL (12.0-16.0); Mean Corp Hgb Conc. 31.8 g/dL (33.0-37.0); Mean Corpuscular Volume 93.5 fL (81.0-99.0); Platelet Count 141 10^3/uL (130-400); Red Cell Dist. Width 14.6 % (11.5-14.5)
[2025-08-05 07:59] LABS: Blood Urea Nitrogen 71 mg/dl (7-17); Calcium 9.0 mg/dl (8.4-10.2); Carbon Dioxide 23 mmol/L (22-30); Chloride 108 mmol/L (98-107); Estimated Creatinine Clearance 11 ml/min; Glucose 118 mg/dl (70-99); Potassium 5.1 mmol/L (3.5-5.1); Sodium 136 mmol/L (135-145); eGFR 11.80
[2025-08-05] MEDS: SODIUM BICARBONATE 1300 MG PO ×2 (08:34→19:52)
[2025-08-05] MEDS: ELIQUIS 2.5 MG PO ×2 (08:34→19:52)
[2025-08-05] MEDS: DESENEX/MITRAZOL/ZEASORB 1 APPLIC TOPICAL ×2 (08:34→19:56)
[2025-08-05] MEDS: LACTAID 1 CAPSULE PO ×3 (08:34→16:40)
[2025-08-05 08:35] VITALS: BP 161/78
[2025-08-05] MEDS: REFRESH EYE DROPS (PF) 1 DROPS BOTH EYES ×2 (08:35→19:52)
[2025-08-05] MEDS: TOPROL XL 12.5 MG PO (08:35)
[2025-08-05] MEDS: APRESOLINE 100 MG PO ×2 (08:36→19:53)
[2025-08-05] MEDS: TYLENOL 650 MG PO ×2 (08:37→20:38)
--- NOTE | 2025-08-05 14:39 | W.PN.HOSP.TC ---
Today's Communication/Plan
-
Assessment / Plan
Assessment / Plan
NAD
Scleral Anicteric
MMM
No JVD
CTABL
RRR, S1/S2
Soft, NT, ND, BS+
Warm, Dry
AAOx3
Calm
Toxic metabolic encephalopathy secondary to urinary tract infection
IV antibiotics with meropenem as history of ESBL E. coli
Ucx + for Klebsielle and Ecoli - Esbl
-On carlota can likely trnasition to oral doxy [id number]
-Will discuss de-escalation of antibiotic with ID in hope to transition to DC
Hypothermic
-Acutely infected
-Hx of automnomic dysfunction from previous admit
-Once temps have been stgable >24hours will begin dc planning
History of C. difficile colitis
ID Dc po vanc ppx
Paroxysmal atrial fibrillation
Continue Eliquis metoprolol
CKD stage IV - V
Avoid nephrotoxins and hypotension
Monitor uop
Continue NaHco3
Nee continue outpt neph follow up
May require [employer] SERVICES AMBASSADOR in the near future but not at this time
HTN
Continue antihypertensives
Anticipated Discharge: 24 - 48 hours
Subjective/Interval History
-
Date of Service: August 05, 2025
Seen and examined. Hypothermic yesterday. Seems to have a history of hypothermia per previous notes
No new complaints. No acute overnight events
Objective Data
-
Labs:
Laboratory Results
08/05/25 08/05/25
07:02 07:03
WBC 7.5
Hgb 8.2 L
Hct 25.8 L
Plt Count 141
Sodium 136
Potassium 5.1
Chloride 108 H
Carbon Dioxide 23
BUN 71 H
Creatinine 3.6 H
Glucose 118 H
Calcium 9.0
Vital Signs:
Vital Signs
Temp Pulse Resp BP Pulse Ox
97.1 F 80 20 161/78 98
08/05/25 08:35 08/05/25 08:35 08/05/25 08:35 08/05/25 08:35 08/05/25 08:35
I&O
08/04/25 08/05/25 08/06/25
06:59 06:59 06:59
Intake Total 2280 / 2280 480 / 480
Output Total 1850 / 1850
Balance 430 / 430 480 / 480
[2025-08-05] MEDS: APRESOLINE 50 MG PO (16:40)
[2025-08-05 16:46] VITALS: BP 174/67
[2025-08-05 23:59] VITALS: BP 192/69
[2025-08-06 01:20] VITALS: BP 200/58
[2025-08-06] MEDS: APRESOLINE 10 MG IV (01:35)
[2025-08-06 03:39] VITALS: BP 172/84
[2025-08-06] MEDS: MERREM 500 MG IV (05:13)
[2025-08-06] MEDS: STERILE WATER FOR INJECTION 10 ML IV (05:13)
[2025-08-06 06:00] VITALS: BMI 27.9
[2025-08-06 08:05] VITALS: BP 187/72
[2025-08-06] MEDS: SODIUM BICARBONATE 1300 MG PO (08:25)
[2025-08-06] MEDS: TYLENOL 650 MG PO (08:25)
[2025-08-06] MEDS: APRESOLINE 100 MG PO (08:26)
[2025-08-06] MEDS: ELIQUIS 2.5 MG PO (08:26)
[2025-08-06] MEDS: TOPROL XL 12.5 MG PO (08:27)
[2025-08-06] MEDS: LACTAID 1 CAPSULE PO ×3 (08:27→17:11)
[2025-08-06] MEDS: REFRESH EYE DROPS (PF) 1 DROPS BOTH EYES (08:27)
[2025-08-06] MEDS: DESENEX/MITRAZOL/ZEASORB 1 APPLIC TOPICAL (08:28)
[2025-08-06 08:31] LABS: Hematocrit 26.0 % (37.0-47.0); Hemoglobin 8.5 g/dL (12.0-16.0); Mean Corp Hgb Conc. 32.7 g/dL (33.0-37.0); Mean Corpuscular Volume 91.5 fL (81.0-99.0); Platelet Count 139 10^3/uL (130-400); Red Cell Dist. Width 14.3 % (11.5-14.5)
[2025-08-06 08:53] LABS: Blood Urea Nitrogen 74 mg/dl (7-17); Calcium 9.3 mg/dl (8.4-10.2); Carbon Dioxide 23 mmol/L (22-30); Chloride 108 mmol/L (98-107); Estimated Creatinine Clearance 13 ml/min; Glucose 115 mg/dl (70-99); Potassium 4.8 mmol/L (3.5-5.1); Sodium 136 mmol/L (135-145); eGFR 13.59
--- NOTE | 2025-08-06 11:44 | W.DCSUMMARY ---
Discharge Summary
Discharge Data
Date of Admission: 08/04/25
Date of Discharge: 08/06/25
-
Pending Results: No
Hospital Course
85-year-old female with past medical history significant for hypertension, paroxysmal atrial fibrillation, chronic kidney disease IV, gout, COPD, GERD and anxiety/depression
Presented with malaise weakness hallucinations. Toxic metabolic encephalopathy secondary to UTI. But given history of ESBL UTI history was started on IV meropenem. Urine cultures did confirm this with Klebsiella and E. coli ESBL. Therefore
infectious diseases consulted. Recommended to continue on IV meropenem and transition to doxycycline when ready for discharge. Did have a brief episode of hypothermia. Has a known history of autonomic dysfunction and likely related to this as
previously completed extensive workup with TSH adrenal insufficiency and infectious workup at that time was all negative. Therefore diagnosis of exclusion autonomic dysfunction. At this time could be related to the ESBL UTI versus autonomic
dysfunction. However has not been hypothermic for more than 48 hours and now will discharge back to facility.
CTHead
IMPRESSION:
No acute intracranial abnormality noted.
Seen and examined the day of discharge which was 08/06/2025
No new complaints. No acute overnight events.
NAD
Scleral Anicteric
MMM
No JVD
CTABL
RRR, S1/S2
Soft, NT, ND, BS+
Warm, Dry
AAOx3
More than 30 minutes spent in discharge including
Final examination of the patient
Summarizing hospital stay
Instructions for continuing care to all relevant caregivers
Preparation of discharge records, prescriptions, and referral forms
Total time spent (in minutes): 33mins
Discharge Plan
-
Patient Disposition: Custodial/SNF
Discharge Diagnosis/Procedures: ESBL UTI
Condition: Good
Diet: As tolerated
Activity: As tolerated
Activity Restrictions/Additional Instructions:
Presented with malaise weakness hallucinations. Toxic metabolic encephalopathy secondary to UTI. But given history of ESBL UTI history was started on IV meropenem. Urine cultures did confirm this with Klebsiella and E. coli ESBL. Therefore
infectious diseases consulted. Recommended to continue on IV meropenem and transition to doxycycline when ready for discharge. Did have a brief episode of hypothermia. Has a known history of autonomic dysfunction and likely related to this as
previously completed extensive workup with TSH adrenal insufficiency and infectious workup at that time was all negative. Therefore diagnosis of exclusion autonomic dysfunction. At this time could be related to the ESBL UTI versus autonomic
dysfunction. However has not been hypothermic for more than 48 hours and now will discharge back to facility.
CTHead
IMPRESSION:
No acute intracranial abnormality noted.
Referrals:
Gordy Gtz MD [Family Provider]
Prescriptions:
New
doxycycline hyclate 100 mg tablet
100 mg PO BID Qty: 20 0RF
Continued
acetaminophen 325 mg Tablet
650 mg PO Q4HPRN MDD 3000 mg PRN (Reason: mild pain/fever >101)
famotidine [Pepcid] 20 mg Tablet
20 mg PO Q8HPRN PRN (Reason: GERD)
bisacodyl 10 mg Suppository
10 mg [place] DAILYPRN PRN (Reason: no bm 24 hrs after mom)
alum-mag hydroxide-simeth [Maalox Maximum Strength] 400-400-40 mg/5 mL Suspension
5 ml PO Q6HPRN PRN (Reason: reflux)
Saccharomyces boulardii [Florastor] 250 mg Capsule
250 mg PO BIDPRN PRN (Reason: diarrhea)
PreserVision AREDS 4,296 mcg-226 mg-90 mg Capsule
1 cap PO DAILY
cholecalciferol (vitamin D3) 75 mcg (3,000 unit) Tablet
75 mcg PO DAILY
Eliquis 2.5 mg Tablet
2.5 mg PO BID
Eucerin Itch Relief 0.1 % Lotion
1 ea TOPICAL DAILY
lactase 3,000 unit Tablet
3,000 unit PO MEALS
lidocaine 4 % Gel
1 applic TOPICAL Q6HPRN PRN (Reason: neck and back pain)
hydralazine 50 mg Tablet
100 mg PO BID 30 Days Qty: 120 0RF
acetaminophen 325 mg Tablet
650 mg PO Q4HPRN PRN (Reason: fever>101)
polyethylene glycol 3350 [Miralax] 17 gram Powder In Packet
17 g PO [id number] PRN (Reason: constipation)
ondansetron HCl 4 mg Tablet
4 mg PO Q8HPRN PRN (Reason: nausea/vomiting)
loperamide 2 mg Tablet
2 mg PO Q8HPRN PRN (Reason: diarrhea)
miconazole nitrate 2 % Powder
1 applic TOPICAL BID
miconazole nitrate 2 % Powder
1 applic TOPICAL BID
melatonin 3 mg Tablet
3 mg PO HSPRN PRN (Reason: insomnia)
docusate sodium 100 mg Capsule
100 mg PO [id number] PRN (Reason: constipation)
hydralazine 50 mg Tablet
50 mg PO DAILY@1500
metoprolol succinate 25 mg Tablet Extended Release 24 Hr
12.5 mg PO DAILY
Artificial Tears (PF) Dropperette
1 drp BOTH EYES BID
menthol 0.1 % Lotion
1 ea TOPICAL TID
sodium bicarbonate 650 mg tablet
1,200 mg PO BID
furosemide [Lasix] 20 mg tablet
20 mg PO DAILYPRN PRN (Reason: edema or 3lb wt gain x 1 week)
Discharge Orders:
Discharge Patient (As Directed); Ordered 08/06/25
Ordered By: Carlos Valdez
Discharge Date and Time
Print Language: GABONESE
--- NOTE | 2025-08-06 13:43 | CM ---
Addendum entered by Cary Singh 08/06/25 14:38:
Pt appropriate for w/c van, however no w/c van is available, thus ambulance transport requested.
Original Note:
Pt is cleared for return to [facility] today. Call placed to admissions to let them know that patient will be returning today. Ambulance transport being requested.
[facility] Report: [phone]
[facility]
[2025-08-06] MEDS: APRESOLINE 50 MG PO (15:13)
[2025-08-06 16:12] VITALS: BP 116/72
== END 2025-08-06 19:37 | DRG 689 ==
LOC: 3 WEST ACU 09:05
PROVIDERS: Emergency Medicine; Nurse Practitioner Family; Physician Assistant; ADMITTING PHYSICIAN Student in an Organized Health Care Education/Training Program; ATTENDING PHYSICIAN Hospitalist; CONSULT PHYSICIAN Internal Medicine Infectious Disease; EMERGENCY PHYSICIAN Student in an Organized Health Care Education/Training Program; FAMILY PHYSICIAN Internal Medicine
DX: N39.0 Urinary tract infection, site not specified (principal); G92.8 Other toxic encephalopathy; K85.90 Acute pancreatitis without necrosis or infection, unspecified; I13.0 Hypertensive heart and chronic kidney disease with heart failure and stage 1 through stage 4 chronic kidney disease, or unspecified chronic kidney disease; N18.4 Chronic kidney disease, stage 4 (severe); Z16.12 Extended spectrum beta lactamase (ESBL) resistance; Z11.52 Encounter for screening for COVID-19; Z66 Do not resuscitate; Z87.891 Personal history of nicotine dependence; I50.9 Heart failure, unspecified; I48.0 Paroxysmal atrial fibrillation; K21.9 Gastro-esophageal reflux disease without esophagitis; F32.A Depression, unspecified; F41.9 Anxiety disorder, unspecified; M10.9 Gout, unspecified; J44.9 Chronic obstructive pulmonary disease, unspecified; E11.22 Type 2 diabetes mellitus with diabetic chronic kidney disease; E11.43 Type 2 diabetes mellitus with diabetic autonomic (poly)neuropathy; Z79.01 Long term (current) use of anticoagulants; Z87.440 Personal history of urinary (tract) infections; Z95.0 Presence of cardiac pacemaker
CPT/HCPCS: 70450; 80048; 80053; 81003; 81015; 82962; 84484; 85025; 85027; 87077; 87086; 87186; 87811; 93005; 96361; 96374; 97162; 99285

== ENCOUNTER 2025-09-11 23:41 | Inpatient (IN) | payer MEDICARE, OTHER, SELFPAY ==
[2025-09-11] VITALS (8 sets, daily range): BP systolic 205–229; BP diastolic 54–66
[2025-09-11 21:24] LABS: Hematocrit 21.7 % (37.0-47.0); Hemoglobin 7.1 g/dL (12.0-16.0); Mean Corp Hgb Conc. 32.7 g/dL (33.0-37.0); Mean Corpuscular Volume 91.9 fL (81.0-99.0); Nucleated Red Blood Cells % 0 %; Platelet Count 186 10^3/uL (130-400); Red Cell Dist. Width 15.4 % (11.5-14.5)
[2025-09-11 21:34] LABS: APTT 36.6 Sec (23.4-35.0)
[2025-09-11 21:40] LABS: ALT (SGPT) 13 U/L (0-35); AST (SGOT) 18 U/L (14-36); Albumin 3.7 g/dl (3.5-5.0); Alkaline Phosphatase 78 U/L (38-126); Blood Urea Nitrogen 64 mg/dl (7-17); Calcium 9.0 mg/dl (8.4-10.2); Carbon Dioxide 23 mmol/L (22-30); Chloride 102 mmol/L (98-107); Glucose 293 mg/dl (70-99); Potassium 4.3 mmol/L (3.5-5.1); Sodium 133 mmol/L (135-145); Total Protein 6.8 g/dl (6.3-8.2); eGFR 11.80
--- NOTE | 2025-09-11 22:29 | ED.GENMED ---
History of Present Illness
<Jemal Guadarrama DO - Last Filed: 09/12/25 00:13>
General
Chief Complaint: Abnormal Lab Value
Time Seen by Provider: 09/11/25 21:48
<Senia Watson PA-C - Last Filed: 09/12/25 00:17>
General
Source: patient
Exam Limitations: none
Nursing documentation reviewed up to this point in time: agreed with
History of Present Illness
History of Present Illness:
see MDM
Past History
<Jemal Guadarrama DO - Last Filed: 09/12/25 00:13>
Past History
ED Past Medical History: Arrthythmia (paf), CAD, COPD, HTN, Hypercholesterolemia, Other (CKD STAGE IV) and Other (Idiopathic pancreatitis)
ED Past Surgical History: Cholecystectomy and Orthopedic
Social History
Tobacco: Non-smoker
Alcohol: None
Phy Exam
<Senia Watson PA-C - Last Filed: 09/12/25 00:17>
Physical Exam
Physical Exam:
see MDM
Course
<DO Sugey Chambers Last Filed: 09/12/25 00:13>
Orders/Labs/Results
Orders:
Orders
09/11/25 21:10
Type And Crossmatch [Type+Screen] Urgent
Complete Blood Count/With Diff Urgent
Comprehensive Metabolic Panel Urgent
PTT Urgent
09/11/25 22:18
Blood Bank Products [* Blood Bank Products] Urgent
Blood Bank Products: *Packed RBC Leuko (PRBC's
Quantity: 1
Transfuse Today: Yes
Reason: Anemia
CR Chest - 2 Views Urgent
Comment:
Reason For Exam: sob, htn, h/o chf
09/11/25 22:30
Add On- LAB Urgent
Tests Added?: troponin
09/11/25 22:34
NT-proBNP Urgent
Troponin I Urgent
Comment: ADD ON
09/11/25 22:41
Furosemide [Lasix] 40 mg IV NOW STA
09/11/25 23:13
EKG [Electrocardiogram (*1)] Urgent
Reason for Study: Fatigue / Weakness
09/11/25 23:14
EKG- Treatment ONCE
09/11/25 23:18
Admit/Transfer Patient As Directed
Co-Sign Provider:
Level of Care: Inpatient admission
Assign to:: Telemetry
Physician / Group: darleen
Diagnosis: hypertensive emergency
Reason for Telemetry: Pulmonary Edema
Date to Stop Telemetry: 09/14/25
Time to Stop Telemetry: 11:00
Reason for Hospitalization: hypertensive emergency
Expected length of stay greater than two midnights?: Yes
ELOS- Estimated Length of Stay in days: 2
I certify the patient meets the requirements for IP care: Yes
PRN Pain Medication Management As Directed
May give lesser potent ordered pain med per pt: Yes
preference::
Protocol:: Medication orders for pain may be administered in a
manner that supports deferring to patient preference
when the pt is:
- Requesting an ordered lesser potent pain medication.
Least to most potent pain medications are defined
as: acetaminophen < NSAID < tramadol < opioids
(morphine, oxycodone, hydromorphone).
- Requesting a lesser dose of the same medication IF
ORDERED.
- Requesting a less intrusive route of administration
if both routes are prescribed by the provider (PO <
IV).
09/11/25 23:19
Code Status As Directed
Resuscitation Status: Full Code
09/11/25 23:33
HydrALAZINE [Apresoline] 10 mg IV Q6HPRN PRN
09/14/25 11:00
DC Protocol for Telemetry ONCE
Abnormal Lab Results
09/11/25 09/11/25
21:10 22:34
RBC 2.36 L 10^6/uL
(4.20-5.40)
Hgb 7.1 L g/dL
(12.0-16.0)
Hct 21.7 L %
(37.0-47.0)
MCHC 32.7 L g/dL
(33.0-37.0)
RDW 15.4 H %
(11.5-14.5)
Abs Immat Gran (auto) 0.1 H 10^3/uL
(0-0.05)
Absolute Monos (auto) 0.7 H 10^3/uL
(0.1-0.6)
Immature Gran % 0.9 H %
(0-0.5)
Lymphocytes % 17.1 L %
(20.5-51.1)
Monocytes % 9.7 H %
(1.7-9.3)
APTT 36.6 H Sec
(23.4-35.0)
Sodium 133 L mmol/L
(135-145)
BUN 64 H mg/dl
(7-17)
Creatinine 3.6 H mg/dL
(0.6-1.0)
Glucose 293 H mg/dl
(70-99)
Troponin I 0.060 H* ng/ml
Crossmatch IS Only See Detail
09/11/25 21:10
09/11/25 21:10
Vital Signs
Initial and Last Documented VS:
Initial Vital Signs
Temp Pulse Resp Pulse Ox
36.4 C 79 18 95
09/11/25 21:02 09/11/25 21:02 09/11/25 21:02 09/11/25 21:02
Last Documented Vital Signs
Temp Pulse Resp BP Pulse Ox
36.4 C 70 16 207/55 100
09/11/25 21:02 09/11/25 23:58 09/11/25 23:45 09/11/25 23:58 09/11/25 23:00
<Senia Watson PA-C - Last Filed: 09/12/25 00:17>
Orders/Labs/Results
Orders:
Orders
09/11/25 21:10
Type And Crossmatch [Type+Screen] Urgent
Complete Blood Count/With Diff Urgent
Comprehensive Metabolic Panel Urgent
PTT Urgent
09/11/25 22:18
Blood Bank Products [* Blood Bank Products] Urgent
Blood Bank Products: *Packed RBC Leuko (PRBC's
Quantity: 1
Transfuse Today: Yes
Reason: Anemia
CR Chest - 2 Views Urgent
Comment:
Reason For Exam: sob, htn, h/o chf
09/11/25 22:30
Add On- LAB Urgent
Tests Added?: troponin
09/11/25 22:34
NT-proBNP Urgent
Troponin I Urgent
Comment: ADD ON
09/11/25 22:41
Furosemide [Lasix] 40 mg IV NOW STA
09/11/25 23:13
EKG [Electrocardiogram (*1)] Urgent
Reason for Study: Fatigue / Weakness
09/11/25 23:14
EKG- Treatment ONCE
09/11/25 23:18
Admit/Transfer Patient As Directed
Co-Sign Provider:
Level of Care: Inpatient admission
Assign to:: Telemetry
Physician / Group: darleen
Diagnosis: hypertensive emergency
Reason for Telemetry: Pulmonary Edema
Date to Stop Telemetry: 09/14/25
Time to Stop Telemetry: 11:00
Reason for Hospitalization: hypertensive emergency
Expected length of stay greater than two midnights?: Yes
ELOS- Estimated Length of Stay in days: 2
I certify the patient meets the requirements for IP care: Yes
PRN Pain Medication Management As Directed
May give lesser potent ordered pain med per pt: Yes
preference::
Protocol:: Medication orders for pain may be administered in a
manner that supports deferring to patient preference
when the pt is:
- Requesting an ordered lesser potent pain medication.
Least to most potent pain medications are defined
as: acetaminophen < NSAID < tramadol < opioids
(morphine, oxycodone, hydromorphone).
- Requesting a lesser dose of the same medication IF
ORDERED.
- Requesting a less intrusive route of administration
if both routes are prescribed by the provider (PO <
IV).
09/11/25 23:19
Code Status As Directed
Resuscitation Status: Full Code
09/11/25 23:33
HydrALAZINE [Apresoline] 10 mg IV Q6HPRN PRN
09/14/25 11:00
DC Protocol for Telemetry ONCE
Abnormal Lab Results
09/11/25 09/11/25
21:10 22:34
RBC 2.36 L 10^6/uL
(4.20-5.40)
Hgb 7.1 L g/dL
(12.0-16.0)
Hct 21.7 L %
(37.0-47.0)
MCHC 32.7 L g/dL
(33.0-37.0)
RDW 15.4 H %
(11.5-14.5)
Abs Immat Gran (auto) 0.1 H 10^3/uL
(0-0.05)
Absolute Monos (auto) 0.7 H 10^3/uL
(0.1-0.6)
Immature Gran % 0.9 H %
(0-0.5)
Lymphocytes % 17.1 L %
(20.5-51.1)
Monocytes % 9.7 H %
(1.7-9.3)
APTT 36.6 H Sec
(23.4-35.0)
Sodium 133 L mmol/L
(135-145)
BUN 64 H mg/dl
(7-17)
Creatinine 3.6 H mg/dL
(0.6-1.0)
Glucose 293 H mg/dl
(70-99)
Troponin I 0.060 H* ng/ml
Crossmatch IS Only See Detail
09/11/25 21:10
09/11/25 21:10
Vital Signs
Initial and Last Documented VS:
Initial Vital Signs
Temp Pulse Resp Pulse Ox
36.4 C 79 18 95
09/11/25 21:02 09/11/25 21:02 09/11/25 21:02 09/11/25 21:02
Last Documented Vital Signs
Temp Pulse Resp BP Pulse Ox
36.4 C 70 16 207/55 100
09/11/25 21:02 09/11/25 23:58 09/11/25 23:45 09/11/25 23:58 09/11/25 23:00
<Senia Watson PA-C - Last Filed: 09/12/25 00:17>
MDM/Problems Addressed
Differential Diagnosis Includes:
see MDM
MDM/Problems Addressed:
Note:
CHIEF COMPLAINT(S)
Fatigue, shortness of breath.
HISTORY OF PRESENT ILLNESS
The patient, 85 y/o female with a history of anemia and chronic kidney disease, presented with fatigue and shortness of breath over the weekend. She described being 'really wiped out' and having difficulty breathing, which was a 'scary' experience
as she could not catch her breath, which seems better today but was present over the pastfew days prompting outpatient labs from [facility].
She had labs while she was sick for just resulted tonight with a hemoglobin of 6 prompting the nurse to send her here tonight . Patient's she did not need the oxygen today. The patient does not report black stools but describes her bowel movements
as a 'pile of mush' and 'brown.'
She has been known to have elevated kidney function tests, with current creatinine at 3.3 mg/dL, and was previously informed of recurring kidney disease.
The patient is not on iron and has not been recently diabetic, according to previous records. Her past experiences have shown transient episodes of elevated blood glucose,but she hasn't been on diabetes meds for some time.
PAST MEDICAL AND SURIGICAL HISTORY
Anemia, chronic kidney disease, previous diabetes mellitus (currently not on treatment).
CHRONIC MEDICAL CONDITIONS SIGNIFICANTLY AFFECTING CARE
Chronic kidney disease, anemia.
SOCIAL DETERMINANTS AFFECTING HEALTH
The patient describes experiencing significant stress and financial difficulties due to job changes, noting her current stress levels as a contributing factor to her health concerns.
PHYSICAL EXAM
GENERAL: Alert , in no apparent distress
EYE: pupils equal and reactive
NECK: Supple
ENT: o/p clr, mmm.
CARDIAC: Regular rate and rhythm .
LUNGS: Diminished y, no acute respiratory distress, no wheezes/rales/rhonchi
ABDOMEN: Soft, without focal tenderness, no r/g, no cvat, normal bowel sounds
Heme-negative brown stool
NEUROLOGICAL: Alert and oriented, no focal neuro deficits
SKIN: Warm and dry, skin intact.
Healing intertrigo rash under her pannus with a white-cream powder applied
MUSCULOSKELETAL: No edema, well perfused. neg lucien's sign
PSYCH: Normal and appropriate interaction.
- Nursing notes reviewed and vital signs reviewed.
PROBLEM LIST
Acute:
- Anemia with hemoglobin of 7.1 g/dL.
- Shortness of breath.
- Stress-related blood pressure elevation.
Chronic:
- Chronic kidney disease.
PLAN
- Arrange for a transfusion of one unit of packed red blood cells after obtaining a chest X-ray to assess for potential fluid overload.
- Educate the patient on the risks and benefits of blood transfusion, including the risk of infection and transfusion reactions, with emphasis on the screening measures in place.
- Monitor the patient overnight for any transfusion-related complications and to assess respiratory status.
- Consider the underlying cause of anemia, presumably related to chronic kidney disease, and address any contributing factors such as nutritional deficiencies or gastrointestinal bleeding.
DIFFERENTIAL DIAGNOSIS
The Differential Diagnosis includes, in no particular order and is not limited to:
1. Anemia secondary to chronic kidney disease.
2. Heart failure.
3. Pulmonary embolism.
4. Upper gastrointestinal bleeding.
5. Chronic blood loss anemia.
6. Anemia of chronic disease.
7. Iron deficiency anemia.
8. Sepsis.
9. Exacerbation of chronic obstructive pulmonary disease (COPD) or undiagnosed asthma.
10. Hypothyroidism.
CARE-UPDATE
09/12/25 - 00:16
Patient presented with severe hypertension (200/100) and dyspnea, raising concerns about potential CHF exacerbation, although not fluid overloaded on exam. Initial plan for blood transfusion due to a hemoglobin level of 7.1 was reconsidered after
chest X-ray showed pulmonary edema. Transfusion is held, and diuresis initiated to manage pulmonary status and hypertension. Monitoring response to diuresis and adjusting antihypertensive therapy as necessary. EKG revealed frequent PVCs without
ischemic changes. Elevated troponin (0.06) possibly linked to CHF, anemia, or CKD. Patient reports no chest pain. Oxygen requirement resolved; patient no longer on supplemental oxygen.
<Jemal Guadarrama, DO - Last Filed: 09/12/25 00:13>
*Pulse Oximetry
SaO2: 98
Oxygen Mode of Delivery: Room air
<Senia Watson PA-C - Last Filed: 09/12/25 00:17>
*Pulse Oximetry
Patient hypoxic: no (100)
*Critical Care Note
Total Time (30-74mins, 75-104mins- exclusive of procedures): Not Applicable
ED Attending Note
<Jemal Guadarrama DO - Last Filed: 09/12/25 00:13>
ED Attending Note
Patient seen and examined by attending physician: Yes
ED Attending Note:
I have reviewed and agree with history treatment plan by Senia Watson PA-C. My exam revealed
Physical Exam
General: no apparent distress, not acutely ill
Neck: supple. no meningeal signs. normal posterior pharynx
Heart: s1/s2 regular rate and rhythm, no murmur. equal radial
pulses.
HEENT: Pupils equal round reactive to light, EOMI
Lungs: no acute respiratory distress. Rales bilaterally
Abdomen: normal bowel sounds. not tender. no CVAT
Neuro: alert and oriented. no focal neurological deficits cranial nerves II through XII intact
Skin: no rash
Psychiatric: well kept. interactive and cooperative
Extremities: Bilateral tibial edema. no calf tenderness. negative homans. good distal pulses
85-year-old female with anemia and CHF exacerbation. Will diurese with Lasix, subsequent to giving 1 unit packed red blood cells. Admit to hospitalist.
-
Portions of this chart may have been created with voice recognition software.� Occasional wrong word or��sound alike� substitutions may have occurred due to the inherent limitations of voice recognition software.
Discharge Plan
Departure
Patient Disposition: Admit
Date of Disposition: 09/11/25
Time of Disposition: 22:54
Admit to: Telemetry
Presentation/result/management discussed w/ accepting MD/DO: Hospitalist
Condition: Fair
Discharge Problem:
Symptomatic anemia, CHF (congestive heart failure)
Interventions
Interventions:
*Risk Screen - Suicide Last Done: 09/11/25 21:02
*General Assessment Last Done: 09/11/25 21:02
*Neglect/Abuse Screening Last Done: 09/11/25 21:02
*ED Influenza Vaccine History Last Done: 09/11/25 21:02
[facility] Fall Risk Assessment Tool Last Done: 09/11/25 21:00
[2025-09-11] MEDS: LASIX 40 MG IV (22:54)
[2025-09-11 23:09] LABS: Troponin I 0.060 ng/ml
--- NOTE | 2025-09-11 23:35 | HPS.HSE ---
Family Physician
-
Family Physician: Gordy Gtz
Chief Complaint
-
anemia
History of Present Illness
85-year-old female past medical history of paroxysmal atrial fibrillation, symptomatic bradycardia status post pacemaker, chronic HFpEF, hypertension, CKD 4, history of C. difficile colitis, anemia of CKD, constipation, mild cognitive impairment,
GERD, anxiety, insomnia, presenting with low hemoglobin on lab work at the residential. Hemoglobin was reportedly 6 at the residential.
Patient actually denies any complaints including chest pain, shortness of breath, dizziness, weight gain or lower extremity swelling. In fact she has lost weight recently. As per residential however she was reportedly short of breath. Denies any
blood in the stool or black stool.
She states that she has been having issues with elevated blood pressure has been taking her blood pressure medications.
She makes urine. She is supposed to follow-up with nephrology in the near future to discuss her end-stage renal disease.
Medical History
Past Medical History
Past Medical History: Reports Other (paroxysmal atrial fibrillation, symptomatic bradycardia status post pacemaker, chronic HFpEF, hypertension, CKD 4, history of C. difficile colitis, anemia of CKD, constipation, mild cognitive impairment, GERD,
anxiety, insomnia, gout)
Past Surgical History: Reports None
Social History
Tobacco: Non-smoker
Alcohol: None
Drug: None
Family History
Family History: Not pertinent
Allergies / Home Medications
Allergies reflects when Allergies were last updated in [facility].
Home Medications with original date entered in [facility]
Allergy/Medication List:
Allergies
Allergy/AdvReac Type Severity Reaction Status Date / Time
No Known Allergies Allergy Unverified 04/26/24 11:48
Home Medications
Saccharomyces boulardii 250 mg capsule (Florastor) 250 mg PO BIDPRN PRN diarrhea 04/26/24
acetaminophen 325 mg tablet 650 mg PO Q4HPRN PRN mild pain/fever >101 04/26/24
aluminum-mag hydroxide-simethicone 400 mg-400 mg-40 mg/5 mL oral susp (Maalox Maximum Strength) 5 ml PO Q6HPRN PRN reflux 04/26/24
apixaban 2.5 mg tablet (Eliquis) 2.5 mg PO BID Blood Clot Prevention/Tx 04/26/24
bisacodyl 10 mg rectal suppository [address] DAILYPRN PRN no bm 24 hrs after mom 04/26/24
cholecalciferol (vitamin D3) 75 mcg (3,000 unit) tablet 75 mcg PO DAILY Supplement 04/26/24
famotidine 20 mg tablet (Pepcid) 20 mg PO Q8HPRN PRN GERD 04/26/24
menthol 0.1 % lotion (Eucerin Itch Relief) 1 ea topical DAILY b/l arms 04/26/24
vitamins A,C,H-[id number] 4,296 mcg-226 mg-90 mg capsule (PreserVision AREDS) 1 cap PO DAILY Supplement 04/26/24
lactase 3,000 unit tablet 3,000 unit PO MEALS Gastrointestinal Issue 06/30/24
lidocaine 4 % topical gel 1 applic topical Q6HPRN PRN neck and back pain 06/30/24
hydralazine 50 mg tablet 100 mg (2 x 50 mg) PO BID 30 days #120 tabs 07/19/24
acetaminophen 325 mg tablet 650 mg PO Q4HPRN PRN fever>101 08/02/25
dextran 70-hypromellose eye drops in a dropperette (Artificial Tears (PF) drops in a dropperette) 1 drp BOTH EYES BID Eye Condition 08/02/25
docusate sodium 100 mg capsule 100 mg PO [id number] PRN constipation 08/02/25
furosemide 20 mg tablet (Lasix) 20 mg PO DAILYPRN PRN edema or 3lb wt gain x 1 week 08/02/25
hydralazine 50 mg tablet 50 mg PO DAILY@1500 Blood Pressure 08/02/25
loperamide 2 mg tablet 2 mg PO Q8HPRN PRN diarrhea 08/02/25
melatonin 3 mg tablet 3 mg PO HSPRN PRN insomnia 08/02/25
menthol 0.1 % lotion 1 ea topical TID bilateral arms 08/02/25
metoprolol succinate 25 mg tablet,extended release 24 hr 12.5 mg PO DAILY Heart Disease/Condition 08/02/25
miconazole nitrate 2 % topical powder 1 applic topical BID abdominal folds 08/02/25
miconazole nitrate 2 % topical powder 1 applic topical BID abdominal folds/groin 08/02/25
ondansetron HCl 4 mg tablet 4 mg PO Q8HPRN PRN nausea/vomiting 08/02/25
polyethylene glycol 3350 17 gram oral powder packet (Miralax) 17 g PO [id number] PRN constipation 08/02/25
sodium bicarbonate 650 mg tablet 1,200 mg PO BID Electrolyte Repletion 08/02/25
doxycycline hyclate 100 mg tablet 100 mg PO BID #20 tabs 08/06/25
Review of Systems
-
Constitutional: Reports No Symptoms
EENT: Reports No Symptoms
Respiratory: Reports No Symptoms
Cardiac: Reports No Symptoms
Abdomen/GI: Reports No Symptoms
: Reports No Symptoms
Musculoskeletal: Reports No Symptoms
Skin: Reports No Symptoms
Neurological: Reports No Symptoms
Endocrine: Reports No Symptoms
Hematologic/Lymphatic: Reports No Symptoms
Psych: Reports No Symptoms
Physical Exam
Vital Signs
Vital Signs
Temp Pulse Resp BP Pulse Ox
97.6 F 70 15 218/55 98
09/11/25 21:02 09/11/25 22:54 09/11/25 21:15 09/11/25 22:54 09/11/25 22:31
Physical Exam
General: Well Developed, Well Nourished and No Apparent Distress
HEENT: NormoCephalic, Moist mucous membranes and Atraumatic
Respiratory: Clear
Cardiac: S1/S2 and Regular Rhythm; No Murmur or Rub
GI: Soft, Non Tender, Non Distended and Normal Bowel Sounds; No Organomegaly
Rectal: Deferred by Provider
Musculoskeletal: No Clubbing, No Cyanosis and No Edema
Skin: No Rash
Neuro: Nonfocal/grossly intact
Laboratory Results
-
09/11/25 21:10
09/11/25 21:10
Laboratory Results
APTT 36.6 Sec (23.4-35.0) H 09/11/25 21:10
Total Bilirubin 0.5 mg/dl (0.2-1.3) 09/11/25 21:10
AST 18 U/L (14-36) 09/11/25 21:10
ALT 13 U/L (0-35) 09/11/25 21:10
Alkaline Phosphatase 78 U/L (38-126) 09/11/25 21:10
Troponin I 0.060 ng/ml H* 09/11/25 22:34
Data Reviewed
-
Lab Data: Labs Reviewed by me
Old Records: Reviewed
Impression/Plan
-
IMPRESSION:
PLAN:
# Asymptomatic hypertensive urgency likely secondary to progressive CKD 4/5
- Blood pressure 229/66
- EKG shows atrial paced rhythm with prolonged AV conduction, LVH, no ischemic changes
- 40 IV Lasix being given
- IV hydralazine to keep blood pressure under 180
- Nephrology consult to assist with blood pressure management
# Nonischemic myocardial injury
- Troponin 0.06
- EKG shows atrial paced rhythm with prolonged AV conduction, PVCs,
# Component of acute HFpEF exacerbation
-No overt edema on examination
- Cardiac BNP of 17,000 from 7000 previously
-Chest x-ray without evidence of heart failure although report pending
-Check I's and O's, daily weights
- 40 IV Lasix
# Worsening of chronic normocytic anemia renal disease
- Hemoglobin 7.1 from baseline around 8.5
- blood consent signed
- 1 unit of blood ordered and to be given when blood pressure improved
- Patient receives Procrit
# Hyperglycemia
-Blood sugar 23
- No history of diabetes
- Check A1c
- Insulin sliding scale
Paroxysmal atrial fibrillation
- Continue Eliquis
- Continue metoprolol
Symptomatic bradycardia status post pacemaker
CKD 4/5
- Continue sodium bicarbonate
History of C. difficile colitis
Constipation
Mild cognitive impairment
GERD
Anxiety
Insomnia
Full code
DVT prophylaxis�Eliquis
Cardiac diet
[2025-09-11] MEDS: APRESOLINE 10 MG IV (23:58)
[2025-09-12] VITALS (13 sets, daily range): BP systolic 126–220; BP diastolic 46–87; BMI 26.8
--- NOTE | 2025-09-12 01:30 | PTCARENOTE ---
Pt arrived to floor from ED via stretcher.
--- NOTE | 2025-09-12 01:30 | PTCARENOTE ---
Addendum entered by Abena Gupta RN 09/12/25 04:41:
Initial VS obtained prior to starting blood transfusion-- BP 182/70 HR 74. Reached out to [employer]-- advised to hold off on transfusion d/t hypertension, per physician's note. Blood sent back down to lab.
Original Note:
Patient arrived to floor from ED via stretcher. Pt A & O x 3. Pt oriented to room. Call lopez within reach. VSS-- TEMP 97.7 BP 130/87 HR 78 RR 16 O2 95% RA. RN reached out to CHARMAINE regarding starting blood transfusion per physician's order and note.
Confirmation to start transfusion received.
[2025-09-12 02:12] LABS: Glucose - Point of Care 120 mg/dl (70-99)
[2025-09-12] MEDS: APRESOLINE 5 MG IV (02:49)
[2025-09-12 03:54] LABS: Troponin I 0.061 ng/ml
[2025-09-12] MEDS: APRESOLINE 10 MG IV (05:58)
[2025-09-12 07:52] LABS: Glucose - Point of Care 165 mg/dl (70-99)
[2025-09-12 08:57] LABS: Hematocrit 21.4 % (37.0-47.0); Hemoglobin 7.0 g/dL (12.0-16.0); Mean Corp Hgb Conc. 32.7 g/dL (33.0-37.0); Mean Corpuscular Volume 91.8 fL (81.0-99.0); Nucleated Red Blood Cells % 0 %; Platelet Count 179 10^3/uL (130-400); Red Cell Dist. Width 15.3 % (11.5-14.5)
[2025-09-12] MEDS: PROCARDIA XL (EXTENDED RELEASE) 30 MG PO (08:57)
[2025-09-12] MEDS: ELIQUIS 2.5 MG PO ×2 (09:01→19:10)
[2025-09-12] MEDS: TOPROL XL 12.5 MG PO (09:01)
[2025-09-12] MEDS: APRESOLINE 100 MG PO ×3 (09:14→21:51)
[2025-09-12] MEDS: SODIUM BICARBONATE 1300 MG PO ×2 (09:14→19:10)
[2025-09-12 09:31] LABS: Troponin I 0.062 ng/ml
[2025-09-12 09:52] LABS: ALT (SGPT) 11 U/L (0-35); AST (SGOT) 15 U/L (14-36); Albumin 3.4 g/dl (3.5-5.0); Alkaline Phosphatase 86 U/L (38-126); Blood Urea Nitrogen 60 mg/dl (7-17); Calcium 9.0 mg/dl (8.4-10.2); Carbon Dioxide 24 mmol/L (22-30); Chloride 105 mmol/L (98-107); Estimated Creatinine Clearance 10 ml/min; Glucose 143 mg/dl (70-99); Sodium 138 mmol/L (135-145); Total Protein 6.2 g/dl (6.3-8.2); eGFR 11.05
[2025-09-12 09:59] LABS: Potassium 4.0 mmol/L (3.5-5.1)
[2025-09-12 10:42] LABS: Glycohemoglobin (HgbA1c) 5.5 % (4.0-5.9)
[2025-09-12] MEDS: NOVOLOG FLEXPEN-LOW RESISTANCE 1 UNITS SC (10:46)
--- NOTE | 2025-09-12 11:17 | W.CON.NEPH ---
Consultation
-
Date/Time Consultation Requested: 09/12/25 0107
Date/Time Consultation Performed: 09/12/25 1140
Requesting Provider: Gerald Cash
Performing Provider: Angela Sheikh
Reason for Consultation: CKD, HTN
Medical History
-
Chief Complaint: Anemia
History of Present Illness:
Patient is an 84-year-old correction resident from [facility] who has progressing chronic kidney disease stage [address] Howe and aware of HD near future, chr elbert acidosis on po bicarb therapy, hypertension on a multidrug regimen
hydralazine, metoprolol, CHFpEF on prn lasix. She is on anticoagulation with Eliquis for atrial fibrillation, recent h/o of bradycardia requiring PPM in Jul, chr anemia on weekly procrit from heme office She was brought in because of anemia at 6 at
[facility], she also noted to have high BP in 200 with out symptoms. Labs noted to have an elevated creatinine value of 3.6, hb 7.1, repeat abs today hb 7, cr 3.8. SHe denies any complaints including chest pain, shortness of breath, dizziness, weight gain
or lower extremity swelling. In fact she has lost weight recently 8lbs. As per correction however she was reportedly short of breath, she has non productive cough. Denies any blood in the stool or black stool. She reports BPs chronically high
but not high as in 200s. Reports complaince with meds and diet.
Past Medical History
Atrial fibrillation, CKD unknown stage (likely 4), COPD, hypertension, gout, cataract extraction, cholecystectomy, bilateral carotid endarterectomy, left femoral ORIF, cataract surgery, history of C. difficile colitis, anemia of CKD, constipation,
mild cognitive impairment, GERD, anxiety, insomnia
Social History
Tobacco: Non-Smoker
Alcohol: None
Living: [facility]
Family History
Family History: Not Pertinent
Allergies / Home Medications
Allergy/AdvReac Type Severity Reaction Status Date / Time
No Known Allergies Allergy Unverified 04/26/24 11:48
�Medication �Instructions �Recorded �Confirmed �Type
Saccharomyces boulardii 250 mg 250 mg PO BIDPRN PRN diarrhea 04/26/24 09/12/25 History
capsule (Florastor)
aluminum-mag hydroxide-simethicone 5 ml PO Q6HPRN PRN reflux 04/26/24 09/12/25 History
400 mg-400 mg-40 mg/5 mL oral susp
(Maalox Maximum Strength)
apixaban 2.5 mg tablet (Eliquis) 2.5 mg PO BID Blood Clot 04/26/24 09/12/25 History
Prevention/Tx
bisacodyl 10 mg rectal suppository 10 mg OK DAILYPRN PRN no bm 24 hrs 04/26/24 09/12/25 History
after mom
cholecalciferol (vitamin D3) 75 75 mcg PO DAILY Supplement 04/26/24 09/12/25 History
mcg (3,000 unit) tablet
famotidine 20 mg tablet (Pepcid) 20 mg PO Q8HPRN PRN GERD 04/26/24 09/12/25 History
menthol 0.1 % lotion (Eucerin Itch 1 ea topical DAILY b/l arms 04/26/24 09/12/25 History
Relief)
vitamins A,C,L-tjha-hkenny 4,296 1 cap PO DAILY Supplement 04/26/24 09/12/25 History
mcg-226 mg-90 mg capsule
(PreserVision AREDS)
lactase 3,000 unit tablet 3,000 unit PO MEALS 06/30/24 09/12/25 History
Gastrointestinal Issue
lidocaine 4 % topical gel 1 applic topical Q6HPRN PRN neck 06/30/24 09/12/25 History
and back pain
hydralazine 50 mg tablet 100 mg (2 x 50 mg) PO BID 30 days 07/19/24 09/12/25 Rx
#120 tabs
acetaminophen 325 mg tablet 650 mg PO Q4HPRN PRN mild pain 08/02/25 09/12/25 History
dextran 70-hypromellose eye drops 2 drp BOTH EYES BID Eye Condition 08/02/25 09/12/25 History
in a dropperette (Artificial Tears
(PF) drops in a dropperette)
docusate sodium 100 mg capsule 100 mg PO [id number] PRN constipation 08/02/25 09/12/25 History
furosemide 20 mg tablet (Lasix) 20 mg PO DAILYPRN PRN edema or 3lb 08/02/25 09/12/25 History
wt gain x 1 week
hydralazine 50 mg tablet 50 mg PO DAILY@1500 Blood Pressure 08/02/25 09/12/25 History
loperamide 2 mg tablet 2 mg PO Q8HPRN PRN diarrhea 08/02/25 09/12/25 History
melatonin 3 mg tablet 3 mg PO HS 08/02/25 09/12/25 History
menthol 0.1 % lotion 1 ea topical TID bilateral arms 08/02/25 09/12/25 History
metoprolol succinate 25 mg 12.5 mg PO DAILY Heart 08/02/25 09/12/25 History
tablet,extended release 24 hr Disease/Condition
miconazole nitrate 2 % topical 1 applic topical BID abdominal 08/02/25 09/12/25 History
powder folds/groin
ondansetron HCl 4 mg tablet 4 mg PO Q8HPRN PRN nausea/vomiting 08/02/25 09/12/25 History
polyethylene glycol 3350 17 gram 17 g PO DAILY 08/02/25 09/12/25 History
oral powder packet (Miralax)
sodium bicarbonate 650 mg tablet 1,300 mg PO BID Electrolyte 08/02/25 09/12/25 History
Repletion
epoetin zeina 2,000 unit/mL 2,000 unit SC Q7D 09/12/25 09/12/25 History
injection solution (Epogen)
magnesium hydroxide 400 mg/5 mL 2,400 mg PO DAILYPRN PRN if no bm 09/12/25 09/12/25 History
oral suspension (Milk of Magnesia) aftr 3rd day
phenylephrine 0.25 %-mineral oil 1 applic OK DAILYPRN PRN 09/12/25 09/12/25 History
14 %-petrolatm 74.9 % rectal hemorrhoids
ointment (Preparation H)
sodium phosphates 19 gram-7 118 ml OK DAILYPRN PRN if no bm 09/12/25 09/12/25 History
gram/118 mL enema (Fleet Enema) aftr dulcolax
Review of Systems
-
All other systems: Negative unless noted
Physical Exam
Vital Signs
Vital Signs
Temp Pulse Resp BP Pulse Ox
98.6 F 79 18 148/46 99
09/12/25 07:56 09/12/25 09:14 09/12/25 07:56 09/12/25 11:01 09/12/25 07:56
Lab Results
WBC 7.2 10^3/uL (4.8-10.8) 09/12/25 08:46
RBC 2.33 10^6/uL (4.20-5.40) L 09/12/25 08:46
Hgb 7.0 g/dL (12.0-16.0) L 09/12/25 08:46
Hct 21.4 % (37.0-47.0) L 09/12/25 08:46
Plt Count 179 10^3/uL (130-400) 09/12/25 08:46
Sodium 138 mmol/L (135-145) 09/12/25 08:46
Potassium 4.0 mmol/L (3.5-5.1) 09/12/25 08:46
Chloride 105 mmol/L (98-107) 09/12/25 08:46
Carbon Dioxide 24 mmol/L (22-30) 09/12/25 08:46
BUN 60 mg/dl (7-17) H 09/12/25 08:46
Creatinine 3.8 mg/dL (0.6-1.0) H 09/12/25 08:46
eGFR 11.05 09/12/25 08:46
Glucose 143 mg/dl (70-99) H 09/12/25 08:46
Calcium 9.0 mg/dl (8.4-10.2) 09/12/25 08:46
Tss-M-Bcxwgmwuzxf Pept 58099 pg/ml 09/11/25 22:34
Albumin 3.4 g/dl (3.5-5.0) L 09/12/25 08:46
Physical Exam
General: Awake, Alert, Oriented, AOx3, No Distress and Nontoxic
HEENT: EOMI, Anicteric and Conjunctivae Clear
Respiratory: Normal Excursion, Nonlabored Respirations and Other (coarse)
Cardiac: S1/S2 and Regular Rate/Rhythm
Breast: Deferred by me
Abdomen: Soft, Nontender and Nondistended
Musculoskeletal: No Cyanosis and No Edema
Skin: No Rash
Neuro: Nonfocal/Grossly Intact
Psych: Mood/afflect pleasant, Insight/judgement good and Appropriate
Data Reviewed
-
Labs: Labs Reviewed by me, Discussed with Nurse and Discussed with Patient
Assessment/Plan
-
Assessment:
Hypertensive urgency:
ADAM with CKD stage IV/V-baseline in high 2 range
Anemia of chronic disease
Chronic HFpEF
Troponin elevation
Hyperglycemia- Hemoglobin A1c 5.5%
Paroxysmal A-fib
Bradycardia recent PPM
chr metabolic acidosis
Plan:
a/w anemia, not symptomatic
ADAM vs progressive CKD -cr increasing trend in last 2m
monitor UOP, seem incontinent
no emergent need of HD however likely in near future
reviewed with pt and she has f/u with Dr Cedillo
BP are improving meds adjusted by primary-increased hydralazine and procardia added
cont low dose BB
anemia-prn transfusion, she has weekly procrit injections, check iron panel and r/o any bleed
vol status seem stable resume lasix 20 daily
met acidosis stable on po bicarb
d/w pt in detail
d/w nursing
--- NOTE | 2025-09-12 11:52 | W.PN.HOSP.TC ---
Today's Communication/Plan
-
Assessment / Plan
Assessment / Plan
General: No Apparent Distress, Comfortable and Conversant
HEENT: NormoCephalic, Moist mucous membranes, Atraumatic
Respiratory: Clear and Non Labored Respirations
Cardiac: S1/S2 and Regular Rhythm; No Rub or Gallop
GI: Soft, Non Tender, Non Distended and Normal Bowel Sounds
Musculoskeletal: No Edema, no deformity
Skin: Warm and dry
: NO Esposito
Neuro: Awake, Alert, Nonfocal/grossly intact
Psych: Calm and Intact Judgment/Insight
Ms. La is a 85-year-old female with a medical history of HFpEF, paroxysmal A-fib (on Eliquis), symptomatic bradycardia (PPM), CKD 4, and anemia of chronic disease who presented with low hemoglobin on lab work at her [facility]. Reportedly
her hemoglobin was 6 on routine labs. She denies any melanotic or bloody stools. She reports that her blood pressure has been very difficult to control recently despite adherence with her medication regimen.
Hypertensive urgency:
- Systolic BP had been persistently over 200 since arrival in the ED, given 1 dose of IV Lasix, usually only takes Lasix 20 mg p.o. as needed for weight gain
- Blood pressure now better controlled with adjustments to her medication regimen
- Increased hydralazine to 100 mg p.o. 3 times a day, added nifedipine 30 mg p.o. daily
- Additional IV hydralazine as needed
- Nephrology consulted, patient has been following closely with her outpatient material attendant regarding the progression of her kidney disease and likely eventual need for dialysis
CKD stage IV/V:
- Patient is aware of her progressing kidney disease and likely need for eventual dialysis
- Current renal function slightly worse than recent baseline
- Nephrology consulted while inpatient
- Continue sodium bicarb tablets
Anemia of chronic disease:
- Suspect due to renal disease, reportedly started on Procrit
- No evidence of bleeding
- Baseline hemoglobin appears to be around 8.5 per records, reportedly hemoglobin was 6 on lab work at the [facility]
- Hemoglobin was 7.1 at the time of arrival in the ED, ordered 1 unit PRBCs however not transfused due to uncontrolled blood pressure
- Will hold transfusion for now and monitor
Chronic HFpEF:
- Was given a dose of IV Lasix x 1 at the time of admission due to some concern for volume overload
- Does not appear overtly edematous on exam, small pleural effusions on chest x-ray with no pulmonary edema
- proBNP is 17,000 at time of admission, up from 7000 approximately 18 months ago, of unclear significance considering poor renal function
- Will monitor daily weights and diurese further as needed
Troponin elevation:
- Doubt acute ischemia, troponins elevated but plateaued at 0.06
- Likely secondary to uncontrolled hypertension and poor clearance in the setting of advanced CKD
- Monitor on telemetry
Hyperglycemia:
- Blood glucose on initial labs 293
- No history of diabetes, not on diabetic medications at home
- Hemoglobin A1c 5.5%
- Continue insulin sliding scale as needed
Paroxysmal A-fib:
- continue home metoprolol succinate 12.5 mg daily
- Anticoagulation with Eliquis
DVT prophylaxis: Eliquis
CODE STATUS: Full code
Anticipated Discharge: > 48 hours
Subjective/Interval History
-
Date of Service: September 12, 2025
Patient was seen and examined at bedside this morning. Currently feeling well but anxious about her blood pressure which has been difficult to control.
Objective Data
-
Labs:
Laboratory Results
09/12/25
08:46
WBC 7.2
Hgb 7.0 L
Hct 21.4 L
Plt Count 179
Sodium 138
Potassium 4.0
Chloride 105
Carbon Dioxide 24
BUN 60 H
Creatinine 3.8 H
Glucose 143 H
Calcium 9.0
Total Bilirubin 0.5
AST 15
ALT 11
Alkaline Phosphatase 86
Vital Signs:
Vital Signs
Temp Pulse Resp BP Pulse Ox
98.6 F 79 18 148/46 99
09/12/25 07:56 09/12/25 09:14 09/12/25 07:56 09/12/25 11:01 09/12/25 07:56
Review of Systems
-
History Source: Patient
All other systems: Reviewed and negative
Physical Exam
-
General: No Apparent Distress
[2025-09-12] MEDS: NOVOLOG FLEXPEN-LOW RESISTANCE 4 UNITS SC (12:48)
[2025-09-12 14:19] LABS: Troponin I 0.055 ng/ml
--- NOTE | 2025-09-12 15:12 | CM ---
CM spoke with nursing at [facility]
Pt is a LTC resident with MA bedhold
She is AxO 3x, typically does not ambulate with staff
Is able to transfer and pivot from bed to W/C with supervision, able to self propel
Is able to ambulate short distances with therapy currently
Pt has sacral wound and currently receiving wound care at [facility]
PCP- Gordy Gtz
Rx- [facility]
Call to tea/Julius to introduce self and explain role
Nephro consult- she follows outpt with Dr Cedillo
Follow for possible HD needs
Return SNF referral sent via [facility]
Discharge Disposition- return to [facility] LTC
[2025-09-12 17:17] LABS: Glucose - Point of Care 205 mg/dl (70-99)
[2025-09-12 17:17] LABS: Glucose - Point of Care 349 mg/dl (70-99)
[2025-09-12 17:17] LABS: Glucose - Point of Care 324 mg/dl (70-99)
[2025-09-12] MEDS: NOVOLOG FLEXPEN-LOW RESISTANCE 2 UNITS SC (18:10)
[2025-09-12 19:02] LABS: Iron 47 ug/dl (37-170)
[2025-09-12 19:11] LABS: Total Iron Binding Capacity 208 ug/dl (265-497)
[2025-09-12] MEDS: DESENEX/MITRAZOL/ZEASORB 1 APPLIC TOPICAL (19:11)
[2025-09-12 20:00] LABS: Ferritin 356.0 ng/ml (11.1-264.0)
[2025-09-13] VITALS (9 sets, daily range): BP systolic 101–175; BP diastolic 46–64; BMI 27.2
[2025-09-13 07:53] LABS: Hematocrit 19.8 % (37.0-47.0); Hemoglobin 6.5 g/dL (12.0-16.0); Mean Corp Hgb Conc. 32.8 g/dL (33.0-37.0); Mean Corpuscular Volume 94.3 fL (81.0-99.0); Platelet Count 191 10^3/uL (130-400); Red Cell Dist. Width 15.5 % (11.5-14.5)
[2025-09-13 07:53] LABS: Glucose - Point of Care 153 mg/dl (70-99)
[2025-09-13 08:13] LABS: Blood Urea Nitrogen 57 mg/dl (7-17); Calcium 8.7 mg/dl (8.4-10.2); Carbon Dioxide 25 mmol/L (22-30); Chloride 106 mmol/L (98-107); Estimated Creatinine Clearance 9 ml/min; Glucose 120 mg/dl (70-99); Potassium 4.3 mmol/L (3.5-5.1); Sodium 137 mmol/L (135-145); eGFR 10.72
[2025-09-13] MEDS: NOVOLOG FLEXPEN-LOW RESISTANCE SC (10:15)
[2025-09-13] MEDS: LASIX 20 MG PO (10:25)
[2025-09-13] MEDS: TOPROL XL 12.5 MG PO (10:25)
[2025-09-13] MEDS: DESENEX/MITRAZOL/ZEASORB 1 APPLIC TOPICAL ×2 (10:25→19:48)
[2025-09-13] MEDS: ELIQUIS 2.5 MG PO ×2 (10:25→19:47)
[2025-09-13] MEDS: APRESOLINE 100 MG PO ×3 (10:25→22:01)
[2025-09-13] MEDS: PROCARDIA XL (EXTENDED RELEASE) 30 MG PO (10:25)
[2025-09-13] MEDS: SODIUM BICARBONATE 1300 MG PO ×2 (10:25→19:47)
--- NOTE | 2025-09-13 11:48 | W.PN.NEPH.PH ---
Today's Communication / Plan
-
follow BMP
Assessment/Plan
-
Assessment:
Hypertensive urgency:
ADAM with CKD stage IV/V-baseline in high 2 range
Anemia of chronic disease
Chronic HFpEF
Troponin elevation
Hyperglycemia- Hemoglobin A1c 5.5%
Paroxysmal A-fib
Bradycardia recent PPM
chr metabolic acidosis
Plan:
transfuse PRBC
Pt would accept HD if needed
No emergent dialysis needs currently
Follow BMP
On discussion regarding dialysis and dialysis access
-
-
Date of Service: September 13, 2025
CC / HPI / ROS
-
Chief Complaint:
CKD5
History of Present Illness:
ADAM/Cr unchanged at 3.9
Hgb lower 6.5
BP stable high
Review of Systems:
no CP/SOB
tired
Labs
-
Labs:
WBC 7.1 10^3/uL (4.8-10.8) 09/13/25 06:44
RBC 2.10 10^6/uL (4.20-5.40) L 09/13/25 06:44
Hgb 6.5 g/dL (12.0-16.0) L* 09/13/25 06:44
Hct 19.8 % (37.0-47.0) L* 09/13/25 06:44
Plt Count 191 10^3/uL (130-400) 09/13/25 06:44
Sodium 137 mmol/L (135-145) 09/13/25 06:44
Potassium 4.3 mmol/L (3.5-5.1) 09/13/25 06:44
Chloride 106 mmol/L (98-107) 09/13/25 06:44
Carbon Dioxide 25 mmol/L (22-30) 09/13/25 06:44
BUN 57 mg/dl (7-17) H 09/13/25 06:44
Creatinine 3.9 mg/dL (0.6-1.0) H 09/13/25 06:44
eGFR 10.72 09/13/25 06:44
Glucose 120 mg/dl (70-99) H 09/13/25 06:44
Calcium 8.7 mg/dl (8.4-10.2) 09/13/25 06:44
Sky-S-Swahcmkeoal Pept 32463 pg/ml 09/11/25 22:34
Albumin 3.4 g/dl (3.5-5.0) L 09/12/25 08:46
Physical Exam
-
Vital Signs:
Vital Signs
Temp Pulse Resp BP Pulse Ox
98.4 F 79 17 175/64 98
09/13/25 10:36 09/13/25 10:36 09/13/25 10:36 09/13/25 10:36 09/13/25 07:25
Cardiovascular:: Regular rate and rhythm
Respiratory:: Bilateral: Coarse
Lung Excursion:: Normal
Abdomen:: Nontender and Soft
Bowel Sounds:: Normal
Extremity Edema:: +1: Bilateral:
[2025-09-13 12:24] LABS: Glucose - Point of Care 139 mg/dl (70-99)
[2025-09-13 13:08] LABS: Glucose - Point of Care 285 mg/dl (70-99)
[2025-09-13] MEDS: NOVOLOG FLEXPEN-LOW RESISTANCE 3 UNITS SC (13:09)
--- NOTE | 2025-09-13 13:55 | W.PN.HOSP.TC ---
Today's Communication/Plan
-
Assessment / Plan
Assessment / Plan
General: No Apparent Distress, Comfortable and Conversant
HEENT: NormoCephalic, Moist mucous membranes, Atraumatic
Respiratory: Clear and Non Labored Respirations
Cardiac: S1/S2 and Regular Rhythm; No Rub or Gallop
GI: Soft, Non Tender, Non Distended and Normal Bowel Sounds
Musculoskeletal: No Edema, no deformity
Skin: Warm and dry
: NO Esposito
Neuro: Awake, Alert, Nonfocal/grossly intact
Psych: Calm and Intact Judgment/Insight
Ms. La is a 85-year-old female with a medical history of HFpEF, paroxysmal A-fib (on Eliquis), symptomatic bradycardia (PPM), CKD 4, and anemia of chronic disease who presented with low hemoglobin on lab work at her [facility]. Reportedly
her hemoglobin was 6 on routine labs. She denies any melanotic or bloody stools. She reports that her blood pressure has been very difficult to control recently despite adherence with her medication regimen.
Hypertensive urgency:
- Systolic BP had been persistently over 200 since arrival in the ED, given 1 dose of IV Lasix, usually only takes Lasix 20 mg p.o. as needed for weight gain
- Blood pressure now better controlled with adjustments to her medication regimen
- Increased hydralazine to 100 mg p.o. 3 times a day, added nifedipine 30 mg p.o. daily
- Additional IV hydralazine as needed
- Nephrology following, patient has been following closely with her outpatient blocker and polisher gold wheel regarding the progression of her kidney disease and likely eventual need for dialysis
CKD stage IV/V:
- Patient is aware of her progressing kidney disease and likely need for eventual dialysis
- Current renal function slightly worse than recent baseline
- Nephrology consulted while inpatient
- Continue sodium bicarb tablets
Anemia of chronic disease:
- Suspect due to renal disease, reportedly started on Procrit
- No evidence of bleeding
- Baseline hemoglobin appears to be around 8.5 per records, reportedly hemoglobin was 6 on lab work at the [facility]
- Hemoglobin was 7.1 at the time of arrival in the ED, ordered 1 unit PRBCs however not transfused due to uncontrolled blood pressure
- Now requiring transfusion for hemoglobin of 6.5, still no evidence of bleeding, will follow-up hemoglobin posttransfusion
Chronic HFpEF:
- Was given a dose of IV Lasix x 1 at the time of admission due to some concern for volume overload
- Does not appear overtly edematous on exam, small pleural effusions on chest x-ray with no pulmonary edema
- proBNP is 17,000 at time of admission, up from 7000 approximately 18 months ago, of unclear significance considering poor renal function
- Continuing scheduled Lasix 20 mg p.o. daily for now
- Will monitor daily weights, currently 74.0 kg down from 78.7 kg at time of admission
Troponin elevation:
- Doubt acute ischemia, troponins elevated but plateaued at 0.06
- Likely secondary to uncontrolled hypertension and poor clearance in the setting of advanced CKD
- Monitor on telemetry
Hyperglycemia:
- Blood glucose on initial labs 293
- No history of diabetes, not on diabetic medications at home
- Hemoglobin A1c 5.5%
- Continue insulin sliding scale as needed
- Can add scheduled basal insulin pending on daily insulin requirements
Paroxysmal A-fib:
- continue home metoprolol succinate 12.5 mg daily
- Anticoagulation with Eliquis
DVT prophylaxis: Eliquis
CODE STATUS: Full code
Anticipated Discharge: > 48 hours
Subjective/Interval History
-
Date of Service: September 13, 2025
Patient was seen and examined at bedside this morning. Being transfused 1 unit PRBCs. Feeling very tired today.
Objective Data
-
Labs:
Laboratory Results
09/13/25
06:44
WBC 7.1
Hgb 6.5 L*
Hct 19.8 L*
Plt Count 191
Sodium 137
Potassium 4.3
Chloride 106
Carbon Dioxide 25
BUN 57 H
Creatinine 3.9 H
Glucose 120 H
Calcium 8.7
Vital Signs:
Vital Signs
Temp Pulse Resp BP Pulse Ox
97.9 F 92 18 151/60 98
09/13/25 12:11 09/13/25 12:11 09/13/25 12:11 09/13/25 12:11 09/13/25 12:00
I&O
09/12/25 09/13/25 09/14/25
06:59 06:59 06:59
Intake Total 540 / 540 250 / 250
Output Total 800 / 800
Balance -260 / -260 250 / 250
Review of Systems
-
History Source: Patient
All other systems: Reviewed and negative
Constitutional: Reports Fatigue
Physical Exam
-
General: No Apparent Distress
--- NOTE | 2025-09-13 14:28 | PN.CDI ---
CDI
- -
CDI:
Physician Documentation Request
Admit Date: 09/11/25 23:41
Dear Doctor Jose Roberto,
Clinical Indicators:
Patient admitted with hypertensive urgency; PMH included CKD IV/V.
09/11 H & P, 'Nonischemic myocardial injury'
09/12 PN, ' Troponin elevation: Doubt acute ischemia...- Likely secondary to uncontrolled hypertension and poor clearance in the setting of advanced CKD'
Troponin trend:
09/11/25 09/12/25 09/12/25
22:34 02:40 08:46
Troponin I 0.060 H* 0.061 H* 0.062 H*
09/12/25
13:28
Troponin I 0.055 H*
Due to potentially conflicting documentation,please clarify the etiology of the troponin elevation:
Non ischemic myocardial injury
Troponin elevation only
Other, please specify
Use of terms such as suspected, likely, concern for, or probable (associated with a specific diagnosis that is being evaluated, monitored, or treated as if it exists) are acceptable and can be coded in the inpatient setting, when documented at the
time of discharge.
Thank you,
EDILBERTO Juan RN
CDI Specialist
available via tiger text
Please use your independent medical judgment in providing your response.
--- NOTE | 2025-09-13 14:38 | PN.CDI ---
CDI
- -
CDI:
Physician Documentation Request
Admit Date: 09/11/25 23:41
Dear Doctor Jose Roberto,
Clinical Indicators:
Patient admitted with hypertensive urgency; PMH included CKD IV/V.
09/12, 09/13 RN skin/wound assessments: Sacrum Stage 1 Pressure Injury, POA
Treatment: silicone border foam dressing
Physician documentation of the type and location of wounds is required for compliant documentation. Based on the above clinical findings and your assessment, please provide the following in your progress note:
1. Location of the ulcer/wound, including laterality.
2. Type (etiology) of ulcer/wound:
- Pressure (decubitus) ulcer
- Other
- Unable to determine
3. If a pressure ulcer, please also include the stage* of the ulcer:
- Stage 1 - Skin intact, non-blanchable redness
- Stage 2 - Partial thickness loss of dermis, includes intact or open blister
- Stage 3 - Full thickness tissue not including bone, tendon or muscle
- Stage 4 - Full thickness tissue loss, including exposed bone, tendon or muscle
- Unstageable - Full thickness loss in which the base of the ulcer is covered by slough (yellow, sherwood, bueno, green or brown) and/or eschar (sherwood, brown or black) in the wound bed.
- Unable to determine
Use of terms such as suspected, likely, concern for, or probable (associated with a specific diagnosis that is being evaluated, monitored, or treated as if it exists) are acceptable and can be coded in the inpatient setting, when documented at the
time of discharge.
Thank you,
EDILBERTO Juan RN
CDI Specialist
available via tiger text
Please use your independent medical judgment in providing your response.
*Source: National Pressure Ulcer Advisory Panel (NPUAP)
[2025-09-13] MEDS: NOVOLOG FLEXPEN-LOW RESISTANCE 2 UNITS SC (17:13)
[2025-09-13 22:18] LABS: Glucose - Point of Care 252 mg/dl (70-99)
[2025-09-13 22:18] LABS: Glucose - Point of Care 224 mg/dl (70-99)
[2025-09-14] VITALS (8 sets, daily range): BP systolic 138–179; BP diastolic 51–71; PULSE 69; O2SAT 98; BMI 27.0
[2025-09-14] MEDS: TYLENOL 650 MG PO ×2 (02:32→20:21)
[2025-09-14 07:36] LABS: Hematocrit 23.8 % (37.0-47.0); Hemoglobin 7.9 g/dL (12.0-16.0); Mean Corp Hgb Conc. 33.2 g/dL (33.0-37.0); Mean Corpuscular Volume 92.2 fL (81.0-99.0); Platelet Count 171 10^3/uL (130-400); Red Cell Dist. Width 15.5 % (11.5-14.5)
[2025-09-14 07:37] LABS: Blood Urea Nitrogen 61 mg/dl (7-17); Calcium 8.6 mg/dl (8.4-10.2); Carbon Dioxide 23 mmol/L (22-30); Chloride 104 mmol/L (98-107); Estimated Creatinine Clearance 9 ml/min; Glucose 121 mg/dl (70-99); Potassium 4.0 mmol/L (3.5-5.1); Sodium 135 mmol/L (135-145); eGFR 10.39
[2025-09-14 07:44] LABS: Glucose - Point of Care 132 mg/dl (70-99)
[2025-09-14] MEDS: NOVOLOG FLEXPEN-LOW RESISTANCE SC (07:51)
[2025-09-14] MEDS: LASIX 20 MG PO (07:58)
[2025-09-14] MEDS: PROCARDIA XL (EXTENDED RELEASE) 30 MG PO ×2 (07:58→20:13)
[2025-09-14] MEDS: SODIUM BICARBONATE 1300 MG PO ×2 (07:58→20:14)
[2025-09-14] MEDS: ELIQUIS 2.5 MG PO ×2 (07:58→20:13)
[2025-09-14] MEDS: APRESOLINE 100 MG PO ×3 (07:58→21:53)
[2025-09-14] MEDS: TOPROL XL 12.5 MG PO (07:58)
[2025-09-14] MEDS: DESENEX/MITRAZOL/ZEASORB 1 APPLIC TOPICAL ×2 (07:59→20:14)
--- NOTE | 2025-09-14 11:41 | W.PN.HOSP.TC ---
Addendum entered and electronically signed by Ede Cid, 09/15/25 13:14:
Progression of underlying CKD IV/V only
Addendum entered and electronically signed by Ede Cid, DO 09/14/25 14:39:
Additional diagnoses:
Sacrum Stage 1 Pressure Injury, POA
Troponin elevation due to Non ischemic myocardial injury
Original Note:
Today's Communication/Plan
-
Assessment / Plan
Assessment / Plan
General: No Apparent Distress, Comfortable and Conversant
HEENT: NormoCephalic, Moist mucous membranes, Atraumatic
Respiratory: Clear and Non Labored Respirations
Cardiac: S1/S2 and Regular Rhythm; No Rub or Gallop
GI: Soft, Non Tender, Non Distended and Normal Bowel Sounds
Musculoskeletal: No Edema, no deformity
Skin: Warm and dry
: NO Esposito
Neuro: Awake, Alert, Nonfocal/grossly intact
Psych: Calm and Intact Judgment/Insight
Ms. La is a 85-year-old female with a medical history of HFpEF, paroxysmal A-fib (on Eliquis), symptomatic bradycardia (PPM), CKD 4, and anemia of chronic disease who [facility] with [facility] hemoglobin [facility]. Reportedly
her hemoglobin was 6 on routine labs. She denies any melanotic or bloody stools. She reports that her blood pressure has been very difficult to control recently despite adherence with her medication regimen.
Hypertensive urgency:
- Systolic BP had been persistently over 200 since arrival in the ED, given 1 dose of IV Lasix, usually only takes Lasix 20 mg p.o. as needed for weight gain
- Blood pressure now better controlled with adjustments to her medication regimen
- Increased hydralazine to 100 mg p.o. 3 times a day, added nifedipine 30 mg p.o. daily
- Additional IV hydralazine as needed
- Continuing scheduled Lasix 20 mg p.o. daily
- Nephrology following, patient has been following closely with her outpatient pharmacology teacher regarding the progression of her kidney disease and likely eventual need for dialysis
CKD stage IV/V:
- Patient is aware of her progressing kidney disease and likely need for eventual dialysis
- Current renal function slightly worse than recent baseline
- Nephrology consulted while inpatient
- Continue sodium bicarb tablets
Anemia of chronic disease:
- Suspect due to renal disease, reportedly started on Procrit
- No evidence of bleeding
- Baseline hemoglobin appears to be around 8.5 per records, reportedly hemoglobin was 6 on lab work [facility] the [facility]
- Hemoglobin was 7.1 at the time of arrival in the ED, ordered 1 unit PRBCs however not transfused due to uncontrolled blood pressure
- Required transfusion yesterday 09/13 for hemoglobin of 6.5, still no evidence of bleeding, hemoglobin responded appropriately posttransfusion with a level of 7.9 on labs this morning
- Will continue to monitor, will discharge tomorrow if hemoglobin levels remained stable
Chronic HFpEF:
- Was given a dose of IV Lasix x 1 at the time of admission due to some concern for volume overload
- Does not appear overtly edematous on exam, small pleural effusions on chest x-ray with no pulmonary edema
- proBNP is 17,000 at time of admission, up from 7000 approximately 18 months ago, of unclear significance considering poor renal function
- Continuing scheduled Lasix 20 mg p.o. daily for now
- Will monitor daily weights, currently 73.6 kg down from 78.7 kg at time of admission
Troponin elevation:
- Doubt acute ischemia, troponins elevated but plateaued at 0.06
- Likely secondary to uncontrolled hypertension and poor clearance in the setting of advanced CKD
- Monitor on telemetry
Hyperglycemia:
- Blood glucose on initial labs 293
- No history of diabetes, not on diabetic medications at home
- Hemoglobin A1c 5.5%
- Continue insulin sliding scale as needed
- Can add scheduled basal insulin pending on daily insulin requirements
Paroxysmal A-fib:
- continue home metoprolol succinate 12.5 mg daily
- Anticoagulation with Eliquis
DVT prophylaxis: Eliquis
CODE STATUS: Full code
Anticipated Discharge: Within 24 hours
Subjective/Interval History
-
Date of Service: September 14, 2025
Patient was seen and examined at bedside this morning. Is anxious about the likelihood of needing dialysis in the near future.
Objective Data
-
Labs:
Laboratory Results
09/14/25
06:26
WBC 6.8
Hgb 7.9 L D
Hct 23.8 L
Plt Count 171
Sodium 135
Potassium 4.0
Chloride 104
Carbon Dioxide 23
BUN 61 H
Creatinine 4.0 H
Glucose 121 H
Calcium 8.6
Vital Signs:
Vital Signs
Temp Pulse Resp BP Pulse Ox
97.9 F 71 16 179/71 98
09/14/25 07:25 09/14/25 07:58 09/14/25 07:25 09/14/25 07:58 09/14/25 10:08
I&O
09/13/25 09/14/25 09/15/25
06:59 06:59 06:59
Intake Total 540 / 540 970 / 970
Output Total 800 / 800 1550 / 1550
Balance -260 / -260 -580 / -580
Review of Systems
-
History Source: Patient
All other systems: Reviewed and negative
Physical Exam
-
General: No Apparent Distress
--- NOTE | 2025-09-14 11:42 | W.PN.NEPH.PH ---
Today's Communication / Plan
-
follow hgb
Assessment/Plan
-
Assessment:
Hypertensive urgency:
ADAM with CKD stage IV/V-baseline in high 2 range
Anemia of chronic disease
Chronic HFpEF
Troponin elevation
Hyperglycemia- Hemoglobin A1c 5.5%
Paroxysmal A-fib
Bradycardia recent PPM
chr metabolic acidosis
Plan:
transfuse PRBC prn
Pt would accept HD if needed
No emergent dialysis needs currently
Follow BMP, hgb
increase procardia
-
-
Date of Service: September 14, 2025
CC / HPI / ROS
-
Chief Complaint:
CKD5
History of Present Illness:
ADAM/Cr stable at 4
Hgb up to 7.9
BP stable high
Review of Systems:
no CP/SOB
tired
Labs
-
Labs:
WBC 6.8 10^3/uL (4.8-10.8) 09/14/25 06:26
RBC 2.58 10^6/uL (4.20-5.40) L 09/14/25 06:26
Hgb 7.9 g/dL (12.0-16.0) L D 09/14/25 06:26
Hct 23.8 % (37.0-47.0) L 09/14/25 06:26
Plt Count 171 10^3/uL (130-400) 09/14/25 06:26
Sodium 135 mmol/L (135-145) 09/14/25 06:26
Potassium 4.0 mmol/L (3.5-5.1) 09/14/25 06:26
Chloride 104 mmol/L (98-107) 09/14/25 06:26
Carbon Dioxide 23 mmol/L (22-30) 09/14/25 06:26
BUN 61 mg/dl (7-17) H 09/14/25 06:26
Creatinine 4.0 mg/dL (0.6-1.0) H 09/14/25 06:26
eGFR 10.39 09/14/25 06:26
Glucose 121 mg/dl (70-99) H 09/14/25 06:26
Calcium 8.6 mg/dl (8.4-10.2) 09/14/25 06:26
Cqd-U-Lvxzccbqaam Pept 39346 pg/ml 09/11/25 22:34
Albumin 3.4 g/dl (3.5-5.0) L 09/12/25 08:46
Physical Exam
-
Vital Signs:
Vital Signs
Temp Pulse Resp BP Pulse Ox
97.9 F 71 16 179/71 98
09/14/25 07:25 09/14/25 07:58 09/14/25 07:25 09/14/25 07:58 09/14/25 10:08
Cardiovascular:: Regular rate and rhythm
Respiratory:: Bilateral: Coarse
Lung Excursion:: Normal
Abdomen:: Nontender and Soft
Bowel Sounds:: Normal
Extremity Edema:: None: Bilateral:
[2025-09-14 13:24] LABS: Glucose - Point of Care 289 mg/dl (70-99)
[2025-09-14] MEDS: NOVOLOG FLEXPEN-LOW RESISTANCE 3 UNITS SC ×2 (13:37→17:18)
--- NOTE | 2025-09-14 14:33 | CM ---
Addendum entered by JIMY Ann 09/14/25 15:28:
updated grandson via phone call.left VM
Addendum entered by JIMY Ann 09/14/25 15:25:
Met patient to update plan to d/c back to [facility] tomorrow.
Original Note:
Spoke to Carito at [facility]. She can accept back tomorrow.
Patient can go in w/c van.
Report [phone]
fax [phone]
--- NOTE | 2025-09-14 15:18 | PN.CDI ---
CDI
- -
CDI:
Physician Documentation Request
Admit Date: 09/11/25 23:41
Dear Doctor Jose Roberto,
Clinical Indicators:
Patient admitted with hypertensive urgency.
09/11 Lasix 20 mg IV x 1.
09/14 Nephrology PN, 'ADAM with CKD stage IV/V-baseline in high 2 range'
09/14 PN, 'CKD stage IV/V Patient is aware of her progressing kidney disease and likely need for eventual dialysis'
Cr/GFR trend:
09/11/25 09/12/25 09/13/25
21:10 08:46 06:44
Creatinine 3.6 H 3.8 H 3.9 H
eGFR 11.80 11.05 10.72
Please clarify which of the following most accurately represents the patient's renal status:
Acute kidney injury on CKD IV/V
Progression of underlying CKD IV/V only
Other, please specify
Criteria for ADAM*
1 Increase in serum creatinine by > or = to 0.3 mg/dL (> or = to 26.5 micromol/L) within 48 hours, OR
2 Increase in serum creatinine to > or = to 1.5 times baseline, which is known or presumed to have occurred within 7 days, OR
3 Urine volume < 0.5 nL/kg/hour for six hours
Stages of Chronic Kidney Disease*
Level Description GFR
G1 Normal or High >90
G2 Mildly decreased 60-89
G3a Mildly to moderately decreased 45-59
G3b Moderately to severely decreased 30-44
G4 Severely decreased 15-29
G5 Kidney failure <15
Use of terms such as suspected, likely, concern for, or probable (associated with a specific diagnosis that is being evaluated, monitored, or treated as if it exists) are acceptable and can be coded in the inpatient setting, when documented at the
time of discharge.
Thank you,
EDILBERTO Juan RN
CDI Specialist
available via tiger text
Please use your independent medical judgment in providing your response.
*Source: Kidney Disease: Improving Global Outcomes (KDIGO) 2012
[2025-09-14 17:10] LABS: Glucose - Point of Care 251 mg/dl (70-99)
[2025-09-14 22:03] LABS: Glucose - Point of Care 195 mg/dl (70-99)
[2025-09-15 03:12] VITALS: BP 134/50
[2025-09-15 06:00] VITALS: BMI 27.5
[2025-09-15 06:44] LABS: Hematocrit 24.7 % (37.0-47.0); Hemoglobin 8.3 g/dL (12.0-16.0); Mean Corp Hgb Conc. 33.6 g/dL (33.0-37.0); Mean Corpuscular Volume 92.2 fL (81.0-99.0); Platelet Count 178 10^3/uL (130-400); Red Cell Dist. Width 15.2 % (11.5-14.5)
[2025-09-15 07:00] VITALS: BP 152/53
[2025-09-15 07:03] LABS: Blood Urea Nitrogen 62 mg/dl (7-17); Calcium 9.0 mg/dl (8.4-10.2); Carbon Dioxide 24 mmol/L (22-30); Chloride 102 mmol/L (98-107); Estimated Creatinine Clearance 11 ml/min; Glucose 127 mg/dl (70-99); Potassium 4.6 mmol/L (3.5-5.1); Sodium 134 mmol/L (135-145); eGFR 11.05
[2025-09-15] MEDS: LASIX 20 MG PO (08:16)
[2025-09-15] MEDS: APRESOLINE 100 MG PO (08:17)
[2025-09-15] MEDS: ELIQUIS 2.5 MG PO (08:17)
[2025-09-15] MEDS: TOPROL XL 12.5 MG PO (08:17)
[2025-09-15] MEDS: DESENEX/MITRAZOL/ZEASORB 1 APPLIC TOPICAL (08:17)
[2025-09-15] MEDS: PROCARDIA XL (EXTENDED RELEASE) 30 MG PO (08:17)
[2025-09-15] MEDS: SODIUM BICARBONATE 1300 MG PO (08:17)
[2025-09-15 08:57] LABS: Glucose - Point of Care 152 mg/dl (70-99)
[2025-09-15] MEDS: NOVOLOG FLEXPEN-LOW RESISTANCE 1 UNITS SC (08:59)
--- NOTE | 2025-09-15 10:43 | W.DCSUMMARY ---
Discharge Summary
Discharge Data
Date of Admission: 09/11/25
Date of Discharge: 09/15/25
Total time spent discharging patient (in min): 48
-
Pending Results: No
Hospital Course
Ms. La is a 85-year-old female with a medical history of HFpEF, paroxysmal A-fib (on Eliquis), symptomatic bradycardia (PPM), CKD 4/5, and anemia of chronic disease who presented with low hemoglobin on lab work at her group home. Reportedly
her hemoglobin was 6 on routine labs. She denies any melanotic or bloody stools. She reports that her blood pressure has been very difficult to control recently despite adherence with her medication regimen. She was admitted for further
evaluation and treatment of hypertensive urgency and anemia requiring transfusion.
Her blood pressure was able to be controlled with adjustments in her home regimen. Her hydralazine was increased to 100 mg 3 times per day and nifedipine 30 mg daily was added. She was given a dose of IV Lasix in the ED and later continued on 20
mg p.o. daily. Prior to arrival she had been taking Lasix 20 mg p.o. daily as needed for weight gain. She did not appear overtly volume overloaded during this admission.
She was transfused 1 unit PRBCs on 09/13 for hemoglobin of 6.5. She had no evidence of bleeding. Her hemoglobin level responded appropriately to 7.9 after transfusion and was 8.3 on the day of discharge.
She was followed closely by nephrology while inpatient. She does not require initiation of dialysis at this time but will need to follow-up closely with nephrology for ongoing monitoring of her kidney function and dialysis as needed.
Her blood glucose was uncontrolled at the time of admission with a blood glucose of 293 on initial labs. She is not on diabetic medications as an outpatient. She was treated with sliding scale insulin only during her hospitalization which
appropriately controlled her blood glucose. Her hemoglobin A1c was 5.5%. She will be discharged on sliding scale insulin. She will need to follow-up closely with her primary care physician for ongoing blood glucose monitoring and adjustments to
her medication regimen as needed.
At the time of hospital discharge she was medically stable.
General: No Apparent Distress, Comfortable and Conversant
HEENT: NormoCephalic, Moist mucous membranes, Atraumatic
Respiratory: Clear and Non Labored Respirations
Cardiac: S1/S2 and Regular Rhythm; No Rub or Gallop
GI: Soft, Non Tender, Non Distended and Normal Bowel Sounds
Musculoskeletal: No Edema, no deformity
Skin: Warm and dry
: NO Esposito
Neuro: Awake, Alert, Nonfocal/grossly intact
Psych: Calm and Intact Judgment/Insight
Discharge Plan
-
Patient Disposition: [facility]
Discharge Diagnosis/Procedures: Hypertensive urgency
Symptomatic anemia
Anemia requiring transfusion
Activity Restrictions/Additional Instructions:
You were admitted for treatment of uncontrolled high blood pressure. Your blood pressure was able to be controlled with adjustments to your medication regimen. You were also found to have lower than normal hemoglobin levels on your blood work.
You were transfused 1 unit of blood with improvement in your hemoglobin level. You are now stable for discharge. 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
Instructions: *PCP/Other Refrigeration Mechanic Heart Failure Instructions
Referrals:
Gordy Gtz MD [Family Provider]
Angela Paredes MD [Active, Nephrology]
Prescriptions:
New
insulin aspart U-100 [Novolog FlexPen U-100 Insulin] 100 unit/mL (3 mL) insulin pen
1 sliding scale dose SC AC Qty: 15 0RF
nifedipine 30 mg Tablet Extended Release
30 mg PO BID Qty: 30 0RF
Continued
famotidine [Pepcid] 20 mg Tablet
20 mg PO Q8HPRN PRN (Reason: GERD)
bisacodyl 10 mg Suppository
10 mg GA DAILYPRN PRN (Reason: no bm 24 hrs after mom)
alum-mag hydroxide-simeth [Maalox Maximum Strength] 400-400-40 mg/5 mL Suspension
5 ml PO Q6HPRN PRN (Reason: reflux)
Saccharomyces boulardii [Florastor] 250 mg Capsule
250 mg PO BIDPRN PRN (Reason: diarrhea)
PreserVision AREDS 4,296 mcg-226 mg-90 mg Capsule
1 cap PO DAILY
cholecalciferol (vitamin D3) 75 mcg (3,000 unit) Tablet
75 mcg PO DAILY
Eliquis 2.5 mg Tablet
2.5 mg PO BID
Eucerin Itch Relief 0.1 % Lotion
1 ea TOPICAL DAILY
lactase 3,000 unit Tablet
3,000 unit PO MEALS
lidocaine 4 % Gel
1 applic TOPICAL Q6HPRN PRN (Reason: neck and back pain)
acetaminophen 325 mg Tablet
650 mg PO Q4HPRN PRN (Reason: mild pain)
polyethylene glycol 3350 [Miralax] 17 gram Powder In Packet
17 g PO DAILY
ondansetron HCl 4 mg Tablet
4 mg PO Q8HPRN PRN (Reason: nausea/vomiting)
loperamide 2 mg Tablet
2 mg PO Q8HPRN PRN (Reason: diarrhea)
miconazole nitrate 2 % Powder
1 applic TOPICAL BID
melatonin 3 mg Tablet
3 mg PO HS
docusate sodium 100 mg Capsule
100 mg PO [id number] PRN (Reason: constipation)
metoprolol succinate 25 mg Tablet Extended Release 24 Hr
12.5 mg PO DAILY
Artificial Tears (PF) Dropperette
2 drp BOTH EYES BID
menthol 0.1 % Lotion
1 ea TOPICAL TID
sodium bicarbonate 650 mg tablet
1,300 mg PO BID
Epogen 2,000 unit/mL Solution
2,000 unit SC Q7D
magnesium hydroxide [Milk of Magnesia] 400 mg/5 mL Suspension
2,400 mg PO DAILYPRN PRN (Reason: if no bm aftr 3rd day)
Fleet Enema 19-7 gram/118 mL Enema
118 ml GA DAILYPRN PRN (Reason: if no bm aftr dulcolax)
Preparation H 0.25-14-74.9 % Ointment
1 applic GA DAILYPRN PRN (Reason: hemorrhoids)
Changed
furosemide [Lasix] 20 mg tablet
20 mg PO DAILY Qty: 0 0RF
hydralazine 50 mg Tablet
100 mg PO TID 30 Days Qty: 120 0RF
Discontinued
hydralazine 50 mg Tablet
50 mg PO DAILY@1500
Discharge Orders:
Discharge Patient (As Directed); Ordered 09/15/25
Ordered By: Ede Cid
Discharge Date and Time
Print Language: ESTONIAN
[2025-09-15 11:00] VITALS: BP 133/46
--- NOTE | 2025-09-15 11:14 | W.PN.NEPH.PH ---
Today's Communication / Plan
-
follow labs
d/c plan per primary
follow Dr Cedillo after d/c and plan access creation as out pt
Assessment/Plan
-
Assessment:
Hypertensive urgency:
ADAM with CKD stage IV/V-baseline in high 2 range
Anemia of chronic disease
Chronic HFpEF
Troponin elevation
Hyperglycemia- Hemoglobin A1c 5.5%
Paroxysmal A-fib
Bradycardia recent PPM
chr metabolic acidosis
Plan:
no sig change in renal function cr 3.8
transfuse PRBC prn, hb better
Pt would accept HD if needed
No emergent dialysis needs currently
BP slightly up, procardia dose increased to BID, cotn bb and hydralazine
Follow BMP, hgb
-
-
Date of Service: September 15, 2025
CC / HPI / ROS
-
Chief Complaint:
CKD5
History of Present Illness:
ADAM/Cr stable at 3.8
Hgb up to 8.3
BP stable high
Review of Systems:
no CP/SOB
need dentures to eat
Labs
-
Labs:
WBC 6.1 10^3/uL (4.8-10.8) 09/15/25 05:54
RBC 2.68 10^6/uL (4.20-5.40) L 09/15/25 05:54
Hgb 8.3 g/dL (12.0-16.0) L 09/15/25 05:54
Hct 24.7 % (37.0-47.0) L 09/15/25 05:54
Plt Count 178 10^3/uL (130-400) 09/15/25 05:54
Sodium 134 mmol/L (135-145) L 09/15/25 05:54
Potassium 4.6 mmol/L (3.5-5.1) 09/15/25 05:54
Chloride 102 mmol/L (98-107) 09/15/25 05:54
Carbon Dioxide 24 mmol/L (22-30) 09/15/25 05:54
BUN 62 mg/dl (7-17) H 09/15/25 05:54
Creatinine 3.8 mg/dL (0.6-1.0) H 09/15/25 05:54
eGFR 11.05 09/15/25 05:54
Glucose 127 mg/dl (70-99) H 09/15/25 05:54
Calcium 9.0 mg/dl (8.4-10.2) 09/15/25 05:54
Qpi-R-Xvqvhctpmhl Pept 41747 pg/ml 09/11/25 22:34
Albumin 3.4 g/dl (3.5-5.0) L 09/12/25 08:46
Physical Exam
-
Vital Signs:
Vital Signs
Temp Pulse Resp BP Pulse Ox
97.4 F 69 14 152/53 97
09/15/25 07:00 09/15/25 08:17 09/15/25 07:00 09/15/25 08:17 09/15/25 07:00
Cardiovascular:: Regular rate and rhythm
Respiratory:: Bilateral: CTA (decreased BS)
Lung Excursion:: Normal
Abdomen:: Nontender and Soft
Bowel Sounds:: Normal
Extremity Edema:: None: Bilateral:
--- NOTE | 2025-09-15 12:16 | CM ---
Addendum entered by Shanika Stiles 09/15/25 13:06:
ambulance clam picker 1500; facility notified; tea notified
Addendum entered by Shanika Stiles 09/15/25 12:37:
[facility]
Report #[phone]

Original Note:
Per Attending, patient is stable for discharge; faciity notified and can accept
Plan Discharge to [facility] today via ambulance
[2025-09-15 13:05] LABS: Glucose - Point of Care 252 mg/dl (70-99)
[2025-09-15] MEDS: NOVOLOG FLEXPEN-LOW RESISTANCE 3 UNITS SC (13:09)
[2025-09-15 15:02] VITALS: BP 143/56
--- NOTE | 2025-09-15 16:00 | PTCARENOTE ---
Patient discharged back to [facility], transported by [facility]. This RN removed patient's IV and tele pack. DC vitals taken by tech stable. Purewick removed, dariel care provided, and belongings gathered in room by tech. Belonging bag handed
to transport team. This RN called report to Charito at facility.
== END 2025-09-15 16:44 | DRG 305 ==
LOC: 2 NORTH 23:41
PROVIDERS: Emergency Medicine; Physician Assistant; ADMITTING PHYSICIAN Hospitalist; ATTENDING PHYSICIAN Internal Medicine; CONSULT PHYSICIAN Internal Medicine; EMERGENCY PHYSICIAN Emergency Medicine; FAMILY PHYSICIAN Internal Medicine
PROC: 30233N1 Transfusion of Nonautologous Red Blood Cells into Peripheral Vein, Percutaneous Approach (ICD-10-PCS; 2025-09-13)
DX: I16.0 Hypertensive urgency (principal); N18.4 Chronic kidney disease, stage 4 (severe); E87.20 Acidosis, unspecified; I5A Non-ischemic myocardial injury (non-traumatic); I50.32 Chronic diastolic (congestive) heart failure; I13.2 Hypertensive heart and chronic kidney disease with heart failure and with stage 5 chronic kidney disease, or end stage renal disease; D63.1 Anemia in chronic kidney disease; I48.0 Paroxysmal atrial fibrillation; K59.00 Constipation, unspecified; K21.9 Gastro-esophageal reflux disease without esophagitis; F41.9 Anxiety disorder, unspecified; G47.00 Insomnia, unspecified; Z79.01 Long term (current) use of anticoagulants; Z79.899 Other long term (current) drug therapy; E78.00 Pure hypercholesterolemia, unspecified; I25.10 Atherosclerotic heart disease of native coronary artery without angina pectoris; J44.9 Chronic obstructive pulmonary disease, unspecified; M10.9 Gout, unspecified; Z86.19 Personal history of other infectious and parasitic diseases; Z95.0 Presence of cardiac pacemaker
CPT/HCPCS: 71046; 80048; 80053; 82728; 82962; 83036; 83540; 83550; 83880; 84484; 85025; 85027; 85730; 86850; 86900; 86901; 86920; 87070; 93005; 96374; 97162; 97166; 99285; P9016

== ENCOUNTER 2025-10-10 17:40 | Emergency (ER) | payer MEDICARE, OTHER, SELFPAY ==
[2025-10-10] VITALS (8 sets, daily range): BP systolic 163–188; BP diastolic 49–59; BMI 28.2
[2025-10-10 18:02] LABS: Hematocrit 23.2 % (37.0-47.0); Hemoglobin 7.7 g/dL (12.0-16.0); Mean Corp Hgb Conc. 33.2 g/dL (33.0-37.0); Mean Corpuscular Volume 89.9 fL (81.0-99.0); Nucleated Red Blood Cells % 0 %; Platelet Count 160 10^3/uL (130-400); Red Cell Dist. Width 15.1 % (11.5-14.5)
[2025-10-10 18:26] LABS: ALT (SGPT) 14 U/L (0-35); AST (SGOT) 16 U/L (14-36); Albumin 3.9 g/dl (3.5-5.0); Alkaline Phosphatase 126 U/L (38-126); Blood Urea Nitrogen 63 mg/dl (7-17); Calcium 9.4 mg/dl (8.4-10.2); Carbon Dioxide 16 mmol/L (22-30); Chloride 105 mmol/L (98-107); Glucose 202 mg/dl (70-99); Potassium 4.3 mmol/L (3.5-5.1); Sodium 135 mmol/L (135-145); Total Protein 6.8 g/dl (6.3-8.2); eGFR 15.29
--- NOTE | 2025-10-10 21:00 | ED.GENMED ---
History of Present Illness
General
Chief Complaint: Abnormal Lab Value
Time Seen by Provider: 10/10/25 21:00
History of Present Illness
History of Present Illness:
FOCUSED PAST MEDICAL HISTORY
- A-fib on Eliquis, CKD
REVIEW OF OLD RECORDS
-
Note:
CHIEF COMPLAINT(S)
Low hemoglobin level.
HISTORY OF PRESENT ILLNESS
The patient is an 85-year-old female resident of [facility], who presents to the emergency department with concerns regarding low hemoglobin levels. An outpatient hemoglobin level drawn recently was reported at 6.6 g/dL, and a subsequent test
today in the ER showed an increase to 7.7 g/dL. The patient reports feeling generally weak but denies any active rectal bleeding. She is not currently undergoing dialysis and does not report any other specific symptoms at this time. There is
consideration for a blood transfusion, and the plan is to transfuse one unit of blood to help manage her hemoglobin levels.
SOCIAL HISTORY
The patient is a resident of a care facility, [facility].
PHYSICAL EXAM
General: Appears generally weak and somewhat frail.
Skin: Warm, dry.
Head: Normocephalic, atraumatic.
Neck: Supple, trachea midline.
Eye, Ears, Nose, Mouth and Throat: Oral mucosa moist.
Cardiovascular: Normal peripheral perfusion, No edema.
Respiratory: Respirations are non-labored.
Gastrointestinal: Abdomen nondistended.
Back: Normal range of motion, Normal alignment.
Musculoskeletal: Normal ROM, normal strength.
Neurological: Alert and oriented to person, place, time, and situation. No focal neurological deficit observed.
Psychiatric: Cooperative, appropriate mood & affect.
PROBLEM LIST
Acute:
- Anemia with low hemoglobin level.
PLAN
The plan is to administer one unit of blood transfusion to address the low hemoglobin level, following which the patient can return to [facility]. Coordination with the patients webmethods consultant through [place] [facility] providers is to be
considered.
DIFFERENTIAL DIAGNOSIS
The Differential Diagnosis includes, in no particular order and is not limited to:
- Chronic kidney disease-related anemia
- Iron-deficiency anemia
- Gastrointestinal bleeding
- Anemia of chronic disease
- Myelodysplastic syndrome
- Nutritional deficiencies (e.g., Vitamin B12, folate)
- Blood disorders (e.g., thalassemia)
- Hemolytic anemia
- Bone marrow suppression
Disposition:
SUMMARY OF ENCOUNTER
An 85-year-old female resident of [facility] presented to the emergency department with low hemoglobin levels. An outpatient lab test indicated a hemoglobin level of 6.6 g/dL, which later increased to 7.7 g/dL after a test conducted in the ER.
The patient reported general weakness but no other significant symptoms. Due to the previous low hemoglobin and potential for it to drop again, one unit of blood was transfused to stabilize her hemoglobin levels. The diagnosis is anemia of chronic
disease.
DISPOSITION
The patient is to be discharged and returned to [facility] following the blood transfusion. Coordination with the patients webmethods consultant via [facility] providers is advised.
ASSESSMENT
The patient has anemia of chronic disease, characterized by low hemoglobin levels, with a recent increase following intervention.
EMERGENCY TREATMENTS ADMINISTERED
Transfusion of one unit of blood.
PLAN
The patient is to receive one unit of blood transfusion to address her anemia associated with chronic disease, after which she can return to her care facility at [facility].
INDEPENDENT REVIEW OF LABS AND INTERPRETATION OF TESTS
My independent review of hemoglobin tests shows an initial level of 6.6 g/dL, which later improved to 7.7 g/dL in the ER.
MEDICAL DECISION MAKING
-Complexity of Data Reviewed: Chronic conditions affecting care include the outlined differential diagnosis: chronic kidney disease-related anemia, iron-deficiency anemia, gastrointestinal bleeding, anemia of chronic disease, myelodysplastic
syndrome, nutritional deficiencies, blood disorders, hemolytic anemia, and bone marrow suppression.
-Data:
Category 1:
Hemoglobin test results were reviewed to guide transfusion needs.
-Risk:
Prescription medication was prescribed in the form of a blood transfusion to manage chronic anemia associated with other underlying conditions. The potential risk includes the decision to transfuse blood, balancing against potential morbidity from
untreated low hemoglobin.
DIAGNOSIS
Chronic anemia (ICD-10: D63.8) associated with chronic disease processes.
LABS
- Hemoglobin 7.7, bicarb 16, creatinine 2.9
UPDATE
- [facility]
- Outpatient hemoglobin was 6.6 but currently is 7.7
- She prefers to be treated with 1 unit of blood which I feel is reasonable as it was just recently low
Past History
Past History
ED Past Medical History: Arrthythmia (paf), CAD, COPD, HTN, Hypercholesterolemia, Other (CKD STAGE IV) and Other (Idiopathic pancreatitis)
ED Past Surgical History: Cholecystectomy and Orthopedic
Social History
Tobacco: Non-smoker
Alcohol: None
Phy Exam
Physical Exam
Physical Exam:
See HPI
Course
Orders/Labs/Results
Orders:
Orders
10/10/25 17:52
Type And Crossmatch [Type+Screen] Urgent
Complete Blood Count/With Diff Urgent
Comprehensive Metabolic Panel Urgent
10/10/25 21:13
* Blood Bank Products Urgent
Blood Bank Products: *Packed RBC Leuko (PRBC's
Quantity: 1
Transfuse Today: Yes
Reason: Anemia
Abnormal Lab Results
10/10/25
17:52
RBC 2.58 L 10^6/uL
(4.20-5.40)
Hgb 7.7 L g/dL
(12.0-16.0)
Hct 23.2 L %
(37.0-47.0)
RDW 15.1 H %
(11.5-14.5)
Abs Immat Gran (auto) 0.1 H 10^3/uL
(0-0.05)
Absolute Lymphs (auto) 1.1 L 10^3/uL
(1.2-3.4)
Immature Gran % 1.4 H %
(0-0.5)
Lymphocytes % 17.9 L %
(20.5-51.1)
Carbon Dioxide 16 L mmol/L
(22-30)
BUN 63 H mg/dl
(7-17)
Creatinine 2.9 H mg/dL
(0.6-1.0)
Glucose 202 H mg/dl
(70-99)
Crossmatch IS Only See Detail
10/10/25 17:52
10/10/25 17:52
Vital Signs
Initial and Last Documented VS:
Initial Vital Signs
Temp Pulse Resp BP Pulse Ox
36.6 C 68 20 163/59 100
10/10/25 17:42 10/10/25 17:42 10/10/25 17:42 10/10/25 17:42 10/10/25 17:42
Last Documented Vital Signs
Temp Pulse Resp BP Pulse Ox
36.6 C 71 16 181/57 99
10/10/25 17:42 10/10/25 21:30 10/10/25 21:30 10/10/25 21:28 10/10/25 21:30
*Pulse Oximetry
SaO2: 100
Oxygen Mode of Delivery: Room air
Patient hypoxic: no
*Critical Care Note
Total Time (30-74mins, 75-104mins- exclusive of procedures): Not Applicable
ED Attending Note
-
Portions of this chart may have been created with voice recognition software.� Occasional wrong word or��sound alike� substitutions may have occurred due to the inherent limitations of voice recognition software.
Discharge Plan
Departure
Patient Disposition: Home (Routine Discharge)
Date of Disposition: 10/10/25
Time of Disposition: 22:05
Patient with high blood pressure during this ER visit?: Yes
Discharge Problem:
Anemia
Prescriptions:
No Action
famotidine [Pepcid] 20 mg Tablet
20 mg PO Q8HPRN PRN (Reason: GERD)
bisacodyl 10 mg Suppository
10 mg OH DAILYPRN PRN (Reason: no bm 24 hrs after mom)
alum-mag hydroxide-simeth [Maalox Maximum Strength] 400-400-40 mg/5 mL Suspension
5 ml PO Q6HPRN PRN (Reason: reflux)
Saccharomyces boulardii [Florastor] 250 mg Capsule
250 mg PO BIDPRN PRN (Reason: diarrhea)
PreserVision AREDS 4,296 mcg-226 mg-90 mg Capsule
1 cap PO DAILY
cholecalciferol (vitamin D3) 75 mcg (3,000 unit) Tablet
75 mcg PO DAILY
Eliquis 2.5 mg Tablet
2.5 mg PO BID
Eucerin Itch Relief 0.1 % Lotion
1 ea TOPICAL DAILY
lactase 3,000 unit Tablet
3,000 unit PO MEALS
lidocaine 4 % Gel
1 applic TOPICAL Q6HPRN PRN (Reason: neck and back pain)
acetaminophen 325 mg Tablet
650 mg PO Q4HPRN PRN (Reason: mild pain)
polyethylene glycol 3350 [Miralax] 17 gram Powder In Packet
17 g PO DAILY
ondansetron HCl 4 mg Tablet
4 mg PO Q8HPRN PRN (Reason: nausea/vomiting)
loperamide 2 mg Tablet
2 mg PO Q8HPRN PRN (Reason: diarrhea)
miconazole nitrate 2 % Powder
1 applic TOPICAL BID
melatonin 3 mg Tablet
3 mg PO HS
docusate sodium 100 mg Capsule
100 mg PO [id number] PRN (Reason: constipation)
metoprolol succinate 25 mg Tablet Extended Release 24 Hr
12.5 mg PO DAILY
Artificial Tears (PF) Dropperette
2 drp BOTH EYES BID
menthol 0.1 % Lotion
1 ea TOPICAL TID
sodium bicarbonate 650 mg tablet
1,300 mg PO BID
Epogen 2,000 unit/mL Solution
2,000 unit SC Q7D
magnesium hydroxide [Milk of Magnesia] 400 mg/5 mL Suspension
2,400 mg PO DAILYPRN PRN (Reason: if no bm aftr 3rd day)
Fleet Enema 19-7 gram/118 mL Enema
118 ml OH DAILYPRN PRN (Reason: if no bm aftr dulcolax)
Preparation H 0.25-14-74.9 % Ointment
1 applic OH DAILYPRN PRN (Reason: hemorrhoids)
insulin aspart U-100 [Novolog FlexPen U-100 Insulin] 100 unit/mL (3 mL) insulin pen
1 sliding scale dose SC AC Qty: 15 0RF
nifedipine 30 mg Tablet Extended Release
30 mg PO BID Qty: 30 0RF
furosemide [Lasix] 20 mg tablet
20 mg PO DAILY Qty: 0 0RF
hydralazine 50 mg Tablet
100 mg PO TID 30 Days Qty: 120 0RF
Referrals:
Gordy Gtz MD [Family Provider]
Activity Restrictions/Additional Instructions:
Your hemoglobin as outpatient was reportedly 6.6. Currently it is 7.7. We did give 1 unit of blood which should hopefully make it go even higher. Return if worse or other concerns.
Interventions
Interventions:
*General Assessment Last Done: 10/10/25 21:25
*Neglect/Abuse Screening Last Done: 10/10/25 17:44
*ED COVID-19 Vaccine History Last Done: 10/10/25 21:25
*ED Influenza Vaccine History Last Done: 10/10/25 21:25
[facility] Fall Risk Assessment Tool Last Done: 10/10/25 21:25
*Risk Screen - Suicide (C-SSRS) Last Done: 10/10/25 21:25
Discharge Date and Time
Print Language: KAZAKH
[2025-10-11] VITALS (7 sets, daily range): BP systolic 187–220; BP diastolic 58–63
[2025-10-11] MEDS: LOPRESSOR 25 MG PO (01:36)
== END 2025-10-11 03:14 | disposition home or self-care (01) ==
LOC: EMR 17:40
PROVIDERS: Emergency Medicine; EMERGENCY PHYSICIAN Emergency Medicine; FAMILY PHYSICIAN Internal Medicine
DX: I12.9 Hypertensive chronic kidney disease with stage 1 through stage 4 chronic kidney disease, or unspecified chronic kidney disease (principal); N18.6 End stage renal disease; D63.1 Anemia in chronic kidney disease; Z99.2 Dependence on renal dialysis; I25.10 Atherosclerotic heart disease of native coronary artery without angina pectoris; I48.0 Paroxysmal atrial fibrillation; E78.00 Pure hypercholesterolemia, unspecified; J44.9 Chronic obstructive pulmonary disease, unspecified; Z79.01 Long term (current) use of anticoagulants
CPT/HCPCS: 99285; 36430; 80053; 85025; 86850; 86900; 86901; 86920; P9016